=== PATIENT | female | born 1985 | race Caucasian/White ===

== ENCOUNTER 2024-01-01 07:47 | Emergency (ER) | payer MEDICAID, SELFPAY ==
[2024-01-01 07:52] VITALS: BP 126/86; PULSE 120; RESP 18; TEMP 36.1; O2SAT 99; BMI 28.2
--- NOTE | 2024-01-01 08:16 | ED_ITS ---
HPI - General Adult General Date Seen: 01/01/24 Chief complaint: Flank Pain Stated complaint: Blood in urine, chills Time Seen by Provider: 01/01/24 07:59 Source: patient Mode of arrival: ambulatory Limitations: no limitations History of Present Illness HPI narrative: Patient is a 38-year-old female presenting to the emergency department for lower abdominal pain. She states she recently had a ureter stent placed for kidney stones. We are trying to find out the details on when this was placed and she had difficulty answering the question but was able to tell me it was done at [facility] in she was there again over the weekend and discharged on Friday for a kidney infection. She states the pain seems to be getting better but got acutely worse again last night. This is the same pain she was feeling over the weekend when she had her infection. She does states she is having chills. Was supposed to have the stent out today but states the pain was so bad and she noted blood in her urine. She states she came here instead [place] because they were not managing her pain. Denies chest pain, shortness of breath, headache, weakness, numbness. Does states she is feeling nauseated but has not had any vomiting yet. Related Data Home Medications ?Medication ?Instructions ?Recorded ?Confirmed albuterol sulfate 90 mcg/actuation 2 puff inhalation Q4H PRN 01/01/24 01/01/24 aerosol inhaler (Ventolin HFA) buspirone 7.5 mg tablet 7.5 mg PO BID anxiety 01/01/24 01/01/24 clonazepam 1 mg tablet 1 mg PO QID PRN anxiety attack 01/01/24 01/01/24 desvenlafaxine succinate 25 mg 25 mg PO DAILY 01/01/24 01/01/24 tablet,extended release 24 hr hydroxyzine HCl 25 mg tablet mg PO 01/01/24 lamotrigine 150 mg tablet 150 mg PO DAILY 01/01/24 01/01/24 oxycodone 10 mg tablet 10 mg PO BID PRN 01/01/24 01/01/24 tamsulosin 0.4 mg capsule 0.4 mg PO DAILY 01/01/24 01/01/24 Review of Systems Status of ROS: Reports: 10 or more systems reviewed and unremarkable except as noted in History and below Exam Narrative: Exam Narrative: Const: Well-nourished, Well-developed, in moderate distress Eyes: PERRL, no conjunctival injection, and symmetrical lids HENT: Atraumatic external nose and ears. Moist mucous membranes. Neck: Symmetric, trachea midline, No thyromegaly. CVS: RRR, No murmurs or gallops. Peripheral pulses 2+ and equal in all extremities RESP: Unlabored respiratory effort. Clear to auscultation bilaterally. GI: Lower abdominal tenderness bilaterally, suprapubic tenderness. Nondistended, No rebound or guarding. MSK:Extremities w/o deformity, Normal Active ROM Skin: Warm, Dry. No rashes or lesions. Neuro: Normal Muscle tone, No focal neurological deficits. Psych: Awake, Alert, & Oriented x3. Appropriate mood and affect. Const: Vital Signs, click to edit/add: Vital Signs - 24 hr 01/01/24 07:52 Temperature 97 F L Pulse Rate [Right Pulse Oximeter] 120 H Respiratory Rate 18 Blood Pressure [Ri ght Upper Arm] 126/86 Pulse Oximetry 99 Oxygen Delivery Me thod Room Air Course Vital Signs Vital signs: Initial Vital Signs Temperature 97 F L 01/01/24 07:52 Temperature Source Temporal Artery Scan 01/01/24 07:52 Pulse Rate 120 H 01/01/24 07:52 Pulse Rhythm Regular 01/01/24 07:52 Pulse Strength 3+ Normal 01/01/24 07:52 Respiratory Rate 18 01/01/24 07:52 Blood Pressure 126/86 01/01/24 07:52 Blood Pressure Mean 99 01/01/24 07:52 Blood Pressure Position Standing 01/01/24 07:52 Pulse Oximetry 99 01/01/24 07:52 Oxygen Delivery Method Room Air 01/01/24 07:52 Vital Signs Temperature 97 F L 01/01/24 07:52 Pulse Rate 120 H 01/01/24 07:52 Respiratory Rate 18 01/01/24 07:52 Blood Pressure 126/86 01/01/24 07:52 Pulse Oximetry 99 01/01/24 07:52 Oxygen Delivery Method Room Air 01/01/24 07:52 Temperature 97 F L 01/01/24 07:52 Pulse Rate 120 H 01/01/24 07:52 Respiratory Rate 18 01/01/24 07:52 Blood Pressure 126/86 01/01/24 07:52 Pulse Oximetry 99 01/01/24 07:52 Oxygen Delivery Method Room Air 01/01/24 07:52 Medications Administered Medications: Discontinued Medications Generic Name Dose Route Start Last Admin Trade Name Aditya PRN Reason Stop Dose Admin Lactated Ringer's 1,000 mls @ 1,000 mls/hr 01/01/24 08:17 01/01/24 08:20 Lactated Ringers 1000 Ml IV 01/01/24 09:16 1,000 mls/hr .Q1H ONE Administration Ketorolac Tromethamine 15 mg 01/01/24 08:17 01/01/24 08:20 Ketorolac 15 Mg/Ml Inj IVP 01/01/24 08:18 15 mg ONCE ONE Administration Morphine Sulfate 4 mg 01/01/24 09:25 01/01/24 09:46 Morphine 4 Mg/Ml Inj IVP 01/01/24 09:26 4 mg ONCE ONE Administration Ondansetron HCl 4 mg 01/01/24 08:20 01/01/24 08:20 Ondansetron 2 Mg/Ml Inj IVP 01/01/24 08:21 4 mg ONCE ONE Administration Medical Decision Making MDM Narrative Medical decision making narrative: Patient is a 38-year-old female presenting to the emergency department for lower abdominal pain. Had a recent stent placed on 12/18/2023 per chart review. She is in pain and Toradol will be given her also give Zofran for nausea. CBC, CMP, urinalysis, urine test also ordered. L of fluids given for possible dehydration. Will also do CT scan to evaluate for any new causes of pain. CBC returned showing no concerning abnormalities. CMP shows a potassium of 3.0. Other that no concerning findings. Urinalysis shows blood but no obvious signs of a UTI. She does have some leukocyte esterase but there are no white blood cells and very few bacteria along with no nitrites. Seems unlikely to be UTI at this time. She was done pain and morphine was given. Her pain is now under control. CT scan returned showing [age] year old a stent extends in the renal pelvis to the bladder. There is some fat stranding around it but is likely related to the recent stent placement again there is no clear sign of a UTI. No signs of obstructing kidney stones. She is otherwise doing well at this time I believe she is safe for discharge. She is agreeable to this plan. Lab Data Labs: Lab Results 01/01/24 01/01/24 Range/Units 08:18 08:24 WBC 11.98 H (4.50-11.00) K/uL RBC 3.70 L (4.00-5.20) m/uL Hgb 11.4 L (12.0-16.0) gm/dL Hct 34.9 (33.0-51.0) % MCV 94 (80-100) fL MCH 31 (26-34) pg MCHC 33 (32-36) gm/dL RDW Coeff of Dev 13.6 (11.5-15.5) % Plt Count 364 (140-440) K/uL Neut % (Auto) 59.4 (42.0-72.0) % Lymph % (Auto) 34.5 (20-44) % [place] % (Auto) 3.6 (0.0-11.0) % Eos % (Auto) 1.9 (0.0-7.0) % Baso % (Auto) 0.3 (0.0-3.0) % Neut # (Auto) 7.10 H (1.7-7.0) K/uL Lymph # (Auto) 4.10 H (0.90-2.90) K/uL [place] # (Auto) 0.40 (0.00-0.90) K/UL Eos # (Auto) 0.20 (0.00-0.50) K/uL Baso # (Auto) 0.00 (0.00-0.30) K/uL Abs Immat Gran (auto) 0.00 (0.00-0.30) K/uL Imm/Tot Granulo (auto) 0.3 % Sodium 138 (135-149) mmol/L Potassium 3.0 L (3.6-5.1) mmol/L Chloride 106 (96-114) mmol/L Carbon Dioxide 24 (20-32) mmol/L Anion Gap 8 (7-15) mEq/L BUN 15 (5-24) mg/dL Creatinine 0.7 (0.5-1.5) mg/dL Estimated Creat Clear 105.34 Estimated GFR 113 ml/min Glucose 82 (60-115) mg/dL Calcium 8.9 (8.4-10.6) mg/dL Total Bilirubin 0.4 (0.1-1.5) mg/dL AST 19 (12-35) U/L ALT 13 (4-35) U/L Alkaline Phosphatase 65 (40-150) U/L Total Protein 7.0 (6.0-8.3) g/dL Albumin 4.3 (3.3-5.0) g/dL Urine Color Red A (Yellow) Urine Appearance Slightly Cloudy A (Clear) Urine pH 7.0 (5.0-8.5) Ur Specific [place] 1.025 (1.000-1.030) Urine Protein 2+ A (Negative) Urine Glucose (UA) Negative (Negative) Urine Ketones Negative (Negative) Urine Blood 3+ A (Negative) Urine Nitrite Negative (Negative) Urine Bilirubin Negative (Negative) Urine Urobilinogen 0.2 (0.2-1.0) Ur Leukocyte Esterase 1+ A (Negative) Urine RBC >100 A (0-2) Urine WBC 2-5 (0-5) Ur Squamous Epith Cells Few (None-Few) Urine Bacteria Few A (None) Urine HCG, Qual Negative (Negative) Imaging Data CT scan abdomen and pelvis: Radiologist's impression: 1. Nephrolithiasis with mild right pelvocaliectasis. Right ureteral stent extends from the renal pelvis to the bladder. Some fat stranding/inflammation surrounding the right ureter which may be related to recent stent placement. 2. No dilated loops of large or small intestine. Please note that all CT scans at this facility use dose modulation, iterative reconstruction, and/or weight-based dosing when appropriate to reduce radiation dose to as low as reasonably achievable. Dictated by Jude Lopes MD @ 01/01/2024 10:15:19 AM Discharge Plan Discharge Clinical Impression: Abdominal pain Qualifiers: Abdominal location: lower abdomen, unspecified Qualified Code(s): R10.30 - Lower abdominal pain, unspecified Patient Disposition: Home, Self-Care Condition: Improved Instructions: Abdominal Pain (ED) Additional Instructions: This pain may be related to the stent you have any your ureter. Following your urologist directions on its removal. Prescriptions: No Action lamotrigine 150 mg tablet 150 mg PO DAILY clonazepam 1 mg tablet 1 mg PO QID PRN (Reason: anxiety attack) tamsulosin 0.4 mg capsule 0.4 mg PO DAILY buspirone 7.5 mg tablet 7.5 mg PO BID hydroxyzine HCl 25 mg tablet PO albuterol sulfate [Ventolin HFA] 90 mcg/actuation HFA aerosol inhaler 2 puff INHALATION Q4H PRN oxycodone 10 mg tablet 10 mg PO BID PRN desvenlafaxine succinate 25 mg tablet extended release 24 hr 25 mg PO DAILY Follow Up/Referrals: Provider,Not a Local [Staff Physician] - Stand Alone Forms: Lettuce Info Instructions
--- NOTE | 2024-01-01 08:18 | CRLHL7_ITS ---
For Patients: As a result of the Century Cures Act, medical imaging exams and procedure reports are released immediately into your electronic medical record. You may view this report before your referring provider. If you have questions, please contact your health care provider. INDICATION: Lower abdominal pain, recent ureter stent placed TECHNIQUE: Axial images were obtained from the diaphragm to the pubic symphysis. Reformats were obtained in the coronal and sagittal plane. IV Contrast: 66 cc Isovue 370 Oral Contrast: None COMPARISON: None. FINDINGS: Lower chest: Unremarkable. Liver: Unremarkable. Normal in size and attenuation. No masses. Gallbladder and bile ducts: Status post cholecystectomy with normal diameter common duct. Spleen: Unremarkable. Normal in size without mass. Pancreas: Unremarkable. No mass or inflammation. Adrenal glands: Unremarkable. No nodules. Kidneys: Symmetric renal enhancement with mild right pelvocaliectasis. Nonobstructing nephrolithiasis. Right ureteral stent extending from the renal pelvis to the bladder. Mild fat stranding surrounding the right ureter. Vasculature: Unremarkable. GI tract: The stomach is unremarkable. No dilated loops of large or small intestine. Suture line at the cecal tip suggesting prior appendectomy. Pelvis: Unremarkable. Bones: Unremarkable for age. IMPRESSION: 1. Nephrolithiasis with mild right pelvocaliectasis. Right ureteral stent extends from the renal pelvis to the bladder. Some fat stranding/inflammation surrounding the right ureter which may be related to recent stent placement. 2. No dilated loops of large or small intestine. Please note that all CT scans at this facility use dose modulation, iterative reconstruction, and/or weight-based dosing when appropriate to reduce radiation dose to as low as reasonably achievable. Dictated by Jude Lopes MD @ 01/01/2024 10:15:19 AM (Electronically Signed)
[2024-01-01] MEDS: LACTATED RINGERS 1000 ML 1,000 ML IV (08:20)
[2024-01-01] MEDS: KETOROLAC 15 MG/ML inj IVP (08:20)
[2024-01-01] MEDS: ONDANSETRON 2 MG/ML inj 4 MG IVP (08:20)
[2024-01-01 08:34] LABS: Basophils Percent Auto 0.3 % (0.0-3.0); Eosinophils Percent Auto 1.9 % (0.0-7.0); Hematocrit 34.9 % (33.0-51.0); Hemoglobin* 11.4 gm/dL (12.0-16.0); Immature Granulocytes Pct Auto 0.3 %; Lymphocytes Percent Auto 34.5 % (20-44); Mean Corpuscular HGB Conc 33 gm/dL (32-36); Mean Corpuscular Hemoglobin 31 pg (26-34); Mean Corpuscular Volume 94 fL (80-100); Monocytes Percent Auto 3.6 % (0.0-11.0); Neutrophils Percent Auto 59.4 % (42.0-72.0); Platelet Count* 364 K/uL (140-440); RDW Coefficient of Variation % 13.6 % (11.5-15.5); White Blood Count* 11.98 K/uL (4.50-11.00)
[2024-01-01 08:35] LABS: Appearance Urine Slightly Cloudy (Clear); Bilirubin Urine Negative (Negative); Blood Urine 3+ (Negative); Color Urine Red (Yellow); Glucose Urine Negative (Negative); Ketones Urine Negative (Negative); Leukocyte Esterase Urine 1+ (Negative); Nitrite Urine Negative (Negative); Protein Urine 2+ (Negative); Specific Gravity Urine 1.025 (1.000-1.030); Urobilinogen Urine 0.2 (0.2-1.0)
[2024-01-01 08:35] LABS: Slide Review Reflex No
[2024-01-01 08:38] LABS: Ur HCG Qualitative* Negative (Negative)
--- OUTSIDE RECORDS SUMMARY | 2024-01-01 08:43 | XMS_ITS | Referral Summary ---
Author Organization [place] Address [address] [facility] [place] [address] Care Team Providers Care Logistics Lead Name Role Phone Zara Thurston MD [facility], [facility] Primary Care Provid er Encounters Date Type Department Care Team Description 12/27/2023 5:21 PM CDT - 12/29/2023 12:44 PM CDT Hospital Encounter [facility] 5 Medical Surgical [address] [place] [address] Sam Link MD Ricklefs, Kendall D, DO Pain due to ureteral stent, initial encounter (H24) (Primary Dx); Pyelonephritis; Ureteral stone Discharge Disposition: Home or Self Care 12/28/2023 6:06 PM CDT Anesthesia Event [facility] PeriOp Services [address] [place] [address] Gil Alvarez MD Severson, Dean Dennis, SARAH MANAGER EXCHANGE 12/28/2023 6:00 PM CDT - 12/28/2023 7:20 PM CDT Surgery [facility]iOp Services [address] [place] [address] Leighton Bonilla MD Cystoscopy, right ureteroscopy with laser lithotripsy, right ureteroscopy with stone basketing, right retrograde pyelogram, right ureteral stent exchange 12/27/2023 Travel 12/22/[address] [address] Stas Bautista MD 12/18/2023 Medical Correspondence [facility] PeriOp Services [address] [place] [address] Scan, Non-Provider 12/18/2023 9:02 AM CDT Anesthesia Event [facility] [address] [place] [address] Raj Brown, DO 12/18/2023 5:00 AM CDT - 12/18/2023 11:29 AM CDT Emergency [facility] PreOP/PostOP [address] [place] [address] Radha Ziegler MD Salay, MD Michele Sanders Bryan D, MD Right ureteral stone (Primary Dx); Right flank pain; Urinary tract infection without hematuria, site unspecified Discharge Disposition: Home or Self Care 12/18/2023 9:00 AM CDT - 12/18/2023 9:55 AM CDT Surgery [facility] [address] [place] [address] Stas Bautista MD Cystoscopy, right retrogrades, right ureteral stent insertion 12/17/2023 Travel 12/17/2023 4:08 PM CDT - 12/17/2023 7:49 PM CDT Emergency [facility] Emergency Dept [address] [place] [address] Benita Bullard MD Ureterolithiasis; Right flank pain; Acute cystitis with hematuria Discharge Disposition: Home or Self Care from Last 3 Months Allergies Active Allergy Reactions Criticality Noted Date Comments Cefoxitin Rash Low 03/31/2017 Escitalopram Other (See Comments) High 09/20/2009 Other reaction(s): Extrapyramidal Symptoms Lactose Other (See Comments) 09/20/2009 No reaction listed in [facility] Sertraline Difficulty breathing,Other (See Comments),Shortness Of Breath High 09/22/2010 No reaction listed in [facility] Hydrocodone-Acetamino phen 12/19/2015 Medications Medication Sig Dispensed Refills Start Date End Date Status amphetamine-dext roamphetamine (ADDERALL) 20 MG tablet Take 1 tablet by mouth 3 times daily 12/09/2023 Active clonazePAM (KLONOPIN) 2 MG tablet TAKE 1/2 TABLET BY MOUTH THREE TIMES DAILY NEEDED FOR ANXIETY 12/09/2023 Active oxyBUTYnin ER (DITROPAN XL) 5 MG 24 hr tabletIndication s:Right ureteral stone Take 1 tablet (5 mg) by mouth daily Take daily until your stent is removed. 30 tablet 1 12/18/2023 Active tamsulosin (FLOMAX) 0.4 MG capsuleIndicatio ns:Right ureteral stone Take 1 capsule (0.4 mg) by mouth daily Take daily until your stent is removed. 30 capsule 1 12/18/2023 Active VENTOLIN HFA 108 (90 Base) MCG/ACT inhaler Inhale 2 puffs into the lungs every 4 hours as needed for shortness of breath or wheezing Active lamoTRIgine (LAMICTAL) 150 MG tablet Take 1 tablet by mouth daily 12/09/2023 Active NYSTOP [id number] UNIT/GM powder Apply topically 4 times daily Active acetaminophen (TYLENOL) 500 MG tabletIndication s:Pain due to ureteral stent, initial encounter (H24) Take 1-2 tablets (500-1,000 mg) by mouth every 6 hours as needed for pain (and adjunct with moderate or severe pain or per patient request) 12/29/2023 Active hydrOXYzine HCl (ATARAX) 25 MG tabletIndication s:Pain due to ureteral stent, initial encounter (H24) Take 1 tablet (25 mg) by mouth every 6 hours as needed for other or anxiety (adjuvant pain) 30 tablet 12/29/2023 Active oxyCODONE (ROXICODONE) 10 MG tabletIndication s:Pain due to ureteral stent, initial encounter (H24) Take 0.5 tablets (5 mg) by mouth every 6 hours as needed for moderate to severe pain (IF pain not managed with non-pharmacolog ical and non-opioid interventions) 24 tablet 12/29/2023 Active sulfamethoxazole -trimethoprim (BACTRIM DS) 800-160 MG tabletIndication s:Pyelonephritis Take 1 tablet by mouth 2 times daily for 7 days 14 tablet 12/29/2023 01/05/2024 Active Ondansetron (ZOFRAN ODT PO) 12/28/2023 Discontin ued (Med Rec(No AVS / No eCancel)) clonazePAM (KLONOPIN) 1 MG tablet TAKE 1 TABLET BY MOUTH FOUR TIMES DAILY NEEDED FOR ANXIETY OR SEVERE ANXIETY 10/30/2023 12/28/2023 Discontinued (Med Rec(No AVS / No eCancel)) ciprofloxacin (CIPRO) 500 MG tablet Take 1 tablet (500 mg) by mouth 2 times daily for 7 days 14 tablet 12/17/2023 12/24/2023 oxyCODONE (ROXICODONE) 5 MG tablet Take 1 tablet (5 mg) by mouth every 6 hours as needed for pain 12 tablet 12/17/2023 12/20/2023 ketorolac (TORADOL) 10 MG tabletIndication s:Right ureteral stone Take 1 tablet (10 mg) by mouth every 6 hours for 5 days 20 tablet 12/18/2023 12/23/2023 guanFACINE (INTUNIV) 1 MG TB24 24 hr tablet Take 1 tablet by mouth daily 10/28/2023 12/28/2023 Discontinued (Med Rec(No AVS / No eCancel)) albuterol (PROAIR HFA/PROVENTIL HFA/VENTOLIN HFA) 108 (90 Base) MCG/ACT inhaler Inhale 2 puffs into the lungs every 4 hours as needed for shortness of breath, wheezing or cough 12/28/2023 Discontinued (Med Rec(No AVS / No eCancel)) lamoTRIgine (LAMICTAL) 150 MG tablet Take 150 mg by mouth daily 12/28/2023 Discontinued (Med Rec(No AVS / No eCancel)) Active Problems Problem Noted Date Diagnosed Date Pyelonephritis 12/27/2023 Anxiety 12/22/2012 ADHD (attention deficit hyperactivity disorder) 12/22/2012 Smoker 09/02/2012 CARDIOVASCULAR SCREENING; LDL GOAL LESS THAN 160 09/02/2012 Endometriosis 09/02/2012 Contraception 09/02/2012 Immunizations Name Administration Dates Next Due Flu 65+ Years 04/03/2009,05/14/2006 Flu, Unspecified 04/14/2015,04/03/2009, 6 [id number] Novel Flu 05/01/2009 HPV Quadrivalent 07/29/2011,07/15/2008, 7 HepB, Unspecified 08/20/2016 Hepatitis B Immunity: Titer 08/20/2016 Historical DTP/aP 12/22/1986,1985,05/27/19 85 Influenza (H1N1) 05/01/2009 Influenza (IIV3) PF 04/03/2009,05/14/2006 Influenza Vaccine >6 months,quad, PF 04/14/2015 MMR 02/07/2018,09/27/1997,11/24/1986 Polio, Unspecified 12/22/1986,1985 Rubella 08/20/2016 Rubella Immunity: Titer/md Dx 08/20/2016 TDAP (Adacel,Boostrix) 12/02/2017,2016,07/29/2011,2009,09/27/1997 Td (Adult), Adsorbed 09/27/1997 Social History Tobacco Use Types Packs/Day Years Used Date Smoking Tobacco: Every Day Smokeless Tobacco: Never Comments:Social Alcohol Use Standard Drinks/Week Comments Yes 0 (1 standard drink = 0.6 oz pur e alcohol) rarely Adolescent Education Answer Date Record ed Getting School Help Needed Not on file 12/16 Sex and Gender Information Value Date Recorded Sex Assigned at Not on file Gender Identity Not on file Sexual Orientation Not on file Last Filed Vital Signs Vital Sign Reading Time Taken Comments Blood Pressure 149/92 12/29/2023 8:12 AM CDT Pulse 105 12/29/2023 8:12 AM CDT Temperature 36.9 ??C (98.5 ??F) 12/29/2023 8:12 AM CD T Respiratory Rate 16 12/29/2023 8:12 AM CDT Oxygen Saturation 96% 12/29/2023 8:12 AM CDT Inhaled Oxygen Concentration - - Weight 60 kg (132 lb 3.2 oz) 12/27/2023 9:20 PM CDT Height 147.3 cm (4' 10) 12/27/2023 9:20 PM CDT Body Mass Index 27.63 12/27/2023 9:20 PM CDT Plan of Treatment Not on file Medical Devices Implanted Type Area Quality Assurance Tester Device Identifier Shelf Expiration Date Model / Serial / Lot Stent Ureteral Polaris Ultra [id number] - [id number] Implanted:Qty : 1 on 12/18/2023 by Stas Bautista MD at [facility] Stent Right: Urethra [employer] [id number] 08/31/2026 [id number] 10 / / [id number] Stent Ureteral Polaris Ultra [id number] - [id number] Implanted:Qty : 1 on 12/28/2023 by Leighton Bonilla MD at [facility] Stent Right: Abdomen [employer] 07/17/2026 [id number] 10 / / [id number] Procedures Procedure Name Priority Date/Time Associated Diagnosis Comments HEMOGLOBIN Routine 12/29/2023 6:40 AM CDT XR SURGERY ZBIGNIEW FLUORO LESS THAN 5 MIN W STILLS Routine 12/28/2023 6:47 PM CDT STONE ANALYSIS Routine 12/28/2023 6:34 PM CDT ANE AIRWAY SUPRAGLOTTIC PERFORMABLE Routine 12/28/2023 6:18 PM CDT CYSTOURETEROSCOPY, WITH RETROGRADE PYELOGRAM, HOLMIUM LASER LITHOTRIPSY OF URETERAL CALCULUS, AND STENT INSERTION 12/28/2023 6:08 PM CDT Pain due to ureteral stent, initial encounter (H24) Ureteral stone CBC WITH PLATELETS Routine 12/28/2023 8: 37 AM CDT COMPREHENSIVE METABOLIC PANEL Routine 12/28/2023 8:37 AM CDT BLOOD CULTURE STAT 12/27/2023 7:27 PM CDT LACTIC ACID WHOLE BLOOD STAT 12/27/2023 7:27 PM CDT BLOOD CULTURE STAT 12/27/2023 7:[address] ABDOMEN PELVIS W CONTRAST STAT 12/27/2023 6:02 PM CDT CBC WITH PLATELETS & DIFFERENTIAL STAT 12/27/2023 5:38 PM CDT CBC WITH PLATELETS AND DIFFERENTIAL STAT 12/27/2023 5:38 PM CDT LACTIC ACID WHOLE BLOOD STAT 12/27/2023 5:38 PM CDT HCG QUALITATIVE STAT 12/27/2023 5:38 PM CDT COMPREHENSIVE METABOLIC PANEL STAT 12/27/2023 5:38 PM CDT URINE CULTURE STAT 12/27/2023 5:17 PM CDT ROUTINE UA WITH MICROSCOPIC REFLEX TO CULTURE STAT 12/27/2023 5:17 PM CDT XR SURGERY ZBIGNIEW FLUORO LESS THAN 5 MIN W STILLS Routine 12/18/2023 9:32 AM CDT URINE CULTURE Routine 12/18/2023 9:25 AM CDT ANE AIRWAY SUPRAGLOTTIC PERFORMABLE Routine 12/18/2023 9:20 AM CDT CYSTOSCOPY, WITH RETROGRADE PYELOGRAM AND URETERAL STENT INSERTION 12/18/2023 9:04 AM CDT Stone, kidney ABO/RH TYPE AND SCREEN STAT 6:03 AM CDT CBC WITH PLATELETS & DIFFERENTIAL STAT 12/18/2023 6:03 AM CDT TYPE AND SCREEN, ADULT STAT 6:03 AM CDT CBC WITH PLATELETS AND DIFFERENTIAL STAT 12/18/2023 6:03 AM CDT BASIC METABOLIC PANEL STAT 12/18/2023 6:03 AM CDT URINE CULTURE STAT 12/17/2023 6:05 PM CDT ROUTINE UA WITH MICROSCOPIC REFLEX TO CULTURE STAT 12/17/2023 6:[address] ABDOMEN PELVIS W CONTRAST STAT 12/17/2023 5:46 PM CDT CBC WITH PLATELETS & DIFFERENTIAL STAT 12/17/2023 3:46 PM CDT HCG QUALITATIVE STAT 12/17/2023 3:46 PM CDT LIPASE Add-On 12/17/2023 3:46 PM CDT CBC WITH PLATELETS AND DIFFERENTIAL STAT 12/17/2023 3:46 PM CDT EXTRA RED TOP TUBE STAT 12/17/2023 3: 46 PM CDT EXTRA BLUE TOP TUBE STAT 12/17/2023 3 :46 PM CDT BASIC METABOLIC PANEL STAT 12/17/2023 3:46 PM CDT EXTRA TUBE STAT 12/17/2023 3:46 PM CDT HIV 1 AND 2 ANTIBODY (QUEST) Routine 01/20/2013 2:37 PM CDT Screen for STD (sexually transmitted disease) PAP IMAGED THIN LAYER SCREEN Routine 01/20/2013 12:00 AM CDT Screening for malignant neoplasm of the cervix from Last 3 Months or Most Recently Relevant to Health Maintenance Results * (ABNORMAL) Hemoglobin (12/29/2023 6:40 AM CDT) Hemoglobin 11.2(L) 11.7 - 15.7 g/dL 12/29/2023 6:52 AM CDT [facility] Blood STRUCTURE OF LEFT HAND / Unknown Venipuncture / Unknown 12/29/2023 6:40 AM CDT 12/29/2023 6:44 AM CDT Zeb Henderson MD LAB - BLOOD ORDER MARIMAR [facility] [address] Lab (1st floor, no room number) [place] [address] * XR Surgery ZBIGNIEW L/T 5 Min Fluoro w Stills (12/28/2023 6:47 PM CDT) Only the most recent of2 resultswithin the time period is included. Narrative [facility] - 12/28/2023 6:48 PM CDT This exam was marked as non-reportable because it will not be read by a radiologist or a [place] non-radiologist provider. Leighton Bonilla MD IMG DIAGNOSTIC IMAGI NG ORDERABLES Performing Organization Address City/[facility]/ZIP Co de Phone Number [facility] * Stone analysis (12/28/2023 6:34 PM CDT) Stone Mass 17 mg 12/31/2023 11:06 AM CDT [employer] Calculi Description See Note 12/31/2023 11:06 AM CDT [employer] Comment: Specimen consists of three brown and adames calculi fragments. The total weight is 17 mg. Stone Composition See Note 024 11:06 AM CDT [employer] Comment: Calculi composed primarily of: 60% calcium oxalate monohydrate, 10% calcium oxalate dihydrate, and 30% calcium phosphate (hydroxy- and carbonate- apatite). INTERPRETIVE INFORMATION: Calculi (Stone) analysis Calculi are the products of physiological processes that yield crystalline compounds in a matrix of biological compounds and blood. ??Matrix components are not reported. ?? The clinically significant crystalline components identified in calculi specimens are reported. ??Gross description may not be consistent with composition determined by FTIR analysis. Performed By: [facility] [address] [place] [id number] [employer] Decorative: Daniel Kahn MD, PhD CLIA Number: [id number] Calculus/Stone STRUCTURE OF RIGHT URETER / Unknown Non-blood Collection / Unknown 12/28/2023 6:34 PM CDT 12/28/2023 7:10 PM CDT Leighton Bonilla MD LAB - BODY FLUIDS OR DERABLES [facility] [address] [place] [address], [facility] [phone] * ANE AIRWAY SUPRAGLOTTIC PERFORMABLE (12/28/2023 6:18 PM CDT) Only the most recent of2 resultswithin the time period is included. Narrative Wayne Rutledge APRN MANAGER EXCHANGE - 12/28/2023 6:18 PM CDT Wayne Rutledge APRN CRNA ? 12/28/2023 ??6:18 PM Airway ? Patient location during procedure: OR Staff - ? Anesthesiologist: ??Gil Alvarez MD ? MANAGER EXCHANGE: Wayne Rutledge APRN MANAGER EXCHANGE ? Performed By: MANAGER EXCHANGE Consent for Airway ? Urgency: elective Indications and Patient Condition ? Indications for airway management: cherry-procedural and airway protection ? Induction type:intravenous ? Mask difficulty assessment: 1 - vent by mask Final Airway Details ? Final airway type: supraglottic airway Supraglottic Airway Details ? Type: LMA ? Brand: I-Gel ? LMA size: 4 Post intubation assessment ? Placement verified by: capnometry, equal breath sounds and chest rise ? Number of attempts at approach: 1 ? Number of other approaches attempted: 0 ? Secured with: commercial tube rico ? Ease of procedure: easy ? Dentition: Intact and Unchanged Gil Alvarez MD ND ANESTHESIA * (ABNORMAL) Comprehensive metabolic panel (12/28/2023 8:37 AM CDT) Only the most recent of2 resultswithin the time period is included. Sodium 139 135 - 145 mmol/L 12/28/2023 9:20 AM CDT LABORATORY Potassium 4.1 3.4 - 5.3 mmol/L 12/28/2023 9:20 AM CDT LABORATORY Carbon Dioxide (CO2) 21(L) 22 - 29 mmol/L 12/28/2023 9:20 AM CDT [facility] Anion Gap 10 7 - 15 mmol/L 12/28/2023 9:20 AM CDT [facility] Urea Nitrogen 18.5 6.0 - 20.0 mg/dL 12/28/2023 9:20 AM CDT [facility] Creatinine 0.67 0.51 - 0.95 mg/dL 12/28/2023 9:20 AM CDT [facility] GFR Estimate >90 >60 mL/min/1. 73m2 12/28/2023 9:20 AM CDT [facility] Comment:eGFR calculated us2020 CKD-EPI equation. Calcium 8.1(L) 8.6 - 10.0 mg/dL 12/28/2023 9:20 AM CDT [facility] Chloride 108(H) 98 - 107 mmol/L 12/28/2023 9:20 AM CDT [facility] Glucose 98 70 - 99 mg/dL 12/28/2023 9:20 AM CDT [facility] Alkaline Phosphatase 52 40 - 150 U/L 12/28/2023 9:20 AM CDT [facility] AST 19 0 - 45 U/L 12/28/2023 9:20 AM CDT [facility] Comment:Reference intervals for this test were updated on 11/25/2022 to more accurately reflect our healthy population. There may be differences in the flagging of prior results with similar values performed with this method. Interpretation of those prior results can be made in the context of the updated reference intervals. ALT 10 0 - 50 U/L 12/28/2023 9:20 AM CDT [facility] Comment:Reference intervals for this test were updated on 11/25/2022 to more accurately reflect our healthy population. There may be differences in the flagging of prior results with similar values performed with this method. Interpretation of those prior results can be made in the context of the updated reference intervals. Protein Total 6.0(L) 6.4 - 8.3 g/dL 12/28/2023 9:20 AM CDT [facility] Albumin 3.7 3.5 - 5.2 g/dL 12/28/2023 9:20 AM CDT [facility] Bilirubin Total 0.2 <=1.2 mg/dL 12/28/2023 9:20 AM CDT [facility] Blood STRUCTURE OF RIGHT UPPER LIMB / Unknown Venipuncture / Unknown 12/28/2023 8:37 AM CDT 12/28/2023 8:52 AM CDT Nash Alfonso DO LAB - BLOOD ORDERA BLES [facility] [address] Lab (1st floor, no room number) [place] [address] * (ABNORMAL) CBC with platelets (12/28/2023 8:37 AM CDT) [facility] WBC Count 9.2 4.0 - 11.0 10e3/uL 12/28/2023 8:55 AM CDT [facility] RBC Count 3.59(L) 3.80 - 5.20 10e6/uL 12/28/2023 8:55 AM CDT [facility] Hemoglobin 10.8(L) 11.7 - 15.7 g/dL 12/28/2023 8:55 AM CDT [facility] Hematocrit 34.8(L) 35.0 - 47.0 % 12/28/2023 8:55 AM CDT [facility] MCV 97 78 - 100 fL 12/28/2023 8:55 AM CDT [facility] MCH 30.1 26.5 - 33.0 pg 12/28/2023 8:55 AM CDT [facility] MCHC 31.0(L) 31.5 - 36.5 g/dL 12/28/2023 8:55 AM CDT [facility] RDW 13.6 10.0 - 15.0 % 12/28/2023 8:55 AM CDT [facility] Platelet Count 371 150 - 450 10e3/uL 12/28/2023 8:55 AM CDT [facility] Blood STRUCTURE OF RIGHT UPPER LIMB / Unknown Venipuncture / Unknown 12/28/2023 8:37 AM CDT 12/28/2023 8:52 AM CDT Nash Alfonso DO LAB - BLOOD ORDERA BLES [facility] [address] Lab (1st floor, no room number) [place] [address] * Lactic acid whole blood (12/27/2023 7:27 PM CDT) Only the most recent of2 resultswithin the time period is included. Lactic Acid 1.2 0.7 - 2.0 mmol/L 12/27/2023 7:42 PM CDT LABORATORY Blood STRUCTURE OF RIGHT UPPER LIMB / Unknown Venipuncture / Unknown 12/27/2023 7:27 PM CDT 12/27/2023 7:33 PM CDT Sam Link MD LAB - BLOOD ORDERABL ES [facility] [address] Lab (1st floor, no room number) [place] [phone] * CT Abdomen Pelvis w Contrast (12/27/2023 6:02 PM CDT) Only the most recent of2 resultswithin the time period is included. Anatomical Region Laterality Modality Abdomen/Pelvis, SUBRAD CT REENA DY, UMP CT ABDOMEN PELVIS, RAD CT Computed Tomography 12/27/2023 6:02 PM CDT Impressions 12/27/2023 6:33 PM CDT IMPRESSION: 1. ??Right pyelonephritis. No renal abscess. 2. ??Appropriately positioned right ureteral stent. The previously obstructing 4 mm calculus is now adjacent to the stent within the mid right ureter. No hydronephrosis. 3. ??Single nonobstructing calculus within each kidney measuring up to 7 mm on the left. Narrative 12/27/2023 6:33 PM CDT EXAM: CT ABDOMEN PELVIS W CONTRAST LOCATION: [facility] DATE: 12/27/2023 INDICATION: Right flank pain. COMPARISON: CT abdomen pelvis 12/17/2023. TECHNIQUE: CT scan of the abdomen and pelvis was performed following injection of IV contrast. Multiplanar reformats were obtained. Dose reduction techniques were used. CONTRAST: 63mL Isovue 370 FINDINGS: LOWER CHEST: Subsegmental atelectasis. HEPATOBILIARY: Cholecystectomy with unchanged mild post cholecystectomy biliary ductal ectasia. No liver lesions. PANCREAS: Normal. SPLEEN: Normal. ADRENAL GLANDS: Normal. KIDNEYS/BLADDER: Interval placement of a double-J right ureteral stent, with proximal coil within the right renal pelvis and distal coil within the urinary bladder. Patchy areas of decreased cortical enhancement within the right kidney compatible with pyelonephritis. No renal abscess. Nonobstructing 2 mm right upper pole renal calculus. Nonobstructing 7 mm left upper pole renal calculus. No hydronephrosis. A 4 mm calculus is present within the mid right ureter adjacent to the stent. Bladder is partially decompressed. BOWEL: Stomach is distended with ingested material. No bowel obstruction or inflammation. Appendix is absent. Few noninflamed sigmoid colonic diverticuli. LYMPH NODES: No enlarged lymph nodes. VASCULATURE: Patent portal, splenic, and superior mesenteric veins. No abdominal aortic aneurysm. PELVIC ORGANS: Retroverted uterus. MUSCULOSKELETAL: No acute bony abnormality. Procedure Note Avery Estrada MD - 12/27/2023 EXAM: CT ABDOMEN PELVIS W CONTRAST LOCATION: [facility] DATE: 12/27/2023 INDICATION: Right flank pain. COMPARISON: CT abdomen pelvis 12/17/2023. TECHNIQUE: CT scan of the abdomen and pelvis was performed followinginjection of IV contrast. Multiplanar reformats were obtained. Dosereduction techniques were used. CONTRAST: 63mL Isovue 370 FINDINGS: LOWER CHEST: Subsegmental atelectasis. HEPATOBILIARY: Cholecystectomy with unchanged mild post cholecystectomybiliary ductal ectasia. No liver lesions. PANCREAS: Normal. SPLEEN: Normal. ADRENAL GLANDS: Normal. KIDNEYS/BLADDER: Interval placement of a double-J right ureteral stent,with proximal coil within the right renal pelvis and distal coil withinthe urinary bladder. Patchy areas of decreased cortical enhancement withinthe right kidney compatible with pyelonephritis. No renal abscess. Nonobstructing 2 mm right upper polerenal calculus. Nonobstructing 7 mm left upper pole renal calculus. Nohydronephrosis. A 4 mm calculus is present within the mid right ureteradjacent to the stent. Bladder is partially decompressed. BOWEL: Stomach is distended with ingested material. No bowel obstructionor inflammation. Appendix is absent. Few noninflamed sigmoid colonicdiverticuli. LYMPH NODES: No enlarged lymph nodes. VASCULATURE: Patent portal, splenic, and superior mesenteric veins. Noabdominal aortic aneurysm. PELVIC ORGANS: Retroverted uterus. MUSCULOSKELETAL: No acute bony abnormality. IMPRESSION: 1. Right pyelonephritis. No renal abscess. 2. Appropriately positioned right ureteral stent. The previouslyobstructing 4 mm calculus is now adjacent to the stent within the midright ureter. No hydronephrosis. 3. Single nonobstructing calculus within each kidney measuring up to 7 mmon the left. Sam Link MD IMG CT ORDERABLES * (ABNORMAL) CBC with platelets and differential (12/27/2023 5:38 PM CDT) Only the most recent of3 resultswithin the time period is included. WBC Count 11.3(H) 4.0 - 11.0 10e3/uL 12/27/2023 5:44 PM CDT [facility] RBC Count 4.06 3.80 - 5.20 10e6/uL 12/27/2023 5:44 PM CDT [facility] Hemoglobin 12.2 11.7 - 15.7 g/dL 12/27/2023 5:44 PM CDT [facility] Hematocrit 38.2 35.0 - 47.0 % 12/27/2023 5:44 PM CDT [facility] MCV 94 78 - 100 fL 12/27/2023 5:44 PM CDT [facility] MCH 30.0 26.5 - 33.0 pg 12/27/2023 5:44 PM CDT [facility] MCHC 31.9 31.5 - 36.5 g/dL 12/27/2023 5:44 PM CDT [facility] RDW 13.5 10.0 - 15.0 % 12/27/2023 5:44 PM CDT [facility] Platelet Count 440 150 - 450 10e3/uL 12/27/2023 5:44 PM CDT [facility] % Neutrophils 58 % 12/27/2023 5:44 PM CDT [facility] % Lymphocytes 35 % 12/27/2023 5:44 PM CDT [facility] % Monocytes 4 % 12/27/2023 5:44 PM CDT [facility] % Eosinophils 2 % 12/27/2023 5:44 PM CDT [facility] % Basophils 0 % 12/27/2023 5:44 PM CDT [facility] % Immature Granulocytes 1 % 12/27/2023 5:44 PM CDT [facility] NRBCs per 100 WBC 0 <1 /100 024 5:44 PM CDT [facility] Absolute Neutrophils 6.5 1.6 - 8.3 10e3/uL 12/27/2023 5:44 PM CDT [facility] Absolute Lymphocytes 3.9 0.8 - 5.3 10e3/uL 12/27/2023 5:44 PM CDT [facility] Absolute Monocytes 0.5 0.0 - 1.3 10e3/uL 12/27/2023 5:44 PM CDT [facility] Absolute Eosinophils 0.2 0.0 - 0.7 10e3/uL 12/27/2023 5:44 PM CDT [facility] Absolute Basophils 0.1 0.0 - 0.2 10e3/uL 12/27/2023 5:44 PM CDT [facility] Absolute Immature Granulocytes 0.1 <=0.4 10e3/uL 12/27/2023 5:44 PM CDT [facility] Absolute NRBCs 0.0 10e3/uL 12/27/2023 5:44 PM CDT [facility] Blood BLOOD SPECIMEN / Unknown Venipuncture / Unknown 12/27/2023 5:38 PM CDT 12/27/2023 5:42 PM CDT Sam Link MD LAB - BLOOD ORDERABL ES [facility] [address] [facility] Lab (1st floor, no room number) [place] [address], [facility] * HCG QUALitative (blood) (12/27/2023 5:38 PM CDT) Only the most recent of2 resultswithin the time period is included. hCG Serum Qualitative Negative Negative DAFNE 12/27/2023 6:41 PM CDT [facility] Comment:This test is for scr eening purposes. Results should be interpreted along with the clinical picture. Confirmation testing is available if warranted by ordering [id number], HCG Quantitative . Blood BLOOD SPECIMEN / Unknown Venipuncture / Unknown 12/27/2023 5:38 PM CDT 12/27/2023 5:42 PM CDT Sam Link MD LAB - BLOOD ORDERABL ES [facility] [address] Lab (1st floor, no room number) [place] [address], [facility] * (ABNORMAL) UA with Microscopic reflex to Culture (12/27/2023 5:17 PM CDT) Only the most recent of2 resultswithin the time period is included. Color Urine Dark Brown(A) Colorless, Straw, Light Yellow, Yellow 12/27/2023 5:52 PM CDT LABORATORY Appearance Urine Cloudy(A) Clear 12/27/19 24 5:52 PM CDT LABORATORY Glucose Urine Negative Negative mg/dL 12/27/2023 5:52 PM CDT LABORATORY Bilirubin Urine Negative Negative 5:52 PM CDT LABORATORY Ketones Urine Negative Negative mg/dL 12/27/2023 5:52 PM CDT LABORATORY Specific [place] Urine 1.027 1.003 - 1.035 12/27/2023 5:52 PM CDT LABORATORY Blood Urine Large(A) Negative 12/27/2023 5:52 PM CDT LABORATORY pH Urine 6.0 5.0 - 7.0 12/27/2023 5:52 PM CDT LABORATORY Protein Albumin Urine 300(A) Negative mg/dL 12/27/2023 5:52 PM CDT LABORATORY Urobilinogen Urine Normal Normal, 2.0 mg/dL 12/27/2023 5:52 PM CDT LABORATORY Nitrite Urine Negative Negative 12/27/2023 5:52 PM CDT LABORATORY Leukocyte Esterase Urine Moderate(A) Negative 12/27/2023 5:52 PM CDT LABORATORY RBC Urine >182(H) <=2 /HPF 12/27/2023 5:52 PM CDT LABORATORY WBC Urine 2 <=5 /HPF 12/27/2023 5:52 PM CDT LABORATORY Urine URINE SPECIMEN OBTAINED BY CLEAN CATCH PROCEDURE / Unknown Non-blood Collection / Unknown 12/27/2023 5:17 PM CDT 12/27/2023 5:21 PM CDT Narrative [facility] - 12/27/2023 5:52 PM CDT Urine Culture ordered based on laboratory criteria Sam Link MD LAB - URINE ORDERABL ES [facility] [address] Lab (1st floor, no room number) [place] [address] * Urine Culture (12/27/2023 5:17 PM CDT) Only the most recent of3 resultswithin the time period is included. Culture <10,000 CFU/mL Mixture of Urogenital Marita 12/29/2023 5:31 AM CDT [facility] Urine URINE SPECIMEN OBTAINED BY CLEAN CATCH PROCEDURE / Unknown Non-blood Collection / Unknown 12/27/2023 5:17 PM CDT 12/27/2023 5:52 PM CDT Sam Link MD LAB - MICRO GENERAL ORDERABLES [facility] Inf. Diseases Diag. Lab [address] [facility] [facility] [address] [place] [address] * Adult Type and Screen (12/18/2023 6:03 AM CDT) ABO/RH(D) O POS 12/18/2023 5:19 AM CDT [facility] Antibody Screen Negative Negative 12/18/2023 5:19 AM CDT [facility] SPECIMEN EXPIRATION DATE [id number] 12/18/2023 5:19 AM CDT [facility] Blood BLOOD SPECIMEN / Unknown Venipuncture / Unknown 12/18/2023 6:03 AM CDT 12/18/2023 6:17 AM CDT Radha Ziegler MD LAB - BLOOD BAN K TEST ORDER [facility] B[facility] [address] [place] [address] * (ABNORMAL) Basic metabolic panel (12/18/2023 6:03 AM CDT) Only the most recent of2 resultswithin the time period is included. Sodium 133(L) 135 - 145 mmol/L 12/18/2023 7:09 AM CDT LABORATORY Potassium 3.3(L) 3.4 - 5.3 mmol/L 12/18/2023 7:09 AM CDT LABORATORY Chloride 99 98 - 107 mmol/L 12/18/2023 7:09 AM CDT LABORATORY Carbon Dioxide (CO2) 20(L) 22 - 29 mmol/L 12/18/2023 7:09 AM CDT LABORATORY Anion Gap 14 7 - 15 mmol/L 12/18/2023 7:09 AM CDT LABORATORY Urea Nitrogen 9.2 6.0 - 20.0 mg/dL 12/18/2023 7:09 AM CDT LABORATORY Creatinine 0.79 0.51 - 0.95 mg/dL 12/18/2023 7:09 AM CDT LABORATORY GFR Estimate >90 >60 mL/min/1.7 3m2 12/18/2023 7:09 AM CDT LABORATORY Comment:eGFR calculated 2020 CKD-EPI equation. Calcium 8.5(L) 8.6 - 10.0 mg/dL 12/18/2023 7:09 AM CDT LABORATORY Glucose 114(H) 70 - 99 mg/dL 12/18/2023 7:09 AM CDT LABORATORY Blood BLOOD SPECIMEN / Unknown Venipuncture / Unknown 12/18/2023 6:03 AM CDT 12/18/2023 6:16 AM CDT Radha Ziegler MD LAB - BLOOD ORD ERABLES [facility] [address] [facility] Lab (1st floor, no room number) [place] [address], [facility] * Extra Red Top Tube (12/17/2023 3:46 PM CDT) Hold Specimen JIC 12/17/2023 5:04 PM CDT [facility] Blood STRUCTURE OF LEFT UPPER LIMB / Unknown Venipuncture / Unknown 12/17/2023 3:46 PM CDT 12/17/2023 3:52 PM CDT Benita Bullard MD LAB - BLOOD NAY GEIGER [facility] [address] Lab (1st floor, no room number) [address] * Extra Blue Top Tube (12/17/2023 3:46 PM CDT) Hold Specimen [facility] 12/17/2023 5:04 PM CDT LABORATORY Blood STRUCTURE OF LEFT UPPER LIMB / Unknown Venipuncture / Unknown 12/17/2023 3:46 PM CDT 12/17/2023 3:52 PM CDT Benita Bullard MD LAB - BLOOD NAY GEIGER [facility] [address] Lab (1st floor, no room number) [address] * Lipase (12/17/2023 3:46 PM CDT) [facility] Signature Lipase 25 13 - 60 U/L 12/17/2023 4:30 PM CDT LABORATORY Blood STRUCTURE OF LEFT UPPER LIMB / Unknown Venipuncture / Unknown 12/17/2023 3:46 PM CDT 12/17/2023 3:52 PM CDT Benita Bullard MD LAB - BLOOD NAY GEIGER [facility] [address] Lab (1st floor, no room number) [address] * HIV 1 and 2 Antibody (01/20/2013 2:37 PM CDT) HIV 1&2 Antibody Negative NEG [facility]CRO[facility] Blood specimen (specimen) 01/20/2013 2:37 PM CDT 01/20/2013 2:38 PM CDT Renetta Corley MD LAB - BLOOD OR DERABLES [facility]CRO[facility] * PAP imaged thin layer screen (01/20/2013 12:00 AM CDT) PAP NIL COPATH Copath Report Patient Name: SAUL DUMONT MR#: [id number] Specimen #: [id number] Collected: 01/20/2013 Received: 01/21/2013 Reported: 2013 13:10 Ordering Phy(s): RENETTA CORLEY SPECIMEN/STAIN PROCESS: Pap imaged thin layer prep screening (Surepath, F[employer]Point with guided screening) ? Pap-Cyto x 1, Reflex HPV x 1 SOURCE: Cervical, endocervical Pap imaged thin layer prep screening (Surepath, FocalPoint with guided screening) SPECIMEN ADEQUACY: Satisfactory for evaluation. -Transformation zone component present. CYTOLOGIC INTERPRETATION: Negative for Intraepithelial Lesion or Malignancy Electronically signed out by: EDWIN Plasencia ??(ASCP) Processed and screened at [facility], [facility] CLINICAL HISTORY: Other: Implant, Papanicolaou Test Limitations: ??Cervical cytology is a screening test with limited sensitivity; regular screening is critical for cancer prevention; Pap tests are primarily effective for the diagnosis/preventi on of squamous cell carcinoma, not adenocarcinomas or other cancers. TESTING LAB LOCATION: [address] ??[address] COLLECTION SITE: Client: ??[facility] Location: FP (R) COPATH Cytologic material (specimen) 01/20/2013 01/21/2013 11:23 AM CDT Renetta Corley MD LAB - OPTIMJuan Alberto Her LINICAL SPECIMEN COPATH from Last 3 Months or Most Recently Relevant to Health Maintenance Advance Directives For more information, please contact: [phone] * Full Code (Latest Code Status on File) Date Activated Date Inactivated Comments 12/27/2023 9:50 PM 12/29/2023 2:49 PM All basic an d advanced life-sustaining interventions are performed as appropriate Question Answer Comments Code status determined by: Discussion with eden nt/ legal decision maker Care Teams Logistics Lead Relationship Specialty Start Date End Date [facility], [address], [address] [place] [address] PCP - General 08/23/16 [facility], [facility] DO NOT USE Pediatrics 08/16/13
--- OUTSIDE RECORDS SUMMARY | 2024-01-01 08:43 | XMS_ITS | Encounter Summary ---
Author Organization [facility] Address [address] [place] [address] Care Team Providers Care Martial Arts Instructor Name Role Phone Zara Thurston MD [facility], [facility], [facility] Primary Care Provid er Reason for Visit * Reason Comments Flank Pain Post-op Problem Urinary Retention * Auth/Cert Specialty Diagnoses / Procedures Referred By Josef t Referred To Contact EMERGENCY MEDICINE Diagnoses Pyelonephritis [facility] [address] [place] [address] Referral ID Status Reason Start Date Expiration Date Visits Re quested Visits Authorized [id number] 1 1 Encounter Details Date Type Department Care Team (Late st Contact Info) Description 12/27/2023 5:21 PM CDT - 12/29/2023 12:44 PM CDT Hospital Encounter [place] [address] [facility] Surgical [address] [place] [address] Sam Link MD [facility] [address] [place], [place] [address] Nash Alfonso, DO [address] [place] [address] Pain due to ureteral stent, initial encounter (H24) (Primary Dx); Pyelonephritis; Ureteral stone Discharge Disposition: Home or Self Care Social History Tobacco Use Types Packs/Day Years [...] on file Sexual Orientation Not on file documented as of this encounter Last Filed Vital Signs Vital Sign Reading [...] Mass Index 27.63 12/27/2023 9:20 PM CDT documented in this encounter Discharge Summaries * Sammi Dover RN - 12/29/2023 12:44 PM CDT Discharge Note Patient discharged to home via private vehicle accompanied by friend. IV: Discontinued Prescriptions filled and given to patient/family. Belongings reviewed and sent with patient. Home medications returned to patient: NA Equipment sent with: patient. patient verbalizes understanding of discharge instructions. AVS given to patient. Additional education completed? ABX, pain control and stent removal instructions. * Mesfin Tejeda MD - 12/29/2023 11:28 AM CDT [facility] Hospitalist Discharge Summary Date of Admission: 12/27/2023 Date of Discharge: 12/29/2023 Discharging Provider: Mesfin Tejeda MD Discharge Service: Hospitalist Service Discharge Diagnoses Right ureter stone S\p cystoscopy with lithotripsy and stone removal Right pyelonephritis in setting of recent ureter stent placement Flank pain Recent ureteral stent placement Tobacco use disorder Clinically Significant Risk Factors # Overweight: Estimated body mass index is 27.63 kg/m?? as calculated from the following: Height as of this encounter: 1.473 m (4' 10). Weight as of this encounter: 60 kg (132 lb 3.2 oz). Follow-ups Needed After Discharge Follow-up Appointments Follow-up and recommended labs and tests Follow up with primary care provider, [facility], within 7 days for hospital follow- up. No follow up labs or test are needed. OK to remove stent on 01/01/24 Follow up with [facility] as needed. Unresulted Labs Ordered in the Past 30 Days of this Admission Date and Time Order Name Status Description 12/28/2023 6:44 PM Stone analysis In process 12/27/2023 6:05 PM Blood Culture Peripheral Blood Preliminary 12/27/2023 6:05 PM Blood Culture Arm, Right Preliminary These results will be followed up by hospitalists Discharge Disposition Discharged to home Condition at discharge: Stable Hospital Course Saul Fontana is a 38 year old female admitted on 12/27/2023. She has a past medical history significant for anxiety, depression, endometriosis, and nephrolithiasis. She did initially start having abdominal pain, nausea, and chills approximately 3 weeks prior to presentation. She presented to the ED 10 days prior to presentation. She was found to have urinary tract infection and ureterolithiasisat that time. She was seen in consultation by urology and had a ureteral stent placed. She was discharged on ciprofloxacin with plans for outpatient urology follow up for definitive treatment. She completed her antibiotics a couple of days prior to presentation and continued to have abdominal pain and nausea. She eturned to emergency room on 12/25 due to continued symptoms. Workup in the ER included CT scan, which suggested right pyelonephritis. 4 mm calculus was present within the mid right ureter adjacent to ureteral stent and appeared approopriately positioned. Nonobstructing left nephrolithiasis was noted. Urinalysis was bland. Blood cultures showed no growth. Urine culture grew < [id number] colonies of mixed marita Patient was started on IV Zosyn given findings of pyelonephritis on CT imaging. She was admitted for further cares. She was seen by urology and ultimately had cystoscopy with lithotripsy. Stent was left in place. She will discharge home today with 7 days of Bactrim and pain medicine. She will remove her stent on . Follow up with primary care in one week and with Urology as needed. Consultations This Hospital Stay UROLOGY IP CONSULT Code Status Full Code Time Spent on this Encounter I, Mesfin Tejeda MD, personally saw the patient today and spent greater than 30 minutes discharging this patient. Mesfin Tejeda MD [place] [address] MEDICAL SURGICAL [address] [facility] [address] Physical Exam Vital Signs: Temp: 98.5 ??F (36.9 ??C) Temp src: Oral BP: (!) 149/92 Pulse: 105 Resp: 16 SpO2: 96 %O2 Device: None (Room air) Oxygen Delivery: 5 LPM Weight: 132 lbs 3.2 oz GENERAL: Comfortable. Cooperative. PSYCH: pleasant, oriented, No acute distress. EYES: PERRLA, Normal conjunctiva. HEART: Regular rate and rhythm. No JVD. Pulses normal. No edema. LUNGS: Clear to auscultation, normal Respiratory effort. ABDOMEN: Soft, no hepatosplenomegaly, normal bowel sounds. EXTREMETIES: No clubbing, cyanosis or ischemia SKIN: Dry to touch, No rash. Primary Care Physician [facility] Discharge Orders Reason for your hospital stay Ureter stone treated with lithotripsy Follow-up and recommended labs and tests Follow up with primary care provider, [facility], within 7 days for hospital follow- up. No follow up labs or test are needed. OK to remove stent on 01/01/24 Follow up with [facility] as needed. Activity Your activity upon discharge: activity as tolerated Diet Follow this diet upon discharge: Regular Significant Results and Procedures Most Recent 3 CBC's: Recent Labs Lab Test 12/29/23 0640 12/28/23 0837 12/27/23 1738 12/18/23 0603 WBC -- 9.2 11.3* 13.1* HGB 11.2* 10.8* 12.2 11.6* MCV -- 97 94 92 PLT -- 371 440 198 Most Recent 3 BMP's: Recent Labs Lab Test 12/28/23 0837 12/27/23 1738 12/18/23 0603 NA 139 140 133* POTASSIUM 4.1 4.2 3.3* CHLORIDE 108* 107 99 CO2 21* 20* 20* BUN 18.5 18.3 9.2 CR 0.67 0.70 0.79 ANIONGAP 10 13 14 ADRI 8.1* 9.5 8.5* GLC 98 148* 114* 7-Day Micro Results Collected Updated Procedure Result Status 12/27/2023192612/28/2023 1946 Blood Culture Arm, Right [[id number]] Blood from Arm, Right Preliminary result Component Value Culture No growth after 1 day [P] 12/27/2023 1908 12/28/2023 1916 Blood Culture Peripheral Blood [[id number]] Peripheral Blood Preliminary result Component Value Culture No growth after 1 day [P] 12/27/2023 1717 12/29/2023 0531 Urine Culture [[id number]] Urine, Clean Catch Final result Component Value Culture <10,000 CFU/mL Mixture of Urogenital Marita , Results for orders placed or performed during the hospital encounter of 12/27/23 CT Abdomen Pelvis w Contrast Narrative EXAM: CT ABDOMEN PELVIS W CONTRAST LOCATION: [facility] DATE: 12/27/2023 INDICATION: Right flank pain. COMPARISON: [...] the urinary bladder. Patchy areas of decreased corticalenhancement within the right kidney compatible with pyelonephritis. No renal abscess. Nonobstructing 2 mm right upper pole renal calculus. Nonobstructing 7 mm left upper pole renal calculus. No hydronephrosis. A 4 mm calculus is present within the midright ureter adjacent to the stent. Bladder is partially decompressed. BOWEL: Stomach is distended with ingested material. No bowel obstruction or inflammation. Appendix is absent. Few noninflamed sigmoid colonic diverticuli. LYMPH NODES: No enlarged lymph nodes. VASCULATURE: Patent portal, splenic, and superior mesenteric veins. No abdominal aortic aneurysm. PELVIC ORGANS: Retroverted uterus. MUSCULOSKELETAL: No acute bony abnormality. Impression IMPRESSION: 1. Right pyelonephritis. No renal abscess. 2. Appropriately positioned right ureteral stent. The previously obstructing 4 mm calculus is now adjacent to the stent within the mid right ureter. No hydronephrosis. 3. Single nonobstructing calculus within each kidney measuring up to 7 mm on the left. XR Surgery ZBIGNIEW L/T 5 Min Fluoro w Stills Narrative This exam was marked as non-reportable because it will not be read by a radiologist or a [facility] non-radiologist provider. Discharge Medications Current Discharge Medication List START taking these medications Details acetaminophen (TYLENOL) 500 MG tablet Take 1-2 tablets (500-1,000 mg) by mouth every 6 hours as needed for pain (and adjunct with moderate or severe pain or per patient request) Associated Diagnoses: Pain due to ureteral stent, initial encounter (H24) hydrOXYzine HCl (ATARAX) 25 MG tablet Take 1 tablet (25 mg) by mouth every 6 hours as needed for other or anxiety (adjuvant pain) Qty: 30 tablet, Refills: 0 Associated Diagnoses: Pain due to ureteral stent, initial encounter (H24) oxyCODONE (ROXICODONE) 10 MG tablet Take 0.5 tablets (5 mg) by mouth every 6 hours as needed for moderate to severe pain (IF pain not managed with non- pharmacological and non-opioid interventions) Qty: 24 tablet, Refills: 0 Associated Diagnoses: Pain due to ureteral stent, initial encounter (H24) sulfamethoxazole-trimethoprim (BACTRIM DS) 800-160 MG tablet Take 1 tablet by mouth 2 times daily for 7 days Qty: 14 tablet, Refills: 0 Associated Diagnoses: Pyelonephritis CONTINUE these medications which have NOT CHANGED Details amphetamine-dextroamphetamine (ADDERALL) 20 MG tablet Take 1 tablet by mouth 3 times daily clonazePAM (KLONOPIN) 2 MG tablet TAKE 1/2 TABLET BY MOUTH THREE TIMES DAILY NEEDED FOR ANXIETY lamoTRIgine (LAMICTAL) 150 MG tablet Take 1 tablet by mouth daily NYSTOP [id number] UNIT/GM powder Apply topically 4 times daily oxyBUTYnin ER (DITROPAN XL) 5 MG 24 hr tablet Take 1 tablet (5 mg) by mouth daily Take daily until your stent is removed. Qty: 30 tablet, Refills: 1 Associated Diagnoses: Right ureteral stone tamsulosin (FLOMAX) 0.4 MG capsule Take 1 capsule (0.4 mg) by mouth daily Take daily until your stent is removed. Qty: 30 capsule, Refills: 1 Associated Diagnoses: Right ureteral stone VENTOLIN HFA 108 (90 Base) MCG/ACT inhaler Inhale 2 puffs into the lungs every 4 hours as needed for shortness of breath or wheezing Allergies Allergies Allergen Reactions Escitalopram Other (See Comments) Other reaction(s): Extrapyramidal Symptoms Sertraline Difficulty breathing, Other (See Comments) and Shortness Of Breath No reaction listed in [facility] Lactose Other (See Comments) No reaction listed in [facility] Vicodin [Hydrocodone-Acetaminophen] Cefoxitin Rash documented in this encounter Discharge Instructions * Discharge Instructions* Mervat Pritchett PA-C - 12/29/2023 11:22 AM CDT UROLOGY Continue Flomax 0.4 mg once daily and oxybutynin 5 mg three times daily through Friday. Your ureteral stent is on a dangle (string). You can pull this out with a smooth pulling motion on , 01/01/24. Complete your antibiotics. If you are having issues, contact our office at [phone]. [facility] [phone] documented in this encounter Medications at Time of Discharge Medication Sig Dispensed Refills Start Date End Date acetaminophen (TYLENOL) 500 MG tabletIndications:Pain due to ureteral stent, initial encounter (H24) Take 1-2 tablets (500-1,000 mg) by mouth every 6 hours as needed for pain (and adjunct with moderate or severe pain or per patient request) 12/29/2023 amphetamine-dextroamph etamine (ADDERALL) 20 MG tablet Take 1 tablet by mouth 3 times daily 12/09/2023 clonazePAM (KLONOPIN) 2 MG tablet TAKE 1/2 TABLET BY MOUTH THREE TIMES DAILY NEEDED FOR ANXIETY 12/09/2023 hydrOXYzine HCl (ATARAX) 25 MG tabletIndications:Pain due to ureteral stent, initial encounter (H24) Take 1 tablet (25 mg) by mouth every 6 hours as needed for other or anxiety (adjuvant pain) 30 tablet 12/29/2023 lamoTRIgine (LAMICTAL) 150 MG tablet Take 1 tablet by mouth daily 12/09/2023 NYSTOP [id number] UNIT/GM powder Apply topically 4 times daily oxyBUTYnin ER (DITROPAN XL) 5 MG 24 hr tabletIndications:Righ t ureteral stone Take 1 tablet (5 mg) by mouth daily Take daily until your stent is removed. 30 tablet 1 12/18/2023 oxyCODONE (ROXICODONE) 10 MG tabletIndications:Pain due to ureteral stent, initial encounter (H24) Take 0.5 tablets (5 mg) by mouth every 6 hours as needed for moderate to severe pain (IF pain not managed with non-pharmacological and non-opioid interventions) 24 tablet 12/29/2023 sulfamethoxazole-trime thoprim (BACTRIM DS) 800-160 MG tabletIndications:Pyel onephritis Take 1 tablet by mouth 2 times daily for 7 days 14 tablet 12/29/2023 01/05/2024 tamsulosin (FLOMAX) 0.4 MG capsuleIndications:Rig ht ureteral stone Take 1 capsule (0.4 mg) by mouth daily Take daily until your stent is removed. 30 capsule 1 12/18/2023 VENTOLIN HFA 108 (90 Base) MCG/ACT inhaler Inhale 2 puffs into the lungs every 4 hours as needed for shortness of breath or wheezing documented as of this encounter Progress Notes * Mervat Pritchett PA-C - 12/29/2023 10:15 AM CDT [facility] Progress Note Assessment and Plan: Assessment: POD 1 Cystoscopy, right ureteroscopy with laser lithotripsy, right ureteroscopy with stone basketing, right retrograde pyelogram, right ureteral stent exchange Fluoroscopic interpretation <1 hour physician time Recent E. Coli UTI Poorly tolerated ureteral stent ADHD Anxiety Adjustment disorder with anxiety Depressive disorder Plan: -Continue with indwelling ureteral stent. Stone was lasered and removed yesterday. Stent is on a dangle and can be removed by the patient on of this week. Discussed about not removing this too soon. -Possible side effects with an indwelling ureteral stent such as urgency and frequency of urination, dysuria, hematuria, symptoms of urine reflux, and some achiness in the side. Indwelling ureteral stents need to be exchanged every three months or removed by three months. -Continue with Flomax 0.4 mg once daily. -Continue oxybutynin 5 mg 3 times daily. Patient should continue on oxybutynin and Flomax until theday after ureteral stent removal. -Pain and nausea management per primary service. -Based upon Dr. Bonilla's recommendation, would recommend antibiotics through stent removal on . Last urine culture showed intermediate resistance to ampicillin and cefoxitin. -Okay to discharge from urology perspective. Will plan on signing off. Mervat Pritchett PA-C [facility] [phone] Interval History: Doing okay. Endorses crampy discomfort in her kidney. Also endorses a headache. Feels that this maybe due to the morphine. Denies N/V/F/C/SOB/CP. Mild tachycardia. Patient is afebrile. She is on IV Zosyn. BC: NG. Urine culture: mixed marita. Review of Systems: The 5 point Review of Systems is negative other than noted in the HPI Medications: Current Facility-Administered Medications Medication Dose Route Frequency Provider Last Rate Last Admin acetaminophen (TYLENOL) tablet 650 mg 650 mg Oral Q4H PRN Nash Alfonso DO 650 mg at 12/29/23 0834 Or acetaminophen (TYLENOL) Suppository 650 mg 650 mg Rectal Q4H PRN Nash Alfonso DO albuterol (PROVENTIL HFA/VENTOLIN HFA) inhaler 2 puff Inhalation Q4H PRN Zbe Henderson MD amphetamine-dextroamphetamine (ADDERALL) per tablet 20 mg 20 mg Oral TID Zeb Henderson MD 20 mg at 12/29/23 1011 bisacodyl (DULCOLAX) suppository 10 mg 10 mg Rectal Daily PRN Nash Alfonso, DO clonazePAM (klonoPIN) tablet 1 mg 1 mg Oral TID PRN Zeb Henderson MD 1 mg at 12/29/23 1011 hydrOXYzine HCl (ATARAX) tablet 25 mg 25 mg Oral Q6H PRN Mesfin Tejeda MD ketorolac (TORADOL) injection 30 mg 30 mg Intravenous Q6H PRN Zeb Henderson MD 30 mg at 12/29/23 0619 lamoTRIgine (LaMICtal) tablet 150 mg 150 mg Oral Daily Zeb Henderson MD 150 mg at 12/29/23 1011 melatonin tablet 5 mg 5 mg Oral At Bedtime PRN Nash Alfonso, naloxone (NARCAN) injection 0.2 mg 0.2 mg Intravenous Q2 Min PRN Nash Alfonso DO Or naloxone (NARCAN) injection 0.4 mg 0.4 mg Intravenous Q2 Min PRN Nash Alfonso, Or naloxone (NARCAN) injection 0.2 mg 0.2 mg Intramuscular Q2 Min PRN Nash Alfonso, Or naloxone (NARCAN) injection 0.4 mg 0.4 mg Intramuscular Q2 Min PRN Nash Alfonso, DO nicotine (NICORETTE) gum 2 mg 2 mg Buccal Q1H PRN Nash Alfonso, DO ondansetron (ZOFRAN ODT) ODT tab 4 mg 4 mg Oral Q6H PRN Nash Alfonso DO 4 mg at 12/29/23 0205 Or ondansetron (ZOFRAN) injection 4 mg 4 mg Intravenous Q6H PRN Nash Alfonso, DO 4 mg at 12/27/238 oxyBUTYnin (DITROPAN) tablet 5 mg 5 mg Oral TID Ashvin Ascencio MD 5 mg at 12/29/23 1013 oxyCODONE (ROXICODONE) tablet 10 mg 10 mg Oral Q4H PRN Zeb Henderson MD 10 mg at 12/29/23 0657 oxyCODONE (ROXICODONE) tablet 5 mg 5 mg Oral Q4H PRN Zeb Henderson MD 5 mg at 12/28/23 2317 piperacillin-tazobactam (ZOSYN) 3.375 g vial to attach to NS 100 mL bag 3.375 g Intravenous Q6H Nash Alfonso, DO 3.375 g at 12/29/23 0300 polyethylene glycol (MIRALAX) Packet 17 g 17 g Oral Daily Zeb Henderson MD polyethylene glycol (MIRALAX) Packet 17 g 17 g Oral BID PRN Nash Alfonso DO senna-docusate (SENOKOT-S/PERICOLACE) 8.6-50 MG per tablet 1 tablet 1 tablet Oral BID PRN Nash Alfonso DO Or senna-docusate (SENOKOT-S/PERICOLACE) 8.6-50 MG per tablet 2 tablet 2 tablet Oral BID PRN Nash Alfonso, sodium chloride 0.9 % infusion Intravenous Continuous Nash Alfonso DO 100 mL/hr at 120 New Bag at 12/28/23 2120 tamsulosin (FLOMAX) capsule 0.4 mg 0.4 mg Oral Daily Zeb Henderson MD 0.4 mg at 12/29/23 1011 Physical Exam: Vitals were reviewed Patient Vitals for the past 8 hrs: BP Temp Temp src Pulse Resp SpO2 12/29/23 0812 (!) 149/92 98.5 ??F (36.9 ??C) Oral 105 16 96 % GEN: NAD, standing, dressed in street clothes EYES: EOMI MOUTH: MMM NECK: Supple RESP: Unlabored breathing NEURO: AAO Data: No results found for: NTBNPI, NTBNP Lab Results Component Value Date WBC 9.2 12/28/2023 WBC 11.3 (H) 12/27/2023 WBC 13.1 (H) 12/18/2023 HGB 11.2 (L) 12/29/2023 HGB 10.8 (L) 12/28/2023 HGB 12.2 12/27/2023 HCT 34.8 (L) 12/28/2023 HCT 38.2 12/27/2023 HCT 34.4 (L) 12/18/2023 MCV 97 12/28/2023 MCV 94 12/27/2023 MCV 92 12/18/2023 PLT 371 12/28/2023 PLT 440 12/27/2023 PLT 198 12/18/2023 All cultures: Recent Labs Lab 12/27/23 1927 12/27/23 1908 12/27/23 1717 CULTURE No growth after 1 day No growth after 1 day <10,000 CFU/mL Mixture of Urogenital Marita * Andre Morris RN - 12/28/2023 5:27 PM CDT Patient requesting food to be ordered post op. [facility] charge nurse was called and will order tray for patient. * Leighton Bonilla MD - 12/28/2023 12:37 PM CDT Urology Formal consult note to follow after patient is seen I have discussed with the patient and reviewed her chart extensively Doubtful she has a clinically significant infection at this time, I feel the presentation is more consistent with stent pain and irritation She has received empiric abx overnight and her leukocytosis is improved Patient opts for ureteroscopic management of stone today while inpatient Requests stent on string if clinically appropriate Remain admitted postop for pain control and observation Leighton Bonilla MD [facility] [phone] clinic phone * Zeb Henderson MD - 12/28/2023 12:29 PM CDT [facility] Hospitalist Progress Note Zeb Henderson MD 12/28/2023 Reason for Stay (Diagnosis): flank pain Assessment and Plan: Summary of Stay: Saul Fontana is a 38 year old female admitted on 12/27/2023. She has a past medical history significant for anxiety, depression, endometriosis, and nephrolithiasis. She did initially began having abdominal pain, nausea, chills approximately 3 weeks ago. Had presented to emergencyroom 10 days ago. Found to have urinary tract infection and ureterolithiasis at that time. Seen in consultation by urology. Had a ureteral stent placed. She was discharged on antibiotics with ciprofloxacin. Completed her antibiotics a couple of days ago. Has continued to have abdominal pain and nausea since that time. Returned to emergency room on 12/25 due to continued symptoms. Workup in the ER included embolic CT scan, with results showing right pyelonephritis. 4 mm calculuspresent within the mid right ureter adjacent to ureteral stent which appears appropriately positioned. Nonobstructing left nephrolithiasis noted. Urinalysis was bland. Blood cultures and urine cultures pending Patient was started on IV Zosyn given findings of pyelonephritis on CT imaging. She is receiving a number of pain medications, but continues to complain of significant flank discomfort. She is dramatically pacing in her room and is frustrated about her current level of pain control, reporting she is having significant discomfort. Pt also reports gross hematuria with urination Plans today: -Start IV Toradol as needed pain management -Increase dose of morphine to 2 to 4 mg IV every 3 hours as needed -Increase dose of oxycodone to 5 to 10 mg every 4 hours. -Resume Flomax -Continue oxybutynin for spasms -Continue IV Zosyn -urology consult -I updated family friend at bedside and the patient's aunt over the phone while I was in the room Right pyelonephritis. -Just completed a 7-day course of ciprofloxacin for suspected UTI; ureteritis was noted on CT scan 12/16. -Continue IV Zosyn for now. -IV fluids. -Adjust antibiotics based on urine cultures as they return. -Given reported pyelonephritis on CT imaging, unusual that urinalysis shows no signs of inflammation/infection though may be due to recent cipro course. Possible that she has incompletely treated pyelonephritis Flank pain - suspect due to ureteral stent irritation - consider incompletely treated pyelo as above Ureterolithiasis. Recent ureteral stent placement. -Urology consult. -Continuous IV fluids. -Pain medications as needed. Tobacco use disorder. -Nicotine gum if needed. Diet: Regular Diet Adult NPO for Medical/Clinical Reasons Except for: Ice Chips DVT Prophylaxis: Pneumatic Compression Devices Flower Catheter: Not present Lines: None Cardiac Monitoring: None Code Status: Full Code Disposition: When symptoms improved and when okay with urology service Interval History (Subjective): Patient complaining of pain when I entered the room. She was up pacing. She seems somewhat angry and frustrated. She became intermittently tearful when describing her symptoms. Physical Exam: Last Vital Signs: BP 135/86 (BP Location: Left arm) Pulse 83 Temp 97.6 ??F (36.4 ??C) (Oral) Resp 16 Ht 1.473m (4' 10) Wt 60 kg (132 lb 3.2 oz) SpO2 99% BMI 27.63 kg/m?? I/O last 3 completed shifts: In: - Out: 300 [Urine:300] Constitutional: Awake, alert, complaining of pain when I entered the room. She was up pacing. She initially seemed somewhat angry and frustrated. She then abruptly becomes intermittently tearful whendescribing her symptoms. Respiratory: Clear to auscultation bilaterally, no crackles or wheezing Cardiovascular: Regular rate and rhythm, normal S1 and S2, and no murmur noted Abdomen: Normal bowel sounds, soft, non-distended, non-tender Skin: No rashes, no cyanosis, dry to touch Neuro: Alert and oriented x3, no weakness, numbness, memory loss Extremities: No edema, normal range of motion Other(s): Friend in room and Aunt on the phone Dramatically responds by pulling away and grimacing to minimal palpation of B flanks All other systems: Negative Medications: All current medications were reviewed with changes reflected in problem list. Data: All new lab and imaging data was reviewed. Labs: Lab Results Component Value Date NA 139 12/28/2023 NA 140 12/27/2023 NA 133 12/18/2023 NA 138 09/02/2016 NA 136 08/23/2016 NA 138 08/20/2016 Lab Results Component Value Date CHLORIDE 108 12/28/2023 CHLORIDE 107 12/27/2023 CHLORIDE 99 12/18/2023 CHLORIDE 105 09/02/2016 CHLORIDE 102 08/23/2016 CHLORIDE 102 08/20/2016 Lab Results Component Value Date BUN 18.5 12/28/2023 BUN 18.3 12/27/2023 BUN 9.2 12/18/2023 BUN 3 09/02/2016 BUN 6 08/23/2016 BUN 8 08/20/2016 Lab Results Component Value Date POTASSIUM 4.1 12/28/2023 POTASSIUM 4.2 12/27/2023 POTASSIUM 3.3 12/18/2023 POTASSIUM 3.2 09/02/2016 POTASSIUM 3.0 08/23/2016 POTASSIUM 3.2 08/20/2016 Lab Results Component Value Date CO2 21 12/28/2023 CO2 20 12/27/2023 CO2 20 12/18/2023 CO2 21 09/02/2016 CO2 23 08/23/2016 CO2 23 08/20/2016 Lab Results Component Value Date CR 0.67 12/28/2023 CR 0.70 12/27/2023 CR 0.79 12/18/2023 CR 0.43 09/02/2016 CR 0.37 08/23/2016 CR 0.49 08/20/2016 Recent Labs Lab 12/28/23 0837 WBC 9.2 HGB 10.8* HCT 34.8* MCV 97 PLT 371 Imaging: Recent Results (from the past 24 hour(s)) CT Abdomen Pelvis w Contrast Narrative EXAM: CT ABDOMEN PELVIS W CONTRAST LOCATION: [facility] DATE: 12/27/2023 INDICATION: Right flank pain. COMPARISON: [...] the urinary bladder. Patchy areas of decreased corticalenhancement within the right kidney compatible with pyelonephritis. No renal abscess. Nonobstructing 2 mm right upper pole renal calculus. Nonobstructing 7 mm left upper pole renal calculus. No hydronephrosis. A 4 mm calculus is present within the midright ureter adjacent to the stent. Bladder is partially decompressed. BOWEL: Stomach is distended with ingested material. No bowel obstruction or inflammation. Appendix is absent. Few noninflamed sigmoid colonic diverticuli. LYMPH NODES: No enlarged lymph nodes. VASCULATURE: Patent portal, splenic, and superior mesenteric veins. No abdominal aortic aneurysm. PELVIC ORGANS: Retroverted uterus. MUSCULOSKELETAL: No acute bony abnormality. Impression IMPRESSION: 1. Right pyelonephritis. No renal abscess. 2. Appropriately positioned right ureteral stent. The previously obstructing 4 mm calculus is now adjacent to the stent within the mid right ureter. No hydronephrosis. 3. Single nonobstructing calculus within each kidney measuring up to 7 mm on the left. * Ashvin Ascencio MD - 12/27/2023 11:16 PM CDT Patient endorsing bladder spasms. Has ureteral stent in place and is on Zosyn for pyelonephritis. -Ordered oxybutynin 5 mg 3 times daily documented in this encounter H&P Notes * Nash Alfonso DO - 12/27/2023 9:56 PM CDT [facility] History and Physical - Hospitalist Service Date of Admission: 12/27/2023 Assessment & Plan Saul Fontana is a 38 year old female admitted on 12/27/2023. She has a past medical history significant for anxiety, depression, endometriosis, and nephrolithiasis. She did initially began having abdominal pain, nausea, chills approximately 3 weeks ago. Had presented to emergency room 10 days ago. Found to have urinary tract infection and ureterolithiasis at that time. Seen in consultation by urology. Had a ureteral stent placed. She was discharged on antibiotics with ciprofloxacin. Completedher antibiotics a couple of days ago. Has continued to have abdominal pain and nausea since that time. Returns to emergency room today due to continued symptoms. Right pyelonephritis. Sepsis due to pyelonephritis. Lactic acidosis due to sepsis. -Just completed a 7-day course of ciprofloxacin. -Started on Zosyn in the ER. -Continue IV Zosyn for now. -IV fluids. -Adjust antibiotics based on urine cultures as they return. -Lactic acid elevation resolved with IV fluids. Ureterolithiasis. Recent ureteral stent placement. -Urology consult. -Continuous IV fluids. -Pain medications as needed. Tobacco use disorder. -I did advise complete smoking cessation. -Nicotine gum if needed. Diet: Regular Diet Adult NPO for Medical/Clinical Reasons Except for: Ice Chips DVT Prophylaxis: Pneumatic Compression Devices Flower Catheter: Not present Lines: None Cardiac Monitoring: None Code Status: Full Code Clinically Significant Risk Factors Present on Admission # Overweight: Estimated body mass index is 27.63 kg/m?? as calculated from the following: Height as of this encounter: 1.473 m (4' 10). Weight as of this encounter: 60 kg (132 lb 3.2 oz). Disposition Plan Medically Ready for Discharge: Anticipated in 2-4 Days Nash Alfonso DO Hospitalist Service [facility] Securely message with [employer] (more info) Text page via [facility] Paging/Directory Chief Complaint Flank pain, nausea, chills. History is obtained from the patient History of Present Illness Saul Fontana is a 38 year old female who has a past medical history significant for anxiety, depression, endometriosis, and nephrolithiasis. She first began having abdominal pain approximately 3 weeks ago. Also having nausea. Presented to emergency room 10 days ago due to the symptoms. Found to have kidney stone and urinary tract infection at that time. Was seen by urology. Had ureteral stent placed. Was discharged with pain medications and antibiotics with ciprofloxacin. Completed her course of ciprofloxacin 2 days ago. Has continued to have flank pain even after her procedure. Does not feel that procedure made symptoms any better. Does not feel the pain medications have been very effective to this point. Has not been vomiting on a regular basis. Has continued to have nausea. Having chills but no obvious fevers. Does notice significant increased urination from baseline. Having discomfort when she urinates. No other acute complaints. Presented to emergency room today due to continued symptoms. Past Medical History Past Medical History: Diagnosis Date ADHD (attention deficit hyperactivity disorder) Anxiety Depressive disorder Endometriosis Past Surgical History Past Surgical History: Procedure Laterality Date APPENDECTOMY CHOLECYSTECTOMY, LAPOROSCOPIC 1999 CYSTOSCOPY, RETROGRADES, INSERT STENT URETER(S), COMBINED Right 12/18/2023 Procedure: Cystoscopy, right retrogrades, right ureteral stent insertion; Surgeon: Stas Bautista MD; Location: [facility] OR Uterine ablation Prior to Admission Medications Prior to Admission Medications Prescriptions Last Dose Informant Patient Reported? Taking? Ondansetron (ZOFRAN ODT PO) Yes No amphetamine-dextroamphetamine (ADDERALL) 20 MG tablet Yes No Sig: Take 1 tablet by mouth 3 times daily clonazePAM (KLONOPIN) 1 MG tablet Yes No Sig: TAKE 1 TABLET BY MOUTH FOUR TIMES DAILY NEEDED FOR ANXIETY OR SEVERE ANXIETY clonazePAM (KLONOPIN) 2 MG tablet Yes No Sig: TAKE 1/2 TABLET BY MOUTH THREE TIMES DAILY NEEDED FOR ANXIETY oxyBUTYnin ER (DITROPAN XL) 5 MG 24 hr tablet No No Sig: Take 1 tablet (5 mg) by mouth daily Take daily until your stent is removed. tamsulosin (FLOMAX) 0.4 MG capsule No No Sig: Take 1 capsule (0.4 mg) by mouth daily Take daily until your stent is removed. Facility-Administered Medications: None Allergies Allergies Allergen Reactions Escitalopram Other (See Comments) Other reaction(s): Extrapyramidal Symptoms Sertraline Difficulty breathing, Other (See Comments) and Shortness Of Breath No reaction listed in Cerner Lactose Other (See Comments) No reaction listed in Cerner Vicodin [Hydrocodone-Acetaminophen] Cefoxitin Rash Physical Exam Vital Signs: Temp: 97.8 ??F (36.6 ??C) Temp src: Oral BP: 114/73 Pulse: 68 Resp: 16 SpO2: 99 % O2 Device: None (Room air) Weight: 132 lbs 3.2 oz Gen: NAD, A&Ox3. Eyes: PERRL, sclera anicteric. OP: MMM, no lesions. Neck: Supple. CV: Regular, no murmurs. Lung: CTA b/l, normal effort. Ab: +BS, soft. Skin: Warm, dry to touch. No rash. Ext: No pitting edema LE b/l. Medical Decision Making 70 MINUTES SPENT BY ME on the date of service doing chart review, history, exam, documentation & further activities per the note. Data I have personally reviewed the following data over the past 24 hrs: 11.3 (H) \ 12.2 / 440 140 107 18.3 / 148 (H) 4.2 20 (L) 0.70 \ ALT: 9 AST: 10 AP: 60 TBILI: 0.3 ALB: 4.0 TOT PROTEIN: 7.0 LIPASE: N/A Procal: N/A CRP: N/A Lactic Acid: 1.2 Imaging results reviewed over the past 24 hrs: Recent Results (from the past 24 hour(s)) CT Abdomen Pelvis w Contrast Narrative EXAM: CT ABDOMEN PELVIS W CONTRAST LOCATION: [facility] DATE: 12/27/2023 INDICATION: Right flank pain. COMPARISON: [...] the urinary bladder. Patchy areas of decreased corticalenhancement within the right kidney compatible with pyelonephritis. No renal abscess. Nonobstructing 2 mm right upper pole renal calculus. Nonobstructing 7 mm left upper pole renal calculus. No hydronephrosis. A 4 mm calculus is present within the midright ureter adjacent to the stent. Bladder is partially decompressed. BOWEL: Stomach is distended with ingested material. No bowel obstruction or inflammation. Appendix is absent. Few noninflamed sigmoid colonic diverticuli. LYMPH NODES: No enlarged lymph nodes. VASCULATURE: Patent portal, splenic, and superior mesenteric veins. No abdominal aortic aneurysm. PELVIC ORGANS: Retroverted uterus. MUSCULOSKELETAL: No acute bony abnormality. Impression IMPRESSION: 1. Right pyelonephritis. No renal abscess. 2. Appropriately positioned right ureteral stent. The previously obstructing 4 mm calculus is now adjacent to the stent within the mid right ureter. No hydronephrosis. 3. Single nonobstructing calculus within each kidney measuring up to 7 mm on the left. Associated attestation - Mesfin Tejeda MD - 01/01/2024 7:52 AM CDT Physician Attestation I have reviewed and discussed with the advanced practice provider their history, physical and plan for Saul Fontana. I did not participate in a shared visit; this is an advanced practice provider only visit. Mesfin Tejeda MD Date of Service (when I saw the patient): I did not personally see this patient today. documented in this encounter Consult Notes * Leighton Bonilla MD - 12/28/2023 12:01 PM CDTAssociated Order(s): UROLOGY IP CONSULT Images from the original note were not included. [facility] Urology Consultation Saul Fontana Age: [age] year old Date of : 1985 Date of Admission: 12/27/2023 Reason for consult: Intractable right flank pain after stent 12/18/2023, concern for pyelonephritis Requesting physician: Naty Level of consult: One-time consult to assist in determining a diagnosis and to recommend an appropriate treatment plan Assessment and Recommendation: Assessment: 38 yo F with infected obstructed right ureteral stone s/p right ureteral stent placement 12/18/2023 now presenting with intractable right flank/abdominal pain. Discussed with her that I don't think herpresentation is consistent with pyelo; she just had an appropriate course of antibiotics and her flank pain has been persistent after stent placement. Her UA today was totally bland. The only compelling argument as to pyelonephritis are the imaging findings of patchy cortical kidney but this is stable from prior, and her mild leukocytosis. Thus I discussed with her expedited management of her stones (was to undergo URS at end of month). Risks including infection, hematuria, ureteral injury, incomplete stone clearance, ongoing stent pain and irritation were discussed. Informed consent was obtained. Recommendations: To OR: completed, ureteral stone removed, stent on string Remain admitted overnight for pain control, continued IV abx Assuming she does well overnight, recommend discharge on brief oral antibiotic course while stent is in place Patient can remove stent on her own on 01/01/2024 AM Leighton Bonilla MD [facility] Urology [phone] clinic phone Chief Complaint: Right flank pain, right ureteral stent in place since 12/18/2023 History is obtained from the patient History of Present Illness: This patient is a 38 year old female who presents with the following condition requiring a hospitaladmission: Urolithiasis 38 yo F with infected obstructed right ureteral stone s/p right ureteral stent placement 12/18/2023 now presenting with intractable right flank/abdominal pain. She presented initially on 12/17/2023 with right flank pain, found to have 5 mm right proximal ureteral stone, E. Coli infection. She also had bilateral nonobstructive nephrolithiasis. Underwent cystoscopy and stent placement by Dr. Bautista and was discharged on cipro course. Ever since stent placement has complained of severe pain, mostly suprapubic pain which radiates to the right abdomen and flank, associated with chills and hematuria. Onpresentation to ER she was tachycardic but did not have a fever. UA notably bland aside from hematuria. Mild leukocytosis. CT performed and showed patchy areas of decreased cortical enhancement on the right side, no abscess. Stone was noted alongside the previously placed stent Past Medical History: I have reviewed this patient's past medical history Past Medical History: Diagnosis Date ADHD (attention deficit hyperactivity disorder) Anxiety Depressive disorder Endometriosis Past Surgical History: I have reviewed this patient's past surgical history Past Surgical History: Procedure Laterality Date APPENDECTOMY CHOLECYSTECTOMY, LAPOROSCOPIC 1999 CYSTOSCOPY, RETROGRADES, INSERT STENT URETER(S), COMBINED Right 12/18/2023 Procedure: Cystoscopy, right retrogrades, right ureteral stent insertion; Surgeon: Stas Bautista MD; Location: [facility] OR Uterine ablation Social History: Social History Tobacco Use Smoking status: Every Day Smokeless tobacco: Never Tobacco comments: Social Substance Use Topics Alcohol use: Yes Comment: rarely Family History: I have reviewed this patient's family history Family History Problem Relation Age of Onset Diabetes Maternal Grandmother Diabetes Maternal Grandfather Diabetes Paternal Grandmother Diabetes Paternal Grandfather Diabetes Paternal Aunt Diabetes Paternal Uncle Family history not discussed Immunizations: Immunization History Administered Date(s) Administered Flu 65+ Years 05/14/2006, 04/03/2009 Flu, Unspecified 05/14/2006, 04/03/2009, 04/14/2015 [id number] Novel Flu 05/01/2009 HPV Quadrivalent 02/27/2007, 07/15/2008, 07/29/2011 HepB, Unspecified 08/20/2016 Hepatitis B Immunity: Titer 08/20/2016 Historical DTP/aP 1985, 1985, 12/22/1986 Influenza (H1N1) 05/01/2009 Influenza (IIV3) PF 05/14/2006, 04/03/2009 Influenza Vaccine >6 months,quad, PF 04/14/2015 MMR 11/24/1986, 09/27/1997, 02/07/2018 Polio, Unspecified 1985, 12/22/1986 Rubella 08/20/2016 Rubella Immunity: Titer/ Dx 08/20/2016 TDAP (Adacel,Boostrix) 09/27/1997, 10/20/2009, 07/29/2011, 01/14/2017, 12/02/2017 Td (Adult), Adsorbed 09/27/1997 Allergies: Allergies Allergen Reactions Escitalopram Other (See Comments) Other reaction(s): Extrapyramidal Symptoms Sertraline Difficulty breathing, Other (See Comments) and Shortness Of Breath No reaction listed in Cerner Lactose Other (See Comments) No reaction listed in Cerner Vicodin [Hydrocodone-Acetaminophen] Cefoxitin Rash Medications: Current Facility-Administered Medications Medication Dose Route Frequency Provider Last Rate Last Admin acetaminophen (TYLENOL) tablet 650 mg 650 mg Oral Q4H PRN Nash Alfonso DO 650 mg at 12/28/232120 Or acetaminophen (TYLENOL) Suppository 650 mg 650 mg Rectal Q4H PRN Nash Alfonso DO albuterol (PROVENTIL HFA/VENTOLIN HFA) inhaler 2 puff Inhalation Q4H PRN eZb Henderson MD amphetamine-dextroamphetamine (ADDERALL) per tablet 20 mg 20 mg Oral TID Zeb Henderson MD bisacodyl (DULCOLAX) suppository 10 mg 10 mg Rectal Daily PRN Nash Alfonso DO clonazePAM (klonoPIN) tablet 1 mg 1 mg Oral TID PRN Zeb Henderson MD ketorolac (TORADOL) injection 30 mg 30 mg Intravenous Q6H PRN Zeb Henderson MD 30 mg at 12/28/23 1546 lamoTRIgine (LaMICtal) tablet 150 mg 150 mg Oral Daily Zeb Henderson MD melatonin tablet 5 mg 5 mg Oral At Bedtime PRN Nash Alfonso DO morphine (PF) injection 2 mg 2 mg Intravenous Q2H PRN Zeb Henderson MD morphine (PF) injection 4 mg 4 mg Intravenous Q2H PRN Zeb Henderson MD 4 mg at 12/28/23 1457 naloxone (NARCAN) injection 0.2 mg 0.2 mg Intravenous Q2 Min PRN Nash Alfonso DO Or naloxone (NARCAN) injection 0.4 mg 0.4 mg Intravenous Q2 Min PRN Nash Alfonso, Or naloxone (NARCAN) injection 0.2 mg 0.2 mg Intramuscular Q2 Min PRN Nash Alfonso DO Or naloxone (NARCAN) injection 0.4 mg 0.4 mg Intramuscular Q2 Min PRN Nash Alfonso, nicotine (NICORETTE) gum 2 mg 2 mg Buccal Q1H PRN Nash Alfonso, ondansetron (ZOFRAN ODT) ODT tab 4 mg 4 mg Oral Q6H PRN Nash Alfonso DO Or ondansetron (ZOFRAN) injection 4 mg 4 mg Intravenous Q6H PRN Nash Alfonso DO 4 mg at 12/27/238 oxyBUTYnin (DITROPAN) tablet 5 mg 5 mg Oral TID Ashvin Ascencio MD 5 mg at 12/28/232120 oxyCODONE (ROXICODONE) tablet 10 mg 10 mg Oral Q4H PRN Zeb Henderson MD 10 mg at 12/28/23 1227 oxyCODONE (ROXICODONE) tablet 5 mg 5 mg Oral Q4H PRN Zeb Henderson MD piperacillin-tazobactam (ZOSYN) 3.375 g vial to attach to NS 100 mL bag 3.375 g Intravenous Q6H Nash Alfonso DO Restarted at 12/28/23 213 polyethylene glycol (MIRALAX) Packet 17 g 17 g Oral Daily Zeb Henderson MD polyethylene glycol (MIRALAX) Packet 17 g 17 g Oral BID PRN Nash Alfonso DO senna-docusate (SENOKOT-S/PERICOLACE) 8.6-50 MG per tablet 1 tablet 1 tablet Oral BID PRN Nash Alfonso DO Or senna-docusate (SENOKOT-S/PERICOLACE) 8.6-50 MG per tablet 2 tablet 2 tablet Oral BID PRN Nash Alfonso DO sodium chloride 0.9 % infusion Intravenous Continuous Nash Alfonso DO 100 mL/hr at 120 New Bag at 12/28/23 2120 tamsulosin (FLOMAX) capsule 0.4 mg 0.4 mg Oral Daily Zeb Henderson MD 0.4 mg at 12/28/23 1227 Review of Systems: The Review of Systems is negative other than noted in the HPI Physical Exam: Vitals were reviewed Temp: 98.2 ??F (36.8 ??C) Temp src: Oral BP: 127/84 Pulse: 73 Resp: 16 SpO2: 97 % O2 Device: None (Room air) Oxygen Delivery: 5 LPM Constitutional: Awake, alert, fatigued Eyes: Eyes open ENT: Nc/at Neck: No neck mass Hematologic / Lymphatic: No bleed/bruise Back: No back pain Lungs: Nonlabored breathing Cardiovascular: Extrem wwp Abdomen: nondistended Chest / Breast: Not examined Genitounirinary: Not examined Musculoskeletal: Not examined Neurologic: churchill Neuropsychiatric: Normal mood and affect Skin: No rash Data: All laboratory and imaging data in the past 24 hours reviewed Results for orders placed or performed during the hospital encounter of 12/27/23 (from the past 24 hour(s)) Comprehensive metabolic panel Result Value Ref Range Sodium 139 135 - 145 mmol/L Potassium 4.1 3.4 - 5.3 mmol/L Carbon Dioxide (CO2) 21 (L) 22 - 29 mmol/L Anion Gap 10 7 - 15 mmol/L Urea Nitrogen 18.5 6.0 - 20.0 mg/dL Creatinine 0.67 0.51 - 0.95 mg/dL GFR Estimate >90 >60 mL/min/1.73m2 Calcium 8.1 (L) 8.6 - 10.0 mg/dL Chloride 108 (H) 98 - 107 mmol/L Glucose 98 70 - 99 mg/dL Alkaline Phosphatase 52 40 - 150 U/L AST 19 0 - 45 U/L ALT 10 0 - 50 U/L Protein Total 6.0 (L) 6.4 - 8.3 g/dL Albumin 3.7 3.5 - 5.2 g/dL Bilirubin Total 0.2 <=1.2 mg/dL CBC with platelets Result Value Ref Range WBC Count 9.2 4.0 - 11.0 10e3/uL RBC Count 3.59 (L) 3.80 - 5.20 10e6/uL Hemoglobin 10.8 (L) 11.7 - 15.7 g/dL Hematocrit 34.8 (L) 35.0 - 47.0 % MCV 97 78 - 100 fL MCH 30.1 26.5 - 33.0 pg MCHC 31.0 (L) 31.5 - 36.5 g/dL RDW 13.6 10.0 - 15.0 % Platelet Count 371 150 - 450 10e3/uL XR Surgery ZBIGNIEW L/T 5 Min Fluoro w Stills Narrative This exam was marked as non-reportable because it will not be read by a radiologist or a [facility] non-radiologist provider. All imaging studies reviewed by me and personally interpreted Right ureteral stent in place; tiny upper pole stone Right midureteral stone alongside the stent No significant stranding around the right kidney The patchy areas of the kidney are grossly similar to prior CT on 12/17/2023 Attestation: I have reviewed today's vital signs, notes, medications, labs and imaging. Amount of time performed on this consult: over 60 minutes including multiple phone discussions withpatient, review of prior imaging and records, in person discussion with patient, coordinating care with OR, documentation Leighton Bonilla MD documented in this encounter ED Notes * Preet Nassar RN - 12/27/2023 8:47 PM CDT Genitourinary (Adult)Genitourinary WDL: all (S/P cystoscopy with right ureteral stent placement with chills, pelvic pressure, bilateral flank pain, and hematuria. She has not been doing well since her procedure and the pain has been worsening.)Voiding Characteristics: (She finished her antibiotics a few days ago. No fever. She denies vomiting but is nauseous. She has had some diarrhea. She cannoteat or drink much.)Ureteral Catheter Urine Characteristics: cloudy; stone(s); odorous; brown; dark;redGU Signs and Symptoms: dysuria; flank pain * Narayan Hicks RN - 12/27/2023 8:38 PM CDT [facility] ED Nurse Handoff Report ED Chief complaint: Flank Pain, Post-op Problem, and Urinary Retention . ED Diagnosis: Final diagnoses: Pyelonephritis Allergies: Allergies Allergen Reactions Escitalopram Other (See Comments) Other reaction(s): Extrapyramidal Symptoms Sertraline Difficulty breathing, Other (See Comments) and Shortness Of Breath No reaction listed in Cerner Lactose Other (See Comments) No reaction listed in [facility]ner Vicodin [Hydrocodone-Acetaminophen] Cefoxitin Rash Code Status: Full Code Activity level - Baseline/Home: independent. Activity Level - Current: standby. Lift room needed: No. Bariatric: No Care Team Assistant Needed: No Isolation: No. Infection: Not Applicable. Respiratory status: Room air Vital Signs (within 30 minutes): Vitals: 12/27/23 1706 12/27/23 1950 BP: 130/82 (!) 122/91 Pulse: 115 91 Resp: 20 Temp: 98 ??F (36.7 ??C) TempSrc: Temporal SpO2: 100% 100% Weight: 57.1 kg (125 lb 14.1 oz) Height: 1.473 m (4' 10) Pain level: Patient confused: No. Patient Falls Risk: patient and family education. Elimination Status: Has voided Focused Assessment: Genitourinary (Adult)Genitourinary WDL: all (S/P cystoscopy with right ureteral stent placement with chills, pelvic pressure, bilateral flank pain, and hematuria. She has not been doing well since her procedure and the pain has been worsening.)Voiding Characteristics: (She finished her antibiotics a few days ago. No fever. She denies vomiting but is nauseous. She has had some diarrhea. She cannoteat or drink much.)Ureteral Catheter Urine Characteristics: cloudy; stone(s); odorous; brown; dark;redGU Signs and Symptoms: dysuria; flank pain Abnormal Results: Labs Ordered and Resulted from Time of ED Arrival to Time of ED Departure ROUTINE UA WITH MICROSCOPIC REFLEX TO CULTURE - Abnormal Result Value Color Urine Dark Brown (*) Appearance Urine Cloudy (*) Glucose Urine Negative Bilirubin Urine Negative Ketones Urine Negative Specific [place] Urine 1.027 Blood Urine Large (*) pH Urine 6.0 Protein Albumin Urine 300 (*) Urobilinogen Urine Normal Nitrite Urine Negative Leukocyte Esterase Urine Moderate (*) RBC Urine >182 (*) WBC Urine 2 COMPREHENSIVE METABOLIC PANEL - Abnormal Sodium 140 Potassium 4.2 Carbon Dioxide (CO2) 20 (*) Anion Gap 13 Urea Nitrogen 18.3 Creatinine 0.70 GFR Estimate >90 Calcium 9.5 Chloride 107 Glucose 148 (*) Alkaline Phosphatase 60 AST 10 ALT 9 Protein Total 7.0 Albumin 4.0 Bilirubin Total 0.3 LACTIC ACID WHOLE BLOOD - Abnormal Lactic Acid 2.3 (*) CBC WITH PLATELETS AND DIFFERENTIAL - Abnormal WBC Count 11.3 (*) RBC Count 4.06 Hemoglobin 12.2 Hematocrit 38.2 MCV 94 MCH 30.0 MCHC 31.9 RDW 13.5 Platelet Count 440 % Neutrophils 58 % Lymphocytes 35 % Monocytes 4 % Eosinophils 2 % Basophils 0 % Immature Granulocytes 1 NRBCs per 100 WBC 0 Absolute Neutrophils 6.5 Absolute Lymphocytes 3.9 Absolute Monocytes 0.5 Absolute Eosinophils 0.2 Absolute Basophils 0.1 Absolute Immature Granulocytes 0.1 Absolute NRBCs 0.0 HCG QUALITATIVE - Normal hCG Serum Qualitative Negative LACTIC ACID WHOLE BLOOD - Normal Lactic Acid 1.2 URINE CULTURE BLOOD CULTURE BLOOD CULTURE URINE CULTURE CT Abdomen Pelvis w Contrast Final Result IMPRESSION: 1. Right pyelonephritis. No renal abscess. 2. Appropriately positioned right ureteral stent. The previously obstructing 4 mm calculus is now adjacent to the stent within the mid right ureter. No hydronephrosis. 3. Single nonobstructing calculus within each kidney measuring up to 7 mm on the left. Treatments provided: PIV, LABS, MEDS, BLOOD CULT, CT, VITALS, Family Comments: NONE OBS brochure/video discussed/provided to patient: No ED Medications: Medications ondansetron (ZOFRAN) injection 4 mg (4 mg Intravenous $Given 12/27/231742) HYDROmorphone (PF) (DILAUDID) injection 0.5 mg (0.5 mg Intravenous $Given 12/27/231947) sodium chloride 0.9% BOLUS 1,000 mL (1,000 mLs Intravenous $New Bag 12/27/231945) sodium chloride 0.9% BOLUS 1,000 mL (1,000 mLs Intravenous $New Bag 12/27/231740) iopamidol (ISOVUE-370) solution 500 mL (63 mLs Intravenous $Given 12/27/231757) CT Scan Flush (56 mLs Intravenous $Given 12/27/231757) piperacillin-tazobactam (ZOSYN) 4.5 g vial to attach to NS 100 mL bag (4.5 g Intravenous $New Bag 12/27/231945) Drips infusing: Yes For the majority of the shift this patient was Green. Interventions performed were NONE. Sepsis treatment initiated: No Cares/treatment/interventions/medications to be completed following ED care: PER FLOOR PROTOCOL ED Nurse Name: Preet Nassar RN 8:38 PM RECEIVING UNIT ED HANDOFF REVIEW Above ED Nurse Handoff Report was reviewed: Yes Reviewed by: Narayan Hicks RN on December 27, 2023 at 8:52 PM Maryann Thibodeaux called the ED to inform them the note was read: Yes * Gale New RN - 12/27/2023 5:10 PM CDT Pt presents with concern of complication post cystoscopy. Pt reports ongoing and increased flank pain. Pt reports bladder pressure and being unable to empty bladder. Pt reports hematuria. Pt has apptlater this month for stent removal. Pt standing rocking back and forth in triage room. Pt reports taking tramadol, tylenol, and ibuprofen to try to manage pain. A & Ox4. Triage Assessment (Adult) Row Name 12/27/23 1710 Triage Assessment Airway WDL WDL Respiratory WDL Respiratory WDL WDL Cardiac WDL Cardiac WDL X;rhythm Pulse Rate & Regularity tachycardic Cognitive/Neuro/Behavioral WDL Cognitive/Neuro/Behavioral WDL WDL * Sam Link MD - 12/27/2023 5:03 PM CDT Emergency Department Note History of Present Illness Chief Complaint Flank Pain, Post-op Problem, and Urinary Retention HPI Saul Fontana is a 38 year old female who presents 9 days S/P cystoscopy with right ureteral stent placement with chills, pelvic pressure, bilateral flank pain, and hematuria. She has not been doing well since her procedure and the pain has been worsening. She finished her antibiotics a few days ago. No fever. She denies vomiting but is nauseous. She has had some diarrhea. She cannot eat or drink much. Independent Historian None Review of External Notes I reviewed the patient's urology procedure note from 12/18/2023 for a cystoscopy and right ureter stent procedure with Dr. Bautista. She had E coli in her urine culture on 12/17/2023. Past Medical History Medical History and Problem List ADHD Anxiety Adjustment disorder with anxiety Depressive disorder Deep transverse arrest, persis occipitopost position, labor and del De Quervain's tenosynovitis Endometriosis Gestational diabetes mellitus (GDM) affecting SONYA Gallstones Marijuana abuse Major depression Psychological disorder during Panic disorder with agoraphobia Small intestine obstruction Tobacco use disorder Medications Amphetamine-dextroamphetamine Clonazepam Ondansetron Oxybutynin ER Tamsulosin Surgical History Appendectomy Cholecystectomy, laparoscopic Cystoscopy retrogrades insert stent ureter(s), combined, right Endometrial ablation Uterine ablation [place] teeth extraction D&C first trimester Physical Exam Patient Vitals for the past 24 hrs: BP Temp Temp src Pulse Resp SpO2 Height Weight 12/27/23 1706 130/82 98 ??F (36.7 ??C) Temporal 115 20 100 % 1.473 m (4' 10) 57.1 kg (125 lb 14.1 oz) Physical Exam VS: Reviewed per above HENT: Mucous membranes moist EYES: sclera anicteric CV: Rate as noted, regular rhythm. RESP: Effort normal. Breath sounds are normal bilaterally. GI: moderate suprapubic tenderness without rebound/guarding, not distended. BL CVAT. NEURO: Alert, moving all extremities MSK: No deformity of the extremities SKIN: Warm and dry Diagnostics Lab Results Labs Ordered and Resulted from Time of ED Arrival to Time of ED Departure ROUTINE UA WITH MICROSCOPIC REFLEX TO CULTURE - Abnormal Result Value Color Urine Dark Brown (*) Appearance Urine Cloudy (*) Glucose Urine Negative Bilirubin Urine Negative Ketones Urine Negative Specific [place] Urine 1.027 Blood Urine Large (*) pH Urine 6.0 Protein Albumin Urine 300 (*) Urobilinogen Urine Normal Nitrite Urine Negative Leukocyte Esterase Urine Moderate (*) RBC Urine >182 (*) WBC Urine 2 COMPREHENSIVE METABOLIC PANEL - Abnormal Sodium 140 Potassium 4.2 Carbon Dioxide (CO2) 20 (*) Anion Gap 13 Urea Nitrogen 18.3 Creatinine 0.70 GFR Estimate >90 Calcium 9.5 Chloride 107 Glucose 148 (*) Alkaline Phosphatase 60 AST 10 ALT 9 Protein Total 7.0 Albumin 4.0 Bilirubin Total 0.3 LACTIC ACID WHOLE BLOOD - Abnormal Lactic Acid 2.3 (*) CBC WITH PLATELETS AND DIFFERENTIAL - Abnormal WBC Count 11.3 (*) RBC Count 4.06 Hemoglobin 12.2 Hematocrit 38.2 MCV 94 MCH 30.0 MCHC 31.9 RDW 13.5 Platelet Count 440 % Neutrophils 58 % Lymphocytes 35 % Monocytes 4 % Eosinophils 2 % Basophils 0 % Immature Granulocytes 1 NRBCs per 100 WBC 0 Absolute Neutrophils 6.5 Absolute Lymphocytes 3.9 Absolute Monocytes 0.5 Absolute Eosinophils 0.2 Absolute Basophils 0.1 Absolute Immature Granulocytes 0.1 Absolute NRBCs 0.0 HCG QUALITATIVE - Normal hCG Serum Qualitative Negative LACTIC ACID WHOLE BLOOD - Normal Lactic Acid 1.2 URINE CULTURE BLOOD CULTURE BLOOD CULTURE URINE CULTURE Imaging CT Abdomen Pelvis w Contrast Final Result IMPRESSION: 1. Right pyelonephritis. No renal abscess. 2. Appropriately positioned right ureteral stent. The previously obstructing 4 mm calculus is now adjacent to the stent within the mid right ureter. No hydronephrosis. 3. Single nonobstructing calculus within each kidney measuring up to 7 mm on the left. Independent Interpretation None ED Course Medications Administered Medications ondansetron (ZOFRAN) injection 4 mg (4 mg Intravenous $Given 12/27/231742) HYDROmorphone (PF) (DILAUDID) injection 0.5 mg (0.5 mg Intravenous $Given 12/27/231947) sodium chloride 0.9% BOLUS 1,000 mL (1,000 mLs Intravenous $New Bag 12/27/231945) piperacillin-tazobactam (ZOSYN) 4.5 g vial to attach to NS 100 mL bag (4.5 g Intravenous $New Bag 12/27/231945) sodium chloride 0.9% BOLUS 1,000 mL (1,000 mLs Intravenous $New Bag 12/27/231740) iopamidol (ISOVUE-370) solution 500 mL (63 mLs Intravenous $Given 12/27/231757) CT Scan Flush (56 mLs Intravenous $Given 12/27/231757) Discussion of Management See ED course. ED Course ED Course as of 12/27/232013 Sat Dec 27, 20231730 I obtained the patient's history and examined as noted above. 1842 I rechecked the patient and explained findings. [address] Alfonso, hospitalist, regarding the patient's history and presentation here in the emergency department who accepted the patient for admission. Optional/Additional Documentation None Medical Decision Making / Diagnosis CMS Diagnoses: The patient has signs of Severe Sepsis If one the following conditions is present, a 30 mL/kg bolus is recommended as part of the 6 hour bundle (IBW can be used for BMI >30, or document refusal/contraindication): 1. ? Initial hypotension? defined as 2 bps < 90 or map < 65 in the 6hrs before or 3hrs after time zero. 2. Lactate >4. The patient has signs of Severe Sepsis as evidenced by: 1. 2 SIRS criteria, AND 2. Suspected infection, AND 3. Organ dysfunction: Lactic Acidosis with value >2.0 Time severe sepsis diagnosis confirmed: 183212/27/23 as this was the time when CT results showed infection 3 Hour Severe Sepsis Bundle Completion: 1. Initial Lactic Acid Result: Recent Labs Lab Test 07/13/24 1927 07/13/24 1738 LACT 1.2 2.3* 2. Blood Cultures before Antibiotics: Yes 3. Broad Spectrum Antibiotics Administered: yes Anti-infectives (From admission through now) Start Dose/Rate Route Frequency Ordered Stop 12/27/231809 piperacillin-tazobactam (ZOSYN) 4.5 g vial to attach to NS 100 mL bag Note to Pharmacy: For [facility], [facility] and [facility]: For Zosyn-naive patients, use the Zosyn initial dose + extended infusion order panel. 4.5 g over 30 Minutes Intravenous ONCE 12/27/23 180 4. Is initial hypotension present? No (IV fluid bolus NOT required). Severe Sepsis reassessment: 1. Repeat Lactic Acid Level within 6 hours of time zero: 1.2 2. MAP>65 after initial IVF bolus, will continue to monitor fluid status and vital signs MIPS None KELLIE Cotesheila Fontana is a 38 year old female who presents with chills, abdominal and flank pain in the setting of recent right ureteral stent placement for infected right ureteral stone 9 days ago. On arrival she has low-grade tachycardia. She has moderate lower abdominal tenderness without peritoneal signs. She has bilateral CVA tenderness. CT abdomen shows good position of the right ureteral stent and ongoing presence of a 4 mm right ureteral stone. Urinalysis is fairly unremarkable but CT scan issuggestive of pyelonephritis. She was given Zosyn after review of initial urine study from 12/17/2023. Lactic acid is elevated which could be a sign of severe sepsis. She was given appropriate fluids and blood cultures were obtained before antibiotics. She was admitted to hospitalist service for further cares. Disposition The patient was admitted to the hospital. Diagnosis ICD-10-CM 1. Pyelonephritis N12 Scribe Disclosure: IAspen, am serving as a scribe at 5:24 PM on 12/27/2023 to document services personally performed by Sam Link MD based on my observations and the provider's statements to me. Sam Link MD Lindenbaum, Elan, MD 12/27/232020 documented in this encounter Miscellaneous Notes * Plan of Care - Kate Carlson RN - 12/29/2023 5:32 AM CDT BP 133/88 Pulse 71 Temp 97.9 ??F Resp 16 SpO2 98% Patient is alert and oriented x4, independent with transfers, continent of bowel and bladder, pain was between 5-8 during the night. Tylenol, oxycodone, tramadol, and morphine were given. NS running at 100 mL/hr, on zosyn q6h. Tylenol and oxycodone were given to the patient between midnight and 2am. Reminded patient that Toradol and oxycodone would not be available until 0430. Patient stated it was effective and asked for heating packs at 3am as she was getting ready to go to sleep. staff interpreter called multiple times requesting heating packs but [employer] staff were really busy and as soon as they were able they sent them upstairs and they were given to the patient. At the same time it got really busy on the unit when sherequested to get more pain medication. Nurse told patient that she will be in there shortly due nurse helping another patient at that moment. Charge called soon after and said patient wanted to leaveAMA. As soon as the nurse was done she went in to the patients room and brought the pain medicationpatient requested. Patient was upset but said she would stay. Problem: Pain Acute Goal: Optimal Pain Control and Function Outcome: Progressing Intervention: Develop Pain Management Plan Recent Flowsheet Documentation Taken 12/28/20232303 by Kate Carlson RNdirector institution Interventions: rest repositioned Intervention: Prevent or Manage Pain Recent Flowsheet Documentation Taken 12/28/20232303 by Kate Carlson RN Medication Review/Management: medications reviewed Problem: Infection Goal: Absence of Infection Signs and Symptoms Outcome: Progressing * Plan of Care - Narayan Hicks RN - 12/29/2023 12:02 AM CDT Assessments: A&Ox4, VSS, On RA. Toradol and tylenol given for flank pain about 5-6/10. Independent in the room. Voiding adequately. Treatment Plan: IV Abx, pain management, Urology following Bedside Nurse: Narayan Hicks RN Problem: Pain Acute Goal: Optimal Pain Control and Function Outcome: Progressing Problem: Infection Goal: Absence of Infection Signs and Symptoms Outcome: Progressing * Brief Op Note - Leighton Bonilla MD - 12/28/2023 6:48 PM CDT [facility] Brief Operative Note Pre-operative diagnosis: Pain due to ureteral stent, initial encounter (H24) [T83.84XA] Ureteral stone [N20.1] Post-operative diagnosis Same as pre-operative diagnosis Procedure: cystoscopy, right ureteroscopy with laser lithotripsy, right ureteroscopy with stone basketing, right retrograde pyelogram, right ureteral stent exchange, Fluoroscopic interpretation <1 hour physician time Right - Flank Surgeon: Surgeons and Role: * Leighton Bonilla MD - Primary Anesthesia: General Estimated Blood Loss: None Drains: Right ureteral 6 Fr x 22 cm stent on DANGLE Specimens: ID Type Source Tests Collected by Time Destination A : Right ureteral stones Calculus/Stone Ureter, Right STONE ANALYSIS Leighton Bonilla MD 12/28/2023 6:34 PM Findings: 5 mm right mid ureteral stone impacted into ureteral wall, laser fragmented and basketed.No stones seen within kidney on flexible pyeloscopy. Mild hydronephrosis, stent replaced. Complications: None. Implants: Implant Name Type Inv. Item Serial No. Consumer Lender Lot No. LRB No. Used Action STENT URETERAL POLARIS ULTRA [id number] - [id number] Stent STENT URETERAL POLARIS ULTRA [id number] [place] [id number] Right 1 Implanted * Op Note - Leighton Bonilla MD - 12/28/2023 6:25 PM CDT [facility] Operative Note Pre-operative diagnosis: Pain due to ureteral stent, initial encounter (H24) [T83.84XA] Ureteral stone [N20.1] Post-operative diagnosis Pain due to ureteral stent, initial encounter (H24) [T83.84XA] Ureteral stone [N20.1] Procedure: Procedure(s): cystoscopy, right ureteroscopy with laser lithotripsy, right ureteroscopy with stone basketing, right retrograde pyelogram, right ureteral stent exchange Fluoroscopic interpretation <1 hour physician time Surgeon: Leighton Bonilla MD Assistants(s): none Anesthesia: General Estimated blood loss: None Total IV fluids: (See anesthesia record) Blood transfusion: No transfusion was given during surgery Total urine output: Not measured Drains: Right ureteral 6 Fr x 22 cm stent on DANGLE Specimens: ID Type Source Tests Collected by Time Destination A : Right ureteral stones Calculus/Stone Ureter, Right STONE ANALYSIS Leighton Bonilla MD 12/28/2023 6:34 PM Implants: Implant Name Type Inv. Item Serial No. Consumer Lender Lot No. LRB No. Used Action STENT URETERAL POLARIS ULTRA [id number] - [id number] Stent STENT URETERAL POLARIS ULTRA [id number] [employer] [id number] Right 1 Implanted Findings: 5 mm right mid ureteral stone impacted into ureteral wall, laser fragmented and basketed. No stonesseen within kidney on flexible pyeloscopy. Mild hydronephrosis, stent replaced. . Complications: None. Condition: Stable Description of procedure: 38 yo F with infected obstructed right ureteral stone s/p right ureteral stent placement 12/18/2023 now presenting with intractable right flank/abdominal pain. I discussed with the patient expedited ureteroscopic management with laser lithotripsy and stone basketing. Risks including infection, hematuria, ureteral injury, incomplete stone clearance, ongoing stent pain and irritation were discussed. Informed consent was obtained. The patient was brought to operating room #14. She had already been receiving Zosyn antibiotics prior to the procedure. General anesthesia was induced, she was placed in dorsolithotomy position, prepped and draped in standard sterile fashion. A timeout was performed. A 22 Telugu Stortz cystoscope was assembled and passed through the urethra into the bladder. The existing stent was noted emanating from the right ureteral orifice with no encrustation. The stent wasgrasped with a stent grasper and brought out the urethral meatus. The stent was cannulated with a 0.035 inch stiff shaft Glidewire which was passed up to the renal pelvis under fluoroscopic guidance and the existing stent was removed intact and discarded. The wire was clipped to the drapes as a safety wire. A Storz semirigid ureteroscope was assembled and passed through the urethra, into the bladder and up the right ureter. The ureter was widely patent up to the mid ureter where a 5 mm stone was seen impacted into the lateral ureteral wall. The stone was gently manipulated out of the wall of the ureter and then laser fragmented using the Olympus Soltive thulium fiber laser. Pieces were thenbasketed out using [place] halo basket. A gentle retrograde pyelogram showed mild hydronephrosis. The scope was able to pass all the way up to the ureteropelvic junction and the ureter appeared to be widely patent. Given the small stone seen on CT scan I opted to do flexible pyeloscopy as well. A gentle retrograde pyelogram showed mild hydronephrosis. A second wire was passed through the scope up into the renal pelvis and the scope was backloaded off the wire. Over the working wire a digita l flexible ureteroscope was passed up to the renal pelvis under fluoroscopic guidance and then working wire was removed. Complete pyeloscopy revealed no concerning stones. There were numerous René's plaques and evidence of prior stone formation but no significant stone burden was seen to fragment or basket. The scope was removed. The stent was then placed in the usual fashion under fluoroscopic guidance with good curls noted proximally and distally. The stent was left on a string. The stringwas trimmed about 3 cm from the urethral meatus. Patient was cleaned up, awoken from anesthesia andbrought to PACU in stable condition. Plan Remain admitted overnight for pain control, continued IV abx Assuming she does well overnight, recommend discharge on brief antibiotic course while stent is in place Patient can remove stent on her own on 01/01/2024 AM Leighton Bonilla MD [facility] [phone] clinic phone * Plan of Care - Kathya Tom RN - 12/28/2023 4:07 PM CDT End of Shift Summary For vital signs and complete assessments, please see documentation flowsheets. Pertinent assessments: Pt A&OX4, VSS, On RA. Complained of flank pain, 02/23. IV Morphine givenx2. Independent in the room.PIV running NS. NPO. Major Shift Events: Pt going to surgery at 16:30. Treatment Plan: IV Abx, pain management. Bedside Nurse: Kathya Tom RN Problem: Pain Acute Goal: Optimal Pain Control and Function Outcome: Not Progressing Intervention: Prevent or Manage Pain Recent Flowsheet Documentation Taken 12/28/2023 1300 by Kathya Tom RN Medication Review/Management: medications reviewed Problem: Infection Goal: Absence of Infection Signs and Symptoms Outcome: Not Progressing Problem: Pain Acute Goal: Optimal Pain Control and Function Outcome: Not Progressing Intervention: Prevent or Manage Pain Recent Flowsheet Documentation Taken 12/28/2023 1300 by Kathya Tom RN Medication Review/Management: medications reviewed Problem: Infection Goal: Absence of Infection Signs and Symptoms Outcome: Not Progressing Goal Outcome Evaluation: * Utilization Review - Gil Branham MD - 12/28/2023 2:10 PM CDT Admission Status; Secondary Review Determination Under the authority of the Utilization Management Committee, the utilization review process indicated a secondary review on the above patient. The review outcome is based on review of the medical records, discussions with staff, and applying clinical experience noted on the date of the review. (x) Inpatient Status Appropriate - This patient's medical care is consistent with medical management for inpatient care and reasonable inpatient medical practice. RATIONALE FOR DETERMINATION The patient is a 30-year-old female admitted on 12/27/2023. Patient began having abdominal pain and nausea and chills approximately 3 weeks ago. She was seen in the ED 10 days ago and found to have urinary tract infection and ureterolithiasis. Consultation was obtained by urology and a ureteral stent was placed. Patient was discharged on ciprofloxacin and completed her antibiotics several days prior to admission. Patient continued to have abdominal pain and nausea since that time and returns to the emergency room with the symptoms. Patient was started on Zosyn in the ED IV. IV fluids were given. Initial white count on this admission was elevated at 11.3. There is large blood in the urine analysis and moderate leukocyte esterase with urine culture pending. Blood culture x 2 was obtained. Patient on admission had a heart rate of 115. She is afebrile. Neurology evaluated at this time feels it could be his stent irritation and plans to do ureteroscopy management of stone today while the pat ient is in the hospital. Requested stent be on a string if clinically appropriate. Based on persisting pain and multi night hospital stay with acute need for intervention along with repeat urine cultures for infection, agree with inpatient status with tentative diagnosis for right pyelonephritis according to chart notes. The severity of illness, intensity of service provided, expected LOS and risk for adverse outcome make the care complex, high risk and appropriate for hospital admission. The information on this document is developed by the utilization review team in order for the business office to ensure compliance. This only denotes the appropriateness of proper admission status and does not reflect the quality of care rendered. The definitions of Inpatient Status and Observation Status used in making the determination above are those provided in the CMS Coverage Manual, Chapter 1 and Chapter 6, section 70.4. Sincerely, Nickolas Branham MD Physician Advisor Utilization Review/ Case Management [facility]. * Pharmacy-Admission Medication History - Jeannette Cruz RPH - 12/28/2023 1:21 PM CDT Pharmacist Admission Medication History Admission medication history is complete. The information provided in this note is only as accurateas the sources available at the time of the update. Information Source(s): Patient and CareEverywhere/SureScripts via in-person Pertinent Information: Pt also getting depo-provera injection q3m. Changes made to [employer] medication list: Added: None Deleted: Guanfacine (filled once in October 2023, Rx w 0 refills) Changed: None Allergies reviewed with patient and updates made in EHR: no Medication History Completed By: Jeannette Cruz RPH 12/28/2023 1:21 PM [employer] Med List Medication Sig Last Dose amphetamine-dextroamphetamine (ADDERALL) 20 MG tablet Take 1 tablet by mouth 3 times daily 12/27/2023 clonazePAM (KLONOPIN) 2 MG tablet TAKE 1/2 TABLET BY MOUTH THREE TIMES DAILY NEEDED FOR ANXIETY Unknown at PRN lamoTRIgine (LAMICTAL) 150 MG tablet Take 1 tablet by mouth daily 12/27/2023 NYSTOP [id number] UNIT/GM powder Apply topically 4 times daily Past Month oxyBUTYnin ER (DITROPAN XL) 5 MG 24 hr tablet Take 1 tablet (5 mg) by mouth daily Take daily until your stent is removed. 12/27/2023 tamsulosin (FLOMAX) 0.4 MG capsule Take 1 capsule (0.4 mg) by mouth daily Take daily until your stent is removed. 12/27/2023 VENTOLIN HFA 108 (90 Base) MCG/ACT inhaler Inhale 2 puffs into the lungs every 4 hours as needed for shortness of breath or wheezing Unknown at PRN * Plan of Care - Qiana Martinez RN - 12/28/2023 5:56 AM CDT Goal Outcome Evaluation: Plan of Care Reviewed With: patient Overall Patient Progress: no changeOverall Patient Progress: no change Vitals are Temp: 98.2 ??F (36.8 ??C) Temp src: Oral BP: 104/66 Pulse: 62 Resp: 16 SpO2: 98 %. Patient is Alert and Oriented x4. They are independent with no assistive devices . Pt is a NPO diet. They are complaing of 8/10 generalized pain. Tylenol, Oxycodone, and Morphine given for pain. Medicatons decreased pain. Patient has Normal Saline 0.9% running at 100 mL per hour. This morning Pt c/o of uncontrolled pain after getting pain med. PRN Toradol was ordered. Problem: Adult Inpatient Plan of Care Goal: Plan of Care Review Description: The Plan of Care Review/Shift note should be completed every shift. The Outcome Evaluation is a brief statement about your assessment that the patient is improving, declining, or no change. This information will be displayed automatically on your shift note. Outcome: Adequate for Care Transition Flowsheets (Taken 12/28/2023 0556) Plan of Care Reviewed With: patient Overall Patient Progress: no change Goal: Patient-Specific Goal (Individualized) Description: You can add care plan individualizations to a care plan. Examples of Individualizationmight be: Parent requests to be called daily at 9am for status, I have a hard time hearing out of my right ear, or Do not touch me to wake me up as it startles me. Outcome: Adequate for Care Transition Goal: Absence of Hospital-Acquired Illness or Injury Outcome: Adequate for Care Transition Intervention: Identify and Manage Fall Risk Recent Flowsheet Documentation Taken 12/27/20232355 by Qiana Martinez RN Safety Promotion/Fall Prevention: clutter free environment maintained nonskid shoes/slippers when out of bed safety round/check completed Intervention: Prevent Skin Injury Recent Flowsheet Documentation Taken 12/27/20232355 by Qiana Martinez RN Body Position: position changed independently Intervention: Prevent and Manage VTE (Venous Thromboembolism) Risk Recent Flowsheet Documentation Taken 12/27/20232355 by Qiana Martinez RN VTE Prevention/Management: SCDs off (sequential compression devices) Intervention: Prevent Infection Recent Flowsheet Documentation Taken 12/27/20232355 by Qiana Martinez RN Infection Prevention: single patient room provided hand hygiene promoted Goal: Optimal Comfort and Wellbeing Outcome: Adequate for Care Transition Intervention: Monitor Pain and Promote Comfort Recent Flowsheet Documentation Taken 12/28/2023 0248 by Qiana Martinez RN Pain Management Interventions: medication (see MAR) Taken 12/28/2023 0109 by Qiana Martinez RN Pain Management Interventions: rest Taken 12/28/2023 0011 by Qiana Martinez RN Pain Management Interventions: rest Taken 12/27/2023 235 by Qiana Martinez RN Pain Management Interventions: medication (see MAR) Goal: Readiness for Transition of Care Outcome: Adequate for Care Transition Problem: UTI (Urinary Tract Infection) Goal: Improved Infection Symptoms Outcome: Adequate for Care Transition * Plan of Care - Narayan Hicks RN - 12/27/2023 10:37 PM CDT Assessments: A/Ox4. Independent in room. Complained of bilateral flank pain about 5/10 and some nausea. PRN oxycodone and zofran given. On room air. VSS. Treatment Plan: NPO at midnight; Urology consulted, continue Zosyn, monitor cultures, pain management Bedside Nurse: Narayan Hicks RN Problem: Adult Inpatient Plan of Care Goal: Plan of Care Review Description: The Plan of Care Review/Shift note should be completed every shift. The Outcome Evaluation is a brief statement about your assessment that the patient is improving, declining, or no change. This information will be displayed automatically on your shift note. Outcome: Not Progressing Flowsheets (Taken 12/27/20232236) Outcome Evaluation: still complaining of flank pain and having hematuria Plan of Care Reviewed With: patient Overall Patient Progress: no change Goal: Patient-Specific Goal (Individualized) Description: You can add care plan individualizations to a care plan. Examples of Individualizationmight be: Parent requests to be called daily at 9am for status, I have a hard time hearing out of my right ear, or Do not touch me to wake me up as it startles me. Outcome: Not Progressing Goal: Absence of Hospital-Acquired Illness or Injury Outcome: Not Progressing Intervention: Prevent Skin Injury Recent Flowsheet Documentation Taken 12/27/20232143 by Narayan Hicks RN Body Position: sitting up in bed Intervention: Prevent and Manage VTE (Venous Thromboembolism) Risk Recent Flowsheet Documentation Taken 12/27/20232143 by Narayan Hicks RN VTE Prevention/Management: SCDs off (sequential compression devices) Goal: Optimal Comfort and Wellbeing Outcome: Not Progressing Goal: Readiness for Transition of Care Outcome: Not Progressing Intervention: Mutually Develop Transition Plan Recent Flowsheet Documentation Taken 12/27/20232211 by Narayan Hicks RN Equipment Currently Used at Home: none Problem: UTI (Urinary Tract Infection) Goal: Improved Infection Symptoms Outcome: Not Progressing Goal Outcome Evaluation: Plan of Care Reviewed With: patient Overall Patient Progress: no change Outcome Evaluation: still complaining of flank pain and having hematuria documented in this encounter Plan of Treatment Pending Results Name Type Priority Associated Diagnoses Date /Time Blood Culture Arm, Right Microbiology STAT 12/27/2023 7:27 PM CDT Blood Culture Peripheral Blood Microbiology STAT 12/27/2023 7:08 PM CDT documented as of this encounter Procedures Procedure Name Priority Date/Time Associated Diagnosis Comments HEMOGLOBIN Routine 12/29/2023 6:40 AM CDT XR SURGERY ZBIGNIEW FLUORO LESS THAN 5 MIN W STILLS Routine 12/28/2023 6:47 PM CDT STONE ANALYSIS Routine 12/28/2023 6:34 PM CDT CYSTOURETEROSCOPY, WITH RETROGRADE PYELOGRAM, HOLMIUM LASER LITHOTRIPSY OF URETERAL CALCULUS, AND STENT INSERTION 12/28/2023 6:08 PM CDT Pain due to ureteral stent, initial encounter (H24) Ureteral stone COMPREHENSIVE METABOLIC PANEL Routine 12/28/2023 8:37 AM CDT CBC WITH PLATELETS Routine 12/28/2023 8: 37 AM CDT LACTIC ACID WHOLE BLOOD STAT 12/27/2023 7:27 PM CDT BLOOD CULTURE STAT 12/27/2023 7:27 PM CDT BLOOD CULTURE STAT 12/27/2023 7:[address] ABDOMEN PELVIS W CONTRAST STAT 12/27/2023 6:02 PM CDT CBC WITH PLATELETS AND DIFFERENTIAL STAT 12/27/2023 5:38 PM CDT CBC WITH PLATELETS & DIFFERENTIAL STAT 12/27/2023 5:38 PM CDT LACTIC ACID WHOLE BLOOD STAT 12/27/2023 5:38 PM CDT HCG QUALITATIVE STAT 12/27/2023 5:38 PM CDT COMPREHENSIVE METABOLIC PANEL STAT 12/27/2023 5:38 PM CDT ROUTINE UA WITH MICROSCOPIC REFLEX TO CULTURE STAT 12/27/2023 5:17 PM CDT URINE CULTURE STAT 12/27/2023 5:17 PM CDT documented in this encounter Results * (ABNORMAL) Hemoglobin (12/29/2023 6:40 AM CDT) Hemoglobin 11.2(L) 11.7 - 15.7 g/dL 12/29/2023 6:52 AM CDT LABORATORY Blood STRUCTURE OF LEFT HAND / Unknown Venipuncture / Unknown 12/29/2023 6:40 AM CDT 12/29/2023 6:44 AM CDT Zeb Henderson MD LAB - BLOOD ORDER MARIMAR LABORATORY [facility] [address] [facility] Lab (1st floor, no room number) [place] [address] * XR Surgery ZBIGNIEW L/T 5 Min Fluoro w Stills (12/28/2023 6:47 PM CDT) Narrative [facility] - 12/28/2023 6:48 PM CDT This exam was marked as non-reportable because it will not be read by a radiologist or a [facility] non-radiologist provider. Leighton Bonilla MD IMG DIAGNOSTIC IMAGI NG ORDERABLES Performing Organization Address [facility]/ZIP Co de Phone Number [facility] * Stone analysis (12/28/2023 6:34 PM CDT) Stone Mass 17 mg 12/31/2023 11:06 AM CDT [facility] Calculi Description See Note 12/31/2023 11:06 AM CDT [facility] Comment: Specimen consists of three brown and adames calculi fragments. The total weight is 17 mg. Stone Composition See Note 11:06 AM CDT [facility] Comment: Calculi composed primarily of: 60% calcium [...] composition determined by FTIR analysis. Performed By: [facility] [address] [place] [address] Shot Polisher: Daniel Kahn MD, PhD CLIA Number: [id number] Calculus/Stone STRUCTURE OF RIGHT URETER / Unknown Non-blood Collection / Unknown 12/28/2023 6:34 PM CDT 12/28/2023 7:10 PM CDT Leighton Bonilla MD LAB - BODY FLUIDS OR DERABLES [employer] [address] [place] [address], [facility] [phone] * (ABNORMAL) CBC with platelets (12/28/2023 8:37 AM CDT) WBC Count 9.2 4.0 - 11.0 10e3/uL [...] AM CDT 12/28/2023 8:52 AM CDT Nash D Kingjem DO LAB - BLOOD ORDERA BLES RH LABORATORY [facility] [address] Lab (1st floor, no room number) [place] [address], [facility] * (ABNORMAL) Comprehensive metabolic panel (12/28/2023 8:37 AM CDT) [facility] Sodium 139 135 - 145 mmol/L 12/28/2023 9:20 AM CDT LABORATORY Potassium 4.1 3.4 - 5.3 mmol/L 12/28/2023 9:20 AM CDT LABORATORY Carbon Dioxide (CO2) 21(L) 22 - 29 mmol/L 12/28/2023 9:20 AM CDT LABORATORY Anion Gap 10 7 - 15 mmol/L 12/28/2023 9:20 AM CDT LABORATORY Urea Nitrogen 18.5 6.0 - 20.0 mg/dL 12/28/2023 9:20 AM CDT LABORATORY Creatinine 0.67 0.51 - 0.95 mg/dL 12/28/2023 9:20 AM CDT LABORATORY GFR Estimate >90 >60 mL/min/1. 73m2 12/28/2023 9:20 AM CDT LABORATORY Comment:eGFR calculated usin 2020 CKD-EPI equation. Calcium 8.1(L) 8.6 - 10.0 mg/dL 12/28/2023 9:20 AM CDT LABORATORY Chloride 108(H) 98 - 107 mmol/L 12/28/2023 9:20 AM CDT LABORATORY Glucose 98 70 - 99 mg/dL 12/28/2023 9:20 AM CDT LABORATORY Alkaline Phosphatase 52 40 - 150 U/L 12/28/2023 9:20 AM CDT LABORATORY AST 19 0 - 45 U/L 12/28/2023 9:20 AM CDT LABORATORY Comment:Reference intervals for this test were [...] Alfonso DO LAB - BLOOD ORDERA BLES LABORATORY [facility] Lab [address] [facility] Lab (1st floor, no room number) [place] [id number] [place] [address] * Lactic acid whole blood (12/27/2023 7:27 PM CDT) Lactic Acid 1.2 0.7 - 2.0 mmol/L 12/27/2023 7:42 PM CDT RH LABORATORY Blood STRUCTURE OF RIGHT UPPER LIMB / Unknown Venipuncture / Unknown 12/27/2023 7:27 PM CDT 12/27/2023 7:33 PM CDT Sam Link MD LAB - BLOOD ORDERABL ES [facility] Lab [address] Lab (1st floor, no room number) [place] [address] * CT Abdomen Pelvis w Contrast (12/27/2023 6:02 PM CDT) Anatomical Region Laterality Modality Abdomen/Pelvis, SUBRAD CT [...] EXAM: CT ABDOMEN PELVIS W CONTRAST LOCATION: [facility] DATE: 12/27/2023 INDICATION: Right flank pain. COMPARISON: [...] EXAM: CT ABDOMEN PELVIS W CONTRAST LOCATION: [facility] DATE: 12/27/2023 INDICATION: Right flank pain. COMPARISON: [...] 7 mmon the left. Sam Link MD [facility] CT ORDERABLES * (ABNORMAL) CBC with platelets and differential (12/27/2023 5:38 PM CDT) WBC Count 11.3(H) 4.0 - 11.0 10e3/uL [...] Link MD LAB - BLOOD ORDERABL ES LABORATORY [facility] [address] Lab (1st floor, no room number) [address] * (ABNORMAL) Lactic acid whole blood (12/27/2023 5:38 PM CDT) Lactic Acid 2.3(H) 0.7 - 2.0 mmol/L 12/27/2023 5:44 PM CDT LABORATORY Blood BLOOD SPECIMEN / Unknown Venipuncture / Unknown 12/27/2023 5:38 PM CDT 12/27/2023 5:42 PM CDT Sam Link MD LAB - BLOOD ORDERABL ES Performing Organization Address [facility]/ZIP Co de Phone Number LABORATORY [facility] Lab [address] Lab (1st floor, no room number) [address] * HCG QUALitative (blood) (12/27/2023 5:38 PM CDT) hCG Serum Qualitative Negative Negative DAFNE 12/27/2023 6:41 PM CDT RH LAB[facility]ATORY Comment:This test is for scr eening purposes. Results should be interpreted along with the clinical picture. Confirmation testing is available if warranted by ordering [id number], HCG Quantitative . Blood BLOOD SPECIMEN / Unknown Venipuncture / Unknown 12/27/2023 5:38 PM CDT 12/27/2023 5:42 PM CDT Sam Link MD LAB - BLOOD ORDERABL ES LABORATORY [facility] [address] Lab (1st floor, no room number) [place] [id number], [facility] * (ABNORMAL) Comprehensive metabolic panel (12/27/2023 5:38 PM CDT) Sodium 140 135 - 145 mmol/L 12/27/2023 6:15 PM CDT RH LABORATORY Potassium 4.2 3.4 - 5.3 mmol/L 12/27/2023 6:15 PM CDT RH LABORATORY Carbon Dioxide (CO2) 20(L) 22 - 29 mmol/L 12/27/2023 6:15 PM CDT RH LABORATORY Anion Gap 13 7 - 15 mmol/L 12/27/2023 6:15 PM CDT RH LAB[facility]ATORY Urea Nitrogen 18.3 6.0 - 20.0 mg/dL 12/27/2023 6:15 PM CDT RH LAB[facility]ATORY Creatinine 0.70 0.51 - 0.95 mg/dL 12/27/2023 6:15 PM CDT RH LABORATORY GFR Estimate >90 >60 mL/min/1. 73m2 12/27/2023 6:15 PM CDT [facility] Comment:eGFR calculated usin g 2020 CKD-EPI equation. Calcium 9.5 8.6 - 10.0 mg/dL 12/27/2023 6:15 PM CDT RH LABORATORY Chloride 107 98 - 107 mmol/L 12/27/2023 6:15 PM CDT RH LABORATORY Glucose 148(H) 70 - 99 mg/dL 12/27/2023 6:15 PM CDT [facility] LAB[facility] Alkaline Phosphatase 60 40 - 150 U/L 12/27/2023 6:15 PM CDT RH LABORATORY AST 10 0 - 45 U/L 12/27/2023 6:15 PM CDT [facility] Comment:Reference intervals for this test were updated on 11/25/2022 to more accurately reflect our healthy population. There may be differences in the flagging of prior results with similar values performed with this method. Interpretation of those prior results can be made in the context of the updated reference intervals. ALT 9 0 - 50 U/L 12/27/2023 6:15 PM CDT [facility] Comment:Reference intervals for this test were updated on 11/25/2022 to more accurately reflect our healthy population. There may be differences in the flagging of prior results with similar values performed with this method. Interpretation of those prior results can be made in the context of the updated reference intervals. Protein Total 7.0 6.4 - 8.3 g/dL 12/27/2023 6:15 PM CDT RH LABORATORY Albumin 4.0 3.5 - 5.2 g/dL 12/27/2023 6:15 PM CDT RH LABORATORY Bilirubin Total 0.3 <=1.2 mg/dL 12/27/2023 6:15 PM CDT RH LABORATORY Blood BLOOD SPECIMEN / Unknown Venipuncture / Unknown 12/27/2023 5:38 PM CDT 12/27/2023 5:42 PM CDT Sam Link MD LAB - BLOOD ORDERABL ES LABORATORY [facility] [address] [facility] Lab (1st floor, no room number) [place] [address] * Urine Culture (12/27/2023 5:17 PM CDT) Culture <10,000 CFU/mL Mixture of Urogenital Marita 12/29/2023 5:31 AM CDT [facility] LABORATORY Urine URINE SPECIMEN OBTAINED BY CLEAN CATCH PROCEDURE / Unknown Non-blood Collection / Unknown 12/27/2023 5:17 PM CDT 12/27/2023 5:52 PM CDT Sam Link MD LAB - MICRO GENERAL ORDERABLES [facility]ORAT[facility] Inf. Diseases Di[facility]. Lab [address] [facility] [place] [address] * (ABNORMAL) UA with Microscopic reflex to Culture (12/27/2023 5:17 PM CDT) Color Urine Dark Brown(A) Colorless, Straw, Light Yellow, Yellow 12/27/2023 5:52 PM CDT LABORATORY Appearance Urine Cloudy(A) Clear 12/27/19 24 5:52 PM CDT RH LABORATORY Glucose Urine Negative Negative mg/dL 12/27/2023 5:52 PM CDT RH LABORATORY Bilirubin Urine Negative Negative 5:52 PM CDT LABORATORY Ketones Urine Negative Negative mg/dL 12/27/2023 5:52 PM CDT RH LABORATORY Specific [place] Urine 1.027 1.003 - 1.035 12/27/2023 5:52 PM CDT RH LAB[facility]ATORY Blood Urine Large(A) Negative 12/27/2023 5:52 PM CDT RH LAB[facility]ATORY pH Urine 6.0 5.0 - 7.0 12/27/2023 5:52 PM CDT RH LAB[facility]AT[facility] Protein Albumin Urine 300(A) Negative mg/dL 12/27/2023 5:52 PM CDT [facility] LAB[facility] Urobilinogen Urine Normal Normal, 2.0 mg/dL 12/27/2023 5:52 PM CDT [facility] Nitrite Urine Negative Negative 12/27/2023 5:52 PM CDT [facility] Leukocyte Esterase Urine Moderate(A) Negative 12/27/2023 5:52 PM CDT [facility] RBC Urine >182(H) <=2 /HPF 12/27/2023 5:52 PM CDT [facility] LAB[facility] WBC Urine 2 <=5 /HPF 12/27/2023 5:52 PM CDT [facility] LAB[facility] Urine URINE SPECIMEN OBTAINED BY CLEAN CATCH PROCEDURE / Unknown Non-blood Collection / Unknown 12/27/2023 5:17 PM CDT 12/27/2023 5:21 PM CDT Narrative LABORATORY - 12/27/2023 5:52 PM CDT Urine Culture ordered based on laboratory criteria Sam Link MD LAB - URINE ORDERABL ES [facility] [address] [facility], no room number) [place] [address], [facility] documented in this encounter Visit Diagnoses Diagnosis Pain due to ureteral stent, initial encounter (H24)- Primary Pyelonephritis Pyelonephritis, unspecified Ureteral stone Calculus of ureter Pyelonephritis Pyelonephritis, unspecified documented in this encounter Administered Medications Inactive Administered Medications - up to 3 most recent administrations Medication Order MAR Action Action Date Dose Rate Site acetaminophen (TYLENOL) Suppository 650 mg 650 mg, Rectal, EVERY 4 HOURS PRN, mild pain, other, and adjunct with moderate or severe pain or per patient request, Starting on 12/27/23 at 2148, Alternate with ibuprofen if ordered. Maximum acetaminophen dose from all sources = 75 mg/kg/day not to exceed 4 grams/day. acetaminophen (TYLENOL) tablet 650 mg 650 mg, Oral, EVERY 4 HOURS PRN, mild pain, other, and adjunct with moderate or severe pain or per patient request, Starting on 12/27/23 at 2148, Alternate with ibuprofen if ordered. Maximum acetaminophen dose from all sources = 75 mg/kg/day not to exceed 4 grams/day. $Given 12/29/2023 8:34 AM CDT 650 mg $Given 12/29/2023 2:05 AM CDT 650 mg $Given 12/28/2023 9:21 PM CDT 650 mg amphetamine-dextroamphetamine (ADDERALL) per tablet 20 mg 20 mg, Oral, 3 TIMES DAILY (Diuretics and Nitrates), First dose on 12/28/23 at 1800 $Given 12/29/2023 12:3 2 PM CDT 20 mg $Given 12/29/2023 10:11 AM CDT 20 mg clonazePAM (klonoPIN) tablet 1 mg 1 mg, Oral, 3 TIMES DAILY PRN, anxiety, Starting on 12/28/23 at 1527 $Given 12/29/2023 10:11 AM CDT 1 mg $Given 12/28/2023 10:30 PM CDT [address] Scan Flush Intravenous, 100 mL, ONCE, On 12/27/23 at 1800, For 1 dose, This entry is for use by Radiology to intermittently used as a flush in patients receiving a CT scan. $Given 12/27/2023 5:58 PM CDT 56 mLs HYDROmorphone (PF) (DILAUDID) injection 0.5 mg 0.5 mg, Intravenous, EVERY 30 MIN PRN, moderate pain, severe pain, Starting on 12/27/23 at 1725, For 3 doses, Notify the provider to assess for uncontrolled pain or analgesic side effects. Hold while on IV [employer] or with regular IV opioid dosing. $Given 12/27/2023 7:48 PM CDT 0.5 mg $Given 12/27/2023 5:44 PM CDT 0.5 mg hydrOXYzine HCl (ATARAX) tablet 25 mg 25 mg, Oral, EVERY 6 HOURS PRN, other, anxiety, adjuvant pain, Starting on 12/29/23 at 0958, Start with 25 mg for the initial dose. If the 25 mg dose is ineffective, increase to the 50 mg dose at the next administration time and maintain further doses at 50 mg. If the 50 mg dose is ineffective, contact the provider. iopamidol (ISOVUE-370) solution 500 mL 500 mL, Intravenous, ONCE, On 12/27/23 at 1800, For 1 dose $Given 12/27/2023 5:58 PM CDT 63 mLs ketorolac (TORADOL) injection 30 mg 30 mg, Intravenous, EVERY 6 HOURS PRN, inflammatory pain, Starting on 12/28/23 at 0750, For 5 days, Can cause pain on injection. If ordered intravenously (IV) : administer through a running maintenance fluid over 1 minute followed by a flush. If patient complains of pain on injection, may dilute 15-30 mg in 5 mL and push over 1 to 2 minutes. $Given 12/29/2023 6:19 AM CDT 30 mg $Given 12/28/2023 10:30 PM CDT 30 mg $Given 12/28/2023 3:46 PM CDT 30 mg lamoTRIgine (LaMICtal) tablet 150 mg 150 mg, Oral, DAILY, First dose on 12/28/23 at 1530 $Given 12/29/2023 10:11 AM CDT 150 mg morphine (PF) injection 1 mg 1 mg, Intravenous, EVERY 2 HOURS PRN, moderate pain, IF patient cannot take oral opioid OR IF pain not managed with non-pharmacological, non-opioid, or oral opioid interventions if ordered, Starting on 12/27/23 at 2149, May use concomitant with non-opioid analgesics. $Given 12/27/2023 11:56 PM CDT 1 mg morphine (PF) injection 2 mg 2 mg, Intravenous, EVERY 2 HOURS PRN, severe pain, IF patient cannot take oral opioid OR IF pain not managed with non-pharmacological, non-opioid, or oral opioid interventions if ordered, Starting on 12/27/23 at 2149, May use concomitant with non-opioid analgesics. $Given 12/28/2023 5:21 AM CDT 2 mg morphine (PF) injection 4 mg 4 mg, Intravenous, EVERY 2 HOURS PRN, severe pain, IF patient cannot take oral opioid OR IF pain not managed with non-pharmacological, non-opioid, or oral opioid interventions if ordered, Starting on 12/28/23 at 0856, May use concomitant with non-opioid analgesics. $Given 12/29/2023 8:34 AM CDT 4 mg $Given 12/29/2023 4:40 AM CDT 4 mg $Given 12/28/2023 2:57 PM CDT 4 mg naloxone (NARCAN) injection 0.2 mg 0.2 mg, Intravenous, EVERY 2 MIN PRN, opioid reversal, Starting on 12/27/23 at 2159, Administer intravenous route when available and notify provider when administered. For unintended sedation or respiratory depression if all of the below criteria are met: ~ respiratory rate LESS than or EQUAL to 8. ~SaO2 less than 92% and or/end-tidal CO2 is greater than 50. ~ the patient is receiving an opioid, has unintended sedations assessed as RASS (-3), and is currently not on mechanical ventilation. RASS scale moderate (-3) is movement or eye opening to voice but no eye contact. Patient Monitoring Once the patient has demonstrated a response to the naloxone, continue to monitor respiratory rate, depth, oxygen saturation and end-tidal CO2 (if available) every 15 minutes x 2, then every 30 minutes x 2, then every 1 hour x 1 after each naloxone dose. Consider transfer to ICU if patient respiratory parameters have not improved after 4 naloxone doses. naloxone (NARCAN) injection 0.2 mg 0.2 mg, Intramuscular, EVERY 2 MIN PRN, opioid reversal, Starting on 12/27/23 at 2159, Administer intramuscular if an intravenous route is not available and notify provider when administered. For unintended sedation or respiratory depression if all of the below criteria are met: ~ respiratory rate LESS than or EQUAL to 8. ~SaO2 less than 92% and or/end-tidal CO2 is greater than 50. ~ the patient is receiving an opioid, has unintended sedations assessed as RASS (-3), and is currently not on mechanical ventilation. RASS scale moderate (-3) is movement or eye opening to voice but no eye contact. Patient Monitoring Once the patient has demonstrated a response to the naloxone, continue to monitor respiratory rate, depth, oxygen saturation and end-tidal CO2 (if available) every 15 minutes x 2, then every 30 minutes x 2, then every 1 hour x 1 after each naloxone dose. Consider transfer to ICU if patient respiratory parameters have not improved after 4 naloxone doses. naloxone (NARCAN) injection 0.4 mg 0.4 mg, Intravenous, EVERY 2 MIN PRN, opioid reversal, Starting on 12/27/23 at 2159, Administer intravenous route when available and notify provider when administered. For unintended sedation or respiratory depression if all of the below criteria are met: ~ respiratory rate LESS than or EQUAL to 8. ~ SaO2 less than 92% and or/end-tidal CO2 is greater than 50. ~ the patient is receiving an opioid, has unintended sedation assessed as RASS (-4) or (-5) and patient is currently not on mechanical ventilation. RASS scale (-4) is deep sedation with no response to voice but movement or eye opening to physical stimulation. RASS scale (-5) is unarousable. Patient Monitoring Once the patient has demonstrated a response to the naloxone, continue to monitor respiratory rate, depth, oxygen saturation and end-tidal CO2 (if available) every 15 minutes x 2, then every 30 minutes x 2, then every 1 hour x 1 after each naloxone dose. Consider transfer to ICU if patient respiratory parameters have not improved after 4 naloxone doses. naloxone (NARCAN) injection 0.4 mg 0.4 mg, Intramuscular, EVERY 2 MIN PRN, opioid reversal, Starting on 12/27/23 at 2159, Administer intramuscular if an intravenous route is not available and notify provider when administered. For unintended sedation or respiratory depression if all of the below criteria are met: ~ respiratory rate LESS than or EQUAL to 8. ~ SaO2 less than 92% and or/end-tidal CO2 is greater than 50. ~ the patient is receiving an opioid, has unintended sedation assessed as RASS (-4) or (-5) and patient is currently not on mechanical ventilation. RASS scale (-4) is deep sedation with no response to voice but movement or eye opening to physical stimulation. RASS scale (-5) is unarousable. Patient Monitoring Once the patient has demonstrated a response to the naloxone, continue to monitor respiratory rate, depth, oxygen saturation and end-tidal CO2 (if available) every 15 minutes x 2, then every 30 minutes x 2, then every 1 hour x 1 after each naloxone dose. Consider transfer to ICU if patient respiratory parameters have not improved after 4 naloxone doses. ondansetron (ZOFRAN ODT) ODT tab 4 mg 4 mg, Oral, EVERY 6 HOURS PRN, nausea, vomiting, Starting on 12/27/23 at 2146, This is Step 1 of nausea and vomiting management. If nausea not resolved in 15 minutes, go to Step 2 prochlorperazine (COMPAZINE). With dry hands, peel back foil backing and gently remove tablet. Do not push oral disintegrating tablet through foil backing. Administer immediately on tongue and oral disintegrating tablet dissolves in seconds, then swallow with saliva. Liquid not required. $Given 12/29/2023 2:05 AM CDT 4 mg ondansetron (ZOFRAN) injection 4 mg 4 mg, Intravenous, EVERY 30 MIN PRN, nausea, vomiting, Administer over 2-5 Minutes, Starting on 12/27/23 at 1725, For 3 doses, May repeat in 30 minutes as needed, up to 3 doses. $Given 12/27/2023 5:43 PM CDT 4 mg ondansetron (ZOFRAN) injection 4 mg 4 mg, Intravenous, EVERY 6 HOURS PRN, nausea, vomiting, Administer over 2-5 Minutes, Starting on 12/27/23 at 2146, Give IF patient unable to tolerate oral medication. This is Step 1 of nausea and vomiting management. If nausea not resolved in 15 minutes, go to Step 2 prochlorperazine (COMPAZINE). $Given 12/27/2023 10:08 PM CDT 4 mg oxyBUTYnin (DITROPAN) tablet 5 mg 5 mg, Oral, 3 TIMES DAILY, First dose on 12/27/23 at 2330 $Given 12/29/2023 10:13 AM CDT 5 mg $Given 12/28/2023 9:21 PM CDT 5 mg $Given 12/28/2023 3:36 PM CDT 5 mg oxyCODONE (ROXICODONE) tablet 10 mg 10 mg, Oral, EVERY 4 HOURS PRN, severe pain, IF pain not managed with non-pharmacological and non-opioid interventions, Starting on 12/28/23 at 0856, May use concomitant with non-opioid analgesics. $Given 12/29/2023 11:43 AM CDT 10 mg $Given 12/29/2023 6:57 AM CDT 10 mg $Given 12/28/2023 12:27 PM CDT 10 mg oxyCODONE (ROXICODONE) tablet 5 mg 5 mg, Oral, EVERY 4 HOURS PRN, severe pain, IF pain not managed with non-pharmacological and non-opioid interventions, Starting on 12/27/23 at 2149, May use concomitant with non-opioid analgesics. $Given 12/28/2023 7:06 AM CDT 5 mg $Given 12/28/2023 2:48 AM CDT 5 mg oxyCODONE (ROXICODONE) tablet 5 mg 5 mg, Oral, EVERY 4 HOURS PRN, moderate pain, IF pain not managed with non-pharmacological and non-opioid interventions, Starting on [place] 12/28/23 at 0856, May use concomitant with non-opioid analgesics. $Given 12/28/2023 11:17 PM CDT 5 mg oxyCODONE IR (ROXICODONE) half-tab 2.5 mg 2.5 mg, Oral, EVERY 4 HOURS PRN, moderate pain, IF pain not managed with non-pharmacological and non-opioid interventions, Starting on [facility] 12/27/23 at 2149, May use concomitant with non-opioid analgesics. $Given 12/27/2023 10:21 PM CDT 2.5 mg piperacillin-tazobactam (ZOSYN) 3.375 g vial to attach to NS 100 mL bag Routine, 3.375 g, Intravenous, EVERY 6 HOURS, First dose on [place] 12/28/23 at 0200, Lactated Ringer's solution is not compatible with piperacillin-tazobactam for injection., Indications: Pyelonephritis $New Bag 12/29/2023 3:00 AM CDT 3.375 g Restarted 12/28/2023 9:35 PM CDT $New Bag 12/28/2023 1:29 PM CDT 3.375 g piperacillin-tazobactam (ZOSYN) 4.5 g vial to attach to NS 100 mL bag STAT, 4.5 g, Intravenous, ONCE, On [facility] 12/27/23 at 1810, For 1 dose, Lactated Ringer's solution is not compatible with piperacillin-tazobactam for injection., Indications: Sepsis $New Bag 12/27/2023 7:46 PM CDT 4.5 g polyethylene glycol (MIRALAX) Packet 17 g 17 g, Oral, DAILY, First dose on 12/28/23 at 0900, 1 Packet = 17 grams. Mix each gram with at least 1/2 ounce (15 mL) of water - 8 ounces for 17 g dose, 4 ounces for 8.5 g dose, 2 ounces for 4 g dose. Follow with the same volume of water. Hold for loose stools unless being administered as part of a bowel prep regimen or bowel clean out. senna-docusate (SENOKOT-S/PERICOLACE) 8.6-50 MG per tablet 1 tablet 1 tablet, Oral, 2 TIMES DAILY PRN, constipation, Starting on 12/27/23 at 2146, If no bowel movement in 24 hours, increase to 2 tablets by mouth. IF more than 1 constipation PRN medication is ordered, administer step-denton as indicated, moving to the next step ONLY if prior step ineffective. Step 1: senna-docusate (SENOKOT-S; PERICOLACE) OR bisacodyl (DULCOLAX) EC tablet Step 2: polyethylene glycol (MIRALAX/GLYCOLAX) Step 3: bisacodyl (DULCOLAX) suppository Step 4: enema Hold for loose stools. senna-docusate (SENOKOT-S/PERICOLACE) 8.6-50 MG per tablet 2 tablet 2 tablet, Oral, 2 TIMES DAILY PRN, constipation, Starting on 12/27/23 at 2146, IF more than 1 constipation PRN medication is ordered, administer step-denton as indicated, moving to the next step ONLY if prior step ineffective. Step 1: senna-docusate (SENOKOT-S; PERICOLACE) OR bisacodyl (DULCOLAX) EC tablet Step 2: polyethylene glycol (MIRALAX/GLYCOLAX) Step 3: bisacodyl (DULCOLAX) suppository Step 4: enema Hold for loose stools. sodium chloride 0.9 % infusion at 100 mL/hr, Intravenous, CONTINUOUS, Starting on 12/27/23 at 2200, Until 12/29/23 at 1444 $New Bag 12/28/2023 9:20 PM CDT 100 mL/hr $New Bag 12/28/2023 7:11 AM CDT 100 mL/hr $New Bag 12/27/2023 10:07 PM CDT 100 mL/hr sodium chloride 0.9% BOLUS 1,000 mL Intravenous, 1,000 mL, ONCE, at 1,000 mL/hr, Administer over 1 Hours, On 12/27/23 at 1730, For 1 dose $New Bag 12/27/2023 5:41 PM CDT 1,000 mLs 1000 mL/hr sodium chloride 0.9% BOLUS 1,000 mL Intravenous, 1,000 mL, ONCE, at 1,000 mL/hr, Administer over 1 Hours, On 12/27/23 at 1810, For 1 dose $New Bag 12/27/2023 7:46 PM CDT 1,000 mLs 1000 mL/hr tamsulosin (FLOMAX) capsule 0.4 mg 0.4 mg, Oral, DAILY, First dose on 12/28/23 at 1230, Administer 30 minutes after the same meal each day. Capsules should be swallowed whole; do not crush chew or open. $Given 12/29/2023 10:11 AM CDT 0.4 mg $Given 12/28/2023 12:27 PM CDT 0.4 mg documented in this encounter Active and Recently Administered Medications Times are shown in CDT. Scheduled Medication Order 12/27/2023 12/28/2023 12/29/2023 amphetamine-dextroamphet amine (ADDERALL) per tablet 20 mg 20 mg, Oral, 3 TIMES DAILY (Diuretics and Nitrates), First dose on 12/28/23 at 1800 1606 (Auto Hold - Provider: Orders Generic Provider - Reason: Transfer to a procedural area)1800 (Automatically Held - Provider: Orders Generic Provider)2011 (Unhold - Provider: Orders Generic Provider) 1011 ($Given - Provider: Sammi Dover, HIPOLITO)1232 ($Given - Provider: Sammi Dover RN) CT Scan Flush (COMPLETED) Intravenous, 100 mL, ONCE, On 12/27/23 at 1800, For 1 dose, This entry is for use by Radiology to intermittently used as a flush in patients receiving a CT scan. 1758 ($Given - Provider: Janel Enriquez) iopamidol (ISOVUE-370) solution 500 mL (COMPLETED) 500 mL, Intravenous, ONCE, On 12/27/23 at 1800, For 1 dose 1758 ($Given - Provider: Janel Enriquez) lamoTRIgine (LaMICtal) tablet 150 mg 150 mg, Oral, DAILY, First dose on 12/28/23 at 1530 1530 (Canceled Entry - Provider: Orders Generic Provider - Comment: Automatically canceled at discontinue of medication order)1606 (Auto Hold - Provider: Orders Generic Provider - Reason: Transfer to a procedural area)2010 (Unhold - Provider: Orders Generic Provider) 1011 ($Given - Provider: Sammi Dover RN) oxyBUTYnin (DITROPAN) tablet 5 mg 5 mg, Oral, 3 TIMES DAILY, First dose on 12/27/23 at 2330 2356 ($Given - Provider: Qiana Martinez RN) 0858 ($Given - Provider: Kathya Tom RN)1536 ($Given - Provider: Narayan Hicks RN)1606 (Auto Hold - Provider: Orders Generic Provider - Reason: Transfer to a procedural area)2010 (Unhold - Provider: Orders Generic Provider)2120 ($Given - Provider: Narayan Hicks RN) 1013 ($Given - Provider: Sammi Dover RN) piperacillin-tazobactam (ZOSYN) 3.375 g vial to attach to NS 100 mL bag Routine, 3.375 g, Intravenous, EVERY 6 HOURS, First dose on 12/28/23 at 0200, Lactated Ringer's solution is not compatible with piperacillin-tazobactam for injection., Indications: Pyelonephritis 0244 ($New Bag - Provider: Qiana Martinez RN)0805 ($New Bag - Provider: Qiana Martinez, HIPOLITO)1329 ($New Bag - Provider: Kathya Tom, HIPOLITO)1606 (Auto Hold - Provider: Orders Generic Provider - Reason: Transfer to a procedural area)1999 (Automatically Held - Provider: Orders Generic Provider)2010 (Unhold - Provider: Orders Generic Provider)213 (Restarted - Provider: Narayan Hicks RN) 0300 ($New Bag - Provider: Kate Carlson RN)1146 (Not Given - Provider: Sammi Dover RN - Reason: Patient/family refused - Comment: pt stated shes in too much pain.) piperacillin-tazobactam (ZOSYN) 4.5 g vial to attach to NS 100 mL bag (COMPLETED) STAT, 4.5 g, Intravenous, ONCE, On 12/27/23 at 1810, For 1 dose, Lactated Ringer's solution is not compatible with piperacillin-tazobactam for injection., Indications: Sepsis 1945 ($New Bag - Provider: Preet Nassar, HIPOLITO) polyethylene glycol (MIRALAX) Packet 17 g 17 g, Oral, DAILY, First dose on 12/28/23 at 0900, 1 Packet = 17 grams. Mix each gram with at least 1/2 ounce (15 mL) of water - 8 ounces for 17 g dose, 4 ounces for 8.5 g dose, 2 ounces for 4 g dose. Follow with the same volume of water. Hold for loose stools unless being administered as part of a bowel prep regimen or bowel clean out. 0945 (Not Given - Provider: Kathya Tom RN - Reason: Patient/family refused)1606 (Auto Hold - Provider: Orders Generic Provider - Reason: Transfer to a procedural area)2010 (Unhold - Provider: Orders Generic Provider) 1107 (Not Given - Provider: Sammi Dover RN - Reason: Patient/family refused) sodium chloride 0.9% BOLUS 1,000 mL (COMPLETED) Intravenous, 1,000 mL, ONCE, at 1,000 mL/hr, Administer over 1 Hours, On 12/27/23 at 1730, For 1 dose 1741 ($New Bag - Provider: Anjelica Chacon RN) sodium chloride 0.9% BOLUS 1,000 mL (COMPLETED) Intravenous, 1,000 mL, ONCE, at 1,000 mL/hr, Administer over 1 Hours, On 12/27/23 at 1810, For 1 dose 1945 ($New Bag - Provider: Preet Nassar, HIPOLITO) tamsulosin (FLOMAX) capsule 0.4 mg 0.4 mg, Oral, DAILY, First dose on 12/28/23 at 1230, Administer 30 minutes after the same meal each day. Capsules should be swallowed whole; do not crush chew or open. 1227 ($Given - Provider: Glenn Potter RN)1606 (Auto Hold - Provider: Orders Generic Provider - Reason: Transfer to a procedural area)2010 (Unhold - Provider: Orders Generic Provider) 1011 ($Given - Provider: Sammi Dover RN) Continuous Medication Order 12/27/2023 12/28/2023 12/29/2023 lactated ringers infusion (CANCELED) at 10 mL/hr, Intravenous, CONTINUOUS, IF patient NOT on dialysis., Pre-procedure, Starting on 12/28/23 at 1700, Until 12/28/23 at 1852 1806 ($New Bag - Provider: Wayne Rutledge APRN INSTRUCTIONAL PARAPROFESSIONAL)1821 (Anesthesia Volume Adjustment - Provider: Wayne Rutledge APRN INSTRUCTIONAL PARAPROFESSIONAL) sodium chloride 0.9 % infusion at 100 mL/hr, Intravenous, CONTINUOUS, Starting on 12/27/23 at 2200, Until 12/29/23 at 1444 2207 ($New Bag - Provider: Narayan Hicks RN) 0711 ($New Bag - Provider: Qiana Martinez RN)2119 ($New Bag - Provider: Narayan Hicks RN) PRN Medication Order 12/27/2023 12/28/2023 12/29/2023 acetaminophen (TYLENOL) Suppository 650 mg(Linked Group 1) 650 mg, Rectal, EVERY 4 HOURS PRN, mild pain, other, and adjunct with moderate or severe pain or per patient request, Starting on 12/27/23 at 2148, Alternate with ibuprofen if ordered. Maximum acetaminophen dose from all sources = 75 mg/kg/day not to exceed 4 grams/day. 0008 (See Alternative - Provider: Qiana Martinez RN)0706 (See Alternative - Provider: Qiana Martinez RN)1151 (See Alternative - Provider: Glenn Potter RN)1606 (Auto Hold - Provider: Orders Generic Provider - Reason: Transfer to a procedural area)2010 (Unhold - Provider: Orders Generic Provider)2120 (See Alternative - Provider: Narayan Hicks RN) 0205 (See Alternative - Provider: Kate Carlson RN)0834 (See Alternative - Provider: Sammi Dover, HIPOLITO) acetaminophen (TYLENOL) tablet 650 mg(Linked Group 1) 650 mg, Oral, EVERY 4 HOURS PRN, mild pain, other, and adjunct with moderate or severe pain or per patient request, Starting on 12/27/23 at 2148, Alternate with ibuprofen if ordered. Maximum acetaminophen dose from all sources = 75 mg/kg/day not to exceed 4 grams/day. 0008 ($Given - Provider: Qiana Martinez, RN)0706 ($Given - Provider: Qiana Martinez, RN)1151 ($Given - Provider: Glenn Potter RN)160 (Auto Hold - Provider: Orders Generic Provider - Reason: Transfer to a procedural area)2010 (Unhold - Provider: Orders Generic Provider)2120 ($Given - Provider: Narayan Hicks RN) 0205 ($Given - Provider: Kate Carlson, HIPOLITO)0834 ($Given - Provider: Sammi Dover, HIPOLITO) albuterol (PROVENTIL HFA/VENTOLIN HFA) inhaler 2 puff, Inhalation, EVERY 4 HOURS PRN, shortness of breath, wheezing, Starting on 12/28/23 at 1528, Check the dose counter on the inhaler to ensure there are doses remaining before administering. Prime by spraying into the air 4 times prior to first use and if not used within 2 weeks. 160 (Auto Hold - Provider: Orders Generic Provider - Reason: Transfer to a procedural area)2010 (Unhold - Provider: Orders Generic Provider) bisacodyl (DULCOLAX) suppository 10 mg 10 mg, Rectal, DAILY PRN, constipation, Starting on 12/27/23 at 2149, IF more than 1 constipation PRN medication is ordered, administer step-denton as indicated, moving to the next step ONLY if prior step ineffective. Step 1: senna-docusate (SENOKOT-S; PERICOLACE) OR bisacodyl (DULCOLAX) EC tablet Step 2: polyethylene glycol (MIRALAX/GLYCOLAX) Step 3: bisacodyl (DULCOLAX) suppository Step 4: enema Hold for loose stools. 160 (Auto Hold - Provider: Orders Generic Provider - Reason: Transfer to a procedural area)2010 (Unhold - Provider: Orders Generic Provider) clonazePAM (klonoPIN) tablet 1 mg 1 mg, Oral, 3 TIMES DAILY PRN, anxiety, Starting on 12/28/23 at 1527 1606 (Auto Hold - Provider: Orders Generic Provider - Reason: Transfer to a procedural area)2010 (Unhold - Provider: Orders Generic Provider)2230 ($Given - Provider: Narayan Hicks, RN) 1011 ($Given - Provider: Sammi Dover RN) dexAMETHasone (DECADRON) injection 4 mg (COMPLETED) 4 mg, Intravenous, ONCE PRN, vomiting, nausea, Administer over 1 Minutes, Starting on 12/28/23 at 1743, For 1 dose, Administer ONLY if dexamethasone (DECADRON) NOT given in the OR. This is Step 2 of nausea and vomiting management. IF nausea vomiting NOT resolved within 30 minutes or dexamethasone (DECADRON) was given in the OR go to Step 3 prochlorperazine (COMPAZINE)., PACU 1815 ($Given - Provider: Gil Alvarez MD) fentaNYL (PF) (SUBLIMAZE) injection 25 mcg (CANCELED) 25 mcg, Intravenous, EVERY 5 MIN PRN, moderate pain, Give fentaNYL (SUBLIMAZE) first if HYDROmorphone (DILAUDID) also ordered., Starting on 12/28/23 at 1743, Administer fentaNYL (SUBLIMAZE) for acute pain control. Move to HYDROmorphone (DILAUDID): -IF patient has received up to 200 mcg of fentaNYL (SUBLIMAZE) OR - IF patient has received 2 doses of fentaNYL (SUBLIMAZE) AND continues to have pain score greater than or equal to six (6) or is unable to participate in post op recovery due to pain. Wait 5 minutes AFTER last fentaNYL (SUBLIMAZE) dose before administering HYDROmorphone (DILADUDID). Postop Anesthesia Phase I only. Notify Provider to assess for uncontrolled pain or analgesic side effects. DO NOT revert back to fentanyl (SUBLIMAZE) after moving to HYDROmorphone (DILAUDID)., PACU 1808 ($Given - Provider: Wayne Rutledge APRN INSTRUCTIONAL PARAPROFESSIONAL) HYDROmorphone (PF) (DILAUDID) injection 0.5 mg (CANCELED) 0.5 mg, Intravenous, EVERY 30 MIN PRN, moderate pain, severe pain, Starting on 12/27/23 at 1725, For 3 doses, Notify the provider to assess for uncontrolled pain or analgesic side effects. Hold while on IV LONGWALL HEADGATE OPERATOR or with regular IV opioid dosing. 174 ($Given - Provider: Anjelica Chacon, HIPOLITO)1948 ($Given - Provider: Preet Nassar, HIPOLITO) hydrOXYzine HCl (ATARAX) tablet 25 mg 25 mg, Oral, EVERY 6 HOURS PRN, other, anxiety, adjuvant pain, Starting on 12/29/23 at 0958, Start with 25 mg for the initial dose. If the 25 mg dose is ineffective, increase to the 50 mg dose at the next administration time and maintain further doses at 50 mg. If the 50 mg dose is ineffective, contact the provider. iopamidol 61% (ISOVUE 300) 50 mL + sterile water for irrigation 50 mL (CANCELED) PRN, Starting on 12/28/23 at 1847, Intra-procedure 1847 ($Given - Provider: Leighton Bonilla MD) ketorolac (TORADOL) injection 30 mg 30 mg, Intravenous, EVERY 6 HOURS PRN, inflammatory pain, Starting on 12/28/23 at 0750, For 5 days, Can cause pain on injection. If ordered intravenously (IV) : administer through a running maintenance fluid over 1 minute followed by a flush. If patient complains of pain on injection, may dilute 15-30 mg in 5 mL and push over 1 to 2 minutes. 0801 ($Given - Provider: Qiana Martinez RN)1546 ($Given - Provider: Narayan Hicks RN)1606 (Auto Hold - Provider: Orders Generic Provider - Reason: Transfer to a procedural area)2010 (Unhold - Provider: Orders Generic Provider)2230 ($Given - Provider: Narayan Hicks RN) 0619 ($Given - Provider: Kate Carlson RN) melatonin tablet 5 mg 5 mg, Oral, AT BEDTIME PRN, sleep, Starting on 12/27/23 at 2149, Do not give unless at least 6 hours of uninterrupted sleep is expected. If patient has multiple medications ordered PRN sleep/insomnia, offer melatonin first. 1606 (Auto Hold - Provider: Orders Generic Provider - Reason: Transfer to a procedural area)2010 (Unhold - Provider: Orders Generic Provider) morphine (PF) injection 1 mg (CANCELED) 1 mg, Intravenous, EVERY 2 HOURS PRN, moderate pain, IF patient cannot take oral opioid OR IF pain not managed with non-pharmacological, non-opioid, or oral opioid interventions if ordered, Starting on 12/27/23 at 2149, May use concomitant with non-opioid analgesics. 2356 ($Given - Provider: Qiana Martinez, HIPOLITO) morphine (PF) injection 2 mg (CANCELED) 2 mg, Intravenous, EVERY 2 HOURS PRN, severe pain, IF patient cannot take oral opioid OR IF pain not managed with non-pharmacological, non-opioid, or oral opioid interventions if ordered, Starting on 12/27/23 at 2149, May use concomitant with non-opioid analgesics. 0521 ($Given - Provider: Qiana Martinez RN) morphine (PF) injection 4 mg (CANCELED) 4 mg, Intravenous, EVERY 2 HOURS PRN, severe pain, IF patient cannot take oral opioid OR IF pain not managed with non-pharmacological, non-opioid, or oral opioid interventions if ordered, Starting on 12/28/23 at 0856, May use concomitant with non-opioid analgesics. 0944 ($Given - Provider: Kathya Tom RN)1151 ($Given - Provider: Glenn Potter RN)1457 ($Given - Provider: Kathya Tom RN)1606 (Auto Hold - Provider: Orders Generic Provider - Reason: Transfer to a procedural area)2010 (Unhold - Provider: Orders Generic Provider) 0440 ($Given - Provider: Kate Carlson, HIPOLITO)0834 ($Given - Provider: Sammi Dover RN) naloxone (NARCAN) injection 0.2 mg(Linked Group 2) 0.2 mg, Intravenous, EVERY 2 MIN PRN, opioid reversal, Starting on 12/27/23 at 2159, Administer intravenous route when available and notify provider when administered. For unintended sedation or respiratory depression if all of the below criteria are met: ~ respiratory rate LESS than or EQUAL to 8. ~SaO2 less than 92% and or/end-tidal CO2 is greater than 50. ~ the patient is receiving an opioid, has unintended sedations assessed as RASS (-3), and is currently not on mechanical ventilation. RASS scale moderate (-3) is movement or eye opening to voice but no eye contact. Patient Monitoring Once the patient has demonstrated a response to the naloxone, continue to monitor respiratory rate, depth, oxygen saturation and end-tidal CO2 (if available) every 15 minutes x 2, then every 30 minutes x 2, then every 1 hour x 1 after each naloxone dose. Consider transfer to ICU if patient respiratory parameters have not improved after 4 naloxone doses. 160 (Auto Hold - Provider: Orders Generic Provider - Reason: Transfer to a procedural area)2010 (Unhold - Provider: Orders Generic Provider) naloxone (NARCAN) injection 0.2 mg(Linked Group 2) 0.2 mg, Intramuscular, EVERY 2 MIN PRN, opioid reversal, Starting on 12/27/23 at 2159, Administer intramuscular if an intravenous route is not available and notify provider when administered. For unintended sedation or respiratory depression if all of the below criteria are met: ~ respiratory rate LESS than or EQUAL to 8. ~SaO2 less than 92% and or/end-tidal CO2 is greater than 50. ~ the patient is receiving an opioid, has unintended sedations assessed as RASS (-3), and is currently not on mechanical ventilation. RASS scale moderate (-3) is movement or eye opening to voice but no eye contact. Patient Monitoring Once the patient has demonstrated a response to the naloxone, continue to monitor respiratory rate, depth, oxygen saturation and end-tidal CO2 (if available) every 15 minutes x 2, then every 30 minutes x 2, then every 1 hour x 1 after each naloxone dose. Consider transfer to ICU if patient respiratory parameters have not improved after 4 naloxone doses. 1605 (Auto Hold - Provider: Orders Generic Provider - Reason: Transfer to a procedural area)2010 (Unhold - Provider: Orders Generic Provider) naloxone (NARCAN) injection 0.4 mg(Linked Group 2) 0.4 mg, Intravenous, EVERY 2 MIN PRN, opioid reversal, Starting on 12/27/23 at 2159, Administer intravenous route when available and notify provider when administered. For unintended sedation or respiratory depression if all of the below criteria are met: ~ respiratory rate LESS than or EQUAL to 8. ~ SaO2 less than 92% and or/end-tidal CO2 is greater than 50. ~ the patient is receiving an opioid, has unintended sedation assessed as RASS (-4) or (-5) and patient is currently not on mechanical ventilation. RASS scale (-4) is deep sedation with no response to voice but movement or eye opening to physical stimulation. RASS scale (-5) is unarousable. Patient Monitoring Once the patient has demonstrated a response to the naloxone, continue to monitor respiratory rate, depth, oxygen saturation and end-tidal CO2 (if available) every 15 minutes x 2, then every 30 minutes x 2, then every 1 hour x 1 after each naloxone dose. Consider transfer to ICU if patient respiratory parameters have not improved after 4 naloxone doses. 160 (Auto Hold - Provider: Orders Generic Provider - Reason: Transfer to a procedural area)2010 (Unhold - Provider: Orders Generic Provider) naloxone (NARCAN) injection 0.4 mg(Linked Group 2) 0.4 mg, Intramuscular, EVERY 2 MIN PRN, opioid reversal, Starting on 12/27/23 at 2159, Administer intramuscular if an intravenous route is not available and notify provider when administered. For unintended sedation or respiratory depression if all of the below criteria are met: ~ respiratory rate LESS than or EQUAL to 8. ~ SaO2 less than 92% and or/end-tidal CO2 is greater than 50. ~ the patient is receiving an opioid, has unintended sedation assessed as RASS (-4) or (-5) and patient is currently not on mechanical ventilation. RASS scale (-4) is deep sedation with no response to voice but movement or eye opening to physical stimulation. RASS scale (-5) is unarousable. Patient Monitoring Once the patient has demonstrated a response to the naloxone, continue to monitor respiratory rate, depth, oxygen saturation and end-tidal CO2 (if available) every 15 minutes x 2, then every 30 minutes x 2, then every 1 hour x 1 after each naloxone dose. Consider transfer to ICU if patient respiratory parameters have not improved after 4 naloxone doses. 1605 (Auto Hold - Provider: Orders Generic Provider - Reason: Transfer to a procedural area)2010 (Unhold - Provider: Orders Generic Provider) nicotine (NICORETTE) gum 2 mg 2 mg, Buccal, EVERY 1 HOUR PRN, nicotine withdrawal symptoms, Starting on 12/27/23 at 2149, Chew until tingling, then place between cheek and gum. Repeat. Do not swallow. Not to exceed 48 mg in a 24 hour time period. 160 (Auto Hold - Provider: Orders Generic Provider - Reason: Transfer to a procedural area)2010 (Unhold - Provider: Orders Generic Provider) ondansetron (ZOFRAN ODT) ODT tab 4 mg(Linked Group 3) 4 mg, Oral, EVERY 6 HOURS PRN, nausea, vomiting, Starting on 12/27/23 at 2146, This is Step 1 of nausea and vomiting management. If nausea not resolved in 15 minutes, go to Step 2 prochlorperazine (COMPAZINE). With dry hands, peel back foil backing and gently remove tablet. Do not push oral disintegrating tablet through foil backing. Administer immediately on tongue and oral disintegrating tablet dissolves in seconds, then swallow with saliva. Liquid not required. 2207 (See Alternative - Provider: Narayan Hicks RN) 1605 (Auto Hold - Provider: Orders Generic Provider - Reason: Transfer to a procedural area)2010 (Unhold - Provider: Orders Generic Provider) 0205 ($Given - Provider: Kate Carlson RN) ondansetron (ZOFRAN) injection 4 mg (CANCELED) 4 mg, Intravenous, EVERY 30 MIN PRN, nausea, vomiting, Administer over 2-5 Minutes, Starting on 12/27/23 at 1725, For 3 doses, May repeat in 30 minutes as needed, up to 3 doses. 1743 ($Given - Provider: Anjelica Chacon RN)2153 (Due) ondansetron (ZOFRAN) injection 4 mg(Linked Group 3) 4 mg, Intravenous, EVERY 6 HOURS PRN, nausea, vomiting, Administer over 2-5 Minutes, Starting on 12/27/23 at 2146, Give IF patient unable to tolerate oral medication. This is Step 1 of nausea and vomiting management. If nausea not resolved in 15 minutes, go to Step 2 prochlorperazine (COMPAZINE). 2207 ($Given - Provider: Narayan Hicks RN) 160 (Auto Hold - Provider: Orders Generic Provider - Reason: Transfer to a procedural area)2010 (Unhold - Provider: Orders Generic Provider) 0205 (See Alternative - Provider: Kate Carlson RN) ondansetron (ZOFRAN) injection 4 mg (CANCELED)(Linked Group 4) 4 mg, Intravenous, EVERY 30 MIN PRN, nausea, Administer over 2-5 Minutes, Starting on 12/28/23 at 1743, For 2 doses, This is Step 1 of nausea and vomiting management. If nausea/vomiting not resolved in 15 minutes, then go to Step 2 dexamethasone (DECADRON) IV. MAX total dose = 8 mg, including OR dosing., PACU 1836 ($Given - Provider: Wayne Rutledge, CORRECTIONAL NURSE INSTRUCTIONAL PARAPROFESSIONAL) oxyCODONE (ROXICODONE) tablet 10 mg 10 mg, Oral, EVERY 4 HOURS PRN, severe pain, IF pain not managed with non-pharmacological and non-opioid interventions, Starting on 12/28/23 at 0856, May use concomitant with non-opioid analgesics. 1227 ($Given - Provider: Glenn Potter RN)1606 (Auto Hold - Provider: Orders Generic Provider - Reason: Transfer to a procedural area)2010 (Unhold - Provider: Orders Generic Provider) 0507 (Not Given - Provider: Kate Carlson RN - Reason: Patient/family refused - Comment: Decided she wanted morphine)0657 ($Given - Provider: Kate Carlson RN)1143 ($Given - Provider: Sammi Dover RN) oxyCODONE (ROXICODONE) tablet 5 mg (CANCELED) 5 mg, Oral, EVERY 4 HOURS PRN, severe pain, IF pain not managed with non-pharmacological and non-opioid interventions, Starting on 12/27/23 at 2149, May use concomitant with non-opioid analgesics. 0248 ($Given - Provider: Qiana Martinez RN)0706 ($Given - Provider: Qiana Martinez, H[place]) oxyCODONE (ROXICODONE) tablet 5 mg 5 mg, Oral, EVERY 4 HOURS PRN, moderate pain, IF pain not managed with non-pharmacological and non-opioid interventions, Starting on 12/28/23 at 0856, May use concomitant with non-opioid analgesics. 1606 (Auto Hold - Provider: Orders Generic Provider - Reason: Transfer to a procedural area)2010 (Unhold - Provider: Orders Generic Provider)2317 ($Given - Provider: Kate Carlson RN) 0653 (Not Given - Provider: Kate Carlson RN - Reason: Patient/family refused) oxyCODONE IR (ROXICODONE) half-tab 2.5 mg (CANCELED) 2.5 mg, Oral, EVERY 4 HOURS PRN, moderate pain, IF pain not managed with non-pharmacological and non-opioid interventions, Starting on 12/27/23 at 2149, May use concomitant with non-opioid analgesics. 2221 ($Given - Provider: Narayan Hicks RN) polyethylene glycol (MIRALAX) Packet 17 g 17 g, Oral, 2 TIMES DAILY PRN, constipation, Starting on 12/27/23 at 2149, IF more than 1 constipation PRN medication is ordered, administer step-denton as indicated, moving to the next step ONLY if prior step ineffective. Step 1: senna-docusate (SENOKOT-S; PERICOLACE) OR bisacodyl (DULCOLAX) EC tablet Step 2: polyethylene glycol (MIRALAX/GLYCOLAX) Step 3: bisacodyl (DULCOLAX) suppository Step 4: enema 1 Packet = 17 grams. Mix each gram with at least 1/2 ounce (15 mL) of water - 8 ounces for 17 g dose, 4 ounces for 8.5 g dose, 2 ounces for 4 g dose. Follow with the same volume of water. Hold for loose stools unless being administered as part of a bowel prep regimen or bowel clean out. 1606 (Auto Hold - Provider: Orders Generic Provider - Reason: Transfer to a procedural area)2010 (Unhold - Provider: Orders Generic Provider) senna-docusate (SENOKOT-S/PERICOLACE) 8.6-50 MG per tablet 1 tablet(Linked Group 5) 1 tablet, Oral, 2 TIMES DAILY PRN, constipation, Starting on 12/27/23 at 2146, If no bowel movement in 24 hours, increase to 2 tablets by mouth. IF more than 1 constipation PRN medication is ordered, administer step-denton as indicated, moving to the next step ONLY if prior step ineffective. Step 1: senna-docusate (SENOKOT-S; PERICOLACE) OR bisacodyl (DULCOLAX) EC tablet Step 2: polyethylene glycol (MIRALAX/GLYCOLAX) Step 3: bisacodyl (DULCOLAX) suppository Step 4: enema Hold for loose stools. 1605 (Auto Hold - Provider: Orders Generic Provider - Reason: Transfer to a procedural area)2010 (Unhold - Provider: Orders Generic Provider) senna-docusate (SENOKOT-S/PERICOLACE) 8.6-50 MG per tablet 2 tablet(Linked Group 5) 2 tablet, Oral, 2 TIMES DAILY PRN, constipation, Starting on 12/27/23 at 2146, IF more than 1 constipation PRN medication is ordered, administer step-denton as indicated, moving to the next step ONLY if prior step ineffective. Step 1: senna-docusate (SENOKOT-S; PERICOLACE) OR bisacodyl (DULCOLAX) EC tablet Step 2: polyethylene glycol (MIRALAX/GLYCOLAX) Step 3: bisacodyl (DULCOLAX) suppository Step 4: enema Hold for loose stools. 1605 (Auto Hold - Provider: Orders Generic Provider - Reason: Transfer to a procedural area)2010 (Unhold - Provider: Orders Generic Provider) sodium chloride 0.9% irrigation (bag) (CANCELED) PRN, Starting on 12/28/23 at 1847, Intra-procedure 1847 ($Given - Provider: Leighton Bonilla MD) Linked Groups Order Group 1: acetaminophen (TYLENOL) tablet 650 mgJump to med 650 mg, Oral, EVERY 4 HOURS PRN, mild pain, other, and adjunct with moderate or severe pain or per patient request, Starting on 12/27/23 at 2148, Alternate with ibuprofen if ordered. Maximum acetaminophen dose from all sources = 75 mg/kg/day not to exceed 4 grams/day. Or acetaminophen (TYLENOL) Suppository 650 mgJump to med 650 mg, Rectal, EVERY 4 HOURS PRN, mild pain, other, and adjunct with moderate or severe pain or per patient request, Starting on 12/27/23 at 2148, Alternate with ibuprofen if ordered. Maximum acetaminophen dose from all sources = 75 mg/kg/day not to exceed 4 grams/day. Group 2: naloxone (NARCAN) injection 0.2 mgJump to med 0.2 mg, Intravenous, EVERY 2 MIN PRN, opioid reversal, Starting on 12/27/23 at 2159, Administer intravenous route when available and notify provider when administered. For unintended sedation or respiratory depression if all of the below criteria are met: ~ respiratory rate LESS than or EQUAL to 8. ~SaO2 less than 92% and or/end-tidal CO2 is greater than 50. ~ the patient is receiving an opioid, has unintended sedations assessed as RASS (-3), and is currently not on mechanical ventilation. RASS scale moderate (-3) is movement or eye opening to voice but no eye contact. Patient Monitoring Once the patient has demonstrated a response to the naloxone, continue to monitor respiratory rate, depth, oxygen saturation and end-tidal CO2 (if available) every 15 minutes x 2, then every 30 minutes x 2, then every 1 hour x 1 after each naloxone dose. Consider transfer to ICU if patient respiratory parameters have not improved after 4 naloxone doses. Or naloxone (NARCAN) injection 0.4 mgJump to med 0.4 mg, Intravenous, EVERY 2 MIN PRN, opioid reversal, Starting on 12/27/23 at 2159, Administer intravenous route when available and notify provider when administered. For unintended sedation or respiratory depression if all of the below criteria are met: ~ respiratory rate LESS than or EQUAL to 8. ~ SaO2 less than 92% and or/end-tidal CO2 is greater than 50. ~ the patient is receiving an opioid, has unintended sedation assessed as RASS (-4) or (-5) and patient is currently not on mechanical ventilation. RASS scale (-4) is deep sedation with no response to voice but movement or eye opening to physical stimulation. RASS scale (-5) is unarousable. Patient Monitoring Once the patient has demonstrated a response to the naloxone, continue to monitor respiratory rate, depth, oxygen saturation and end-tidal CO2 (if available) every 15 minutes x 2, then every 30 minutes x 2, then every 1 hour x 1 after each naloxone dose. Consider transfer to ICU if patient respiratory parameters have not improved after 4 naloxone doses. Or naloxone (NARCAN) injection 0.2 mgJump to med 0.2 mg, Intramuscular, EVERY 2 MIN PRN, opioid reversal, Starting on 12/27/23 at 2159, Administer intramuscular if an intravenous route is not available and notify provider when administered. For unintended sedation or respiratory depression if all of the below criteria are met: ~ respiratory rate LESS than or EQUAL to 8. ~SaO2 less than 92% and or/end-tidal CO2 is greater than 50. ~ the patient is receiving an opioid, has unintended sedations assessed as RASS (-3), and is currently not on mechanical ventilation. RASS scale moderate (-3) is movement or eye opening to voice but no eye contact. Patient Monitoring Once the patient has demonstrated a response to the naloxone, continue to monitor respiratory rate, depth, oxygen saturation and end-tidal CO2 (if available) every 15 minutes x 2, then every 30 minutes x 2, then every 1 hour x 1 after each naloxone dose. Consider transfer to ICU if patient respiratory parameters have not improved after 4 naloxone doses. Or naloxone (NARCAN) injection 0.4 mgJump to med 0.4 mg, Intramuscular, EVERY 2 MIN PRN, opioid reversal, Starting on 12/27/23 at 2159, Administer intramuscular if an intravenous route is not available and notify provider when administered. For unintended sedation or respiratory depression if all of the below criteria are met: ~ respiratory rate LESS than or EQUAL to 8. ~ SaO2 less than 92% and or/end-tidal CO2 is greater than 50. ~ the patient is receiving an opioid, has unintended sedation assessed as RASS (-4) or (-5) and patient is currently not on mechanical ventilation. RASS scale (-4) is deep sedation with no response to voice but movement or eye opening to physical stimulation. RASS scale (-5) is unarousable. Patient Monitoring Once the patient has demonstrated a response to the naloxone, continue to monitor respiratory rate, depth, oxygen saturation and end-tidal CO2 (if available) every 15 minutes x 2, then every 30 minutes x 2, then every 1 hour x 1 after each naloxone dose. Consider transfer to ICU if patient respiratory parameters have not improved after 4 naloxone doses. Group 3: ondansetron (ZOFRAN ODT) ODT tab 4 mgJump to med 4 mg, Oral, EVERY 6 HOURS PRN, nausea, vomiting, Starting on 12/27/23 at 2146, This is Step 1 of nausea and vomiting management. If nausea not resolved in 15 minutes, go to Step 2 prochlorperazine (COMPAZINE). With dry hands, peel back foil backing and gently remove tablet. Do not push oral disintegrating tablet through foil backing. Administer immediately on tongue and oral disintegrating tablet dissolves in seconds, then swallow with saliva. Liquid not required. Or ondansetron (ZOFRAN) injection 4 mgJump to med 4 mg, Intravenous, EVERY 6 HOURS PRN, nausea, vomiting, Administer over 2-5 Minutes, Starting on 12/27/23 at 2146, Give IF patient unable to tolerate oral medication. This is Step 1 of nausea and vomiting management. If nausea not resolved in 15 minutes, go to Step 2 prochlorperazine (COMPAZINE). Group 4: ondansetron (ZOFRAN ODT) ODT tab 4 mg (CANCELED) 4 mg, Oral, EVERY 30 MIN PRN, nausea, Starting on 12/28/23 at 1743, For 2 doses, Administer if NO vascular access present. This is Step 1 of nausea and vomiting management. If nausea/vomiting not resolved in 15 minutes, go to Step 2 dexamethasone (DECADRON) IV. MAX total dose = 8 mg, including OR dosing. With dry hands, peel back foil backing and gently remove tablet. Do not push oral disintegrating tablet through foil backing. Administer immediately on tongue and oral disintegrating tablet dissolves in seconds, then swallow with saliva. Liquid not required., PACU Or ondansetron (ZOFRAN) injection 4 mg (CANCELED)Jump to med 4 mg, Intravenous, EVERY 30 MIN PRN, nausea, Administer over 2-5 Minutes, Starting on 12/28/23 at 1743, For 2 doses, This is Step 1 of nausea and vomiting management. If nausea/vomiting not resolved in 15 minutes, then go to Step 2 dexamethasone (DECADRON) IV. MAX total dose = 8 mg, including OR dosing., PACU Group 5: senna-docusate (SENOKOT-S/PERICOLACE) 8.6-50 MG per tablet 1 tabletJump to med 1 tablet, Oral, 2 TIMES DAILY PRN, constipation, Starting on 12/27/23 at 2146, If no bowel movement in 24 hours, increase to 2 tablets by mouth. IF more than 1 constipation PRN medication is ordered, administer step-denton as indicated, moving to the next step ONLY if prior step ineffective. Step 1: senna-docusate (SENOKOT-S; PERICOLACE) OR bisacodyl (DULCOLAX) EC tablet Step 2: polyethylene glycol (MIRALAX/GLYCOLAX) Step 3: bisacodyl (DULCOLAX) suppository Step 4: enema Hold for loose stools. Or senna-docusate (SENOKOT-S/PERICOLACE) 8.6-50 MG per tablet 2 tabletJump to med 2 tablet, Oral, 2 TIMES DAILY PRN, constipation, Starting on 12/27/23 at 2146, IF more than 1 constipation PRN medication is ordered, administer step-denton as indicated, moving to the next step ONLY if prior step ineffective. Step 1: senna-docusate (SENOKOT-S; PERICOLACE) OR bisacodyl (DULCOLAX) EC tablet Step 2: polyethylene glycol (MIRALAX/GLYCOLAX) Step 3: bisacodyl (DULCOLAX) suppository Step 4: enema Hold for loose stools. 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
--- OUTSIDE RECORDS SUMMARY | 2024-01-01 08:43 | XMS_ITS | Encounter Summary ---
Author Organization [place] Address [address] [facility] [place] [address] Care Team Providers Care Healthcare Administrative Assistant Name Role Phone Zara Thurston MD [facility], [facility] Primary Care [facility] er Reason for Visit * Auth/Cert Specialty Diagnoses / Procedures Referred By Josef t Referred To Contact EMERGENCY MEDICINE Diagnoses Pyelonephritis [facility] [address] [place] [address] Referral ID Status Reason Start Date Expiration Date Visits Re quested Visits Authorized [id number] 1 1 Encounter Details Date Type Department Care Team (Late st Contact Info) Description 12/28/2023 6:06 PM CDT Anesthesia Event [facility] [address] [place] [address] Gil Alvarez MD [facility]EST[facility] [address] [place], [place] [id number] Wayne Rutledge APRN [facility] [address] [facility] [address] [place] [address] Anesthesia Record Procedure Summary Procedure Name Responsible Anesthesiologist Anesthesia Start Time Anesthesia Stop Time Cystoscopy, right ureteroscopy with laser lithotripsy, right ureteroscopy with stone basketing, right retrograde pyelogram, right ureteral stent exchange (Right: Ureter) Gil Alvarez MD 12/28/23 1806 12/28/23 1854 Events Date Time Event Comment 12/28/2023 1742 1806 An Start Anesthesia Star t is defined as when the anesthesia provider assumed care, began anesthesia prep, remained continuously present with the patient, and excludes all time for performing the pre-anesthesia evaluation. The Pre-Anesthesia Evaluation was completed before Anesthesia Start. 180 An Start Data 1807 AN REASSESS I attest that I have identified and re-evaluated the patient immediately before the induction of anesthesia and I am satisfied that the anesthetic plan is suitable for the patient's condition and procedure. The first vital signs recorded are pre- induction. Wayne Rutledge APRN CRNA 1813 An Induction 1813 MD Present 1815 An LMA 1815 MD Present 1848 LMA Removed 1849 an stop data 1850 Present 1853 An Stop Electronically signed by Wayne Rutledge APRN CRNA on December 28, 2023 6:54 PM 185 MD Present Meds Name Total midazolam 1 mg/mL 2 mg lidocaine 2% 50 mg propofol 10 mg/mL 200 mg phenylephrine (MARLEN-SYNEPHRINE) injection 75 mcg glycopyrrolate 0.2 mg/mL 0.1 mg fentaNYL (PF) (SUBLIMAZE) injection 25 m cg 100 mcg dexAMETHasone (DECADRON) injection 4 mg 8 mg ondansetron (ZOFRAN) injection 4 mg 4 mg lactated ringers infusion 500 mL * Agents Name O2 N2O Air Exp Sevoflurane Exp Isoflurane Exp Desflurane Ins Sevoflurane Ins Isoflurane Ins Desflurane * Blood No blood administrations on file. Lines, Drains, and Airways Type Details Placement Removal Incision/Surgical Site 12/18/23; 922; Urethral meatus; NO INCISION MADE 12/18/23922 by Patricia Hanley RN Incision/Surgical Site 12/28/23; 1842; R ight; Other (Comment); right ureteral 12/28/23 184 by Zoie Quispe RN Peripheral IV 12/28/23; 1545; 20 G ; Right, Dorsal; Hand 12/28/23 1545 by Narayan Hikcs RN 12/29/23 1219 by Sammi oDver RN Supraglottic Airway Placement Date: 12/28/23; Placement Time: 1817 (created via procedure documentation); Mask Ventilation: 1; LMA Size: 4; Airway Brand: I-Gel; Attempts: 1 12/28/23 1818 by Wayne Rutledge APRN CRNA 12/28/23 184 by Wayne Rutledge APRN CRNA Ureteral Drain/Stent 12/28/23; 184; Rig ht ureter (strings on) 12/28/23 184 by Zoie Quispe RN 12/29/23 1344 by Inpatient, Nurse documented in this encounter Social History Tobacco Use Types Packs/Day Years [...] on file documented as of this encounter OR Notes * Anesthesia Postprocedure Evaluation - Gil Alvarez MD - 12/28/2023 7:21 PM CDT Patient: Saul Fontana Procedure: Procedure(s): cystoscopy, right ureteroscopy with laser lithotripsy, right ureteroscopy with stone basketing, right retrograde pyelogram, right ureteral stent exchange Anesthesia Type: General Note: Postop Pain Control: Uneventful Sign Out: Well controlled pain PONV: No Neuro/Psych: Uneventful Sign Out: Acceptable/Baseline neuro status Airway/Respiratory: Uneventful Sign Out: Acceptable/Baseline resp. status CV/Hemodynamics: Uneventful Sign Out: Acceptable CV status Other NRE: NONE DID A NON-ROUTINE EVENT OCCUR? No Last vitals: Vitals Value Taken Time BP 105/82 12/28/23 1915 Temp 97.9 ??F (36.6 ??C) 12/28/23 1855 Pulse 60 12/28/231919 Resp 9 12/28/23 192 SpO2 100 % 12/28/231919 Vitals shown include unfiled device data. Electronically Signed By: Gil Alvarez MD December 28, 2023 7:21 PM * Anesthesia Procedure Notes - Wayne Rutledge APRN CRNA - 12/28/2023 6:18 PM CDTAssociated Order(s): Airway Airway Patient location during procedure: OR Staff - Anesthesiologist: Gil Alvarez MD [employer]: Wayne Rutledge APRN [employer] Performed By: SCIENTIST [employer] Consent for Airway Urgency: elective Indications and Patient Condition Indications for airway management: cherry-procedural and airway protection Induction type:intravenous Mask difficulty assessment: 1 - vent by mask Final Airway Details Final airway type: supraglottic airway Supraglottic Airway Details Type: LMA Brand: I-Gel LMA size: 4 Post intubation assessment Placement verified by: capnometry, equal breath sounds and chest rise Number of attempts at approach: 1 Number of other approaches attempted: 0 Secured with: commercial tube rico Ease of procedure: easy Dentition: Intact and Unchanged * Anesthesia Preprocedure Evaluation - Berhane Johnson MD - 12/28/2023 5:41 PM CDT Anesthesia Pre-Procedure Evaluation Patient: Saul Fontana : 1985 Procedure : Procedure(s): cystoscopy, right ureteroscopy with laser lithotripsy, right ureteroscopy with stone basketing, right retrograde pyelogram, right ureteral stent exchange Past Medical History: Diagnosis Date ADHD (attention deficit hyperactivity disorder) Anxiety Depressive disorder Endometriosis Past Surgical History: Procedure Laterality Date APPENDECTOMY CHOLECYSTECTOMY, LAPOROSCOPIC 1999 CYSTOSCOPY, RETROGRADES, INSERT STENT URETER(S), COMBINED Right 12/18/2023 Procedure: Cystoscopy, right retrogrades, right ureteral stent insertion; Surgeon: Stas Bautista MD; Location: [facility] OR Uterine ablation Allergies Allergen Reactions Escitalopram Other (See Comments) Other reaction(s): Extrapyramidal Symptoms Sertraline Difficulty breathing, Other (See Comments) and Shortness Of Breath No reaction listed in [facility] Lactose Other (See Comments) No reaction listed in [facility] Vicodin [Hydrocodone-Acetaminophen] Cefoxitin Rash Social History Tobacco Use Smoking status: Every Day Smokeless tobacco: Never Tobacco comments: Social Substance Use Topics Alcohol use: Yes Comment: rarely Wt Readings from Last 1 Encounters: 12/27/23 60 kg (132 lb 3.2 oz) Anesthesia Evaluation Pt has had prior anesthetic. No history of anesthetic complications ROS/MED HX ENT/Pulmonary: (+) tobacco use, Current use, Neurologic: - neg neurologic ROS Cardiovascular: - neg cardiovascular ROS METS/Exercise Tolerance: Hematologic: (+) anemia, Musculoskeletal: - neg musculoskeletal ROS GI/Hepatic: - neg GI/hepatic ROS Renal/Genitourinary: (+) renal disease, Nephrolithiasis , Endo: - neg endo ROS Psychiatric/Substance Use: (+) psychiatric history anxiety, depression and other (comment) Infectious Disease: - neg infectious disease ROS Malignancy: Other: Physical Exam Airway Mallampati: II TM distance: > 3 FB Neck ROM: full Mouth opening: > 3 cm Respiratory Devices and Support Dental (+) Minor Abnormalities - some fillings, tiny chips Cardiovascular Rhythm and rate: regular and normal Pulmonary breath sounds clear to auscultation OUTSIDE LABS: CBC: Lab Results Component Value Date WBC 9.2 12/28/2023 WBC 11.3 (H) 12/27/2023 HGB 10.8 (L) 12/28/2023 HGB 12.2 12/27/2023 HCT 34.8 (L) 12/28/2023 HCT 38.2 12/27/2023 PLT 371 12/28/2023 PLT 440 12/27/2023 BMP: Lab Results Component Value Date NA 139 12/28/2023 NA 140 12/27/2023 POTASSIUM 4.1 12/28/2023 POTASSIUM 4.2 12/27/2023 CHLORIDE 108 (H) 12/28/2023 CHLORIDE 107 12/27/2023 CO2 21 (L) 12/28/2023 CO2 20 (L) 12/27/2023 BUN 18.5 12/28/2023 BUN 18.3 12/27/2023 CR 0.67 12/28/2023 CR 0.70 12/27/2023 GLC 98 12/28/2023 GLC 148 (H) 12/27/2023 COAGS: No results found for: PTT, INR, FIBR POC: Lab Results Component Value Date HCG Positive (A) 03/13/2014 HCGS Negative 12/27/2023 HEPATIC: Lab Results Component Value Date ALBUMIN 3.7 12/28/2023 PROTTOTAL 6.0 (L) 12/28/2023 ALT 10 12/28/2023 AST 19 12/28/2023 ALKPHOS 52 12/28/2023 BILITOTAL 0.2 12/28/2023 OTHER: Lab Results Component Value Date LACT 1.2 12/27/2023 ADRI 8.1 (L) 12/28/2023 LIPASE 25 12/17/2023 Anesthesia Plan ASA Status: 2 NPO Status: NPO Appropriate Anesthesia Type: General. - Airway: LMA Induction: Intravenous. Maintenance: Balanced. Consents Anesthesia Plan(s) and associated risks, benefits, and realistic alternatives discussed. 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 - Discussed: - Discussed with: Patient - Extended Intubation/Ventilatory Support Discussed: No. - Patient is DNR/DNI Status: No Use of blood products discussed: No . Postoperative Care Pain management: IV analgesics, Oral pain medications, Multi-modal analgesia. PONV prophylaxis: Ondansetron (or other 5HT-3), Dexamethasone or Solumedrol Comments: Berhane Johnson MD # Hypokalemia: Lowest K = 3.3 mmol/L in last 30 days, will replace as needed # Hyponatremia: Lowest Na = 133 mmol/L in last 30 days, will monitor as appropriate # Hypocalcemia: Lowest Ca = 8.1 mg/dL in last 2 days, will monitor and replace as appropriate # Overweight: Estimated body mass index is 27.63 kg/m?? as calculated from the following: Height as of this encounter: 1.473 m (4' 10). Weight as of this encounter: 60 kg (132 lb 3.2 oz). documented in this encounter Miscellaneous Notes * Anesthesia Care Transfer Note - Wayne Rutledge APRN CRNA - 12/28/2023 6:54 PM CDT Patient: Saul Fontana Procedure: Procedure(s): cystoscopy, right ureteroscopy with laser lithotripsy, right ureteroscopy with stone basketing, right retrograde pyelogram, right ureteral stent exchange Diagnosis: Pain due to ureteral stent, initial encounter (H24) [T83.84XA] Ureteral stone [N20.1] Diagnosis Additional Information: No value filed. Anesthesia Type: General Note: Oropharynx: oral airway in place and spontaneously breathing Level of Consciousness: drowsy Oxygen Supplementation: face mask Level of Supplemental Oxygen (L/min / FiO2): 5 Independent Airway: airway patency satisfactory and stable Dentition: dentition unchanged Vital Signs Stable: post-procedure vital signs reviewed and stable Report to RN Given: handoff report given Patient transferred to: PACU Handoff Report: Identifed the Patient, Identified the Reponsible Provider, Reviewed the pertinent medical history, Discussed the surgical course, Reviewed Intra-OP anesthesia mangement and issues during anesthesia, Set expectations for post-procedure period and Allowed opportunity for questions andacknowledgement of understanding Vitals: Vitals Value Taken Time BP Temp 97.9 ??F (36.6 ??C) 12/28/23 1854 Pulse 68 12/28/23 1853 Resp 11 12/28/23 1853 SpO2 Vitals shown include unfiled device data. Electronically Signed By: Wayne Rutledge APRN CRNA December 28, 2023 6:54 PM documented in this encounter Plan of Treatment Not on file documented as of this encounter Procedures Procedure Name Priority Date/Time Associated Diagnosis Comments ANE AIRWAY SUPRAGLOTTIC PERFORMABLE Routine 12/28/2023 6:18 PM CDT documented in this encounter Results * ANE AIRWAY SUPRAGLOTTIC PERFORMABLE (12/28/2023 6:18 PM CDT) Narrative Wayne Rutledge APRN CRNA - 12/28/2023 6:18 PM CDT Wayne Rutledge APRN CRNA ? 12/28/2023 ??6:18 PM Airway ? Patient location during procedure: OR Staff - ? Anesthesiologist: ??Gil Alvarez MD ? [employer]: Wayne Rutledge APRN CRNA ? Performed By: SCIENTIST [employer]LECTRON[employer] Consent for Airway ? Urgency: elective Indications [...] Dentition: Intact and Unchanged Gil Alvarez MD [facility] documented in this encounter Visit Diagnoses Not on filedocumented in this encounter Administered Medications Inactive Administered Medications - up to 3 most recent administrations Medication Order MAR Action Action Date Dose Rate Site dexAMETHasone (DECADRON) injection 4 mg 4 mg, Intravenous, ONCE PRN, vomiting, nausea, Administer over 1 Minutes, Starting on 12/28/23 at 1743, For 1 dose, Administer ONLY if dexamethasone (DECADRON) NOT given in the OR. This is Step 2 of nausea and vomiting management. IF nausea vomiting NOT resolved within 30 minutes or dexamethasone (DECADRON) was given in the OR go to Step 3 prochlorperazine (COMPAZINE)., PACU $Given 12/28/2023 6:15 PM CDT 8 mg fentaNYL (PF) (SUBLIMAZE) injection 25 mcg 25 mcg, Intravenous, EVERY 5 MIN PRN, [...] (SUBLIMAZE) after moving to HYDROmorphone (DILAUDID)., PACU $Given 12/28/2023 6:08 PM CDT 100 mcg glycopyrrolate (ROBINUL) injection Intravenous, PRN, Administer over 1-2 Minutes, Starting on 12/28/23 at 1818, Anesthesia Intra-op $Given 12/28/2023 6:18 PM CDT 0.1 mg lactated ringers infusion at 10 mL/hr, Intravenous, CONTINUOUS, IF patient NOT on dialysis., Pre-procedure, Starting on Fri12/28/23 at 1700, Until Fri12/28/23 at 1852 $New Bag 12/28/2023 6:06 PM CDT lidocaine 2% injection (MDV) Intravenous, PRN, Starting on Fri12/28/23 at 1814, Anesthesia Intra-op $Given 12/28/2023 6:14 PM CDT 50 mg midazolam (VERSED) injection Intravenous, Administer over 2 Minutes, PRN, Starting on Fri12/28/23 at 1806, Anesthesia Intra-op $Given 12/28/2023 6:06 PM CDT 2 mg ondansetron (ZOFRAN) injection 4 mg 4 mg, Intravenous, EVERY 30 MIN PRN, nausea, Administer over 2-5 Minutes, Starting on Fri12/28/23 at 1743, For 2 doses, This is Step 1 of nausea and vomiting management. If nausea/vomiting not resolved in 15 minutes, then go to Step 2 dexamethasone (DECADRON) IV. MAX total dose = 8 mg, including OR dosing., PACU $Given 12/28/2023 6:36 PM CDT 4 mg phenylephrine (MARLEN-SYNEPHRINE) injection Intravenous, CONTINUOUS PRN, Starting on Fri12/28/23 at 1827, Anesthesia Intra-op $New Bag 12/28/2023 6:27 PM CDT 75 mcg propofol (DIPRIVAN) injection 10 mg/mL vial Intravenous, PRN, Starting on Fri12/28/23 at 1814, Anesthesia Intra-op $Given 12/28/2023 6:14 PM CDT 200 mg documented in this encounter Care Teams Healthcare Administrative Assistant Relationship Specialty Start Date End Date [facility], [facility] [address] [place] [address], [address] [place] [id number] PCP - General 08/23/16 [facility], DO NOT USE MD Pediatrics 08/16/13 documented as of this encounter
--- OUTSIDE RECORDS SUMMARY | 2024-01-01 08:43 | XMS_ITS | Clinical Summary ---
Author Organization [facility] Address [address] [facility] [place] [address] Care Team Providers Care Quality Improvement Coordinator Name Role Phone Karena, Zara [place] [facility], [facility] Primary [facility] Provid er Allergies Active Allergy Reactions Criticality Noted Date [...] tablet by mouth daily 12/09/2023 Active NYSTOP 452329 UNIT/GM powder Apply topically 4 times daily [...] THAN 160 09/02/2012 Endometriosis 09/02/2012 Contraception 09/02/2012 Encounters Date Type Department Care Team Description 12/28/2023 6:06 PM CDT Anesthesia Event [facility] PeriOp Services [address] [place] [address] Gil Alvarez MD Severson, Dean Dennis, APRN CRNA 12/28/2023 6:00 PM CDT - 12/28/2023 7:20 PM CDT Surgery [facility] [address] [place] [address] Leighton Bonilla MD Cystoscopy, right ureteroscopy with laser lithotripsy, right ureteroscopy with stone basketing, right retrograde pyelogram, right ureteral stent exchange 12/27/2023 5:21 PM CDT - 12/29/2023 12:44 PM CDT Hospital Encounter [place] [address] [facility] [address] [place] [address] Sam Link MD Ricklefs, Kendall D, Pain due to ureteral stent, initial encounter (H24) (Primary Dx); Pyelonephritis; Ureteral stone Discharge Disposition: Home or Self Care 12/27/2023 Travel 12/22/[address] [place] [phone] Stas Bautista MD 12/18/2023 9:02 AM CDT Anesthesia Event [facility] [address] [place] [address] Raj Brown, DO 12/18/2023 9:00 AM CDT - 12/18/2023 9:55 AM CDT Surgery [facility] [address] [place] [address] Stas Bautista MD Cystoscopy, right retrogrades, right ureteral stent insertion 12/18/2023 5:00 AM CDT - 12/18/2023 11:29 AM CDT Emergency [facility] PreOP/PostOP [address] [place] [address] Radha Ziegler MD Salay, Nicholas J, MD Hinck, Bryan D, MD Right ureteral stone (Primary Dx); Right flank pain; Urinary tract infection without hematuria, site unspecified Discharge Disposition: Home or Self Care 12/18/2023 Medical Correspondence [facility]Op Services [address] [place] [address] Scan, Non-Provider 12/17/2023 4:08 PM CDT - 12/17/2023 7:49 PM CDT Emergency [facility] Emergency Dept [address] [place] [address] Benita Bullard MD Ureterolithiasis; Right flank pain; Acute cystitis with hematuria Discharge Disposition: Home or Self Care 12/17/2023 Travel from Last 3 Months Immunizations Name Administration Dates Next Due Flu 65+ Years 04/03/2009,05/14/2006 Flu, Unspecified 04/14/2015,04/03/2009, 6 [id number] Novel Flu 05/01/2009 HPV Quadrivalent 07/29/2011,07/15/2008, 7 HepB, Unspecified 08/20/2016 Hepatitis B Immunity: Titer 08/20/2016 Historical DTP/aP 12/22/1986,1985,05/27/19 85 Influenza (H1N1) 05/01/2009 Influenza (IIV3) PF 04/03/2009,05/14/2006 Influenza Vaccine >6 months,quad, PF 04/14/2015 MMR 02/07/2018,09/27/1997,11/24/1986 Polio, Unspecified 12/22/1986,1985 Rubella 08/20/2016 Rubella Immunity: Titer/md Dx 08/20/2016 TDAP (Adacel,Boostrix) 12/02/2017,2016,07/29/2011,2009,09/27/1997 Td (Adult), Adsorbed 09/27/1997 Family History Medical History Relation Comments Diabetes Maternal Grandfather Diabetes Maternal Grandmother Diabetes Paternal Aunt Diabetes Paternal Grandfather Diabetes Paternal Grandmother Diabetes Paternal Uncle Relation Status Comments Maternal Grandfather Maternal Grandmother Paternal Aunt Paternal Grandfather Paternal Grandmother Paternal Uncle Social History Tobacco Use Types Packs/Day Years [...] 12/27/2023 9:20 PM CDT Plan of Treatment Health Maintenance Due Date Last Done Comments ADVANCE CARE PLANNING 1985 ANNUAL REVIEW OF HM ORDERS 1985 YEARLY PREVENTIVE VISIT 1985 IPV IMMUNIZATION (3 of 3 - 4-dose series) 1989 12/22/1986, 1985 Pneumococcal Vaccine: Pediatrics (0 to 5 Years) and At-Risk Patients (6 to 64 Years) (1 of 2 - PCV) 1991 HEPATITIS C SCREENING 2003 NICOTINE/TOBACCO CESSATION COUNSELING Q 1 YR 10/23/2013 10/23/2012, 09/10/2012 HEPATITIS B IMMUNIZATION (2 of 3 - 19+ 3-dose series) 09/17/2016 08/20/2016, 08/20/2016 PAP 07/02/2022 07/02/2019, 12/2013, 01/20/2013 COVID-19 Vaccine ( - season) 2023 PHQ-2 (once per calendar year) 2023 INFLUENZA VACCINE (#1) 2024 5, 04/14/2015, 05/01/2009, Additional history exists GLUCOSE 12/27/2026 12/28/2023, 12/14, 12/18/2023, Additional history exists DTAP/TDAP/TD IMMUNIZATION (10 - Td or Tdap) 12/03/2027 12/02/2017, 01/14/2017, 07/29/2011, Additional history exists HPV IMMUNIZATION Completed 07/29/2011, , 02/27/2007 HIV SCREENING Completed 01/20/2013 MENINGITIS IMMUNIZATION Aged Out No l onger eligible based on patient's age to complete this topic RSV MONOCLONAL ANTIBODY Aged Out No l onger eligible based on patient's age to complete this topic Medical Devices Implanted Type Area Sound Effects Supervisor Device Identifier Shelf Expiration Date Model / Serial / Lot Stent Ureteral Polaris Ultra [id number] - [id number] Implanted:Qty : 1 on 12/18/2023 by Stas Bautista MD at [facility] Stent Right: Urethra [employer] [id number] 08/31/2026 [id number] 10 / / [id number] Stent Ureteral Polaris Ultra [id number] - [id number] Implanted:Qty : 1 on 12/28/2023 by Leighton Bonilla MD at [facility] Stent Right: Abdomen [employer] 07/17/2026 [id number] 10 / / [id number] Procedures Procedure Name Priority Date/Time Associated Diagnosis [...] Henderson MD LAB - BLOOD ORDER MARIMAR RH LABORATORY [facility] Acute Care Lab [address] [facility] Lab (1st floor, no room number) [place] [address], [facility] * XR Surgery ZBIGNIEW L/T 5 Min Fluoro w [place] (12/28/2023 6:47 PM CDT) Only the most recent of2 resultswithin the time period is included. Narrative [facility] - 12/28/2023 6:48 PM CDT This exam was marked as non-reportable because it will not be read by a radiologist or a [facility] non-radiologist provider. Leighton Bonilla MD IMG DIAGNOSTIC IMAGI NG ORDERABLES Performing Organization Address City/[facility]/ZIP Co de Phone Number [facility] * Stone analysis (12/28/2023 6:34 PM CDT) Stone Mass 17 mg 12/31/2023 11:06 AM CDT [facility] Calculi Description See Note 12/31/2023 11:06 AM CDT [facility] Comment: Specimen consists of three brown and adames calculi fragments. The total weight is 17 mg. Stone Composition See Note 024 11:06 AM CDT [facility] Comment: Calculi composed primarily of: 60% [...] composition determined by FTIR analysis. Performed By: [facility] [address] [place] [address] Lemon Picker: Daniel Kahn MD, PhD CLIA Number: [id number] Calculus/Stone STRUCTURE OF RIGHT URETER / Unknown Non-blood Collection / Unknown 12/28/2023 6:34 PM CDT 12/28/2023 7:10 PM CDT Leighton Bonilla MD LAB - BODY FLUIDS OR DERABLES Performing Organization Address [facility]/ZIP Co de Phone Number [facility] [address] [place] [address], [place] [phone] * ANE AIRWAY SUPRAGLOTTIC PERFORMABLE (12/28/2023 6:18 PM CDT) Only the most recent of2 resultswithin the time period is included. Narrative Wayne Rutledge APRN BILL CHECKER - 12/28/2023 6:18 PM CDT Wayne Rutledge APRN BILL CHECKER ? 12/28/2023 ??6:18 PM Airway ? Patient location during procedure: OR Staff - ? Anesthesiologist: ??Gil Alvarez MD ? BILL CHECKER: Wayne Rutledge APRN BILL CHECKER ? Performed By: BILL CHECKER Consent for Airway ? Urgency: elective Indications [...] Dentition: Intact and Unchanged Gil Alvarez MD ID ANESTHESIA * (ABNORMAL) Comprehensive metabolic panel (12/28/2023 8:37 AM CDT) Only the most recent of2 resultswithin the time period is included. [facility] Sodium 139 135 - 145 mmol/L 12/28/2023 [...] LAB - BLOOD ORDERA BLES RH LABORATORY [facility] Acute Care Lab [address] Lab (1st floor, no room number) [place] [address] * (ABNORMAL) CBC with platelets (12/28/2023 8:37 AM CDT) [facility] Signature WBC Count 9.2 4.0 - 11.0 10e3/uL [...] DO LAB - BLOOD ORDERA BLES LABORATORY [facility] Acute Care Lab [address] Lab (1st floor, no room number) [place] [address], [facility] * Lactic acid whole blood (12/27/2023 7:27 PM CDT) Only the most recent of2 resultswithin the time period is included. Lactic Acid 1.2 0.7 - 2.0 mmol/L 12/27/2023 7:42 PM CDT LABORATORY Blood STRUCTURE OF RIGHT UPPER LIMB / Unknown Venipuncture / Unknown 12/27/2023 7:27 PM CDT 12/27/2023 7:33 PM CDT Sam Link MD LAB - BLOOD ORDERABL ES [facility] Acute Care Lab [address] [facility] Lab (1st floor, no room number) [place] [address] * CT Abdomen Pelvis w Contrast (12/27/2023 [...] EXAM: CT ABDOMEN PELVIS W CONTRAST LOCATION: [facility] DATE: 12/27/2023 INDICATION: Right flank pain. [...] EXAM: CT ABDOMEN PELVIS W CONTRAST LOCATION: [facility] DATE: 12/27/2023 INDICATION: Right flank pain. [...] LAB - BLOOD ORDERABL ES RH LABORATORY [facility] Acute Care Lab [address] [facility] Lab (1st floor, no room number) [place] [address], [facility] * HCG QUALitative (blood) (12/27/2023 5:38 PM CDT) Only the most recent of2 resultswithin the time period is included. hCG Serum Qualitative Negative Negative [facility] 12/27/2023 6:41 PM CDT RH LABORATORY Comment:This test is for scr eening purposes. Results should be interpreted along with the clinical picture. Confirmation testing is available if warranted by ordering [id number], HCG Quantitative . Blood BLOOD SPECIMEN / Unknown Venipuncture / Unknown 12/27/2023 5:38 PM CDT 12/27/2023 5:42 PM CDT Sam Link MD LAB - BLOOD ORDERABL ES RH LABORATORY [facility] Acute Care Lab [address] [facility] Lab (1st floor, no room number) [place] [address], [facility] * (ABNORMAL) UA with Microscopic reflex [...] mg/dL 12/27/2023 5:52 PM CDT LABORATORY Specific [place] Urine 1.027 1.003 - 1.035 12/27/2023 5:52 [...] Link MD LAB - URINE ORDERABL ES LABORATORY [facility] Acute Care Lab [address] [facility] Lab (1st floor, no room number) [place] [address] * Urine Culture (12/27/2023 5:17 PM CDT) Only the most recent of3 resultswithin the time period is included. Culture <10,000 CFU/mL Mixture of Urogenital Marita 12/29/2023 5:31 AM CDT [facility] Urine URINE SPECIMEN OBTAINED BY CLEAN CATCH PROCEDURE / Unknown Non-blood Collection / Unknown 12/27/2023 5:17 PM CDT 12/27/2023 5:52 PM CDT Sam Link MD LAB - MICRO GENERAL ORDERABLES Performing Organization Address [facility] Co de Phone Number [facility] Inf. Diseases Diag. Lab [address] [facility], [address] [place] [address] * Adult Type and Screen (12/18/2023 6:03 AM CDT) ABO/RH(D) O POS 12/18/2023 5:19 AM CDT RH BLOOD BANK Antibody Screen Negative Negative 12/18/2023 5:19 AM CDT RH BLOOD BANK SPECIMEN EXPIRATION DATE [id number] 12/18/2023 5:19 AM CDT RH BLOOD BANK Blood BLOOD SPECIMEN / Unknown Venipuncture / Unknown 12/18/2023 6:03 AM CDT 12/18/2023 6:17 AM CDT Radha Ziegler MD LAB - BLOOD BAN K TEST ORDER Performing Organization Address City/[facility]/ZIP Co de Phone Number BLOOD BANK [address] [place] [address] * (ABNORMAL) Basic metabolic panel (12/18/2023 6:03 [...] 12/18/2023 7:09 AM CDT LABORATORY Comment:eGFR calculated usin 2020 CKD-EPI equation. Calcium 8.5(L) 8.6 - 10.0 mg/dL 12/18/2023 7:09 AM CDT LABORATORY Glucose 114(H) 70 - 99 mg/dL 12/18/2023 7:09 AM CDT LABORATORY Blood BLOOD SPECIMEN / Unknown Venipuncture / Unknown 12/18/2023 6:03 AM CDT 12/18/2023 6:16 AM CDT Radha Ziegler MD LAB - BLOOD ORD ERABLES LABORATORY [facility] Acute Care Lab [address] Lab (1st floor, no room number) [place] [address], [facility] * Extra Red Top Tube (12/17/2023 3:46 PM CDT) Hold Specimen JIC 12/17/2023 5:04 PM CDT LABORATORY Blood STRUCTURE OF LEFT UPPER LIMB / Unknown Venipuncture / Unknown 12/17/2023 3:46 PM CDT 12/17/2023 3:52 PM CDT Benita Bullard MD LAB - BLOOD NAY GEIGER [facility] Care Lab [address] Lab (1st floor, no room number) [place] [phone] [place] [address] * Extra Blue Top Tube (12/17/2023 3:46 PM CDT) Pathologist [facility] Hold Specimen JIC 12/17/2023 5:04 PM CDT LABORATORY Blood STRUCTURE OF LEFT UPPER LIMB / Unknown Venipuncture / Unknown 12/17/2023 3:46 PM CDT 12/17/2023 3:52 PM CDT Benita Bullard MD LAB - BLOOD NAY GEIGER Performing Organization Address City/[facility]/ZIP Co de Phone Number [facility] Care Lab [address] Lab (1st floor, no room number) [address] * Lipase (12/17/2023 3:46 PM CDT) [facility] Lipase 25 13 - 60 U/L 12/17/2023 4:30 PM CDT LABORATORY Blood STRUCTURE OF LEFT UPPER LIMB / Unknown Venipuncture / Unknown 12/17/2023 3:46 PM CDT 12/17/2023 3:52 PM CDT Benita Bullard MD LAB - BLOOD NAY GEIGER [facility] Care Lab [address] Lab (1st floor, no room number) [address] * HIV 1 and 2 Antibody (01/20/2013 2:37 PM CDT) [facility] HIV 1&2 Antibody Negative [facility] Blood specimen (specimen) 01/20/2013 2:37 PM CDT 01/20/2013 2:38 PM CDT Renetta Corley MD LAB - BLOOD OR DERABLES [facility] * PAP imaged thin layer screen (01/20/2013 12:00 AM CDT) PAP NIL COPATH Copath Report Patient Name: SAUL DUMONT MR#: [id number] Specimen #: [id number] Collected: 01/20/2013 Received: 01/21/2013 Reported: 2013 13:10 [...] EDWIN Plasencia ??(ASCP) Processed and screened at [facility], [facility] CLINICAL HISTORY: Other: Implant, Papanicolaou Test Limitations: ??Cervical cytology is a screening test with limited sensitivity; regular screening is critical for cancer prevention; Pap tests are primarily effective for the diagnosis/preventi on of squamous cell carcinoma, not adenocarcinomas or other cancers. TESTING LAB LOCATION: [address] ??[id number] COLLECTION SITE: Client: ??[facility] Location: [facility] (R) COPATH Cytologic material (specimen) 01/20/2013 01/21/2013 11:23 AM CDT Renetta Corley MD LAB - OPTIME C LINICAL SPECIMEN COPATH from Last 3 Months or Most Recently Relevant to Health Maintenance Advance Directives For more information, please contact: [phone] * Full Code (Latest Code Status on File) Date Activated Date Inactivated Comments 12/27/2023 9:50 PM 12/29/2023 2:49 PM All basic an d advanced life-sustaining interventions are performed as appropriate Question Answer Comments Code status determined by: Discussion with eden nt/ legal decision maker Care Teams Quality Improvement Coordinator Relationship Specialty Start Date End Date [facility], [address], [address] [place] RIVAS [phone] PCP - General 08/23/16 [facility] DO NOT USE MD Pediatrics 08/16/13
--- OUTSIDE RECORDS SUMMARY | 2024-01-01 08:44 | XMS_ITS | Encounter Summary ---
Author Organization [facility] Address [address] [place] [address] Care Team Providers Care Cotton Seed Culler Name Role Phone Zara Thurston MD [facility], [facility] Primary Care Provid er Encounter Details Date Type Department Care Team (Late st Contact Info) Description 12/22/[address] [address] Stsa Bautista MD [address] [address] Social History Tobacco Use Types Packs/Day Years [...] on file documented as of this encounter Miscellaneous Notes * Telephone Encounter - Valerie Olivo - 12/22/2023 10:33 AM CDT [facility] Phone Message May a detailed message be left on voicemail: yes Reason for Call: Other: pt returning call, please call her Action Taken: Other: urology Travel Screening: Not Applicable Date of Service: documented in this encounter Plan of Treatment Not on file documented as of this encounter Visit Diagnoses Not on filedocumented in this encounter Care Teams Cotton Seed Culler Relationship Specialty Start Date End [facility] [address] [place] [address] [address] [place] [address] PCP - General 08/23/16 [facility], DO NOT USE MD Pediatrics 08/16/13 documented as of this encounter
--- OUTSIDE RECORDS SUMMARY | 2024-01-01 08:44 | XMS_ITS | Encounter Summary ---
Author Organization [facility] Address [address] [facility] [place] [address] Care Team Providers Care Circular Sawyer Stone Name Role Phone Zara Thurston MD Unavailable [facility]id er Encounter Details Date Type Department Care Team (Late st Contact Info) Description 12/18/2023 Medical Correspondence [facility] PeriOp Services [address] [place] [address] Scan, Non-Provider Social History Tobacco Use Types Packs/Day Years [...] on file documented as of this encounter Plan of Treatment Not on file documented as of this encounter Visit Diagnoses Not on filedocumented in this encounter Care Teams Circular Sawyer Stone Relationship Specialty Start Date End Date [facility] [address] [place] [address], [address] [place] [address] PCP - General 08/23/16 Zara Thurston MD DO NOT USE Pediatrics 08/16/13 documented as of this encounter
--- OUTSIDE RECORDS SUMMARY | 2024-01-01 08:44 | XMS_ITS | Encounter Summary ---
Author Organization [place] Address [address] [place] [address] Care Team Providers Care Cable Respooler Name Role Phone Zara Thurston MD [facility], [facility] Primary [facility] er Encounter Details Date Type Department Care Team (Late st Contact Info) Description 12/18/2023 9:02 AM CDT Anesthesia Event [facility] [address] [place] [id number] Raj Brown DO [facility] ANESTHESIA [address] [place], [place] [address] Anesthesia Record Procedure Summary Procedure Name Responsible Anesthesiologist Anesthesia Start Time Anesthesia Stop Time Cystoscopy, right retrogrades, right ureteral stent insertion (Right: Urethra) Raj Brown DO 12/18/23 0902 12/18/23 0948 Events Date Time Event Comment 12/18/2023 0902 An Start Anesthesia Star t is defined as when the anesthesia provider assumed care, began anesthesia prep, remained continuously present with the patient, and excludes all time for performing the pre-anesthesia evaluation. The Pre-Anesthesia Evaluation was completed before Anesthesia Start. 0903 MD Present 09 An Start Data 0905 AN REASSESS I attest that I have identified and re-evaluated the patient immediately before the induction of anesthesia and I am satisfied that the anesthetic plan is suitable for the patient's condition and procedure. The first vital signs recorded are pre- induction. Yoel Adams, CAB STATION ATTENDANT ADVANCED PRACTICE PSYCHIATRIC NURSE 0909 MD Present 0913 An Induction 0914 MD Present 0915 An LMA 0916 Anesthesia Ready for Procedu re 0918 Present 0939 LMA Removed 0939 an stop data 0946 Present 0948 An Stop Electronically signed by Yoel Adams APRN CRNA on December 18, 2023 9:48 AM Meds Name Total midazolam 1 mg/mL 2 mg ketorolac 30 mg/mL 30 mg lidocaine 2% 30 mg propofol 10 mg/mL 150 mg dexamethasone (DECADRON) 4 mg/mL 8 mg ondansetron 2 mg/mL 4 mg glycopyrrolate 0.2 mg/mL 0.2 mg fentaNYL (PF) (SUBLIMAZE) injection 50 m cg 100 mcg ceFAZolin vial 1 gm 2 g furosemide 10 mg/mL 10 mg lactated ringers infusion 500 mL * Agents Name O2 N2O Air Exp Sevoflurane Exp Isoflurane Exp Desflurane Ins Sevoflurane Ins Isoflurane Ins Desflurane * Blood No blood administrations on file. Lines, Drains, and Airways Type Details Placement Removal Incision/Surgical Site 12/18/23; 922; U rethral meatus; NO INCISION MADE 12/18/23922 by Patricia Hanley RN Peripheral IV 12/18/23; 0603; 20 G ; Anterior, Left; Lower forearm; Chlorhexidine 12/18/23 0603 by Karely Segura RN 12/18/23 112 by Alexa Marks, HIP[place]O Supraglottic Airway Placement Date: 12/18/23; Placement Time: 921 (created via procedure documentation); Mask Ventilation: 1; LMA Size: 4; Airway Brand: I-Gel; Attempts: 1 12/18/23 0922 by Yoel Adams APRN CRNA 12/18/23 0939 by Yoel Adams APRN CRNA Urethral Catheter 12/18/23; 0939; No; Surgical procedure; 16 fr 12/18/23 0939 by Patricia Hanley RN 12/18/23 1016 by Alexa Marks RN documented in this encounter Social History Tobacco [...] OR Notes * Anesthesia Postprocedure Evaluation - Raj Brown DO - 12/18/2023 10:09 AM CDT Patient: Saul Fontana Procedure: Procedure(s): Cystoscopy, right retrogrades, right ureteral stent insertion Anesthesia Type: General Note: Postop Pain Control: Uneventful Sign Out: Well controlled pain PONV: No Neuro/Psych: Uneventful Sign Out: Acceptable/Baseline neuro status Airway/Respiratory: Sign Out: Acceptable/Baseline resp. status CV/Hemodynamics: Sign Out: Acceptable CV status Other NRE: DID A NON-ROUTINE EVENT OCCUR? Last vitals: Vitals Value Taken Time BP 93/71 12/18/23 1000 Temp 98.4 ??F (36.9 ??C) 12/18/23 0945 Pulse 91 12/18/23 1007 Resp 16 12/18/23 1007 SpO2 100 % 12/18/23 1007 Vitals shown include unfiled device data. Electronically Signed By: Raj Brown DO December 18, 2023 10:09 AM * Anesthesia Procedure Notes - Yoel Adams APRN CRNA - 12/18/2023 9:20 AM CDTAssociated Order(s): Airway Airway Patient location during procedure: OR Staff - ADVANCED PRACTICE PSYCHIATRIC NURSE: Yoel Adams APRN ADVANCED PRACTICE PSYCHIATRIC NURSE Performed By: ADVANCED PRACTICE PSYCHIATRIC NURSE Consent for Airway Urgency: elective Indications and Patient Condition Indications for airway management: cherry-procedural Induction type:intravenous Mask difficulty assessment: 1 - vent by mask Final Airway Details Final airway type: supraglottic airway Supraglottic Airway Details Type: LMA Brand: I-Gel LMA size: 4 Post intubation assessment Placement verified by: equal breath sounds and chest rise Number of attempts at approach: 1 Secured with: commercial tube rico Ease of procedure: easy Dentition: Intact and Unchanged * Anesthesia Preprocedure Evaluation - Raj Brown, DO - 12/18/2023 8:02 AM CDT Anesthesia Pre-Procedure Evaluation Patient: Saul Fontana : 1985 Procedure : Procedure(s): Cystoscopy, retrogrades, insert stent ureter(s), combined Past Medical History: Diagnosis Date ADHD (attention deficit hyperactivity disorder) Anxiety Depressive disorder Endometriosis Past Surgical History: Procedure Laterality Date APPENDECTOMY CHOLECYSTECTOMY, LAPOROSCOPIC 2000 Uterine ablation Allergies Allergen Reactions Escitalopram Other [...] rarely Wt Readings from Last 1 Encounters: 12/18/23 59 kg (130 lb) Anesthesia Evaluation ROS/MED HX ENT/Pulmonary: (+) tobacco use, Neurologic: - neg neurologic ROS Cardiovascular: - neg cardiovascular ROS METS/Exercise Tolerance: >4 METS Hematologic: - neg hematologic ROS Musculoskeletal: - neg musculoskeletal ROS GI/Hepatic: - neg GI/hepatic ROS Renal/Genitourinary: (+) Nephrolithiasis , Endo: - neg endo ROS Psychiatric/Substance Use: Comment: ADHD (+) psychiatric history anxiety and depression Recreational drug usage: Cannabis. Infectious Disease: - neg infectious disease ROS Malignancy: - neg malignancy ROS Other: - neg other ROS Physical Exam Airway Mallampati: II Neck ROM: full Respiratory Devices and Support Dental Cardiovascular cardiovascular exam normal Rhythm and rate: regular Pulmonary pulmonary exam normal OUTSIDE LABS: CBC: Lab Results Component Value Date WBC 13.1 (H) 12/18/2023 WBC 9.3 12/17/2023 HGB 11.6 (L) 12/18/2023 HGB 12.6 12/17/2023 HCT 34.4 (L) 12/18/2023 HCT 38.6 12/17/2023 PLT 198 12/18/2023 PLT 224 12/17/2023 BMP: Lab Results Component Value Date NA 133 (L) 12/18/2023 NA 139 12/17/2023 POTASSIUM 3.3 (L) 12/18/2023 POTASSIUM 3.7 12/17/2023 CHLORIDE 99 12/18/2023 CHLORIDE 102 12/17/2023 CO2 20 (L) 12/18/2023 CO2 22 12/17/2023 BUN 9.2 12/18/2023 BUN 10.4 12/17/2023 CR 0.79 12/18/2023 CR 0.73 12/17/2023 GLC 114 (H) 12/18/2023 GLC 154 (H) 12/17/2023 COAGS: No results found for: PTT, INR, FIBR POC: Lab Results Component Value Date HCG Positive (A) 03/13/2014 HCGS Negative 12/17/2023 HEPATIC: Lab Results Component Value Date ALBUMIN 3.1 (L) 08/15/2016 PROTTOTAL 6.4 (L) 08/15/2016 ALT 24 08/15/2016 AST 21 08/15/2016 ALKPHOS 59 08/15/2016 BILITOTAL 0.6 08/15/2016 OTHER: Lab Results Component Value Date ADRI 8.5 (L) 12/18/2023 LIPASE 25 12/17/2023 Anesthesia Plan ASA Status: 2 Anesthesia Type: General. Induction: Intravenous, Propofol. Maintenance: Balanced. Consents Anesthesia Plan(s) and associated risks, benefits, and realistic alternatives discussed. Questions answered and patient/high school admissions representative(s) expressed understanding. - Discussed: - Discussed with: Patient Postoperative Care Pain management: IV analgesics, Oral pain medications, Multi-modal analgesia. PONV prophylaxis: Ondansetron (or other 5HT-3), Dexamethasone or Solumedrol Comments: Raj Brown, DO I have reviewed the pertinent notes and labs in the chart from the past 30 days and (re)examined the patient. Any updates or changes from those notes are reflected in this note. # Hypokalemia: Lowest K = 3.3 mmol/L in last 2 days, will replace as needed # Hyponatremia: Lowest Na = 133 mmol/L in last 30 days, will monitor as appropriate # Overweight: Estimated body mass index is 27.17 kg/m?? as calculated from the following: Height as of this encounter: 1.473 m (4' 10). Weight as of this encounter: 59 kg (130 lb). documented in this encounter Miscellaneous Notes * Anesthesia Care Transfer Note - Yoel Adams APRN CRNA - 12/18/2023 9:47 AM CDT Patient: Saul Fontana Procedure: Procedure(s): Cystoscopy, right retrogrades, right ureteral stent insertion Diagnosis: Stone, kidney [N20.0] Diagnosis Additional Information: No value filed. Anesthesia Type: General Note: Oropharynx: oropharynx clear of all foreign objects Level of Consciousness: drowsy Oxygen Supplementation: face mask Level of Supplemental Oxygen (L/min / FiO2): 6 Independent Airway: airway patency satisfactory and stable [...] understanding Vitals: Vitals Value Taken Time BP 98/74 12/18/23 0944 Temp Pulse 96 12/18/23 0946 Resp 13 12/18/23 0946 SpO2 100 % 12/18/23 0946 Vitals shown include unfiled device data. Electronically Signed By: Yoel Adams APRN CRNA December 18, 2023 9:47 AM documented in this encounter Plan of Treatment Not on file documented as of this encounter Procedures Procedure Name Priority Date/Time Associated Diagnosis Comments ANE AIRWAY SUPRAGLOTTIC PERFORMABLE Routine 12/18/2023 9:20 AM CDT documented in this encounter Results * ANE AIRWAY SUPRAGLOTTIC PERFORMABLE (12/18/2023 9:20 AM CDT) Narrative Yoel Adams APRN CRNA - 12/18/2023 9:20 AM CDT Yoel Adams APRN CRNA ? 12/18/2023 ??9:22 AM Airway ? Patient location during procedure: OR Staff - ? ADVANCED PRACTICE PSYCHIATRIC NURSE: Yoel Adams APRN CRNA ? Performed By: ADVANCED PRACTICE PSYCHIATRIC NURSE Consent for Airway ? Urgency: elective Indications and Patient Condition ? Indications for airway management: cherry-procedural ? Induction type:intravenous ? Mask difficulty assessment: 1 - vent by mask Final Airway Details ? Final airway type: supraglottic airway Supraglottic Airway Details ? Type: LMA ? Brand: I-Gel ? LMA size: 4 Post intubation assessment ? Placement verified by: equal breath sounds and chest rise ? Number of attempts at approach: 1 ? Secured with: commercial tube rico ? Ease of procedure: easy ? Dentition: Intact and Unchanged Raj Brown DO [place] ANESTHESIA documented in this encounter Visit Diagnoses Not on filedocumented in this encounter Administered Medications Inactive Administered Medications - up to 3 most recent administrations Medication Order MAR Action Action Date Dose Rate Site ceFAZolin (ANCEF) 1 g vial to attach to NS 100 ml bag for ADULT or 50 ml bag for PEDS Routine, Intravenous, PRN, Starting on Myah 12/18/23 at 0902, Anesthesia Intra-op $Given 12/18/2023 9:02 AM CDT 2 g dexAMETHasone (DECADRON) injection Intravenous, PRN, Administer over 1 Minutes, Starting on Myah 12/18/23 at 0911, Anesthesia Intra-op $Given 12/18/2023 9:11 AM CDT 8 mg fentaNYL (PF) (SUBLIMAZE) injection 50 mcg 50 mcg, Intravenous, EVERY 5 MIN PRN, severe pain, Give fentaNYL (SUBLIMAZE) first if HYDROmorphone (DILAUDID) also ordered., Starting on Myah 12/18/23 at 0803, Administer fentaNYL (SUBLIMAZE) for acute pain control. Move to HYDROmorphone (DILAUDID): - IF patient has received up to 200 mcg of fentaNYL (SUBLIMAZE), OR - IF patient has received 2 doses of fentaNYL (SUBLIMAZE) AND continues to have severe pain (pain score greater than or equal to seven (7) or is unable to participate in post op recovery due to pain. Wait 5 minutes AFTER last fentaNYL (SUBLIMAZE) dose before administering HYDROmorphone (DILADUDID). Postop Anesthesia Phase I only. Notify Provider to assess for uncontrolled pain or analgesic side effects. DO NOT revert back to fentanyl (SUBLIMAZE) after administering HYDROmorphone (DILAUDID)., PACU $Given 12/18/2023 9:11 AM CDT 100 mcg furosemide (LASIX) injection Intravenous, PRN, Administer over 1-3 Minutes, Starting on Myah 12/18/23 at 0933, Anesthesia Intra-op $Given 12/18/2023 9:33 AM CDT 10 mg glycopyrrolate (ROBINUL) injection Intravenous, PRN, Administer over 1-2 Minutes, Starting on Myah 12/18/23 at 0911, Anesthesia Intra-op $Given 12/18/2023 9:11 AM CDT 0.2 mg ketorolac (TORADOL) injection Intravenous, PRN, Administer over 2 Minutes, Starting on Myah 12/18/23 at 0929, Anesthesia Intra-op $Given 12/18/2023 9:29 AM CDT 30 mg lactated ringers infusion at 10 mL/hr, Intravenous, CONTINUOUS, IF patient NOT on dialysis., Pre-procedure, Starting on Myah 12/18/23 at 0755, Until Myah 12/18/23 at 0942 $New Bag 12/18/2023 9:02 AM CDT $New Bag 12/18/2023 7:58 AM CDT 10 mL/hr lidocaine 2% injection (MDV) Intravenous, PRN, Starting on Myah 12/18/23 at 0911, Anesthesia Intra-op $Given 12/18/2023 9:11 AM CDT 30 mg midazolam (VERSED) injection Intravenous, Administer over 2 Minutes, PRN, Starting on Myah 12/18/23 at 0902, Anesthesia Intra-op $Given 12/18/2023 9:02 AM CDT 2 mg ondansetron (ZOFRAN) injection Intravenous, PRN, Administer over 2-5 Minutes, Starting on Myah 12/18/23 at 0923, Anesthesia Intra-op $Given 12/18/2023 9:23 AM CDT 4 mg propofol (DIPRIVAN) injection 10 mg/mL vial Intravenous, PRN, Starting on Myah 12/18/23 at 0911, Anesthesia Intra-op $Given 12/18/2023 9:11 AM CDT 150 mg documented in this encounter Care Teams Cable Respooler Relationship Specialty Start Date End Date [facility] [address], [address] [place] [address] PCP - General 08/23/16 Health, MD Zara DO NOT USE MD Pediatrics 08/16/13 documented as of this encounter
--- OUTSIDE RECORDS SUMMARY | 2024-01-01 08:44 | XMS_ITS | Clinical Summary ---
Author Organization [facility] Address [address] [place] [address] Care Team Providers Care Pneumatic Tester Name Role Phone Preston Puga M.D. Primary Care P gretta Source Comments Patient records contain information from all sites at [facility]. For routine questions regarding patient records, call [phone] during business hours, M-F 8:00 AM - 5:00 PM Central Time. Record requests for emergency care only can be directed to [phone] at any time.[facility] Allergies Active Allergy Reactions Criticality Noted Date Comments Cefoxitin Rash 03/31/2017 Escitalopram Oxalate Extrapyramidal Symptoms Hydrocodone-Acetaminop hen Other (see comments) 02/28/2016 Lactose Other (see comments) 09/20/2009 No reaction listed in [facility] Sertraline Other (see comments),Shortness of breath (Reselect Reaction) High 09/22/2010 No reaction listed in [facility] Medications Medication Sig Dispensed Refills Start Date End Date Status ibuprofen (ADVIL,MOTRIN) 200 mg tablet Take 200 mg by mouth as needed for pain. Active fluticasone propion-salmeter oL (ADVAIR HFA) 115-21 mcg/actuation inhaler Inhale 2 puffs. 09/19/2020 Active clotrimazole (LOTRIMIN) 1 % cream Apply 1 application topically 2 (two) times a day. Apply to affected area of foot. 30 g 09/24/2022 Active albuterol 90 mcg/actuation inhalerIndicatio ns:Asthma Tobacco User Inhale 2 puffs every 4 (four) hours as needed for wheezing or shortness of breath. 1 g 3 09/23/2023 Active nystatin (MYCOSTATIN) 100,000 unit/gram creamIndications :Tinea Pedis Apply topically as needed (rash). 30 g 3 09/23/2023 Active Nystop 100,000 unit/gram powderIndication s:Tinea Pedis Apply topically 4 (four) times a day. 60 g 3 09/23/2023 Active acetaminophen (TylenoL) 500 mg tablet Take 500-1,000 mg by mouth. 12/29/2023 Active clonazePAM (KlonoPIN) 2 mg tablet Take 0.5 tablets by mouth 3 (three) times a day as needed. 12/09/2023 Active clonazePAM (KlonoPIN) 1 mg tablet TAKE 1 TABLET BY MOUTH FOUR TIMES DAILY NEEDED FOR ANXIETY OR SEVERE ANXIETY 10/30/2023 Active hydrOXYzine (Atarax) 25 mg tablet Take 25 mg by mouth. 12/29/2023 Active lamoTRIgine (LaMICtaL) 150 mg tablet Take 1 tablet by mouth daily. 12/09/2023 Active oxyBUTYnin (Ditropan-XL) 5 mg 24 hr tablet Take 5 mg by mouth. 12/18/2023 Active sulfamethoxazole -trimethoprim (Bactrim DS) 800-160 mg per tablet Take 1 tablet by mouth. 12/29/2023 Active tamsulosin (Flomax) 0.4 mg 24 hr capsule Take 0.4 mg by mouth. 12/18/2023 Active dextroamphetamin e-amphetamine (AdderalL) 20 mg tablet Take 1 tablet by mouth 3 (three) times a day. 12/09/2023 Active oxyCODONE (Roxicodone) 5 mg immediate release tabletIndication s:Acute Pain Take 1 tablet (5 mg total) by mouth every 6 (six) hours as needed for pain or severe pain or score 7-10 of 10 Indication: Acute Pain. 10 tablet 12/29/2023 Active dextroamphetamin e-amphetamine (ADDERALL) 20 mg tablet 11/18/2019 4 Discontinued (Duplicate order) LORazepam (ATIVAN) 1 mg tablet TK 1 T PO QHS PRN FOR INSOMNIA 11/19/2019 4 Discontinued (Therapy completed) buPROPion XL (WELLBUTRIN XL) 150 mg 24 hr tablet TK 1 T PO QD 11/19/2019 4 Discontinued (Therapy completed) fluconazole (DIFLUCAN) 150 mg tablet 09/23/2022 4 Discontinued (Therapy completed) metroNIDAZOLE (FLAGYL) 500 mg tabletIndication s:Vaginosis Bacterial Take 1 tablet (500 mg total) by mouth 2 (two) times a day. 14 tablet 09/23/2023 4 Discontinued (Therapy completed) ciprofloxacin (Cipro) 500 mg tablet Take 1 tablet by mouth 2 (two) times a day. 12/17/2023 4 Discontinued (Therapy completed) ketorolac (ToradoL) 10 mg tablet 12/19/2023 4 Discontinued (Therapy completed) fluconazole (Diflucan) 150 mg tablet Take 1 tablet (150 mg total) by mouth once for 1 dose. 1 tablet 1 12/29/2023 4 Hospital, Clinic, or Other Facility Administered Medication Ordered Dose Route Frequency Start Date End Date Status medroxyPROGESTERone injection 150 mgIndications:Manag ement Contraception By Injection 150 mg IM Every 3 months 12/13/2022 5 Active medroxyPROGESTERone injection 150 mgIndications:Pain Pelvic Female,Dysmenorrhea 150 mg IM Every 3 months 09/23/2023 5 Active medroxyPROGESTERone injection 150 mg (Depo-Provera)Indic ations:Pain Pelvic Female 150 mg IM Once 12/29/2023 4 Discontinued Active Problems Patient Care Coordination No te Formatting of this note migh t be different from the original. OB education completed. Pre-reg completed at [facility] OB Problem List 1 History of prior section x 1 (2017) 2 A2 Gestational diabetes, insulin controlled 3 Obesity with BMI 35 4 Positive GBS culture 5 EDC 02/27/2018 set by 23 week ultrasound LMP: unknown IVA by 23 wk us: 02/27/2018 Hospital for Delivery: [facility] 's provider: Dr. Gee OB labs Blood type: O Positive Antibody screen: Negative HBsAg: Negative HIV: Negative Syphilis: Negative Rubella: Equivocal TSH: 1.0 Hgb: 11.6 Hct: 35.3 Platelets: 338 Glucose screen: 98/220/196/124 GBS culture: Positive Problem Noted Date Diagnosed Date Pain Pelvic Female 04/24/2021 Cannabis Use Unspecified Uncomplicated 7 Overview: Overview: Prior to diagnosis. Consult with Clarita Ayala, ann beginnings Has quit both thc and cigarettes. Repeat drug screen 01/14/2017 negative Obesity Body Mass Index 30-39.9 Adult 08/20/2016 Anxiety 05/31/2014 Overview: Overview: See panic diagnosis Overview: See panic diagnosis Panic Disorder With Agoraphobia 05/31/2014 Overview: Overview: Not currently using Ativan. Attention Deficit Hyperactive Disorder 3 Overview: Overview: No medications currently. Overview: No medications currently. Major Depressive Disorder, Recurrent, Unspecifie d 08/23/2009 Resolved Problems Problem Noted Date Diagnosed Date Resolved Date Positive Group B Streptococcus 02/02/2018 07/02/2019 Maternal Care For Low Transv erse Scar From Previous Delivery 01/15/2018 07/02/2019 Diabetes Mellitus Gestationa l Insulin Controlled 02/10/2017 07/02/2019 Nicotine Dependence Unspecified 09/02/2012 07/02/2019 Endometriosis 03/31/2011 02/02/2018 Cyst Ovary 09/12/2010 02/02/2018 Dysthymia 03/07/2010 02/02/2018 Overview: Anxiety With Depression Pain Cervical 08/24/2009 02/02/2018 Adjustment Disorder With Anxious Mood 08/23/2009 02/02/2018 Pain Back 08/23/2009 02/02/2018 Encounters Date Type Department Care Team Description 12/29/2023 2:00 PM CDT Office Visit Department of Obstetrics and Gynecology in [place], [place] [address] [place] [phone] Jona Goel Jr., M.D. Pain Pelvic Female (Primary Dx); Nephrolithiasis Discharge Disposition: Home or Self Care 12/29/2023 Orders Only Department of Obstetrics and Gynecology in [place], [place] [address] [place] [address] Jona Goel Jr., M.D. 12/29/2023 Clinical Communication Department of Obstetrics and Gynecology in [place], [place] [address] [place] [address] Jona Goel Jr., M.D. 12/17/2023 Clinical Communication Department of Family Medicine, [facility], in [place], [place] [address] [place] [address] Preston Puga M.B.B.S., M.D. 12/10/2023 8:30 AM CDT Procedure visit Department of Obstetrics and Gynecology in [address] [phone] Carmela Velez M.D. Thomson, Angie J L.P.N. Pain Pelvic Female; Dysmenorrhea from Last 3 Months Immunizations Name Administration Dates Next Due 4vHPV (discontinued) 07/29/2011,07/15/2008,02/27 DTP 12/22/1986,1985,1985 H1N1 All Forms 05/01/2009 H1N1 Inj 05/01/2009 HepB, Unspecified 08/20/2016 Influenza TIV (IM) 04/03/2009,05/14/2006 Influenza, Seasonal, Injectable 04/03/2009,05/14 Influenza, Unspecified 04/14/2015,04/03/2009, MMR 02/07/2018,09/27/1997,11/24/1986 Polio, Unspecified 12/22/1986,1985 Rubella 08/20/2016 Td (Adult), adsorbed 09/27/1997 Tdap 12/02/2017, 7,07/29/2011,2009,09/27/1997 influenza vaccine quad (FLUZONE/FLUARIX) (6 months and older)(PF) 04/14/2015 Social History Tobacco Use Types Packs/Day Years Used Date Smoking Tobacco: Some Days Cigarettes 0.3 10 Smokeless Tobacco: Never Tobacco Cessation:Ready to Q uit: Not Asked; Counseling Given: Not Answered Alcohol Use Standard Drinks/Week Comments Yes 0 (1 standard drink = 0.6 oz pur e alcohol) Humiliation, Afraid, Rape, and Kick questionnair e Answer Date Recorded Fear of Current or Ex-Partner No Emotionally Abused No 11/17/2018 Physically Abused No 11/17/2018 Sexually Abused No 11/17/2018 Social Connection and Isolat ion Panel [NHANES] Answer Date Recorded Frequency of Communication w ith Friends and Family More than three times a week 01/08/2019 Frequency of Social Gatherin gs with Friends and Family Three times a week 01/08/2019 Attends Jain Services 1 to 4 times per year 01/08/2019 Active Member of Clubs or Organizations No 01/08/2019 Attends Club or Organization Meetings Never 01/08/2019 Marital Status Never 01/08/2019 AUDIT-C Answer Date Recorded Frequency of Alcohol Consumption Monthly or less 11/17/2018 Average Number of Drinks Not on file 019 Frequency of Binge Drinking Not on file 09/2018 Overall Financial Resource Strain (CARDIA) Answe r Date Recorded Difficulty of Paying Living Expenses Somewhat alonzo rd 11/17/2018 PHQ-2 Answer Date Recorded PHQ-2 Score 1 09/24/2021 [facility] - Occupational Stress Questionnaire Answer Date Recorded Feeling of Stress Only a little 01/08/2019 Exercise Vital Sign Answer Date Recorde d Days of Exercise per Week 5 days 2018 Minutes of Exercise per Session 60 min 01/08/2019 Hunger Vital Sign Answer Date Recorded Worried About Running Out of Food in the Last Ye ar Never true 11/17/2018 Ran Out of Food in the Last Year Never true 11/17/2018 PRAPARE - Transportation Answer Date Re corded Lack of Transportation (Medical) No 11/17/2018 Lack of Transportation (Non-Medical) Not on file 11/17/2018 Depression Answer Date Recor ded PHQ-9 Total Score (max 27) 5 09/24 Nutrition Answer Date Recorded Nutrition: EVOO Fat Source 12 03/30 Nutrition: Servings of Fruits/Vegetables per Day 2-3 03/30/2020 Dental Answer Date Recorded Dental: Regular Dentist Unknown 08/04/19 21 Education Answer Date Recorded What is the highest level of school you have completed or the highest degree you have received? Some college, no degree 11/17/2018 Sex and Gender Information Value Date Recorded Sex Assigned at Not on file Gender Identity Not on file Sexual Orientation Not on file Last Filed Vital Signs Vital Sign Reading Time Taken Comments Blood Pressure 130/78 12/29/2023 2:19 PM CDT Pulse 112 09/24/2022 2:48 PM CDT Temperature 36.9 ??C (98.4 ??F) 12/29/2023 2:19 PM CD T Respiratory Rate 16 09/24/2022 2:48 PM CDT Oxygen Saturation 98% 09/24/2021 9:26 AM CDT Inhaled Oxygen Concentration - - Weight 61.3 kg (135 lb 2.3 oz) 12/29/2023 2:19 P M CDT Height 147.8 cm (4' 10.19) 09/24/2021 9:26 AM C DT Body Mass Index 28.06 09/24/2021 9:26 AM CDT Plan of Treatment Upcoming Encounters Date Type Department Care Team (Late st Contact Info) Description 02/17/2024 2:30 PM CDT Office Visit Department of Obstetrics and Gynecology in [place], [place] [address] [phone] Jona Goel Jr., M.D. [address] [place] [phone] Discharge Disposition: Home or Self Care Health Maintenance Due Date Last Done Comments Tobacco Cessation counseling 1985 Pneumococcal vaccine (0-64 y ears) (1 of 2 - PCV) 1991 Hepatitis A Vaccines (1 of 2 - Risk 2-dose series) 01/23/2004 Hepatitis B Vaccines (2 of 3 - 19+ 3-dose series) 09/17/2016 08/20/2016 Glucose Monitoring for Gesta tional Diabetes 04/28/2021 Depression Monitoring (PHQ-9) 01/24/2022 09/24/2021 COVID-19 Vaccine (1 - 2022-2 4 season) 2023 Influenza Vaccine (#1) 2024 5, 04/14/2015, 04/03/2009, Additional history exists Cervical Cancer Screening 07/02/20242019, 07/02/2019, 01/20/2014, Additional history exists Lipid (Cholesterol) Screening 04/24/2026 04/24/2021 DTaP,Tdap,and Td Vaccines (1 0 - Td or Tdap) 12/03/2027 12/02/2017, 01/14/2017, 07/29/2011, Additional history exists HPV Vaccines Completed 07/29/2011, 06/18, 02/27/2007 HIV Screening Completed 11/04/2017 Hepatitis C Screening Completed 04/24/2021 Procedures Procedure Name Priority Date/Time Associated Diagnosis Comments HCV AB SCRN W/REFLEX TO HCV PCR, S Routine 04/24/2021 9:57 AM [employer]IDENTIAL SALES Preventive Gynecological Exam LIPID PANEL, S Routine 04/24/2021 9:57 AM [employer]IDENTIAL SALES Preventive Gynecological Exam THINPREP SCREEN HPV REFLEX Routine 07/02/2019 10:42 AM [employer]IDENTIAL SALES Gynecological Examination Normal HIV-1/-2 AG AND AB SCREEN Routine 11/04/2017 3:20 PM CDT Normal Not First from Last 3 Months or Most Recently Relevant to Health Maintenance Results * Lipid Panel (04/24/2021 9:57 AM [employer]IDENTIAL SALES) Cholesterol, Total 154 mg/dL 2020 2:02 PM [employer] OWAT Comment: ----REFERENCE VALUE---- Desirable: < 200 Borderline high: 200 - 239 High: > or = 240 Triglycerides 104 mg/dL 04/24/2021 2:02 PM [employer]IDENTIAL SALES OWAT Comment: ----REFERENCE VALUE---- Normal: <150 Borderline high: 150-199 High: 200-499 Very high: > or =500 Cholesterol, HDL 50 >=50 mg/dL 04/24/20 21 2:02 PM [employer]IDENTIAL SALES OWAT Calculated LDL 83 mg/dL 04/24/2021 2:02 PM [employer]IDENT[employer]AT Comment: ----REFERENCE VALUE---- Desirable: <100 mg/dL Above Desirable: 100-129 mg/dL Borderline High: 130-159 mg/dL High: 160-189 mg/dL Very High: >=190 mg/dL Cholesterol, Non-HDL, Calculated 104 mg/dL 04/24/2021 2:02 PM RESIDENTIAL SALES [facility] Comment: ----REFERENCE VALUE---- Desirable: <130 Above Desirable: 130-159 Borderline high: 160-189 High: 190-219 Very high: > or =220 Blood (Blood, Venous) 04/24/2021 9:57 AM RESIDENTIAL SALES 04/24/2021 1:18 PM RESIDENTIAL SALES Jona Goel Jr., M.D. LAB BLOOD ADD- ON Performing Organization Address City/[facility]/ZIP Co de Phone Number [facility] [address] [place] [address], [facility] OWAT [facility] [place] [address] [place] [address] * HCV Ab Scrn w/Reflex to HCV PCR, Serum (04/24/2021 9:57 AM RESIDENTIAL SALES) HCV Ab Screen, S Negative Negative 04/25/2021 8:19 AM RESIDENTIAL SALES [facility] Comment:Qxifpd-[id number]-wbezpn rat io is <1.00. Blood (Blood, Venous) 04/24/2021 9:57 AM RESIDENTIAL SALES 04/25/2021 6:55 AM RESIDENTIAL SALES Jona Goel Jr., M.D. LAB MICROBIOLO GY - BLOOD ORDERABLES [facility] [address] [address] [facility] Dept. of Laboratory Medicine and Pathology [address] [address] * ThinPrep Screen HPV Reflex (07/02/2019 10:42 AM RESIDENTIAL SALES) 07/09/2019 3:49 PM RESIDENTIAL SALES CY Report electronically signed by EDWIN Chirinos(ASCP) I verify that I have examined all relevant slides/materials for the specimen(s) and rendered or confirmed the diagnosis. 07/09/2019 3:49 PM [employer]IDENTIAL SALES [facility] Gross Description Received specimen in a ThinPrep vial. 07/09/2019 3:49 PM [employer]IDENTIAL SALES [facility] Pap Test Source Cervical/Endocervi marilynn 07/09/2019 3:49 PM [employer]IDENTIAL SALES [facility] Clinical History bleeding for a month and a half 07/09/2019 3:49 PM [employer]IDENTIAL SALES [facility] Menstrual Status(LMP, PM, ) unknowy 07/09/2019 3:49 PM [employer]IDENTIAL SALES [facility] Hormone Therapy/Contracep tives Oral Contraceptives 07/09/2019 3:49 PM RESIDENTIAL SALES [facility] Interpretation Cervical/Endocervi marilynn ??(ThinPrep): Satisfactory for Evaluation Endocervical/trans formation zone components absent Negative for Intraepithelial Lesion or Malignancy High Risk HPV: ??Negative Negative for High Risk HPV by nucleic acid amplification. The following High Risk HPV types were not detected: 16, 18, 31, 33, 35, 39, 45, 51, 52, 56, 58, 59, 66, and 68. 07/09/2019 3:49 PM RESIDENTIAL SALES [facility] Varies (Cervix/Endocerv ix) 07/02/2019 10:42 AM RESIDENTIAL SALES 07/05/2019 9:57 AM RESIDENTIAL SALES Avery Matta M.D. LAB PAP PATHDX ORDER [facility] [address] [place] [id number], [facility] [address] [place] [id number] * HIV-1/-2 Ag and Ab Screen (11/04/2017 3:20 PM CDT) HIV-1/-2 Ag and Ab Screen, S Non-Reacti ve Non-Reacti ve 11/05/2017 5:38 PM CDT [facility] HIV-1 Ab, S Non-Reacti ve Non-Reacti ve 11/05/2017 5:38 PM CDT [facility] HIV-1 Ag, S Non-Reacti ve Non-Reacti ve 11/05/2017 5:38 PM CDT [facility] HIV-2 Ab, S Non-Reacti ve Non-Reacti ve 11/05/2017 5:38 PM CDT [facility] Blood (Blood, Venous) 11/04/2017 3:20 PM CDT 11/05/2017 12:12 PM CDT Jona Goel Jr., M.D. LAB MICROBIOLO GY - BLOOD ORDERABLES [facility] [address] [place] [address], [facility] from Last 3 Months or Most Recently Relevant to Health Maintenance Care Teams Pneumatic Tester Relationship Specialty Start Date End Date Preston Puga M.B.BGracielaSGraciela, M.Adolph. [address] [place] [address] [place] [address] PCP - General Family Medicine 09/05/17
--- OUTSIDE RECORDS SUMMARY | 2024-01-01 08:44 | XMS_ITS | Encounter Summary ---
Author Organization [place] Address [address] [place] [address] Care Team Providers Care Outreach Rep Name Role Phone Zara Thurston MD [facility] Provid er Reason for Visit * Reason Comments Abdominal Pain Vomiting Encounter Details Date Type Department Care Team (Late st Contact Info) Description 12/18/2023 9:00 AM CDT - 12/18/2023 9:55 AM CDT Surgery [facility] [address] [place] [id number] Stas Bautista MD [address] [facility] [address] [place], [place] [address] Cystoscopy, right retrogrades, right ureteral stent insertion Surgery Details Date/Time Status Location OR Service Patient Class Case Class Case Type Trauma Case? 12/18/23 9:00 AM Posted [facility] OR OR 14 Urology Inpatient NEST 5 - Semi-Urge nt (within 48hrs) Panel 1 Procedure LRB Anes Op Region Wound Class Comments Cystoscopy, right retrograde s, right ureteral stent insertion Right General Urethra II-Clean C ontaminated Surgeon Surgeon Role Service Panel Stas Bautista MD Primary Urology 1 documented in this encounter Social History Tobacco [...] Sign Reading Time Taken Comments Blood Pressure 96/66 12/18/2023 9:55 AM CDT Pulse 89 12/18/2023 9:55 AM CDT Temperature 36.9 ??C (98.4 ??F) 12/18/2023 9:45 AM CD T Respiratory Rate 14 12/18/2023 9:55 AM CDT Oxygen Saturation 100% 12/18/2023 9:55 AM CDT Inhaled Oxygen Concentration - - Weight 59 kg (130 lb) 12/18/2023 4:59 AM CDT Height 147.3 cm (4' 10) 12/18/2023 4:59 AM CDT Body Mass Index 27.17 12/18/2023 4:59 AM CDT documented in this encounter Discharge Instructions * Discharge Instructions* Alexa Marks RN - 12/18/2023 9:42 AM CDT POSTOPERATIVE INSTRUCTIONS Diagnosis Right ureteral stone and UTI Procedure Procedure(s) (LRB): Cystoscopy, right retrogrades, right ureteral stent insertion (Right) Findings Right ureteral stent placed Home-going instructions Activity Limitation: - No driving or operating heavy machinery while on narcotic pain medication. FOLLOW THESE INSTRUCTIONS INDICATED BELOW: - Observe operative area for signs of excessive bleeding. - You may shower. - Increase fluid intake to promote clear urine. - Resume usual diet as tolerated What to expect while recovering - You may experience some intermittent bleeding that makes your urine pink or vivar colored. This is normal. - However, if you are unable to urinate, passing large amount of clots, have julian blood in your urine, or have a temperature >101 degrees, call the urology nurse tax services professional, or present to your nearest emergency department. - You are encouraged to walk daily, and have no activity restrictions. - A URETERAL STENT has been placed that allows urine to flow unobstructed from your kidney into your bladder. The stent has a curl in the kidney and a curl in the bladder. The curl in the bladder cancause some urgency and frequency of urination as well as some mild blood in the urine. The curl in the kidney can cause some mild flank discomfort. This may be more noticeable when you urinate. A URETERAL STENT is meant to be left in temporarily. It must be removed or changed no later than 3 monthsafter it's insertion. If it's not removed it can result in stone overgrowth on the stent that can cause pain, infection, and can be very difficult to remove. Discharge Medications/instructions: - Flomax (tamsulosin) to be taken daily until stent is removed - Oxybutynin 5mg XL (Ditropan XL) to be taken daily until the stent is removed -Complete course of ciprofloxacin as previously prescribed - Take Tylenol 1000mg every 6 hours for pain - Take Toradol 10mg every 6 hours as needed for additional pain control, you may then transition toibuprofen 600 mg every 6 hours as needed - Take Oxycodone 5mg every 4-6 hours only for break through pain -previously prescribed - Take Colace while taking Oxycodone to prevent constipation Questions/concerns [facility]: Future appointments You will be contacted to schedule follow-up ureteroscopy for stone removal in 2 to 4 weeks with at [facility]. Stas Bautista MD You received Toradol, an IV form of Ibuprofen (Motrin) at 9:30 AM. Do not take any Ibuprofen products until 3:30 PM Maximum acetaminophen (Tylenol) dose from all sources should not exceed 4 grams (4000 mg) per day. * Attachments The following attachments cannot be sent through Care Everywhere. * (s) After Anesthesia (Sleep Medicine) (Eritrean) documented in this encounter Medications at Time of Discharge Medication Sig Dispensed Refills Start Date End Date amphetamine-dextroamphe tamine (ADDERALL) 20 MG tablet Take 1 tablet by mouth 3 times daily 12/09/2023 clonazePAM (KLONOPIN) 2 MG tablet TAKE 1/2 TABLET BY MOUTH THREE TIMES DAILY NEEDED FOR ANXIETY 12/09/2023 lamoTRIgine (LAMICTAL) 150 MG tablet Take 1 tablet by mouth daily 12/09/2023 oxyBUTYnin ER (DITROPAN XL) 5 MG 24 hr tabletIndications:Right ureteral stone Take 1 tablet (5 mg) by mouth daily Take daily until your stent is removed. 30 tablet 1 12/18/2023 tamsulosin (FLOMAX) 0.4 MG capsuleIndications:Righ t ureteral stone Take 1 capsule (0.4 mg) by mouth daily Take daily until your stent is removed. 30 capsule 1 12/18/2023 ciprofloxacin (CIPRO) 500 MG tablet Take 1 tablet (500 mg) by mouth 2 times daily for 7 days 14 tablet 12/17/2023 12/24/2023 ketorolac (TORADOL) 10 MG tabletIndications:Right ureteral stone Take 1 tablet (10 mg) by mouth every 6 hours for 5 days 20 tablet 12/18/2023 12/23/2023 oxyCODONE (ROXICODONE) 5 MG tablet Take 1 tablet (5 mg) by mouth every 6 hours as needed for pain 12 tablet 12/17/2023 12/20/2023 clonazePAM (KLONOPIN) 1 MG tablet TAKE 1 TABLET BY MOUTH FOUR TIMES DAILY NEEDED FOR ANXIETY OR SEVERE ANXIETY 10/30/2023 12/28/2023 guanFACINE (INTUNIV) 1 MG TB24 24 hr tablet Take 1 tablet by mouth daily 10/28/2023 12/28/2023 Ondansetron (ZOFRAN ODT PO) 12/28/2023 documented as of this encounter ED Notes * Jacquelyn Diaz RN - 12/18/2023 4:57 AM CDT Pt seen in the ER yesterday, dx with kidney stones. Pt instructed to check in to the ER at 0600 andis to go to the OR at 0830. Pt reports nausea and pain is getting worse * Radha Ziegler MD - 12/18/2023 4:48 AM CDT Emergency Department Note History of Present Illness Chief Complaint Abdominal Pain and Vomiting HPI Saul Fontana is a 38 year old female who presented to the emergency department with abdominal pain as well as nausea vomiting. Patient is supposed to go to the operating room this morning with urology for stone. Came to the emergency department a little bit earlier because she started having more nausea and vomiting this morning. No fever at home. Pain has continued. Independent Historian None Review of External Notes Reviewed emergency department note from yesterday. OR time looks to be at 845 today Past Medical History Medical History and Problem List Past Medical History: Diagnosis Date ADHD (attention deficit hyperactivity disorder) Anxiety Depressive disorder Endometriosis Medications amphetamine-dextroamphetamine (ADDERALL) 20 MG tablet ciprofloxacin (CIPRO) 500 MG tablet clonazePAM (KLONOPIN) 1 MG tablet clonazePAM (KLONOPIN) 2 MG tablet Ondansetron (ZOFRAN ODT PO) oxyCODONE (ROXICODONE) 5 MG tablet Surgical History Past Surgical History: Procedure Laterality Date APPENDECTOMY CHOLECYSTECTOMY, LAPOROSCOPIC 2000 Uterine ablation Physical Exam Patient Vitals for the past 24 hrs: BP Temp Temp src Pulse Resp SpO2 Height Weight 12/18/23 0607 -- -- -- -- -- 98 % -- -- 12/18/23 0459 118/76 97.9 ??F (36.6 ??C) Temporal (!) 121 20 97 % 1.473 m (4' 10) 59 kg (130 lb) Repeat HR 101. Physical Exam General: Sitting up in bed, appears comfortable Eyes: The pupils are equal and round Conjunctivae and sclerae are normal ENT: Atraumatic face Neck: Normal range of motion CV: Tachycardic rate, regular rhythm Skin warm and well perfused Resp: Non labored breathing on room air No tachypnea No cough heard Lungs clear bilaterally GI: Abdomen is soft, there is no rigidity No distension No rebound tenderness Mild right sided abdominal pain MS: Normal muscular tone Skin: No rash or acute skin lesions noted Neuro: Awake, alert. Speech is normal and fluent. Face is symmetric. Moves all extremities equally Psych: Normal affect. Appropriate interactions. Diagnostics Lab Results Labs pending ED Course Medications Administered Medications sodium chloride 0.9% BOLUS 1,000 mL (has no administration in time range) ondansetron (ZOFRAN) injection 4 mg (has no administration in time range) ciprofloxacin (CIPRO) infusion 400 mg (has no administration in time range) HYDROmorphone (PF) (DILAUDID) injection 0.5 mg (has no administration in time range) Procedures Procedures Discussion of Management Urology, Spoke to Dr. Chris from urology, plan for OR then hopefully discharge after OR ED Course Past medical records, nursing notes, and vitals reviewed. Medical Decision Making / Diagnosis KELLIE Fontana is a 38 year old female who presented to the emergency department with abdominal pain as well as nausea vomiting. Has known stones and going to the operating room this morning with urology. Came to the emergency department a little bit earlier than she was supposed to for procedure because she was vomiting. Tachycardic in the emergency department, likely from pain. Improved on recheck. Laboratory studies pending. Patient given fluids, antiemetics, pain medication and antibiotics. Discussed patient with urology. Plan is for OR and then hopefully discharge home after OR. If she needs to be admitted after procedure, urology will discuss with hospitalist. Disposition OR Diagnosis ICD-10-CM 1. Right ureteral stone N20.1 2. Right lower quadrant abdominal pain R10.31 MD Toney Casas Maria Kristine, MD 12/18/23 0605 Radha Ziegler MD 12/18/23 0610 documented in this encounter Miscellaneous Notes * Op Note - Stas Bautista MD - 12/18/2023 9:20 AM CDT OPERATIVE REPORT DATE OF SURGERY: 12/18/23 LOCATION OF SURGERY: [facility] OR PREOPERATIVE DIAGNOSIS: (N39.0) Urinary tract infection without hematuria, site unspecified (primary encounter diagnosis) (N20.1) Right ureteral stone (R10.9) Right flank pain POSTOPERATIVE DIAGNOSIS: (N39.0) Urinary tract infection without hematuria, site unspecified (primary encounter diagnosis) (N20.1) Right ureteral stone (R10.9) Right flank pain START TIME: 9:20 AM END TIME: 9:31 AM PROCEDURE PERFORMED: 1. Cystoscopy 2. RIGHT retrograde pyelogram 3. RIGHT JJ stent placement 4. <1hr physician fluoroscopy time STAFF SURGEON: Stas Bautista MD ANESTHESIA: General. ESTIMATED BLOOD LOSS: 0 mL. DRAINS AND TUBES: RIGHT 6fr x 22cm ureteral stent, 16fr leung catheter COMPLICATIONS: None. DISPOSITION: PACU. SPECIMENS OBTAINED: ID Type Source Tests Collected by Time Destination A : Right Renal Pelvis Urine Urine Kidney, Right URINE CULTURE Stas Bautista MD 12/18/2023 9:25 AM SIGNIFICANT FINDINGS: Cystoscopy with no evidence of stone in the bladder. Right retrograde pyelogram with evidence of obstruction at the UPJ. Right ureteral stent placed. HISTORY OF PRESENT ILLNESS: Saul Fontana is a 38 year old female who presented to the emergency room on 12/17/2023 with acute right-sided flank pain. CT scan was obtained which demonstrates a 5 mm right UPJ/proximal ureteral stone with associated hydronephrosis. Urinalysis was concerning for possible UTI and she was started on antibiotics. She returns today for ureteral stent placement. She did develop some nausea and vomiting overnight, however no fevers or chills. We discussed that stone removal today is not possible due to concomitant UTI and that she will need to return for definitive stone management in 2 to 4 weeks. Informed consent completed. OPERATION PERFORMED: Informed consent was obtained and the patient was brought to the operating room where general anesthesia was induced. The patient was given appropriate preoperative antibiotics and positioned supine.The patient was then repositioned in dorsal lithotomy with all pressure points padded. We then performed a timeout, verifying the correct patient's site and procedure to be performed. A 22 Congolese cystoscope was inserted atraumatically into the bladder. Cystoscopy was performed with no evidence of stones in the bladder. The right ureteral orifice was identified and cannulated with a 0.035 sensor wire and a 5 Congolese open-ended catheter. The open-ended catheter was advanced to the distal ureter and the wire was removed. A gentle retrograde pyelogram was performed with evidence ofobstruction at the proximal ureter/UPJ. The wire was then advanced up to the renal pelvis and the open-ended catheter was able to advance into the renal pelvis as well. The wire was removed and a urine sample was obtained from the renal pelvis for urine culture. Repeat retrograde pyelogram outlinedthe renal pelvis and collecting system with mild hydronephrosis. Unfortunately this image was not saved on fluoroscopy. The wire was replaced into the renal pelvis and the open-ended catheter removed. A 6 Congolese by 22 cm JJ ureteral stent was advanced over the wire with good curl noted in the renalpelvis fluoroscopically and confirmed in the bladder and direct vision. A 16 Congolese Leung catheter was placed with 10 cc in the balloon. She received 10 mg IV Lasix and 30 mg IV Toradol. She was emerged from anesthesia and taken to the recovery room in stable condition. Stas Bautista MD Urology [facility] documented in this encounter Plan of Treatment Not on file documented as of this encounter Procedures Procedure Name Priority Date/Time Associated Diagnosis Comments XR SURGERY ZBIGNIEW FLUORO LESS THAN 5 MIN W STILLS Routine 12/18/2023 9:32 AM CDT URINE CULTURE Routine 12/18/2023 9:25 AM CDT CYSTOSCOPY, WITH RETROGRADE PYELOGRAM AND URETERAL STENT INSERTION 12/18/2023 9:04 AM CDT Stone, kidney CBC WITH PLATELETS AND DIFFERENTIAL STAT 12/18/2023 6:03 AM CDT TYPE AND SCREEN, ADULT STAT 12/18/2023 6:03 AM CDT CBC WITH PLATELETS & DIFFERENTIAL STAT 12/18/2023 6:03 AM CDT ABO/RH TYPE AND SCREEN STAT 12/18/2023 6:03 AM CDT BASIC METABOLIC PANEL STAT 12/18/2023 6:03 AM CDT documented in this encounter Results * XR Surgery ZBIGNIEW L/T 5 Min Fluoro w Stills (12/18/2023 9:32 AM CDT) Narrative [facility] - 12/18/2023 9:33 AM CDT This exam was marked as non-reportable because it will not be read by a radiologist or a [place] non-radiologist provider. Stas Bautista MD IMG DIAGNOSTIC IMAGI NG ORDERABLES [facility] * Urine Culture (12/18/2023 9:25 AM CDT) Culture No Growth 12/20/2023 5:04 AM CDT [facility] Urine RIGHT KIDNEY STRUCTURE / Unknown Non-blood Collection / Unknown 12/18/2023 9:25 AM CDT 12/18/2023 9:52 AM CDT Stas Bautista MD LAB - MICRO GENERAL ORDERABLES [facility] Inf. Diseases Diag. Lab [address] [facility] [place] [address] * Adult Type and Screen (12/18/2023 6:03 AM CDT) ABO/RH(D) O POS 12/18/2023 5:19 AM CDT [facility] Antibody Screen Negative Negative 12/18/2023 5:19 AM CDT [facility] SPECIMEN EXPIRATION DATE [id number] 12/18/2023 5:19 AM CDT [facility] Blood BLOOD SPECIMEN / Unknown Venipuncture / Unknown 12/18/2023 6:03 AM CDT 12/18/2023 6:17 AM CDT Radha Ziegler MD LAB - BLOOD BAN K TEST ORDER Performing Organization Address City/[facility]/ZIP Co de Phone Number [facility] [address] [place] [address], [place] * (ABNORMAL) CBC with platelets and differential (12/18/2023 6:03 AM CDT) WBC Count 13.1(H) 4.0 - 11.0 10e3/uL 12/18/2023 6:20 AM CDT [facility] RBC Count 3.76(L) 3.80 - 5.20 10e6/uL 12/18/2023 6:20 AM CDT [facility] Hemoglobin 11.6(L) 11.7 - 15.7 g/dL 12/18/2023 6:20 AM CDT [facility] Hematocrit 34.4(L) 35.0 - 47.0 % 12/18/2023 6:20 AM CDT [facility] MCV 92 78 - 100 fL 12/18/2023 6:20 AM CDT [facility] MCH 30.9 26.5 - 33.0 pg 12/18/2023 6:20 AM CDT [facility] MCHC 33.7 31.5 - 36.5 g/dL 12/18/2023 6:20 AM CDT [facility] RDW 12.7 10.0 - 15.0 % 12/18/2023 6:20 AM CDT [facility] Platelet Count 198 150 - 450 10e3/uL 12/18/2023 6:20 AM CDT [facility] % Neutrophils 79 % 12/18/2023 6:20 AM CDT [facility] % Lymphocytes 13 % 12/18/2023 6:20 AM CDT [facility] % Monocytes 8 % 12/18/2023 6:20 AM CDT [facility] % Eosinophils 0 % 12/18/2023 6:20 AM CDT [facility] % Basophils 0 % 12/18/2023 6:20 AM CDT [facility] % Immature Granulocytes 1 % 12/18/2023 6:20 AM CDT [facility] NRBCs per 100 WBC 0 <1 /100 024 6:20 AM CDT [facility] Absolute Neutrophils 10.3(H) 1.6 - 8.3 10e3/uL 12/18/2023 6:20 AM CDT [facility] Absolute Lymphocytes 1.7 0.8 - 5.3 10e3/uL 12/18/2023 6:20 AM CDT [facility] Absolute Monocytes 1.0 0.0 - 1.3 10e3/uL 12/18/2023 6:20 AM CDT [facility] Absolute Eosinophils 0.0 0.0 - 0.7 10e3/uL 12/18/2023 6:20 AM CDT [facility] Absolute Basophils 0.0 0.0 - 0.2 10e3/uL 12/18/2023 6:20 AM CDT [facility] Absolute Immature Granulocytes 0.1 <=0.4 10e3/uL 12/18/2023 6:20 AM CDT [facility] Absolute NRBCs 0.0 10e3/uL 12/18/2023 6:20 AM CDT [facility] Blood BLOOD SPECIMEN / Unknown Venipuncture / Unknown 12/18/2023 6:03 AM CDT 12/18/2023 6:16 AM CDT Radha Ziegler MD LAB - BLOOD ORD ERABLES LABORATORY [facility] [address] [facility] Lab (1st floor, no room number) [place] [address] * (ABNORMAL) Basic metabolic panel (12/18/2023 6:03 AM CDT) Sodium 133(L) 135 - 145 mmol/L 12/18/2023 [...] 7:09 AM CDT LABORATORY Comment:eGFR calculated usin g 2020 CKD-EPI equation. Calcium 8.5(L) 8.6 - 10.0 mg/dL 12/18/2023 7:09 AM CDT LABORATORY Glucose 114(H) 70 - 99 mg/dL 12/18/2023 7:09 AM CDT LABORATORY Blood BLOOD SPECIMEN / Unknown Venipuncture / Unknown 12/18/2023 6:03 AM CDT 12/18/2023 6:16 AM CDT Radha Ziegler MD LAB - BLOOD ORD ERABLES LABORATORY [facility] [address] Lab (1st floor, no room number) [place] [address], [place] documented in this encounter Visit Diagnoses Diagnosis Stone, kidney Calculus of kidney Right ureteral stone- Primary Calculus of ureter Right flank pain Abdominal pain, unspecified site Urinary tract infection without hematuria, site unspecified documented in this encounter Administered Medications Inactive Administered Medications - up to 3 most recent administrations Medication Order MAR Action Action Date Dose Rate Site ciprofloxacin (CIPRO) infusion 400 mg STAT, 400 mg, Intravenous, ONCE, On Myah 12/18/23 at 0520, For 1 dose, Irritant., Indications: Urinary Tract Infection $New Bag 12/18/2023 6:18 AM CDT 400 mg dexAMETHasone (DECADRON) injection 4 mg 4 mg, Intravenous, ONCE PRN, vomiting, nausea, Administer over 1 Minutes, Starting on Myah 12/18/23 at 0952, For 1 dose, Administer ONLY if dexamethasone (DECADRON) NOT given in the OR. This is Step 2 of nausea and vomiting management. IF nausea vomiting NOT resolved within 30 minutes or dexamethasone (DECADRON) was given in the OR go to Step 3 prochlorperazine (COMPAZINE)., Phase ll HYDROmorphone (PF) (DILAUDID) injection 0.5 mg 0.5 mg, Intravenous, EVERY 30 MIN PRN, moderate pain, severe pain, Starting on Myah 12/18/23 at 0516, For 3 doses, Notify the provider to assess for uncontrolled pain or analgesic side effects. Hold while on IV EMERGENCY DEPT TECH or with regular IV opioid dosing. $Given 12/18/2023 6:15 AM CDT 0.5 mg ioversol 68% (OPTIRAY 320) 50 mL + sterile water 50 mL injection PRN, Starting on Myah 12/18/23 at 0933, Intra-procedure $Given 12/18/2023 9:33 AM CDT 20 ml given Operative Site/Surgical Site lactated ringers infusion at 10 mL/hr, Intravenous, CONTINUOUS, IF patient NOT on dialysis., Pre-procedure, Starting on Myah 12/18/23 at 0755, Until Myah 12/18/23 at 0942 $New Bag 12/18/2023 9:02 AM CDT $New Bag 12/18/2023 7:58 AM CDT 10 mL/hr naloxone (NARCAN) injection 0.1 mg 0.1 mg, Intravenous, EVERY 2 MIN PRN, opioid reversal, Starting on Myah 12/18/23 at 0952, Notify Anesthesia Provider when administering naloxone (NARCAN) for unintended sedation or respiratory depression IF all three of the following criteria are met: 1. Respiratory rate LESS than or EQUAL to 8. 2. SaO2 is LESS than 92% and/or end-tidal CO2 is GREATER than 50. 3. Patient is receiving an opioid, has unintended sedation assessed as RASS (-4) or (-5) and patient is NOT currently on mechanical ventilation. RASS scale (-4) is deep sedation with no response to voice but movement or eye opening to physical stimulation. RASS scale (-5) is unarousable. Notify Anesthesia Provider PRIOR to administering additional opioids if naloxone (NARCAN) given. Once patient has demonstrated a response to naloxone (NARCAN), continue to monitor respiratory rate, depth, oxygen saturation EVERY 15 minutes x 2, then EVERY 30 minutes x 2, then EVERY hour x 1 after each naloxone (NARCAN) dose. Monitor in Phase II for 2 hours after last naloxone (NARCAN) dose PRIOR to discharge., Phase ll ondansetron (ZOFRAN ODT) ODT tab 4 mg 4 mg, Oral, EVERY 30 MIN PRN, nausea, Starting on Myah 12/18/23 at 0952, For 2 doses, Administer if NO vascular [...] then swallow with saliva. Liquid not required., Phase ll ondansetron (ZOFRAN) injection 4 mg 4 mg, Intravenous, EVERY 30 MIN PRN, nausea, vomiting, Administer over 2-5 Minutes, Starting on Myah 12/18/23 at 0502, For 3 doses, May repeat in 30 minutes as needed, up to 3 doses. Irritant. $Given 12/18/2023 6:14 AM CDT 4 mg ondansetron (ZOFRAN) injection 4 mg 4 mg, Intravenous, EVERY 30 MIN PRN, nausea, Administer over 2-5 Minutes, Starting on Myah 12/18/23 at 0952, For 2 doses, This is Step 1 of nausea and vomiting management. If nausea/vomiting not resolved in 15 minutes, then go to Step 2 dexamethasone (DECADRON) IV. MAX total dose = 8 mg, including OR dosing. Irritant., Phase ll oxyCODONE (ROXICODONE) tablet 10 mg 10 mg, Oral, ONCE PRN, severe pain, Starting on Myah 12/18/23 at 0952, For 1 dose, Max: 5 mg for opioid-na??ve patient. Use caution with patient Age GREATER than 65 years, COPD, or CrCl LESS than 50 mL/min., Phase ll oxyCODONE (ROXICODONE) tablet 5 mg 5 mg, Oral, ONCE PRN, moderate pain, Starting on Myah 12/18/23 at 0952, For 1 dose, Max: 5 mg for opioid-na??ve patient., Phase ll prochlorperazine (COMPAZINE) injection 5 mg 5 mg, Intravenous, EVERY 6 HOURS PRN, nausea, vomiting, Administer over 1-2 Minutes, Starting on Myah 12/18/23 at 0952, This is Step 3 of the nausea and vomiting protocol. If nausea/vomitting not resolved in 15-30 minutes, notify Provider., Phase ll sodium chloride 0.9% BOLUS 1,000 mL Intravenous, 1,000 mL, ONCE, at 1,000 mL/hr, Administer over 1 Hours, On Myah 12/18/23 at 0505, For 1 dose $New Bag 12/18/2023 6:15 AM CDT 1,000 mLs 1000 mL/hr sodium chloride 0.9% irrigation (bag) PRN, Starting on Myah 12/18/23 at 0930, Intra-procedure $Given 12/18/2023 9:30 AM CDT 2,000 mLs Operative Site/Surgical Site documented in this encounter Active and Recently Administered Medications Times are shown in CDT. Scheduled Medication Order 12/16/2023 12/17/2023 12/18/2023 ciprofloxacin (CIPRO) infusion 400 mg (COMPLETED) STAT, 400 mg, Intravenous, ONCE, On Myah 12/18/23 at 0520, For 1 dose, Irritant., Indications: Urinary Tract Infection 0618 ($New Bag - Pro vider: Karely Segura RN) sodium chloride 0.9% BOLUS 1,000 mL (COMPLETED) Intravenous, 1,000 mL, ONCE, at 1,000 mL/hr, Administer over 1 Hours, On Myah 12/18/23 at 0505, For 1 dose 0615 ($New Bag - Pro vider: Karely Segura RN) Continuous Medication Order 12/16/2023 12/17/2023 12/18/2023 lactated ringers infusion (CANCELED) at 10 mL/hr, Intravenous, CONTINUOUS, IF patient NOT on dialysis., Pre-procedure, Starting on Myah 12/18/23 at 0755, Until Myah 12/18/23 at 0942 0758 ($New Bag - Pro vider: Alexa Marks RN)0901 (Paused - Provider: Yoel Adams APRN CHIEF CLERK - Comment: Switch to gravity)0902 ($New Bag - Provider: Yoel Adams APRN CHIEF CLERK)0934 (Anesthesia Volume Adjustment - Provider: Yoel Adams APRN CHIEF CLERK) PRN Medication Order 12/16/2023 12/17/2023 12/18/2023 dexAMETHasone (DECADRON) injection 4 mg 4 mg, Intravenous, ONCE PRN, vomiting, nausea, Administer over 1 Minutes, Starting on Myah 24 at 0952, For 1 dose, Administer ONLY if dexamethasone (DECADRON) NOT given in the OR. This is Step 2 of nausea and vomiting management. IF nausea vomiting NOT resolved within 30 minutes or dexamethasone (DECADRON) was given in the OR go to Step 3 prochlorperazine (COMPAZINE)., Phase ll fentaNYL (PF) (SUBLIMAZE) injection 50 mcg (CANCELED) 50 mcg, Intravenous, EVERY 5 MIN PRN, [...] fentanyl (SUBLIMAZE) after administering HYDROmorphone (DILAUDID)., PACU 0911 ($Given - Provi colleen: Raj Brown, DO) HYDROmorphone (PF) (DILAUDID) injection 0.5 mg 0.5 mg, Intravenous, EVERY 30 MIN PRN, moderate pain, severe pain, Starting on Myah 12/18/23 at 0516, For 3 doses, Notify the provider to assess for uncontrolled pain or analgesic side effects. Hold while on IV EMERGENCY DEPT TECH or with regular IV opioid dosing. 0615 ($Given - Provi cloleen: Karely Segura RN)0732 (Auto Hold - Provider: Orders Generic Provider - Reason: Transfer to a procedural area)1330 (Unhold - Provider: Orders Generic Provider) ioversol 68% (OPTIRAY 320) 50 mL + sterile water 50 mL injection (CANCELED) PRN, Starting on Myah 12/18/23 at 0933, Intra-procedure 0933 ($Given - Provi colleen: Stas Bautista MD) naloxone (NARCAN) injection 0.1 mg 0.1 mg, Intravenous, EVERY 2 MIN PRN, opioid reversal, Starting on Myah 12/18/23 at 0952, Notify Anesthesia Provider when administering naloxone (NARCAN) for unintended sedation or respiratory depression IF all three of the following criteria are met: 1. Respiratory rate LESS than or EQUAL to 8. 2. SaO2 is LESS than 92% and/or end-tidal CO2 is GREATER than 50. 3. Patient is receiving an opioid, has unintended sedation assessed as RASS (-4) or (-5) and patient is NOT currently on mechanical ventilation. RASS scale (-4) is deep sedation with no response to voice but movement or eye opening to physical stimulation. RASS scale (-5) is unarousable. Notify Anesthesia Provider PRIOR to administering additional opioids if naloxone (NARCAN) given. Once patient has demonstrated a response to naloxone (NARCAN), continue to monitor respiratory rate, depth, oxygen saturation EVERY 15 minutes x 2, then EVERY 30 minutes x 2, then EVERY hour x 1 after each naloxone (NARCAN) dose. Monitor in Phase II for 2 hours after last naloxone (NARCAN) dose PRIOR to discharge., Phase ll ondansetron (ZOFRAN ODT) ODT tab 4 mg(Linked Group 1) 4 mg, Oral, EVERY 30 MIN PRN, nausea, Starting on Myah 12/18/23 at 0952, For 2 doses, Administer if NO vascular [...] then swallow with saliva. Liquid not required., Phase ll ondansetron (ZOFRAN) injection 4 mg 4 mg, Intravenous, EVERY 30 MIN PRN, nausea, vomiting, Administer over 2-5 Minutes, Starting on Myah 12/18/23 at 0502, For 3 doses, May repeat in 30 minutes as needed, up to 3 doses. Irritant. 0614 ($Given - Provi colleen: Karely Segura RN)0732 (Auto Hold - Provider: Orders Generic Provider - Reason: Transfer to a procedural area)1330 (Unhold - Provider: Orders Generic Provider) ondansetron (ZOFRAN) injection 4 mg(Linked Group 1) 4 mg, Intravenous, EVERY 30 MIN PRN, nausea, Administer over 2-5 Minutes, Starting on Myah 7/24 at 0952, For 2 doses, This is Step 1 of nausea and vomiting management. If nausea/vomiting not resolved in 15 minutes, then go to Step 2 dexamethasone (DECADRON) IV. MAX total dose = 8 mg, including OR dosing. Irritant., Phase ll oxyCODONE (ROXICODONE) tablet 10 mg 10 mg, Oral, ONCE PRN, severe pain, Starting on Myah 724 at 0952, For 1 dose, Max: 5 mg for opioid-na??ve patient. Use caution with patient Age GREATER than 65 years, COPD, or CrCl LESS than 50 mL/min., Phase ll oxyCODONE (ROXICODONE) tablet 5 mg 5 mg, Oral, ONCE PRN, moderate pain, Starting on Myah 7/24 at 0952, For 1 dose, Max: 5 mg for opioid-na??ve patient., Phase ll prochlorperazine (COMPAZINE) injection 5 mg 5 mg, Intravenous, EVERY 6 HOURS PRN, nausea, vomiting, Administer over 1-2 Minutes, Starting on Myah 7/24 at 0952, This is Step 3 of the nausea and vomiting protocol. If nausea/vomitting not resolved in 15-30 minutes, notify Provider., Phase ll sodium chloride 0.9% irrigation (bag) (CANCELED) PRN, Starting on Myah 724 at 0930, Intra-procedure 0930 ($Given - Provi colleen: Stas Bautista MD) Linked Groups Order Group 1: ondansetron (ZOFRAN ODT) ODT tab 4 mgJump to med 4 mg, Oral, EVERY 30 MIN PRN, nausea, Starting on Myah 7/24 at 0952, For 2 doses, Administer if NO vascular [...] then swallow with saliva. Liquid not required., Phase ll Or ondansetron (ZOFRAN) injection 4 mgJump to med 4 mg, Intravenous, EVERY 30 MIN PRN, nausea, Administer over 2-5 Minutes, Starting on Myah 12/18/23 at 0952, For 2 doses, This is Step 1 of nausea and vomiting management. If nausea/vomiting not resolved in 15 minutes, then go to Step 2 dexamethasone (DECADRON) IV. MAX total dose = 8 mg, including OR dosing. Irritant., Phase ll documented in this encounter Care Teams Outreach Rep Relationship Specialty Start Date End Date [facility], [address], [address] [place] [address] PCP - General 08/23/16 Health, MD Zara DO NOT USE Pediatrics 08/16/13 documented as of this encounter
--- OUTSIDE RECORDS SUMMARY | 2024-01-01 08:44 | XMS_ITS | Encounter Summary ---
Author Organization [facility] Address [address] [facility] [place] [address] Care Team Providers Care Farmworker Livestock Name Role Phone Zara Thurston MD Unavailable Unavailable [facility] Primary Care Provid er Encounter Details Date Type Department Care Team (Latest Contact Info) Description 12/27/2023 Travel Social History Tobacco Use Types Packs/Day Years [...] on filedocumented in this encounter Care Teams Farmworker Livestock Relationship Specialty Start Date End Date [facility] [address] [place] [address], [address] [place] [address] PCP - General 08/23/16 Zara Thurston MD DO NOT USE MD Pediatrics 08/16/13 documented as of this encounter
--- OUTSIDE RECORDS SUMMARY | 2024-01-01 08:44 | XMS_ITS | Encounter Summary ---
Author Organization [facility] Address [address] [facility] [place] [address] Care Team Providers Care Propeller Engineer Name Role Phone Zara Thurston MD [facility] Primary Care Provid er Reason for Visit * Reason Comments Abdominal Pain Vomiting Encounter Details Date Type Department Care Team (Late st Contact Info) Description 12/18/2023 5:00 AM CDT - 12/18/2023 11:29 AM CDT Emergency [facility] PreOP/PostOP [address] [place] [address] Radha Ziegler MD [address] [address] Andrew Hope MD [facility] [address] [place], [place] [address] Stas Bautista MD [address] [id number] Right ureteral stone (Primary Dx); Right flank pain; Urinary tract infection without hematuria, site unspecified Discharge Disposition: Home or Self Care Social [...] Sign Reading Time Taken Comments Blood Pressure 106/76 12/18/2023 11:10 AM CDT Pulse 87 12/18/2023 11:10 AM CDT Temperature 36.2 ??C (97.2 ??F) 12/18/2023 11:10 AM C DT Respiratory Rate 13 12/18/2023 10:35 AM CDT Oxygen Saturation 98% 12/18/2023 11:10 AM CDT Inhaled Oxygen Concentration - - [...] temperature >101 degrees, call the urology nurse control officer, or present to your nearest emergency department. [...] while taking Oxycodone to prevent constipation Questions/concerns [facility]: Future appointments You will be contacted to schedule follow-up ureteroscopy for stone removal in 2 to 4 weeks with at [facility]. Stas Bautista MD You received Toradol, an IV form of Ibuprofen (Motrin) at 9:30 AM. Do not take any Ibuprofen products until 3:30 PM Maximum acetaminophen (Tylenol) dose from all sources should not exceed 4 grams (4000 mg) per day. * Attachments The following attachments cannot be sent through Care Everywhere. * (s) After Anesthesia (Sleep Medicine) (Bahraini) documented in this encounter Medications at Time [...] of this encounter ED Notes * Jacquelyn Diaz, RN - 12/18/2023 4:57 AM CDT Pt [...] reviewed. Medical Decision Making / Diagnosis KELLIE Saul Fontana is a 38 year old [...] and procedure to be performed. A 22 Cymraes cystoscope was inserted atraumatically into the bladder. Cystoscopy was performed with no evidence of stones in the bladder. The right ureteral orifice was identified and cannulated with a 0.035 sensor wire and a 5 Cymraes open-ended catheter. The open-ended catheter was advanced [...] and the open-ended catheter removed. A 6 Cymraes by 22 cm JJ ureteral stent was advanced over the wire with good curl noted in the renalpelvis fluoroscopically and confirmed in the bladder and direct vision. A 16 Cymraes Leung catheter was placed with 10 cc in the balloon. She received 10 mg IV Lasix and 30 mg IV Toradol. She was emerged from anesthesia and taken to the recovery room in stable condition. Stas Bautista MD Urology [facility] documented in this encounter Plan [...] be read by a radiologist or a [facility] non-radiologist provider. Stas Bautista MD IMG DIAGNOSTIC IMAGI NG ORDERABLES RADIANT * Urine Culture (12/18/2023 9:25 AM CDT) Culture No Growth 12/20/2023 5:04 AM CDT [facility] Urine RIGHT KIDNEY STRUCTURE / Unknown Non-blood Collection / Unknown 12/18/2023 9:25 AM CDT 12/18/2023 9:52 AM CDT Stas Bautista MD LAB - MICRO GENERAL ORDERABLES Performing Organization Address City/[facility]/ZIP Co de Phone Number [facility] Inf. Diseases Diag. Lab [address] [facility], [address] [place] [address] * Adult Type and Screen (12/18/2023 6:03 AM CDT) ABO/RH(D) O POS 12/18/2023 5:19 AM CDT RH BLOOD BANK Antibody Screen Negative Negative 12/18/2023 5:19 AM CDT RH BLOOD BANK SPECIMEN EXPIRATION DATE [id number] 12/18/2023 5:19 AM CDT RH BLOOD BANK Blood BLOOD SPECIMEN / Unknown Venipuncture / Unknown 12/18/2023 6:03 AM CDT 12/18/2023 6:17 AM CDT Radha Ziegler MD LAB - BLOOD BAN K TEST ORDER Performing Organization Address City/[facility]/ZIP Co de Phone Number RH BLOOD BANK [address] [place] [address], [facility] * (ABNORMAL) CBC with platelets and differential [...] NRBCs 0.0 10e3/uL 12/18/2023 6:20 AM CDT LABORATORY Blood BLOOD SPECIMEN / Unknown Venipuncture / Unknown 12/18/2023 6:03 AM CDT 12/18/2023 6:16 AM CDT Radha Ziegler MD LAB - BLOOD ORD ERABLES LABORATORY [facility] [address] Lab (1st floor, no room number) [place] [address] * (ABNORMAL) Basic metabolic panel [...] MD LAB - BLOOD ORD ERABLES LABORATORY [facility] [address] Lab (1st floor, no room number) [place] [address] documented in this encounter Visit Diagnoses Diagnosis Right ureteral stone- Primary Calculus of ureter [...] analgesic side effects. Hold while on IV LEGAL CLERK or with regular IV opioid dosing. $Given 12/18/2023 6:15 AM CDT 0.5 mg lactated ringers infusion at 10 mL/hr, [...] 6:15 AM CDT 1,000 mLs 1000 mL/hr documented in this encounter Active and Recently [...] RN)0901 (Paused - Provider: Yoel Adams APRN ENERGY EFFICIENCY ENGINEER - Comment: Switch to gravity)0902 ($New Bag - Provider: Yoel Adams APRN ENERGY EFFICIENCY ENGINEER)0934 (Anesthesia Volume Adjustment - Provider: Yoel Adams APRN ENERGY EFFICIENCY ENGINEER) PRN Medication Order 12/16/2023 12/17/2023 12/18/2023 dexAMETHasone [...] 0911 ($Given - Provi colleen: Raj Brown, ) HYDROmorphone (PF) (DILAUDID) injection 0.5 mg 0.5 mg, Intravenous, EVERY 30 MIN PRN, moderate pain, severe pain, Starting on Myah 12/18/23 at 0516, For 3 doses, Notify the provider to assess for uncontrolled pain or analgesic side effects. Hold while on IV LEGAL CLERK or with regular IV opioid dosing. 0615 ($Given - Provi colleen: Karely Segura RN)0732 [...] irrigation (bag) (CANCELED) PRN, Starting on Myah 12/18/23 at 0930, Intra-procedure 0930 ($Given - Provi [...] ll documented in this encounter Care Teams Propeller Engineer Relationship Specialty Start Date End Date [facility], [facility] [address] [place] [address], [address] [place] [address] PCP - General 08/23/16 Health, MD Zara DO NOT USE MD Pediatrics 08/16/13 documented as of this encounter
--- OUTSIDE RECORDS SUMMARY | 2024-01-01 08:44 | XMS_ITS | Referral Summary ---
Author Organization [facility] Address [address] [place] [address] Care Team Providers Care Outside Laborer Name Role Phone Preston Puga M.D. Primary Care P gretta Source Comments Patient records contain information from all sites at [facility]. For routine questions regarding patient records, call [phone] during business hours, M-F 8:00 AM - 5:00 PM Central Time. Record requests for emergency care only can be directed to [phone] at any time.[facility] Encounters Date Type Department Care Team Description 12/29/2023 2:00 PM CDT Office Visit Department of Obstetrics and Gynecology in [address] [phone] Jona Goel Jr., M.D. Pain Pelvic Female (Primary Dx); Nephrolithiasis Discharge Disposition: Home or Self Care 12/29/2023 Orders Only Department of Obstetrics and Gynecology in [place], [place] [address] [place] [phone] Jona Goel Jr., M.D. 12/29/2023 Clinical Communication Department of Obstetrics and Gynecology in [place], [place] [address] [place] [phone] Jona Goel Jr., M.D. 12/17/2023 Clinical Communication Department of Family Medicine, [facility], in [place], [place] [address] [place] [address] Preston Puga M.B.B.S., M.D. 12/10/2023 8:30 AM CDT Procedure visit Department of Obstetrics and Gynecology in [place] [address] [address] [facility] [place] [address] Carmela Velez M.D. Thomson, Angie J, L.P.N. Pain Pelvic Female; Dysmenorrhea from Last 3 Months Allergies Active Allergy [...] tablet Take 1 tablet by mouth. 12/29/2023 4 Active tamsulosin (Flomax) 0.4 mg 24 hr [...] original. OB education completed. Pre-reg completed at [facility] OB Problem List 1 History of prior section x 1 (2017) 2 A2 Gestational diabetes, insulin controlled 3 Obesity with BMI 35 4 Positive GBS culture 5 EDC 02/27/2018 set by 23 week ultrasound LMP: unknown IVA by 23 wk us: 02/27/2018 [facility]: [facility] Parkman's provider: Dr. Gee OB labs Blood type: O Positive Antibody screen: Negative HBsAg: Negative HIV: Negative Syphilis: Negative Rubella: Equivocal TSH: 1.0 Hgb: 11.6 Hct: 35.3 Platelets: 338 Glucose screen: 98/220/196/124 GBS culture: Positive Problem Noted Date Diagnosed Date Pain Pelvic Female 04/24/2021 Cannabis Use Unspecified Uncomplicated 7 Overview: Overview: Prior to diagnosis. Consult with Clarita Ayala, [facility] Has quit both thc and cigarettes. [...] Mood 08/23/2009 02/02/2018 Pain Back 08/23/2009 02/02/2018 Immunizations Name Administration Dates Next Due 4vHPV [...] Family Three times a week 01/08/2019 Attends [employer] 1 to 4 times per year [...] Answer Date Recorded PHQ-2 Score 1 09/24/2021 [facility] - Occupational [...] Visit Department of Obstetrics and Gynecology in [place], [place] [address] [phone] Jona Goel Jr., M.D. [address] [place] [phone] Discharge Disposition: Home or Self Care Procedures Procedure Name Priority Date/Time Associated Diagnosis Comments HCV AB SCRN W/REFLEX TO HCV PCR, S Routine 04/24/2021 9:57 AM JACKET CHANGER Preventive Gynecological Exam LIPID PANEL, S Routine 04/24/2021 9:57 AM JACKET CHANGER Preventive Gynecological Exam THINPREP SCREEN HPV REFLEX Routine 07/02/2019 10:42 AM JACKET CHANGER Gynecological Examination Normal HIV-1/-2 AG AND AB SCREEN Routine 11/04/2017 3:20 PM CDT Normal Not First from Last 3 Months or Most Recently Relevant to Health Maintenance Results * Lipid Panel (04/24/2021 9:57 AM JACKET CHANGER) Cholesterol, Total 154 mg/dL 2020 2:02 PM JACKET CHANGER OWAT Comment: ----REFERENCE VALUE---- Desirable: < 200 Borderline high: 200 - 239 High: > or = 240 Triglycerides 104 mg/dL 04/24/2021 2:02 PM JACKET CHANGER OWAT Comment: ----REFERENCE VALUE---- Normal: <150 Borderline high: 150-199 High: 200-499 Very high: > or =500 Cholesterol, HDL 50 >=50 mg/dL 04/24/20 2:02 PM JACKET CHANGER OWAT Calculated LDL 83 mg/dL 04/24/2021 2:02 PM JACKET CHANGER OWAT Comment: ----REFERENCE VALUE---- Desirable: <100 mg/dL Above Desirable: 100-129 mg/dL Borderline High: 130-159 mg/dL High: 160-189 mg/dL Very High: >=190 mg/dL Cholesterol, Non-HDL, Calculated 104 mg/dL 04/24/2021 2:02 PM JACKET CHANGER OWAT Comment: ----REFERENCE VALUE---- Desirable: <130 Above Desirable: 130-159 Borderline high: 160-189 High: 190-219 Very high: > or =220 Blood (Blood, Venous) 04/24/2021 9:57 AM JACKET CHANGER 04/24/2021 1:18 PM JACKET CHANGER Jona Goel Jr., M.D. LAB BLOOD ADD- ON [facility] [address] [place] [address], [facility] OWAT [facility] [address] [place] [address] * HCV Ab Scrn w/Reflex to HCV PCR, Serum (04/24/2021 9:57 AM JACKET CHANGER) HCV Ab Screen, S Negative Negative 04/25/2021 8:19 AM JACKET CHANGER [facility] Comment:[id number]-[id number] rat io is <1.00. Blood (Blood, Venous) 04/24/2021 9:57 AM JACKET CHANGER 04/25/2021 6:55 AM JACKET CHANGER Jona Goel Jr., M.D. LAB MICROBIOLO GY - BLOOD ORDERABLES [facility] [address] [place] [address] [facility] Dept. of Laboratory Medicine and Pathology [address] [place] [address] * ThinPrep Screen HPV Reflex (07/02/2019 10:42 AM JACKET CHANGER) 07/09/2019 3:49 PM JACKET CHANGER [facility] Report electronically signed by EDWIN Chirinos(ASCP) I verify that I have examined all relevant slides/materials for the specimen(s) and rendered or confirmed the diagnosis. 07/09/2019 3:49 PM JACKET CHANGER [facility] Gross Description Received specimen in a ThinPrep vial. 07/09/2019 3:49 PM JACKET CHANGER [facility] Pap Test Source Cervical/Endocervi marilynn 07/09/2019 3:49 PM JACKET CHANGER [facility] Clinical History bleeding for a month and a half 07/09/2019 3:49 PM JACKET CHANGER [facility] Menstrual Status(LMP, PM, ) unknowy 07/09/2019 3:49 PM JACKET CHANGER [facility] Hormone Therapy/Contracep tives Oral Contraceptives 07/09/2019 3:49 PM JACKET CHANGER [facility] Interpretation Cervical/Endocervi marilynn ??(ThinPrep): Satisfactory for Evaluation Endocervical/trans formation zone components absent Negative for Intraepithelial Lesion or Malignancy High Risk HPV: ??Negative Negative for High Risk HPV by nucleic acid amplification. The following High Risk HPV types were not detected: 16, 18, 31, 33, 35, 39, 45, 51, 52, 56, 58, 59, 66, and 68. 07/09/2019 3:49 PM JACKET CHANGER [facility] Varies (Cervix/Endocerv ix) 07/02/2019 10:42 AM JACKET CHANGER 07/05/2019 9:57 AM JACKET CHANGER Avery Matta M.D. LAB PAP PATHDX ORDER [facility] [address] [place] [address], [place] [facility] [address] [place] [address] * HIV-1/-2 Ag and Ab Screen (11/04/2017 3:20 PM CDT) HIV-1/-2 Ag and Ab Screen, S Non-Reacti ve Non-Reacti ve 11/05/2017 5:38 PM CDT [facility] HIV-1 Ab, S Non-Reacti ve Non-Reacti ve 11/05/2017 5:38 PM CDT [facility] HIV-1 Ag, S Non-Reacti ve Non-Reacti ve 11/05/2017 5:38 PM CDT [facility] HIV-2 Ab, S Non-Reacti ve Non-Reacti ve 11/05/2017 5:38 PM CDT [facility] Blood (Blood, Venous) 11/04/2017 3:20 PM CDT 11/05/2017 12:12 PM CDT Jona Goel Jr., M.D. LAB MICROBIOLO GY - BLOOD ORDERABLES Performing Organization Address City/[facility]/ZIP Co de Phone Number [facility] [address] [place] [address], [facility] from Last 3 Months or Most Recently Relevant to Health Maintenance Care Teams Outside Laborer Relationship Specialty Start Date End Date Preston Puga M.B.BGracielaSGraciela, MYunior. [address] [place] [address] Janine CalvoWest MifflinMYRA rodriguez [phone] PCP - General Family Medicine 09/05/17
--- OUTSIDE RECORDS SUMMARY | 2024-01-01 08:44 | XMS_ITS | Encounter Summary ---
Author Organization [facility] Address [address] [facility] [place] [address] Care Team Providers Care Auto Detailer Name Role Phone Zara Thurston MD Unavailable Unavailable [facility] Primary Care Provid er Encounter Details Date Type Department Care Team (Latest Contact Info) Description 12/17/2023 Travel Social History Tobacco Use Types Packs/Day [...] on filedocumented in this encounter Care Teams Auto Detailer Relationship Specialty Start Date End Date [facility] [address] [place] [address], [address] [place] [address] PCP - General 08/23/16 Zara Thurston MD DO NOT USE MD Pediatrics 08/16/13 documented as of this encounter
--- OUTSIDE RECORDS SUMMARY | 2024-01-01 08:44 | XMS_ITS | Encounter Summary ---
Author Organization [facility] Address [address] [facility] [place] [address] Care Team Providers Care Protection Specialist Name Role Phone Zara Thurston MD [facility], [facility] Primary Care Provid er Reason for Visit * Reason Comments Flank Pain Post-op Problem Urinary Retention * Auth/Cert Specialty Diagnoses / Procedures Referred By Josef mcallister Referred To Contact EMERGENCY MEDICINE Diagnoses Pyelonephritis Emergency Dept [address] [place] [address] Referral ID Status Reason Start Date Expiration Date Visits Re quested Visits Authorized [id number] 1 1 Encounter Details Date Type Department Care Team (Late st Contact Info) Description 12/28/2023 6:00 PM CDT - 12/28/2023 7:20 PM CDT Surgery [facility] PeriOp Services [address] [place] [address] Leighton Bonilla MD [address] [id number] Cystoscopy, right ureteroscopy with laser lithotripsy, right ureteroscopy with stone basketing, right retrograde pyelogram, right ureteral stent exchange Surgery Details Date/Time Status Location OR Service Patient Class Case Cl ass Case Type Trauma Case? 12/28/23 6:00 PM Posted [facility] OR OR 14 Laser Urology Inpatient NEST 4 - Urgent (within 12hrs) Panel 1 Procedure LRB Anes Op Region Wound Class Comments Cystoscopy, right ureterosco py with laser lithotripsy, right ureteroscopy with stone basketing, right retrograde pyelogram, right ureteral stent exchange Right General Ureter II-Clean Contaminated Surgeon Surgeon Role Service Panel Leighton Bonilla MD Primary Laser Urology 1 documented in this encounter Social [...] Sign Reading Time Taken Comments Blood Pressure 105/82 12/28/2023 7:15 PM CDT Pulse 69 12/28/2023 7:15 PM CDT Temperature 36.6 ??C (97.9 ??F) 12/28/2023 6:55 PM CD T Respiratory Rate 15 12/28/2023 7:15 PM CDT Oxygen Saturation 100% 12/28/2023 7:15 PM CDT Inhaled Oxygen Concentration - - Weight [...] Tejeda MD - 12/29/2023 11:28 AM CDT [facility] Hospitalist Discharge Summary Date of Admission: 12/27/2023 [...] tests Follow up with primary care provider, [facility], within 7 days for hospital follow- up. No follow up labs or test are needed. OK to remove stent on 01/01/24 Follow up with [facility] Urology as needed. Unresulted Labs Ordered in [...] showed no growth. Urine culture grew < 88653 colonies of mixed marita Patient was started [...] minutes discharging this patient. Mesfin Tejeda MD [address] SURGICAL [address] [facility] [address] Physical Exam Vital Signs: Temp: 98.5 ??F [...] to touch, No rash. Primary Care Physician [facility] Discharge Orders Reason for your hospital stay Ureter stone treated with lithotripsy Follow-up and recommended labs and tests Follow up with primary care provider, [facility], within 7 days for hospital follow- up. No follow up labs or test are needed. OK to remove stent on 01/01/24 Follow up with [facility] Urology as needed. Activity Your activity upon [...] Micro Results Collected Updated Procedure Result Status 12/27/2023 1927 12/28/2023 1946 Blood Culture Arm, Right [[id number]] Blood from Arm, Right Preliminary result Component Value Culture No growth after 1 day [P] 12/27/2023 1908 12/28/2023 1916 Blood Culture Peripheral Blood [[id number]] Peripheral Blood Preliminary result Component Value Culture No growth after 1 day [P] 12/27/2023 1717 12/29/2023 0531 Urine Culture [[id number]] Urine, Clean Catch Final result Component Value Culture <10,000 CFU/mL Mixture of Urogenital Marita , Results for orders placed or performed during the hospital encounter of 12/27/23 CT Abdomen Pelvis w Contrast Narrative EXAM: CT ABDOMEN PELVIS W CONTRAST LOCATION: [facility] DATE: 12/27/2023 INDICATION: Right flank pain. [...] be read by a radiologist or a [facility] non-radiologist provider. Discharge Medications Current Discharge Medication [...] Take 1 tablet by mouth daily NYSTOP [id number] UNIT/GM powder Apply topically 4 times daily [...] are having issues, contact our office at [phone]. [facility] Urology [phone] documented in this encounter Medications at Time [...] 1 tablet by mouth daily 12/09/2023 NYSTOP [id number] UNIT/GM powder Apply topically 4 times daily [...] Pritchett PA-C - 12/29/2023 10:15 AM CDT [facility] Urology Progress Note Assessment and Plan: [...] plan on signing off. Mervat Pritchett PA-C [facility] Urology [phone] Interval History: Doing okay. Endorses crampy discomfort in her kidney. Also endorses a headache. Feels that this maybe due to the morphine. Denies N/V/F/C/SOB/CP. Mild tachycardia. Patient is afebrile. She is on IV Zosyn. BC: NG. Urine culture: mixed mariat. Review of Systems: The 5 point Review [...] HFA) inhaler 2 puff Inhalation Q4H PRN Zeb Henderson MD amphetamine-dextroamphetamine (ADDERALL) per tablet 20 [...] Oral At Bedtime PRN Nash Alfonso DO naloxone (NARCAN) injection 0.2 mg 0.2 mg Intravenous Q2 Min PRN Nash Alfonso DO Or naloxone (NARCAN) injection 0.4 mg 0.4 mg Intravenous Q2 Min PRN Nash Alfonso DO Or naloxone (NARCAN) injection 0.2 mg 0.2 mg Intramuscular Q2 Min PRN Nash Alfonso DO Or naloxone (NARCAN) injection 0.4 mg 0.4 mg Intramuscular Q2 Min PRN Nash Alfonso DO nicotine (NICORETTE) gum 2 mg 2 mg Buccal Q1H PRN Nash Alfonso, ondansetron (ZOFRAN ODT) ODT tab 4 mg 4 mg Oral Q6H PRN Nash Alfonso DO 4 mg at 12/29/23 0205 Or ondansetron (ZOFRAN) injection 4 mg 4 mg Intravenous Q6H PRN Nash Alfonso DO 4 mg at 12/27/23 2208 oxyBUTYnin (DITROPAN) tablet 5 mg 5 mg [...] 3.375 g Intravenous Q6H Nash Alfonso DO 3.375 g at 12/29/23 0300 polyethylene [...] pain control and observation Leighton Bonilla MD [facility]rology [phone] clinic phone * Zeb Henderson MD - 12/28/2023 12:29 PM CDT [facility] Hospitalist Progress Note Zeb Henderson MD [...] EXAM: CT ABDOMEN PELVIS W CONTRAST LOCATION: [facility] DATE: 12/27/2023 INDICATION: Right flank pain. [...] Alfonso DO - 12/27/2023 9:56 PM CDT [facility] History and Physical - Hospitalist Service Date [...] 2-4 Days Nash Alfonso DO Hospitalist Service [facility] Securely message with [email or web address] (more info) Text page via [facility] Paging/Directory Chief Complaint Flank pain, nausea, [...] EXAM: CT ABDOMEN PELVIS W CONTRAST LOCATION: [facility] DATE: 12/27/2023 INDICATION: Right flank pain. [...] from the original note were not included. [facility] Urology Consultation Saul Fontana Age: [age] year [...] own on 01/01/2024 AM Leighton Bonilla MD [facility] Urology [phone] clinic phone Chief Complaint: Right flank pain, [...] 05/14/2006, 04/03/2009 Flu, Unspecified 05/14/2006, 04/03/2009, 04/14/2015 [id number] Novel Flu 05/01/2009 HPV Quadrivalent 02/27/2007, 07/15/2008, 07/29/2011 HepB, Unspecified 08/20/2016 Hepatitis B Immunity: Titer 08/20/2016 Historical DTP/aP 1985, 1985, 12/22/1986 Influenza (H1N1) 05/01/2009 Influenza (IIV3) PF 05/14/2006, 04/03/2009 Influenza Vaccine >6 months,quad, PF 04/14/2015 MMR 11/24/1986, 09/27/1997, 02/07/2018 Polio, Unspecified 1985, 12/22/1986 Rubella 08/20/2016 Rubella Immunity: Titer/md Dx 08/20/2016 TDAP (Adacel,Boostrix) 09/27/1997, 10/20/2009, 07/29/2011, [...] mg 650 mg Oral Q4H PRN Nash Alfonso, DO 650 mg at 12/28/232120 Or acetaminophen (TYLENOL) Suppository 650 mg 650 mg Rectal Q4H PRN Nash Alfonso, albuterol (PROVENTIL HFA/VENTOLIN HFA) inhaler 2 puff Inhalation Q4H PRN Zeb Henderson MD amphetamine-dextroamphetamine (ADDERALL) per tablet 20 mg 20 mg Oral TID Zeb Henderson MD bisacodyl (DULCOLAX) suppository 10 mg 10 mg Rectal Daily PRN Nash Alfonso, clonazePAM (klonoPIN) tablet 1 mg 1 mg Oral TID PRN Zeb Henderson MD ketorolac (TORADOL) injection 30 mg 30 mg Intravenous Q6H PRN Zeb Henderson MD 30 mg at 12/28/23 1546 lamoTRIgine (LaMICtal) tablet 150 mg 150 mg Oral Daily Zeb Henderson MD melatonin tablet 5 mg 5 mg Oral At Bedtime PRN Nash Alfonso, morphine (PF) injection 2 mg 2 mg [...] tablet 5 mg 5 mg Oral TID Silva, Ashvin Elroy, MD 5 mg at 12/28/232120 oxyCODONE (ROXICODONE) [...] 100 mL/hr at 120 New Bag at 12/28/232119 tamsulosin (FLOMAX) capsule 0.4 mg 0.4 mg [...] be read by a radiologist or a [facility] non-radiologist provider. All imaging studies reviewed by [...] Hicks RN - 12/27/2023 8:38 PM CDT [facility] ED Nurse Handoff Report ED Chief complaint: [...] standby. Lift room needed: No. Bariatric: No Weblogic Developer Needed: No Isolation: No. Infection: Not Applicable. [...] Bilirubin Urine Negative Ketones Urine Negative Specific [place] Urine 1.027 Blood Urine Large (*) pH [...] on December 27, 2023 at 8:52 PM I Carlos Eduardo called the ED to inform them the [...] ureter(s), combined, right Endometrial ablation Uterine ablation [place] teeth extraction D&C first trimester Physical Exam [...] Bilirubin Urine Negative Ketones Urine Negative Specific [place] Urine 1.027 Blood Urine Large (*) pH [...] Course as of 12/27/232013 Sat Dec 27, 2023 1731 I obtained the patient's history and examined as noted above. 184 I rechecked the patient and explained findings. [...] value >2.0 Time severe sepsis diagnosis confirmed: 1833 12/27/23 as this was the time when CT results showed infection 3 Hour Severe Sepsis Bundle Completion: 1. Initial Lactic Acid Result: Recent Labs Lab Test 12/27/23 1927 12/27/23 1738 LACT 1.2 2.3* 2. Blood Cultures before Antibiotics: Yes 3. Broad Spectrum Antibiotics Administered: yes Anti-infectives (From admission through now) Start Dose/Rate Route Frequency Ordered Stop 12/27/23 1810 piperacillin-tazobactam (ZOSYN) 4.5 g vial to attach to NS 100 mL bag Note to Pharmacy: For [facility], [facility] and [facility]: For Zosyn-naive patients, use the Zosyn initial dose + extended infusion order panel. 4.5 g over 30 Minutes Intravenous ONCE 12/27/23 1805 4. Is initial hypotension present? No (IV fluid bolus NOT required). Severe Sepsis reassessment: 1. Repeat Lactic Acid Level within 6 hours of time zero: 1.2 2. MAP>65 after initial IVF bolus, will continue to monitor fluid status and vital signs MIPS None [facility] Rocaelsheila Fontana is a 38 year old female [...] Diagnosis ICD-10-CM 1. Pyelonephritis N12 Scribe Disclosure: Aspen Wolf, am serving as a scribe at 5:24 [...] getting ready to go to sleep. staff climate scientist called multiple times requesting heating packs but [...] Flowsheet Documentation Taken 12/28/20232303 by Kate Carlson RNsenior mobile solutions architect Interventions: rest repositioned Intervention: Prevent or Manage [...] Bonilla MD - 12/28/2023 6:48 PM CDT [facility] Brief Operative Note Pre-operative diagnosis: Pain due [...] Implant Name Type Inv. Item Serial No. Pulp House Supervisor Lot No. LRB No. Used Action STENT URETERAL POLARIS ULTRA [id number] - [id number] Stent STENT URETERAL POLARIS ULTRA [id number] [employer] [id number] Right 1 Implanted * Op Note - Leighton Bonilla MD - 12/28/2023 6:25 PM CDT [facility] Operative Note Pre-operative diagnosis: Pain due to [...] Implant Name Type Inv. Item Serial No. Pulp House Supervisor Lot No. LRB No. Used Action STENT URETERAL POLARIS ULTRA [id number] - [id number] Stent STENT URETERAL POLARIS ULTRA [id number] [employer] [id number] Right 1 Implanted Findings: 5 mm right [...] fashion. A timeout was performed. A 22 Somali Stortz cystoscope was assembled and passed through [...] ureter and then laser fragmented using the Restorius thulium fiber laser. Pieces were thenbasketed out using [place] halo basket. A gentle retrograde pyelogram showed [...] own on 01/01/2024 AM Leighton Bonilla MD [facility] Urology [phone] clinic phone * Plan of Care - [...] MD Physician Advisor Utilization Review/ Case Management [facility]. * Pharmacy-Admission Medication History - Jeannette Cruz [facility] - 12/28/2023 1:21 PM CDT Pharmacist Admission Medication History Admission medication history is complete. The information provided in this note is only as accurateas the sources available at the time of the update. Information Source(s): Patient and CareEverywhere/SureScripts via in-person Pertinent Information: Pt also getting depo-provera injection q3m. Changes made to [facility] medication list: Added: None Deleted: Guanfacine (filled once in October 2023, Rx w 0 refills) Changed: None Allergies reviewed with patient and updates made in EHR: no Medication History Completed By: Jeannette Cruz RPH 12/28/2023 1:21 PM [facility] Med List Medication Sig Last Dose amphetamine-dextroamphetamine (ADDERALL) 20 MG tablet Take 1 tablet by mouth 3 times daily 12/27/2023 clonazePAM (KLONOPIN) 2 MG tablet TAKE 1/2 TABLET BY MOUTH THREE TIMES DAILY NEEDED FOR ANXIETY Unknown at PRN lamoTRIgine (LAMICTAL) 150 MG tablet Take 1 tablet by mouth daily 12/27/2023 NYSTOP [id number] UNIT/GM powder Apply topically 4 times daily [...] Martinez RN Pain Management Interventions: rest Taken 12/27/20232355 by Qiana Martinez RN Pain Management Interventions: [...] MD LAB - BLOOD ORDER [facility] Care Lab [address] Lab (1st floor, no room number) [place] [address], [facility] * XR Surgery ZBIGNIEW L/T 5 Min Fluoro w Stills (12/28/2023 6:47 PM CDT) Narrative [facility] - 12/28/2023 6:48 PM CDT This exam was marked as non-reportable because it will not be read by a radiologist or a [facility] non-radiologist provider. Leighton Bonilla MD IMG DIAGNOSTIC IMAGI NG ORDERABLES [facility] * Stone analysis (12/28/2023 6:34 PM CDT) Stone Mass 17 mg 12/31/2023 11:06 AM CDT [facility] Calculi Description See Note 12/31/2023 11:06 AM CDT [facility] Comment: Specimen consists of three brown and adames calculi fragments. The total weight is 17 mg. Stone Composition See Note 024 11:06 AM CDT [facility] Comment: Calculi [...] composition determined by FTIR analysis. Performed By: [email or web address] [address] [place] [address] Certified Medical Technician: Daniel Kahn MD, PhD CLIA Number: [id number] Calculus/Stone STRUCTURE OF RIGHT URETER / Unknown Non-blood Collection / Unknown 12/28/2023 6:34 PM CDT 12/28/2023 7:10 PM CDT Leighton Bonilla MD LAB - BODY FLUIDS OR DERABLES [employer] [employer] [address] [place] [address] [phone] * (ABNORMAL) CBC with platelets (12/28/2023 8:37 [...] - 100 fL 12/28/2023 8:55 AM CDT LABORATORY MCH 30.1 26.5 - 33.0 pg 12/28/2023 8:55 AM CDT LABORATORY MCHC 31.0(L) 31.5 - 36.5 g/dL 12/28/2023 8:55 AM CDT [facility] RDW 13.6 10.0 - 15.0 % 12/28/2023 8:55 AM CDT LABORATORY Platelet Count 371 150 - 450 10e3/uL 12/28/2023 8:55 AM CDT LABORATORY Blood STRUCTURE OF RIGHT UPPER LIMB / Unknown Venipuncture / Unknown 12/28/2023 8:37 AM CDT 12/28/2023 8:52 AM CDT Nash Alfonso DO LAB - BLOOD ORDERA BLES LABORATORY [facility] Acute [facility] Lab [address] Lab (1st floor, no room number) [place] [address] * (ABNORMAL) Comprehensive metabolic panel (12/28/2023 8:37 AM CDT) Sodium 139 135 - 145 mmol/L 12/28/2023 [...] 12/28/2023 9:20 AM CDT LABORATORY Comment:eGFR calculated 2020 CKD-EPI equation. Calcium 8.1(L) 8.6 - [...] LAB - BLOOD ORDERA BLES [facility] LABORATORY [facility] Lab [address] Lab (1st floor, no room number) [place] [address], [facility] * Lactic acid whole blood (12/27/2023 7:27 PM CDT) Lactic Acid 1.2 0.7 - 2.0 mmol/L 12/27/2023 7:42 PM CDT [facility]AT[facility] Blood STRUCTURE OF RIGHT UPPER LIMB / Unknown Venipuncture / Unknown 12/27/2023 7:27 PM CDT 12/27/2023 7:33 PM CDT Sam Link MD LAB - BLOOD ORDERABL ES [facility] Acute Care Lab [address] Lab (1st floor, no room number) [place] [address] * CT Abdomen Pelvis w Contrast [...] EXAM: CT ABDOMEN PELVIS W CONTRAST LOCATION: [facility] DATE: 12/27/2023 INDICATION: Right flank pain. [...] EXAM: CT ABDOMEN PELVIS W CONTRAST LOCATION: [facility] DATE: 12/27/2023 INDICATION: Right flank pain. [...] 7 mmon the left. Sam Link MD [facility] ORDERABLES * (ABNORMAL) CBC with platelets [...] MD LAB - BLOOD ORDERABL ES LABORATORY [facility] Lab [address] Lab (1st floor, no room number) [address] * (ABNORMAL) Lactic acid whole blood (12/27/2023 5:38 PM CDT) Lactic Acid 2.3(H) 0.7 - 2.0 mmol/L 12/27/2023 5:44 PM CDT [facility] Blood BLOOD SPECIMEN / Unknown Venipuncture / Unknown 12/27/2023 5:38 PM CDT 12/27/2023 5:42 PM CDT Sam Link MD LAB - BLOOD ORDERABL ES LABORATORY [facility] Lab [address] Lab (1st floor, no room number) [address] * HCG QUALitative (blood) (12/27/2023 5:38 PM CDT) hCG Serum Qualitative Negative Negative DAFNE 12/27/2023 6:41 PM CDT [facility] Comment:This test is for scr eening purposes. Results should be interpreted along with the clinical picture. Confirmation testing is available if warranted by ordering [id number], HCG Quantitative . Blood BLOOD SPECIMEN / Unknown Venipuncture / Unknown 12/27/2023 5:38 PM CDT 12/27/2023 5:42 PM CDT Sam Link MD LAB - BLOOD ORDERABL ES [facility] LABORATORY [facility] Lab [address] [facility] Lab (1st floor, no room number) [place] [address], [facility] * (ABNORMAL) Comprehensive metabolic panel (12/27/2023 5:38 PM CDT) Sodium 140 135 - 145 mmol/L 12/27/2023 6:15 PM CDT LABORATORY Potassium 4.2 3.4 - 5.3 mmol/L [...] PM CDT [facility] Comment:eGFR calculated usin 2020 CKD-EPI equation. Calcium 9.5 8.6 - [...] LAB - BLOOD ORDERABL ES [facility] LABORATORY [facility] Lab [address] Lab (1st floor, no room number) [place] [address], [facility] * Urine Culture (12/27/2023 5:17 PM CDT) Culture <10,000 CFU/mL Mixture of Urogenital Marita 12/29/2023 5:31 AM CDT [facility] Urine URINE SPECIMEN OBTAINED BY CLEAN CATCH PROCEDURE / Unknown Non-blood Collection / Unknown 12/27/2023 5:17 PM CDT 12/27/2023 5:52 PM CDT Sam Link MD LAB - MICRO GENERAL ORDERABLES [facility] Inf. Diseases Diag. Lab [address] [facility] [place] [address], [facility] * (ABNORMAL) UA with Microscopic reflex to [...] mg/dL 12/27/2023 5:52 PM CDT LABORATORY Specific [place] Urine 1.027 1.003 - 1.035 12/27/2023 5:52 [...] MD LAB - URINE ORDERABL ES LABORATORY [facility] Lab [address] [facility] Lab (1st floor, no room number) [place] [address], [facility] documented in this encounter Visit Diagnoses Diagnosis Pain due to ureteral stent, initial encounter (H24)- Primary Pyelonephritis Pyelonephritis, unspecified Ureteral stone Calculus of ureter Pyelonephritis Pyelonephritis, unspecified Pain due to ureteral stent, initial encounter (H24) Ureteral stone Calculus of ureter documented in this encounter Administered Medications Inactive [...] DAILY (Diuretics and Nitrates), First dose on Fri12/28/23 at 1800 $Given 12/29/2023 12:3 2 PM CDT 20 mg $Given 12/29/2023 10:11 AM CDT 20 mg clonazePAM (klonoPIN) tablet 1 mg 1 mg, Oral, 3 TIMES DAILY PRN, anxiety, Starting on 12/28/23 at 1527 $Given 12/29/2023 10:11 AM CDT 1 mg $Given 12/28/2023 10:30 PM CDT 1 mg hydrOXYzine HCl (ATARAX) tablet 25 mg [...] + sterile water for irrigation 50 mL PRN, Starting on 12/28/23 at 1847, Intra-procedure $Given 12/28/2023 6:47 PM CDT 15 ml given ketorolac (TORADOL) injection 30 mg 30 mg, [...] $Given 12/29/2023 10:11 AM CDT 150 mg naloxone (NARCAN) injection 0.2 mg 0.2 [...] $Given 12/28/2023 11:17 PM CDT 5 mg piperacillin-tazobactam (ZOSYN) 3.375 g vial to attach to NS 100 mL bag Routine, 3.375 g, Intravenous, EVERY 6 HOURS, First dose on 12/28/23 at 0200, Lactated Ringer's solution is not compatible with piperacillin-tazobactam for injection., Indications: Pyelonephritis $New Bag 12/29/2023 3:00 AM CDT 3.375 g Restarted 12/28/2023 9:35 PM CDT $New Bag 12/28/2023 1:29 PM CDT 3.375 g polyethylene glycol (MIRALAX) Packet 17 g [...] PM CDT 100 mL/hr sodium chloride 0.9% irrigation (bag) PRN, Starting on 12/28/23 at 1847, Intra-procedure $Given 12/28/2023 6:47 PM CDT 800 mLs tamsulosin (FLOMAX) capsule 0.4 mg 0.4 mg, [...] area)1800 (Automatically Held - Provider: Orders Generic Provider)2010 (Unhold - Provider: Orders Generic Provider) 1011 ($Given - Provider: Sammi Dover, HIPOLITO)1232 ($Given - Provider: Sammi Dover, HIPOLITO) CT Scan Flush (COMPLETED) Intravenous, 100 mL, [...] Provider) 1011 ($Given - Provider: Sammi Dover, HIPOLITO) oxyBUTYnin (DITROPAN) tablet 5 mg 5 mg, Oral, 3 TIMES DAILY, First dose on 12/27/23 at 2330 2356 ($Given - Provider: Qiana Martinez, HIPOLITO) 0858 ($Given - Provider: Kathya Tom, HIPOLITO)1536 ($Given - Provider: Narayan Hicks, HIPOLITO)1606 (Auto Hold - Provider: Orders Generic Provider - Reason: Transfer to a procedural area)2010 (Unhold - Provider: Orders Generic Provider)2121 ($Given - Provider: Narayan Hicks, HIPOLITO) 1013 ($Given - Provider: Sammi Dover, HIPOLITO) piperacillin-tazobactam (ZOSYN) 3.375 g vial to attach to NS 100 mL bag Routine, 3.375 g, Intravenous, EVERY 6 HOURS, First dose on 12/28/23 at 0200, Lactated Ringer's solution is not compatible with piperacillin-tazobactam for injection., Indications: Pyelonephritis 0244 ($New Bag - Provider: Qiana Martinez, RN)0805 ($New Bag - Provider: Qiana Martinez, RN)1329 ($New Bag - Provider: Kathya Tom, HIPOLITO)1606 (Auto Hold - Provider: Orders Generic Provider - Reason: Transfer to a procedural area)1999 (Automatically Held - Provider: Orders Generic Provider)2010 (Unhold - Provider: Orders Generic Provider)213 (Restarted - Provider: Narayan Hicks, HIPOLITO) 0300 ($New Bag - Provider: Kate Carlson [...] compatible with piperacillin-tazobactam for injection., Indications: Sepsis 194 ($New Bag - Provider: Preet Nassar RN) polyethylene glycol (MIRALAX) Packet 17 g [...] Provider: Kathya Tom RN - Reason: Patient/family refused)160 (Auto Hold - Provider: Orders Generic Provider - Reason: Transfer to a procedural area)2010 (Unhold - Provider: Orders Generic Provider) 1107 (Not Given - Provider: Sammi Dover RN - Reason: Patient/family refused) sodium chloride 0.9% BOLUS 1,000 mL (COMPLETED) Intravenous, 1,000 mL, ONCE, at 1,000 mL/hr, Administer over 1 Hours, On 12/27/23 at 1730, For 1 dose 1741 ($New Bag - Provider: Anjelica Chacon, HIPOLITO) sodium chloride 0.9% BOLUS 1,000 mL (COMPLETED) Intravenous, 1,000 mL, ONCE, at 1,000 mL/hr, Administer over 1 Hours, On 12/27/23 at 1810, For 1 dose 1946 ($New Bag - Provider: Preet Nassar, HIPOLITO) [...] ($New Bag - Provider: Wayne Rutledge APRN SKIN SPECIALIST)1821 (Anesthesia Volume Adjustment - Provider: Wayne Rutledge APRN SKIN SPECIALIST) sodium chloride 0.9 % infusion at 100 mL/hr, Intravenous, CONTINUOUS, Starting on 12/27/23 at 2200, Until 12/29/23 at 1444 2207 ($New Bag - Provider: Narayan Hicks RN) 0711 ($New Bag - Provider: Qiana Martinez RN)2120 ($New Bag - Provider: Narayan Hicks RN) [...] RN) 0205 (See Alternative - Provider: Kate Carlson, HIPOLITO)0834 (See Alternative - Provider: Sammi Dover, HIPOLITO) [...] 4 grams/day. 0008 ($Given - Provider: Qiana Martinez RN)0706 ($Given - Provider: Qiana Martinez RN)1151 ($Given - Provider: Glenn Potter RN)1606 (Auto Hold - Provider: Orders Generic Provider - Reason: Transfer to a procedural area)2010 (Unhold - Provider: Orders Generic Provider)2120 ($Given - Provider: Narayan Hicks RN) 0205 ($Given - Provider: Kate Carlson RN)0834 ($Given - Provider: Sammi Dover RN) albuterol (PROVENTIL HFA/VENTOLIN HFA) inhaler 2 puff, [...] Step 4: enema Hold for loose stools. 1606 (Auto Hold - Provider: Orders Generic [...] 1808 ($Given - Provider: Wayne Rutledge APRN SKIN SPECIALIST) HYDROmorphone (PF) (DILAUDID) injection 0.5 mg (CANCELED) 0.5 mg, Intravenous, EVERY 30 MIN PRN, moderate pain, severe pain, Starting on 12/27/23 at 1725, For 3 doses, Notify the provider to assess for uncontrolled pain or analgesic side effects. Hold while on IV RE RECORDING MIXER or with regular IV opioid dosing. 1744 ($Given - Provider: Anjelica Chacon, HIPOLITO)1948 ($Given [...] Qiana Martinez RN)1546 ($Given - Provider: Narayan Hicks, HIPOLITO)1606 (Auto Hold - Provider: Orders Generic Provider - Reason: Transfer to a procedural area)2010 (Unhold - Provider: Orders Generic Provider)2230 ($Given - Provider: Narayan Hicks, RN) 0619 ($Given - Provider: Kate Carlson [...] non-opioid analgesics. 2356 ($Given - Provider: Qiana Martinez RN) morphine (PF) injection 2 mg (CANCELED) 2 [...] Glenn Potter RN)1457 ($Given - Provider: Kathya Tom, HIPOLITO)1606 (Auto Hold - Provider: Orders Generic Provider - Reason: Transfer to a procedural area)2010 (Unhold - Provider: Orders Generic Provider) 0440 ($Given - Provider: Kate Carlson, RN)0834 ($Given - Provider: Sammi Dover, HIPOLITO) naloxone (NARCAN) injection 0.2 mg(Linked Group 2) [...] have not improved after 4 naloxone doses. 1606 (Auto Hold - Provider: Orders Generic [...] (See Alternative - Provider: Narayan Hicks RN) 160 (Auto [...] minutes, go to Step 2 prochlorperazine (COMPAZINE). 2208 ($Given - Provider: Narayan Hicks RN) 1606 (Auto Hold - Provider: Orders Generic [...] PACU 1836 ($Given - Provider: Wayne Rutledge, SARAH SKIN SPECIALIST) oxyCODONE (ROXICODONE) tablet 10 mg 10 mg, [...] non-opioid analgesics. 0248 ($Given - Provider: Qiana Martinez, RN)0706 ($Given - Provider: Qiana Martinez, RN) oxyCODONE (ROXICODONE) tablet 5 mg 5 mg, Oral, EVERY 4 HOURS PRN, moderate pain, IF pain not managed with non-pharmacological and non-opioid interventions, Starting on 12/28/23 at 0856, May use concomitant with non-opioid analgesics. 1606 (Auto Hold - Provider: Orders Generic Provider - Reason: Transfer to a procedural area)2010 (Unhold - Provider: Orders Generic Provider)2317 ($Given - Provider: Kate Carlson, RN) 0653 (Not Given - Provider: Kate [...] stools. documented in this encounter Care Teams Protection Specialist Relationship Specialty Start Date End Date [facility], [facility] [address] [place] [address], [address] [place] [id number] PCP - General 08/23/16 Health, MD Zara DO NOT USE Pediatrics 08/16/13 documented as of this encounter
--- OUTSIDE RECORDS SUMMARY | 2024-01-01 08:44 | XMS_ITS ---
Author Organization [facility] Address [address] [place] [id number] Care Team Providers Care Medical Stenographer Name Role Phone Zraa Thurston MD [facility] Primary Care [facility] er Transitional Care Management Status:Enrolled (Active) Start date:12/30/2023 Enrollment date:12/30/2023 Continued Care and Services Coordination
--- OUTSIDE RECORDS SUMMARY | 2024-01-01 08:44 | XMS_ITS | Encounter Summary ---
Author Organization [place] Address [address] [facility] [place] [address] Care Team Providers Care Radio/Tv Technician Name Role Phone Zara Thurston MD [facility], [facility] Primary Care Provid er Reason for Visit * Reason Comments Flank Pain Encounter Details Date Type Department Care Team (Late st Contact Info) Description 12/17/2023 4:08 PM CDT - 12/17/2023 7:49 PM CDT Emergency [facility] Emergency Dept [address] [place] [phone] Benita Bullard MD [facility] [address] [place] [address] [place] [phone] Ureterolithiasis; Right flank pain; Acute cystitis with hematuria Discharge Disposition: Home or Self Care Social [...] Sign Reading Time Taken Comments Blood Pressure 123/81 12/17/2023 7:47 PM CDT Pulse 119 12/17/2023 7:47 PM CDT Temperature 37.2 ??C (99 ??F) 12/17/2023 3:25 PM CDT Respiratory Rate 18 12/17/2023 7:47 PM CDT Oxygen Saturation 97% 12/17/2023 7:47 PM CDT Inhaled Oxygen Concentration - - Weight 59.8 kg (131 lb 12.8 oz) 12/17/2023 3:25 PM CDT Height 152.4 cm (5') 12/17/2023 3:25 PM CDT Body Mass Index 25.74 12/17/2023 3:25 PM CDT documented in this encounter Discharge Instructions * Discharge Instructions* Benita Bullard MD - 12/17/2023 7:37 PM CDT Please come back to the Emergency Department at 6am on 12/18/23. Check into the director of front office. You will need to be admitted through the Emergency Department, and you are on the OR schedule for 8:30am for your stent placement for your kidney stone. Please no eating or drinking after midnight. Please come back if your symptoms worsen, you have fever, uncontrollable pain, or uncontrollable nausea or vomiting. If you do not come back to the ED for your stent, please call the urologist and let them know that you need to be seen. documented in this encounter Medications at Time of Discharge Medication Sig Dispensed Refills Start Date End Date amphetamine-dextroamphe tamine (ADDERALL) 20 MG tablet Take 1 tablet by mouth 3 times daily 12/09/2023 clonazePAM (KLONOPIN) 2 MG tablet TAKE 1/2 TABLET BY MOUTH THREE TIMES DAILY NEEDED FOR ANXIETY 12/09/2023 lamoTRIgine (LAMICTAL) 150 MG tablet Take 1 tablet by mouth daily 12/09/2023 ciprofloxacin (CIPRO) 500 MG tablet Take 1 [...] as of this encounter ED Notes * Simran Meyer RN - 12/17/2023 3:24 PM CDT Patient has had 3 weeks of right flank pain. Patient states the pain has intermittent but today hasbe constant. Patient reports nausea but no vomiting. Patient also reports urinary frequency. Triage Assessment (Adult) Row Name 12/17/23 1524 Triage Assessment Airway WDL WDL Respiratory WDL Respiratory WDL WDL Skin Circulation/Temperature WDL Skin Circulation/Temperature WDL WDL Cardiac WDL Cardiac WDL WDL Peripheral/Neurovascular WDL Peripheral Neurovascular WDL WDL Cognitive/Neuro/Behavioral WDL Cognitive/Neuro/Behavioral WDL WDL * Bneita Bullard MD - 12/17/2023 3:18 PM CDT Emergency Department Note History of Present Illness Chief Complaint Flank Pain HPI Saul Fontana is a 38 year old female with a history of endometriosis who presents for lower right flank pain that onset three weeks ago and radiates to posteriorly and to the left. Saul reportsher pain started worsening a week ago. Her pain is exacerbated when she's in a car driving over bumps. Since onset, she experiences headache, and hot and cold episodes. She endorses pain when urinating and feels like she has to pee for hours. She cannot eat due to her pain. She reports that she has taken 6 doses of ibuprofen and has taken 4 doses on klonopin. She notes that she is prescribed 3 doses of klonopin but states that she has been anxious about the pain and took an extra dose today. P atient notes a history of appendectomy, cholecystectomy, , and endometrial ablation. Independent Historian None as detailed above. Review of External Notes Past Medical History Medical History and Problem List ADHD Adjustment disorder Anxiety Cannabis use Depressive disorder Diabetes mellitus Endometriosis Panic disorder with agoraphobia Tobacco Use Disorder Medications Albuterol sulfate Adderall Bupropion Fluticasone propionate Fluconazole Gabapentin Insulin Lorazepam Levonorgestrel Ondansetron Trazodone Surgical History Appendectomy Cholecystectomy, laparoscopic Uterine ablation Lasik, Bilateral [place] tooth extraction D&C Endometrial ablation Physical Exam Patient Vitals for the past 24 hrs: BP Temp Temp src Pulse Resp SpO2 Height Weight 12/17/231946 123/81 -- -- 119 18 97 % -- -- 12/17/231944 123/81 -- -- -- -- -- -- -- 12/17/23 1525 114/85 99 ??F (37.2 ??C) Oral (!) 122 18 100 % 1.524 m (5') 59.8 kg (131 lb 12.8 oz) Physical Exam General: Well-nourished, resting comfortably when I enter the room Eyes: Pupils equal, conjunctivae pink no scleral icterus or conjunctival injection ENT: Moist mucus membranes Respiratory: Lungs clear to auscultation bilaterally, no crackles/rubs/wheezes. Good air movement CV: Normal rate and rhythm, no murmurs GI: Abdomen soft and non-distended. No guarding or rebound. Mild tenderness to palpation in the diffuse abdomen. Skin: Warm, dry. No rashes or petechiae Musculoskeletal: No peripheral edema or calf tenderness Neuro: Alert and oriented to person/place/time Psychiatric: Normal affect Diagnostics Lab Results Labs Ordered and Resulted from Time of ED Arrival to Time of ED Departure ROUTINE UA WITH MICROSCOPIC REFLEX TO CULTURE - Abnormal Result Value Color Urine Light Yellow Appearance Urine Slightly Cloudy (*) Glucose Urine Negative Bilirubin Urine Negative Ketones Urine Negative Specific [place] Urine 1.005 Blood Urine Small (*) pH Urine 7.5 (*) Protein Albumin Urine 30 (*) Urobilinogen Urine Normal Nitrite Urine Positive (*) Leukocyte Esterase Urine Large (*) Mucus Urine Present (*) RBC Urine 11 (*) WBC Urine 150 (*) Squamous Epithelials Urine <1 BASIC METABOLIC PANEL - Abnormal Sodium 139 Potassium 3.7 Chloride 102 Carbon Dioxide (CO2) 22 Anion Gap 15 Urea Nitrogen 10.4 Creatinine 0.73 GFR Estimate >90 Calcium 9.0 Glucose 154 (*) LIPASE - Normal Lipase 25 HCG QUALITATIVE - Normal hCG Serum Qualitative Negative CBC WITH PLATELETS AND DIFFERENTIAL WBC Count 9.3 RBC Count 4.12 Hemoglobin 12.6 Hematocrit 38.6 MCV 94 MCH 30.6 MCHC 32.6 RDW 12.6 Platelet Count 224 % Neutrophils 71 % Lymphocytes 23 % Monocytes 5 % Eosinophils 0 % Basophils 0 % Immature Granulocytes 1 NRBCs per 100 WBC 0 Absolute Neutrophils 6.7 Absolute Lymphocytes 2.1 Absolute Monocytes 0.5 Absolute Eosinophils 0.0 Absolute Basophils 0.0 Absolute Immature Granulocytes 0.1 Absolute NRBCs 0.[address] Abdomen Pelvis w Contrast Final Result IMPRESSION: 1. 5 mm stone noted within the proximal right ureter/ureteropelvic junction which is causing mild to moderate right hydronephrosis. There is enhancement of the right collecting system and right ureter with subtle inflammatory changes noted along the proximal ureter. Findings suggest a ureteritis. Recommend correlation with urinalysis. 2. Bilateral renal calculi. Independent Interpretation None ED Course Medications Administered Medications sodium chloride 0.9% BOLUS 1,000 mL (0 mLs Intravenous Stopped 12/17/23 194) morphine (PF) injection 4 mg (4 mg Intravenous $Given 12/17/23 1639) ondansetron (ZOFRAN) injection 4 mg (4 mg Intravenous $Given 12/17/23 1637) iopamidol (ISOVUE-370) solution 500 mL (65 mLs Intravenous $Given 12/17/23 173) CT scan flush (56 mLs Intravenous $Given 12/17/23 173) oxyCODONE (ROXICODONE) tablet 5 mg (5 mg Oral $Given 12/17/23 1810) ketorolac (TORADOL) injection 15 mg (15 mg Intravenous $Given 12/17/23 1848) ciprofloxacin (CIPRO) tablet 500 mg (500 mg Oral $Given 12/17/23 194) Procedures Procedures Discussion of Management Spoke with Dr. Chris with urology, he recommends admission, antibiotics, and stent placement in the morning. Spoke with Dr. Chris again with urology, patient is refusing admission. He states to have the patient come back to the emergency department in the morning, and get admitted and then he can place her on the surgery schedule for later in the day. Spoke with Dr. Chris again with urology, he states that he did place her on the schedule at 8:30 tomorrow morning. She will need to check into the emergency department at 6 AM. He does advise to page urology to let them know that she has checked in. ED Course ED Course as of 12/17/23 2315 FriDec 17, 2023 1612 I obtained the history and examined the patient as noted above. Optional/Additional Documentation None Medical Decision Making / Diagnosis [facility] Diagnoses: None MIPS None MDM Saul Fontana is a 38 year old female with a history of endometriosis, depression, anxiety who presents to the emergency department with a complaint of right-sided flank pain. This has been going on for 3 weeks. On exam patient has diffuse tenderness to palpation of her abdomen without any focal tenderness. Noperitoneal signs. Workup reveals an infected kidney stone on the right. 5 mm in the proximal right ureter with nitrite positive urine. Patient is given a dose of antibiotics. Urology is contacted, their recommendationis admission with stent placement in the morning. Patient is refusing admission. I let her know that my recommendation as well as urology's recommendation is admission with IV antibiotics. Patient iscrying and very anxious in the room. She is refusing admission. I let the patient know that she could become septic very quickly and that she has a higher risk of sepsis secondary to the kidney stonewith infection. I did speak with urology and let them know that she is refusing admission. What can do for her is put her on the schedule at 8:30 in the morning for stent placement, and have her come back and check in through the emergency department. They are unable to put her on the outpatient OR schedule, and she will have to check in through the ER. Patient is given a prescriptionfor pain medication as well as antibiotics. I did let her know that if she does not come back that her symptoms could worsen, she could become septic, and this could result in worsening symptoms, or even . She understands this and would still like to leave. Patient is discharged. Disposition The patient was discharged. Diagnosis ICD-10-CM 1. Ureterolithiasis N20.1 2. Right flank pain R10.9 3. Acute cystitis with hematuria N30.01 Discharge Medications Discharge Medication List as of 12/17/2023 7:40 PM START taking these medications Details ciprofloxacin (CIPRO) 500 MG tablet Take 1 tablet (500 mg) by mouth 2 times daily for 7 days, Disp-14 tablet, R-0, Local Print oxyCODONE (ROXICODONE) 5 MG tablet Take 1 tablet (5 mg) by mouth every 6 hours as needed for pain, Disp-12 tablet, R-0, Local Print Scribe Disclosure: Maryann Rut Richardson, am serving as a scribe at 5:28 PM on 12/17/2023 to document services personally performed by Benita Bullard MD based on my observations and the provider's statements to me. Benita Bullard MD 12/17/23 2429 documented in this encounter Plan of Treatment Not on file documented as of this encounter Procedures Procedure Name Priority Date/Time Associated Diagnosis Comments ROUTINE UA WITH MICROSCOPIC REFLEX TO CULTURE STAT 12/17/2023 6:05 PM CDT URINE CULTURE STAT 12/17/2023 6:[address] ABDOMEN PELVIS W CONTRAST STAT 12/17/2023 5:46 PM CDT EXTRA TUBE STAT 12/17/2023 3:46 PM CDT EXTRA RED TOP TUBE STAT 12/17/2023 3: 46 PM CDT EXTRA BLUE TOP TUBE STAT 12/17/2023 3 :46 PM CDT CBC WITH PLATELETS AND DIFFERENTIAL STAT 12/17/2023 3:46 PM CDT CBC WITH PLATELETS & DIFFERENTIAL STAT 12/17/2023 3:46 PM CDT LIPASE Add-On 12/17/2023 3:46 PM CDT HCG QUALITATIVE STAT 12/17/2023 3:46 PM CDT BASIC METABOLIC PANEL STAT 12/17/2023 3:46 PM CDT documented in this encounter Results * (ABNORMAL) Urine Culture (12/17/2023 6:05 PM CDT) Culture >100,000 CFU/mL Escherichia coli(A) DAFNE 12/18/2023 9:06 PM CDT [facility] Urine URINE SPECIMEN OBTAINED BY CLEAN CATCH PROCEDURE / Unknown Non-blood Collection / Unknown 12/17/2023 6:05 PM CDT 12/17/2023 6:22 PM CDT Narrative Organism Antibiotic Method Susceptibility Escherichia coli Ampicillin DAFNE 16 ug/mL: Intermediate Escherichia coli Ampicillin/ Sulbactam DAFNE 4 ug/mL: Susceptible Escherichia coli Piperacillin/Tazobactam DAFNE <=4 ug/mL: Susceptible Escherichia coli Cefazolin DAFNE <=4 ug/mL: Susceptible Comment:Cefazolin TN C breakpoints are for the treatment of uncomplicated urinary tract infections. For the treatment of systemic infections, please contact the laboratory for additional testing. Escherichia coli Cefoxitin DAFNE 16 ug/mL: Intermediate Escherichia coli Ceftazidime DAFNE <=1 ug/mL: Susceptible Escherichia coli Ceftriaxone DAFNE <=1 ug/mL: Susceptible Escherichia coli Cefepime DAFNE <=1 ug/mL: Susceptible Escherichia coli Gentamicin DAFNE <=1 ug/mL: Susceptible Escherichia coli Tobramycin DAFNE <=1 ug/mL: Susceptible Escherichia coli Ciprofloxacin DAFNE <=0.25 ug/mL: Susceptible Escherichia coli Levofloxacin DAFNE <=0.12 ug/mL: Susceptible Escherichia coli Nitrofurantoin DAFNE <=16 ug/mL: Susceptible Escherichia coli Trimethoprim/Sulfamethoxazole DAFNE <=1/19 ug/mL: Susceptible Benita Bullard MD LAB - MICRO GENE RAL ORDERABLES [facility] Inf. Diseases Diag. Lab [address] [facility], [address] [place] [phone] * (ABNORMAL) UA with Microscopic reflex to Culture (12/17/2023 6:05 PM CDT) Color Urine Light Yellow Colorless, Straw, Light Yellow, Yellow 12/17/2023 6:23 PM CDT [facility] Appearance Urine Slightly Cloudy(A) Clear 12/17/2023 6:23 PM CDT [facility] Glucose Urine Negative Negative mg/dL 12/17/2023 6:23 PM CDT [facility] Bilirubin Urine Negative Negative 6:23 PM CDT [facility] Ketones Urine Negative Negative mg/dL 12/17/2023 6:23 PM CDT [facility] Specific [place] Urine 1.005 1.003 - 1.035 DAFNE 12/17/2023 6:23 PM CDT [facility] Blood Urine Small(A) Negative 12/17/2023 6:23 PM CDT LABORATORY pH Urine 7.5(H) 5.0 - 7.0 12/17/2023 6:23 PM CDT [facility] Protein Albumin Urine 30(A) Negative mg/dL 12/17/2023 6:23 PM CDT [facility] Urobilinogen Urine Normal Normal, 2.0 mg/dL 12/17/2023 6:23 PM CDT [facility] Nitrite Urine Positive(A) Negative 12/17/2023 6:23 PM CDT LABORATORY Leukocyte Esterase Urine Large(A) Negative 12/17/2023 6:23 PM CDT LABORATORY Mucus Urine Present(A) None Seen /LPF 12/17/2023 6:23 PM CDT [facility] RBC Urine 11(H) <=2 /HPF 12/17/2023 6:23 PM CDT [facility] WBC Urine 150(H) <=5 /HPF 12/17/2023 6:23 PM CDT [facility] Squamous Epithelials Urine <1 <=1 /HPF 12/17/2023 6:23 PM CDT [facility] Urine URINE SPECIMEN OBTAINED BY CLEAN CATCH PROCEDURE / Unknown Non-blood Collection / Unknown 12/17/2023 6:05 PM CDT 12/17/2023 6:09 PM CDT Narrative [facility] - 12/17/2023 6:23 PM CDT Urine Culture ordered based on laboratory criteria Benita Bullard MD LAB - URINE [facility] Organization Address City/State/ZIP Co de Phone Number LABORATORY [facility] [address] Lab (1st floor, no room number) [place] [address], [facility] * CT Abdomen Pelvis w Contrast (12/17/2023 5:46 PM CDT) Anatomical Region Laterality Modality Abdomen/Pelvis, SUBRAD CT REENA DY, UMP CT ABDOMEN PELVIS, RAD CT Computed Tomography 12/17/2023 5:46 PM CDT Impressions 12/17/2023 5:57 PM CDT IMPRESSION: 1. ??5 mm stone noted within the proximal right ureter/ureteropelvic junction which is causing mild to moderate right hydronephrosis. There is enhancement of the right collecting system and right ureter with subtle inflammatory changes noted along the proximal ureter. Findings suggest a ureteritis. Recommend correlation with urinalysis. 2. ??Bilateral renal calculi. Narrative 12/17/2023 5:57 PM CDT EXAM: CT ABDOMEN PELVIS W CONTRAST LOCATION: [facility] DATE: 12/17/2023 INDICATION: right flank pain COMPARISON: None. TECHNIQUE: CT scan of the abdomen and pelvis was performed following injection of IV contrast. Multiplanar reformats were obtained. Dose reduction techniques were used. CONTRAST: 65mL Isovue 370 FINDINGS: LOWER CHEST: Normal. HEPATOBILIARY: Liver within normal limits. Mild intrahepatic biliary ductal dilation likely secondary to cholecystectomy. PANCREAS: Normal. SPLEEN: Normal. ADRENAL GLANDS: Normal. KIDNEYS/BLADDER: 5 mm stone noted within the proximal right ureter/ureteropelvic junction which is causing mild to moderate right hydronephrosis. 2 mm stone noted within the right kidney. 8 mm stone noted within the superior pole of the left kidney. No left hydronephrosis. There is enhancement of the right collecting system and right ureter. Subtle inflammatory changes noted along the proximal ureter. BOWEL: Diverticulosis of the colon. No acute inflammatory change. No obstruction. LYMPH NODES: Normal. VASCULATURE: Normal. PELVIC ORGANS: Fibroids are noted within the uterus. Bladder within normal limits. MUSCULOSKELETAL: Minimal degenerative changes of the spine. Procedure Note Derek Torres MD - 12/17/2023 EXAM: CT ABDOMEN PELVIS W CONTRAST LOCATION: [facility] DATE: 12/17/2023 INDICATION: right flank pain COMPARISON: None. TECHNIQUE: CT scan of the abdomen and pelvis was performed followinginjection of IV contrast. Multiplanar reformats were obtained. Dosereduction techniques were used. CONTRAST: 65mL Isovue 370 FINDINGS: LOWER CHEST: Normal. HEPATOBILIARY: Liver within normal limits. Mild intrahepatic biliaryductal dilation likely secondary to cholecystectomy. PANCREAS: Normal. SPLEEN: Normal. ADRENAL GLANDS: Normal. KIDNEYS/BLADDER: 5 mm stone noted within the proximal rightureter/ureteropelvic junction which is causing mild to moderate righthydronephrosis. 2 mm stone noted within the right kidney. 8 mm stone notedwithin the superior pole of the left kidney. No left hydronephrosis. There is enhancement of the right collecting systemand right ureter. Subtle inflammatory changes noted along the proximalureter. BOWEL: Diverticulosis of the colon. No acute inflammatory change. Noobstruction. LYMPH NODES: Normal. VASCULATURE: Normal. PELVIC ORGANS: Fibroids are noted within the uterus. Bladder within normallimits. MUSCULOSKELETAL: Minimal degenerative changes of the spine. IMPRESSION: 1. 5 mm stone noted within the proximal right ureter/ureteropelvicjunction which is causing mild to moderate right hydronephrosis. There isenhancement of the right collecting system and right ureter with subtleinflammatory changes noted along the proximal ureter. Findings suggest a ureteritis. Recommend correlation withurinalysis. 2. Bilateral renal calculi. Benita Bullard MD IMG CT ORDERABLE S * HCG QUALitative (blood) (12/17/2023 3:46 PM CDT) hCG Serum Qualitative Negative Negative DAFNE 12/17/2023 5:48 PM CDT LABORATORY Comment:This test is for scr eening purposes. Results should be interpreted along with the clinical picture. Confirmation testing is available if warranted by ordering [id number], HCG Quantitative . Blood STRUCTURE OF LEFT UPPER LIMB / Unknown Venipuncture / Unknown 12/17/2023 3:46 PM CDT 12/17/2023 3:52 PM CDT Benita Bullard MD LAB - BLOOD [facility] Organization Address City/State/ZIP Co de Phone Number [facility] [address] [facility] Lab (1st floor, no room number) [place] [address], [facility] * Lipase (12/17/2023 3:46 PM CDT) Lipase 25 13 - 60 U/L 12/17/2023 4:30 PM CDT [facility] Blood STRUCTURE OF LEFT UPPER LIMB / Unknown Venipuncture / Unknown 12/17/2023 3:46 PM CDT 12/17/2023 3:52 PM CDT Benita Bullard MD LAB - BLOOD [facility] [facility] [address] Lab (1st floor, no room number) [place] [address], [facility] * CBC with platelets and differential (12/17/2023 3:46 PM CDT) WBC Count 9.3 4.0 - 11.0 10e3/uL 12/17/2023 4:10 PM CDT [facility] RBC Count 4.12 3.80 - 5.20 10e6/uL 12/17/2023 4:10 PM CDT [facility] Hemoglobin 12.6 11.7 - 15.7 g/dL 12/17/2023 4:10 PM CDT [facility] Hematocrit 38.6 35.0 - 47.0 % 12/17/2023 4:10 PM CDT [facility] MCV 94 78 - 100 fL 12/17/2023 4:10 PM CDT [facility] MCH 30.6 26.5 - 33.0 pg 12/17/2023 4:10 PM CDT [facility] MCHC 32.6 31.5 - 36.5 g/dL 12/17/2023 4:10 PM CDT [facility] RDW 12.6 10.0 - 15.0 % 12/17/2023 4:10 PM CDT [facility] Platelet Count 224 150 - 450 10e3/uL 12/17/2023 4:10 PM CDT [facility] % Neutrophils 71 % 12/17/2023 4:10 PM CDT [facility] % Lymphocytes 23 % 12/17/2023 4:10 PM CDT [facility] % Monocytes 5 % 12/17/2023 4:10 PM CDT [facility] % Eosinophils 0 % 12/17/2023 4:10 PM CDT [facility] % Basophils 0 % 12/17/2023 4:10 PM CDT [facility] % Immature Granulocytes 1 % 12/17/2023 4:10 PM CDT [facility] NRBCs per 100 WBC 0 <1 /100 024 4:10 PM CDT [facility] Absolute Neutrophils 6.7 1.6 - 8.3 10e3/uL 12/17/2023 4:10 PM CDT [facility] Absolute Lymphocytes 2.1 0.8 - 5.3 10e3/uL 12/17/2023 4:10 PM CDT [facility] Absolute Monocytes 0.5 0.0 - 1.3 10e3/uL 12/17/2023 4:10 PM CDT [facility] Absolute Eosinophils 0.0 0.0 - 0.7 10e3/uL 12/17/2023 4:10 PM CDT [facility] Absolute Basophils 0.0 0.0 - 0.2 10e3/uL 12/17/2023 4:10 PM CDT [facility] Absolute Immature Granulocytes 0.1 <=0.4 10e3/uL 12/17/2023 4:10 PM CDT [facility] Absolute NRBCs 0.0 10e3/uL 12/17/2023 4:10 PM CDT [facility] Blood STRUCTURE OF LEFT UPPER LIMB / Unknown Venipuncture / Unknown 12/17/2023 3:46 PM CDT 12/17/2023 3:52 PM CDT Benita Bullard MD LAB - BLOOD ORDE [facility] Organization Address City/State/ZIP Co de Phone Number [facility] [address] Lab (1st floor, no room number) [place] [address], [facility] * Extra Red Top Tube (12/17/2023 3:46 PM CDT) [facility] Hold Specimen [facility] 12/17/2023 5:04 PM CDT [facility] Blood STRUCTURE OF LEFT UPPER LIMB / Unknown Venipuncture / Unknown 12/17/2023 3:46 PM CDT 12/17/2023 3:52 PM CDT Benita Bullard MD LAB - BLOOD ORDE RABLES LABORATORY [facility] [address] Lab (1st floor, no room number) [place] [phone] * Extra Blue Top Tube (12/17/2023 3:46 PM CDT) Hold Specimen [facility] 12/17/2023 5:04 PM CDT [facility] Blood STRUCTURE OF LEFT UPPER LIMB / Unknown Venipuncture / Unknown 12/17/2023 3:46 PM CDT 12/17/2023 3:52 PM CDT Benita Bullard MD LAB - BLOOD N[facility] GE[facility] Performing Organization Address [facility]/ZIP Co de Phone Number LABORATORY [facility] [address] Lab (1st floor, no room number) [place] [phone] * (ABNORMAL) Basic metabolic panel (BMP) (12/17/2023 3:46 PM CDT) Sodium 139 135 - 145 mmol/L 12/17/2023 4:12 PM CDT [facility] Potassium 3.7 3.4 - 5.3 mmol/L 12/17/2023 4:12 PM CDT [facility] Chloride 102 98 - 107 mmol/L 12/17/2023 4:12 PM CDT [facility] Carbon Dioxide (CO2) 22 22 - 29 mmol/L 12/17/2023 4:12 PM CDT [facility] Anion Gap 15 7 - 15 mmol/L 12/17/2023 4:12 PM CDT [facility] Urea Nitrogen 10.4 6.0 - 20.0 mg/dL 12/17/2023 4:12 PM CDT [facility] Creatinine 0.73 0.51 - 0.95 mg/dL 12/17/2023 4:12 PM CDT [facility] GFR Estimate >90 >60 mL/min/1.7 3m2 12/17/2023 4:12 PM CDT [facility] Comment:eGFR calculated usin 2020 CKD-EPI equation. Calcium 9.0 8.6 - 10.0 mg/dL 12/17/2023 4:12 PM CDT LABORATORY Glucose 154(H) 70 - 99 mg/dL 12/17/2023 4:12 PM CDT LABORATORY Blood STRUCTURE OF LEFT UPPER LIMB / Unknown Venipuncture / Unknown 12/17/2023 3:46 PM CDT 12/17/2023 3:52 PM CDT Benita Bullard MD LAB - BLOOD [facility] Organization Address City/State/ZIP Co de Phone Number LABORATORY [facility] Acute Care Lab [address] [facility] Lab (1st floor, no room number) [place] [address], [facility] documented in this encounter Visit Diagnoses Diagnosis Ureterolithiasis Calculus of ureter Right flank pain Abdominal pain, unspecified site Acute cystitis with hematuria Acute cystitis documented in this encounter Administered Medications Inactive Administered Medications - up to 3 most recent administrations Medication Order MAR Action Action Date Dose Rate Site ciprofloxacin (CIPRO) tablet 500 mg STAT, 500 mg, Oral, ONCE, On Fri12/17/23 at 1925, For 1 dose, Administer at least 2 hours before or 4 hours after aluminum, calcium, iron, zinc or magnesium containing medications. May be taken with food or on an empty stomach. Do not administer alone with a dairy product like milk or yogurt or calcium-fortified juice, but may be administered with a meal containing dairy. Hold tube feeding 1 hour before and 1 hour after administration, Indications: urolithiasis $Given 12/17/2023 7:44 PM CDT [address] scan flush Intravenous, 100 mL, ONCE, On Fri12/17/23 at 1735, For 1 dose, This entry is for use by Radiology to intermittently used as a flush in patients receiving a CT scan. $Given 12/17/2023 5:36 PM CDT 56 mLs iopamidol (ISOVUE-370) solution 500 mL 500 mL, Intravenous, ONCE, On Fri12/17/23 at 1735, For 1 dose $Given 12/17/2023 5:36 PM CDT 65 mLs ketorolac (TORADOL) injection 15 mg 15 mg, Intravenous, ONCE, On Fri12/17/23 at 1850, For 1 dose, Can cause pain on injection. If ordered intravenously (IV) : administer through a running maintenance fluid over 1 minute followed by a flush. If patient complains of pain on injection, may dilute 15-30 mg in 5 mL and push over 1 to 2 minutes. $Given 12/17/2023 6:48 PM CDT 15 mg morphine (PF) injection 4 mg 4 mg, Intravenous, ONCE, On Fri12/17/23 at 1615, For 1 dose $Given 12/17/2023 4:39 PM CDT 4 mg ondansetron (ZOFRAN) injection 4 mg 4 mg, Intravenous, ONCE, Administer over 2-5 Minutes, On Fri12/17/23 at 1615, For 1 dose, Irritant. $Given 12/17/2023 4:37 PM CDT 4 mg oxyCODONE (ROXICODONE) tablet 5 mg 5 mg, Oral, ONCE, On Fri12/17/23 at 1810, For 1 dose $Given 12/17/2023 6:10 PM CDT 5 mg sodium chloride 0.9% BOLUS 1,000 mL Intravenous, 1,000 mL, ONCE, at 1,000 mL/hr, Administer over 1 Hours, On Fri12/17/23 at 1615, For 1 dose $New Bag 12/17/2023 4:40 PM CDT 1,000 mLs 1000 mL/hr documented in this encounter Active and Recently Administered Medications Times are shown in CDT. Scheduled Medication Order 12/15/2023 12/16/2023 12/17/2023 ciprofloxacin (CIPRO) tablet 500 mg (COMPLETED) STAT, 500 mg, Oral, ONCE, On Fri12/17/23 at 1925, For 1 dose, Administer at least 2 hours before or 4 hours after aluminum, calcium, iron, zinc or magnesium containing medications. May be taken with food or on an empty stomach. Do not administer alone with a dairy product like milk or yogurt or calcium-fortified juice, but may be administered with a meal containing dairy. Hold tube feeding 1 hour before and 1 hour after administration, Indications: urolithiasis 1943 ($Given - Provi colleen: Zita Washington RN) CT scan flush (COMPLETED) Intravenous, 100 mL, ONCE, On Fri12/17/23 at 1735, For 1 dose, This entry is for use by Radiology to intermittently used as a flush in patients receiving a CT scan. 173 ($Given - Provi colleen: Gil Salinas) iopamidol (ISOVUE-370) solution 500 mL (COMPLETED) 500 mL, Intravenous, ONCE, On Fri12/17/23 at 1735, For 1 dose 1736 ($Given - Provi colleen: Gil Salinas) ketorolac (TORADOL) injection 15 mg (COMPLETED) 15 mg, Intravenous, ONCE, On Fri12/17/23 at 1850, For 1 dose, Can cause pain on injection. If ordered intravenously (IV) : administer through a running maintenance fluid over 1 minute followed by a flush. If patient complains of pain on injection, may dilute 15-30 mg in 5 mL and push over 1 to 2 minutes. 1848 ($Given - Provi colleen: Zita Washington RN) morphine (PF) injection 4 mg (COMPLETED) 4 mg, Intravenous, ONCE, On Fri12/17/23 at 1615, For 1 dose 1639 ($Given - Provi colleen: Jovana Bernal RN) ondansetron (ZOFRAN) injection 4 mg (COMPLETED) 4 mg, Intravenous, ONCE, Administer over 2-5 Minutes, On Fri12/17/23 at 1615, For 1 dose, Irritant. 1637 ($Given - Provi colleen: Jovana Bernal RN) oxyCODONE (ROXICODONE) tablet 5 mg (COMPLETED) 5 mg, Oral, ONCE, On Fri12/17/23 at 1810, For 1 dose 1810 ($Given - Provi colleen: Zita Washington RN) sodium chloride 0.9% BOLUS 1,000 mL (COMPLETED) Intravenous, 1,000 mL, ONCE, at 1,000 mL/hr, Administer over 1 Hours, On Fri12/17/23 at 1615, For 1 dose 1640 ($New Bag - Pro vider: Jovana Bernal RN)1940 (Stopped - Provider: Zita Washington RN) documented in this encounter Care Teams Radio/Tv Technician Relationship Specialty Start Date End Date [address], [address] [place] [address] PCP - General 08/23/16 [facility], DO NOT USE MD Pediatrics 08/16/13 documented as of this encounter
[2024-01-01 08:45] LABS: Albumin* 4.3 g/dL (3.3-5.0); Chloride* 106 mmol/L (96-114); Sodium* 138 mmol/L (135-149)
--- OUTSIDE RECORDS SUMMARY | 2024-01-01 08:45 | XMS_ITS | Encounter Summary ---
Author Organization [facility] Address [address] [place] [address] Care Team Providers Care Urogynaecologist Name Role Phone Preston Puga M.D. Primary Care P gretta Reason for Referral * Specialty Diagnoses / Procedures Referred By Contac t Referred To Contact Jona Goel Jr., M.D. [address] [place] [phone] [facility] Region Referral ID Status Reason Start Date Expiration Date Visits Re quested Visits Authorized * Outpatient (Routine) - Authorized Specialty Diagnoses / Procedures Referred By Contac t Referred To Contact Obstetrics and Gynecology Jona Goel Jr., M.D. [address], [place] [address] [facility] Region Referral ID Status Reason Start Date Expiration Date V isits Requested Visits Authorized [id number] Authorized 12/29/2023 06/29/2025 1 1 Reason for Visit * Reason Comments Endometriosis * Outpatient (Routine) - Closed Specialty Diagnoses / Procedures Referred By Contac t Referred To Contact Obstetrics and Gynecology Jona Goel Jr., M.D. [address] [place] [phone] [facility] Region Referral ID Status Reason Start Date Expiration Date Visits Re quested Visits Authorized [id number] Closed 12/29/2023 06/29/2025 1 1 Encounter Details Date Type Department Care Team (Late st Contact Info) Description 12/29/2023 2:00 PM CDT Office Visit Department of Obstetrics and Gynecology in [place], [place] [address] [place] [address] Jona Goel Jr., M.D. [address] [place] [address] Pain Pelvic Female (Primary Dx); Nephrolithiasis Discharge Disposition: Home or Self Care Social [...] Family Three times a week 01/08/2019 Attends [employer] 1 to 4 times per year [...] Answer Date Recorded PHQ-2 Score 1 09/24/2021 [employer] [place] [facility] - Occupational Stress [...] Pressure 130/78 12/29/2023 2:19 PM CDT Pulse - - Temperature 36.9 ??C (98.4 ??F) 12/29/2023 2:19 PM CD T Respiratory Rate - - Oxygen Saturation - - Inhaled Oxygen Concentration - - Weight 61.3 kg (135 lb 2.3 oz) 12/29/2023 2:19 P M CDT Height - - Body Mass Index 28.06 09/24/2021 9:26 AM CDT documented in this encounter Progress Notes * Jona Goel Jr., M.D. - 12/29/2023 2:00 PM CDT SUBJECTIVE CHIEF COMPLAINT/REASON FOR VISIT Follow up from hospitalization for kidney stone HISTORY OF PRESENT ILLNESS Saul Fontana is a 38 y.o. female who presents to the clinic for above. She continues to have pelvic pain and was acutely in the hospital for kidney stone. She currently has a stent. That is due to come out on . She had like a few more pain medication tablets that she is currently taking. She would also like to schedule a hysterectomy. We discussed options of treating her chronic pelvic pain including hysterectomy. Risk of surgery including bleeding infection damage to internal organs have been discussed. She also knows that it maynot eliminate her pelvic pain. She is signed Federal sterilization permit and hysterectomy permit. We will have her return on February 16 scheduled surgery. There are no further concerns at this time. ALLERGIES/CONTRAINDICATIONS Allergies Allergen Reactions Sertraline Other (see comments) and Shortness of breath (Reselect Reaction) No reaction listed in [facility] Cefoxitin Rash Escitalopram Oxalate Extrapyramidal Symptoms Hydrocodone-Acetaminophen Other (see comments) Lactose Other (see comments) No reaction listed in [facility] OBJECTIVE VITAL SIGNS BP 130/78 Temp 36.9 ??C Wt 61.3 kg BMI 28.06 kg/m?? PHYSICAL EXAMINATION General: Patient appears well groomed and well nourished. No acute distress. Oriented times three. DIAGNOSTICS None additional. Have reviewed previous pelvic ultrasound. ASSESSMENT / PLAN #1 Pain Pelvic Female #2 Nephrolithiasis - Urology - Catheter care / change education visit (clinic); Future; Expected date: 01/01/2024 Other orders - Obstetrics and Gynecology office visit (clinic) - fluconazole (Diflucan) 150 mg tablet; Take 1 tablet (150 mg total) by mouth once for 1 dose., Starting 12/29/2023, Normal - oxyCODONE (Roxicodone) 5 mg immediate release tablet; Take 1 tablet (5 mg total) by mouth every 6(six) hours as needed for pain or severe pain or score 7- 10 of 10 Indication: Acute Pain., StartingMon 12/29/2023, Normal - Obstetrics and Gynecology office visit (clinic); Future; Expected date: 02/17/2024 documented in this encounter Plan of Treatment Upcoming Encounters Date Type Department Care Team (Late st Contact Info) Description 02/17/2024 2:30 PM CDT Office Visit Department of Obstetrics and Gynecology in [place], [place] [address] [place] [address] Jona Goel Jr., M.D. [address] [phone] Discharge Disposition: Home or Self Care Scheduled Referrals Name Type Priority Associated Diagnoses Order Schedule Obstetrics and Gynecology office visit (clinic) Outpatient Referral Routine Expected: 02/17/2024, Expires: 03/30/2025 Urology - Catheter care / change education visit (clinic) Outpatient Referral Routine Nephrolithiasis Expected: 01/01/2024, Expires: 03/30/2025 documented as of this encounter Visit Diagnoses Diagnosis Pain Pelvic Female- Primary Nephrolithiasis documented in this encounter Additional Health Concerns Assessment Noted Time PHQ-9 Depression Total Score: 5 09/25/19 22 9:30 AM CDT documented as of this encounter Care Teams Urogynaecologist Relationship Specialty Start Date End Date Preston Puga M.B.B.S., M.D. [address] [place] [phone] PCP - General Family Medicine 09/05/17 documented as of this encounter
--- OUTSIDE RECORDS SUMMARY | 2024-01-01 08:45 | XMS_ITS | Encounter Summary ---
[facility] Organization [facility] Address [address] [place] [address] Care Team Providers Care Correctional Probation Officer Name Role Phone Camden Herrera MD Primary Care Provider [phone] Encounter Details Date Type Department Care Team (Latest Contact Info) Description 02/10/2017 Flowsheet External to External, [place] [address] BLOOD SUGAR Social History Tobacco Use Types Packs/Day Years Used Date Smoking Tobacco: Some Days Cigarettes Smokeless Tobacco: Never Comments:Trying to stop. Alcohol Use Standard Drinks/Week Comments No 0 (1 standard drink = 0.6 oz pur e alcohol) rare Sex and Gender Information Value Date Recorded Sex Assigned at Not on file Gender Identity Not on file Sexual Orientation Not on file documented as of this encounter Plan of Treatment Not on file documented as of this encounter Visit Diagnoses Not on filedocumented in this encounter Additional Health Concerns Infection Onset Date Last Indicated Resolved Time R/O COVID19 08/16/2020 08/16/2020 08/17/2020 4:46 AM COLOR WEIGHER documented as of this encounter Care Teams Correctional Probation Officer Relationship Specialty Start Date End Date Camden Herrera MD [address] [place] [address] PCP - General Internal Medicine 02/13/16 documented as of this encounter
--- OUTSIDE RECORDS SUMMARY | 2024-01-01 08:45 | XMS_ITS | Clinical Summary ---
Author Organization [facility] Address [address] [place] [address] Care Team Providers Care Stack Supervisor Name Role Phone Camden Herrera MD Primary Care Provider [phone] Source Comments You are receiving this document as you are listed as the primary care provider,follow-up provider, or the patient has been referred to you for consultation.This is in compliance with the Medicare and[facility] Hospital[facility] EHR Incentive Program,which states Providers who transition their patient to another setting of careor provider of care or refers their patient to another provider of care shouldprovide summary care record for each transition of care or referral. [employer] Allergies Active Allergy Reactions Criticality Noted Date Comments Cefoxitin Rash 03/31/2017 Hydrocodone-Acetaminophen Unknown 02/28/2016 Sertraline Breathing Difficulty High 04/14/2015 Medications Medication Sig Dispensed Refills Start Date End Date Status 27-1 MG Take 1 Tab by mouth daily. 90 Tab 3 10/22/2016 Active Additional Information Patient not taking.Reported on 08/16/2020 lancets (SOFTCLIX)Indicati ons:Gestational diabetes mellitus (GDM) in third trimester, gestational diabetes method of control unspecified Use 1 Each to test as needed for Blood Sugar >. Use as directed. Pharmacy dispense brand based on insurance. 100 Each 11 01/15/2017 Active Additional Information Patient not taking.Reported on 08/16/2020 blood glucose test stripIndications:G estational diabetes mellitus (GDM) in third trimester, gestational diabetes method of control unspecified Use to test 4 times a day. Use as directed. Pharmacy dispense brand based on insurance. 100 Strip 01/15/2017 Active Additional Information Patient not taking.Reported on 08/16/2020 ONETOUCH VERIO W/DEVICE meterIndications:G estational diabetes mellitus (GDM) in third trimester, gestational diabetes method of control unspecified Use as directed. Pharmacy dispense brand based on insurance. 1 Each 01/15/2017 Active Additional Information Patient not taking.Reported on 08/16/2020 docusate sodium (COLACE) 100 MG capsule Take 1 Cap by mouth two times daily as needed for Constipation. 100 Cap 1 02/10/2017 Active Additional Information Patient not taking.Reported on 08/16/2020 ferrous gluconate (FERGON) 324 (38 FE) MG tabletIndications: Anemia in , third trimester Take 1 Tab by mouth two times a day with meals. 100 Tab 1 02/10/2017 Active Additional Information Patient not taking.Reported on 08/16/2020 insulin pen needle 31G X 5 MMIndications:Insu jeanne controlled gestational diabetes mellitus (GDM) in third trimester Inject subcutaneously two times a day. 100 Each 11 02/10/2017 Active Additional Information Patient not taking.Reported on 08/16/2020 insulin aspart (NOVOLOG) 100 UNIT/ML pen injectionIndicatio ns:Insulin controlled gestational diabetes mellitus (GDM) during , antepartum Inject 3 Units subcutaneously two times a day before meals. 5.4 mL 3 02/10/2017 Active Additional Information Patient not taking.Reported on 08/16/2020 Insulin NPH, Human,, Isophane, (NOVOLIN NPH,HUMULIN NPH) 100 UNIT/ML injectionIndicatio ns:Insulin controlled gestational diabetes mellitus (GDM) during , antepartum Inject 4 Units subcutaneously daily at bedtime. 15 mL 02/10/2017 Active insulin syringe 31 G X 5/16 inch 0.3 mLIndications:Insu jeanne controlled gestational diabetes mellitus (GDM) in third trimester Inject 4 units Sub Q at bedtime as directed. 100 Each 5 02/11/2017 Active Additional Information Patient not taking.Reported on 08/16/2020 ALBUterol sulfate HFA 108 (90 Base) MCG/ACT inhaler INHALE 2 PUFFS BY MOUTH EVERY 4 HOURS NEEDED 07/21/2020 Active amphetamine-dextro amphetamine (ADDERALL) 30 MG tablet Take 1 Tablet by mouth two times a day. 06/04/2020 Active buPROPion (WELLBUTRIN XL) 300 MG 24 hour release tablet Take 300 mg by mouth daily. 07/27/2020 Active fluticasone propionate (FLOVENT HFA) 220 mcg/actuation inhaler Inhale 1 Puff. 07/08/2020 Active gabapentin (NEURONTIN) 300 MG capsule Take 300 mg by mouth two times a day. 07/27/2020 Active LORazepam (ATIVAN) 1 MG tablet Take 1 mg by mouth daily. 06/20/2020 Active levonorgestrel (MIRENA) 20 MCG/24HR IUD 1 Each by Intrauterine route once. Active guaiFENesin-codein e (ROBITUSSINAC) 100-10 MG/5ML solution Take 10 mL by mouth every 4 hours as needed. 118 mL 08/16/2020 Active predniSONE (DELTASONE) 10 MG tablet Take 4 tablets a day for 5 days 20 Tablet 09/19/2020 Active fluticasone-salmet chad (ADVAIR HFA) 115-21 mcg/actuation inhaler Inhale 2 Puffs two times a day. Rinse mouth/gargle after use. 1 Each 09/19/2020 Active fluticasone propionate (FLONASE) 50 MCG/ACT nasal solution Place 2 Sprays into both nostrils daily. 16 g 11 09/19/2020 Active Active Problems Problem Noted Date Diagnosed Date Psychological disorder during 02/11/20 17 Obesity complicating 02/10/2017 Insulin controlled gestation al diabetes mellitus (GDM) in third trimester 02/10/2017 Hyperemesis affecting , antepartum 08/14 GBS (group B Streptococcus c arrier), +RV culture, currently 08/22/2016 Overview: + UC at [facility]. Supervision of high-risk 08/20/2016 Marijuana use 08/20/2016 Overview: Prior to diagnosis. Consult with Clarita Ayala, [facility] Has quit both thc and cigarettes. Repeat drug screen 01/14/2017 negative Obesity (BMI 30-39.9) 08/20/2016 Depression 08/20/2016 Nausea and vomiting in 08/20/2016 Generalized anxiety disorder 05/31/2014 Overview: See panic diagnosis Panic disorder with agoraphobia 05/31/2014 Overview: Not currently using Ativan. Screening for malignant neoplasm of cervix 01/28 Overview: 2013 NILM Plan: Pap 01/2017 Epic Endometriosis 08/18/2013 Attention deficit hyperactivity disorder (ADHD) 12/22/2012 Overview: No medications currently. Tobacco use disorder 09/02/2012 Resolved Problems Problem Noted Date Diagnosed Date Resolved Date Gestational diabetes mellitu s (GDM) in third trimester 01/15/2017 02/10/2017 Antepartum anemia in third trimester 01/15/2017 04/02/2017 Overview: Recheck hemoglobin 4 to 6 weeks. Hbg10.0 Ferritin 4. Mary Mark RN 01/15/2017 04/15/2015 02/28/2016 Overview: Patient's last menstrual period was 02/01/2015. Supervision of high-risk 02/02/2014 08/30/2015 Overview: IAV: 09/16/13 [facility]: ? HPSP Support: Maciej Salinas Pt states she thinks she had an endometrial ablation. Records requested. Group B streptococcus urinar y tract infection complicating 01/25/2014 06/02/2014 Rubella non-immune status, antepartum 01/21/2014 08/20/2016 Encounter for supervision of other normal 01/20/2014 02/02/2014 Overview: IVA: 09/16/13 [facility]: ? HPSP / CNM Support: Maciej Breast Recent weight loss 01/20/2014 4 Overview: Reports 30# wt loss in 3 mo Having n/v (thought was ) but had ? Obstruction Resolved after laprascopic appendectomy 2013 ROR signed for procedure done @ [facility] Abdominal pain 08/18/2013 08/20/2016 Contraceptive management 09/02/201212/2016 Screening for cardiovascular condition 09/02/2012 08/20/2016 Depressed 06/02/2014 Overview: Wellbutrin Category C B - H referral to review meds Immunizations Name Administration Dates Next Due 4vHPV (Gardasil) 07/29/2011,07/15/2008, 7 H1n1 Miv Sanofi 3+ Yr (Injected) 05/01/2009 Hepatitis B - Surface Antibo dy Positive 08/20/2016 Influenza IIV4 (Quadrivalent ) 0.5mL (78412) 04/14/2015 Influenza, Unspecified Formulation 04/03/2009, MMR 09/27/1997 Positive Rubella Titer 08/20/2016 Tdap 01/14/2017, 2,07/29/2011,1997 Family History Medical History Relation Name Comments Depression Mother Diabetes, Type II Maternal Grandfather Diabetes, Type II Maternal Grandmother Coronary Artery Disease Paternal Grandfather Diabetes, Type II Paternal Grandfather Diabetes, Type II Paternal Grandmother Hypertension Paternal Grandmother Bleeding Disorder Negative Family History Thromboembolic Disease Negative Family History Relation Name Status Comments Father Other Mother Alive Daughter 1 Alive Daughter 2 Alive Maternal Grandfather Alive Maternal Grandmother Alive Paternal Grandfather Paternal Grandmother Alive Sister Alive Son Alive Social History Tobacco Use Types Packs/Day Years [...] Sign Reading Time Taken Comments Blood Pressure 132/97 09/19/2020 10:24 AM CDT Pulse 85 09/19/2020 10:24 AM CDT Temperature 37.1 ??C (98.7 ??F) 08/16/2020 6:24 PM CS T Respiratory Rate 16 08/16/2020 6:24 PM NUCLEAR WEAPONS MECHANICAL SPECIALIST Oxygen Saturation 96% 09/19/2020 10:24 AM CDT Inhaled Oxygen Concentration - - Weight 72.6 kg (160 lb) 09/19/2020 10:24 AM CDT Height 147.3 cm (4' 10) 09/19/2020 10:24 AM CDT Body Mass Index 33.44 09/19/2020 10:24 AM CDT Plan of Treatment Health Maintenance Due Date Last Done Comments Hep C Screening (Preventive Services) 1985 Pneumococcal (1 - PCV) 1991 Adult Preventive Visit 2003 Cervical Cancer Screening Due 01/21/2014 01/20/2014, 12/28/2013, 12/28/2013 COVID-19 Vaccine (1 - 2022-24 season) 2023 Influenza (#1) 2024 04/14/2015, 03/16, 05/14/2006 DTaP/Tdap/Td (7 - Tdap) 12/03/2027 12/03/19 18, 01/14/2017, 07/29/2011, Additional history exists Zoster/Shingles (1 of 2) 2035 HPV Vaccine Completed 07/29/2011, 06/18, 02/27/2007 HIV Screening (Preventive Services) Completed 08/20/2016, 01/20/2014 HepA Aged Out No longer eligi ble based on patient's age to complete this topic Hib Aged Out No longer eligi ble based on patient's age to complete this topic IPV (Polio) Aged Out No longer eligi ble based on patient's age to complete this topic MCV4 Aged Out No longer eligi ble based on patient's age to complete this topic Procedures Procedure Name Priority Date/Time Associated Diagnosis Comments HIV 1/2 AG/AB 4TH GEN Routine 08/20/2016 10:02 AM NUCLEAR WEAPONS MECHANICAL SPECIALIST Supervision of high-risk , first trimester PAP TEST, ROUTINE Routine 01/20/2014 11: 08 AM CDT Supervision of other normal , first trimester [V22.1] from Last 3 Months or Most Recently Relevant to Health Maintenance Results * HIV 1/2 Ag/Ab 4th Generation (08/20/2016 10:02 AM NUCLEAR WEAPONS MECHANICAL SPECIALIST) HIV 1/2 AG/AB 4thGEN Negative (Non Reactive) NEGNR [facility] Comment:HIV-1 p24 Ag and HIV -1/HIV-2 Ab not detected. 08/20/2016 10:0 2 AM NUCLEAR WEAPONS MECHANICAL SPECIALIST 08/20/2016 10:12 AM NUCLEAR WEAPONS MECHANICAL SPECIALIST Narrative [facility] - 08/20/2016 7:10 PM NUCLEAR WEAPONS MECHANICAL SPECIALIST Performed at [facility], [address] ??[id number] Prachi Arthur APRN, CNM LAB_1 Performing Organization Address City/[facility] Co de Phone Number [facility] [phone] * PAP TEST, ROUTINE (01/20/2014 11:08 AM CDT) Cytology, Pap (NOTE) Bus Driver Cytology Report Patient Name: SAUL DUMONT Taken: 01/20/2014 Received: 01/21/2014 Reported: 01/27/2014 Physician(s): ADDI RAHMAN ??CNM ?Source of Specimen Pap Test, Routine Cervical/Endoce rvical: ?Specimen Adequacy ? Final Cytologic Interpretation/ Result ?Comment ? This pap was received in the lab and subsequently cancelled per Addi Rahman on 01/20/2014 at 17:50. Electronical ly Signed Out By CYNDEE Anderson (ASCP) CYNDEE Anderson (ASCP) ? Pap Smear History Date of Last Menstrual Period: ?? Microscopic Description Microscopic examination is performed. [facility] Department of Pathology [address] [place] [phone] [facility] 01/20/2014 11:0 8 AM CDT 01/21/2014 10:51 AM CDT Addi Rahman RN, IBLCLC LAB_1 Performing Organization Address City/[facility]/ZIP Co de Phone Number [facility] [phone] from Last 3 Months or Most Recently Relevant to Health Maintenance Care Teams Stack Supervisor Relationship Specialty Start Date End Date Camden Herrera MD [address] [address] PCP - General Internal Medicine 02/13/16
--- OUTSIDE RECORDS SUMMARY | 2024-01-01 08:45 | XMS_ITS | Encounter Summary ---
Author Organization [facility] Address [address] [place] [address] Care Team Providers Care Buncher Operator Name Role Phone Camden Herrera MD Primary Care Provider [phone] Encounter Details Date Type Department Care Team (Late st Contact Info) Description 10/15/2013 Emergency Room External to External, [place] [address] ABDOMINAL PAIN Social History Tobacco Use Types Packs/Day Years Used Date Smoking Tobacco: Passive Smo ke Exposure - Never Smoker Alcohol Use Standard Drinks/Week Comments Yes 0 (1 standard drink = 0.6 oz pur e alcohol) Sex and Gender Information Value Date Recorded [...] R/O COVID19 08/16/2020 08/16/2020 08/17/2020 4:46 AM WOOD SCALER documented as of this encounter Care Teams Buncher Operator Relationship Specialty Start Date End Date Camden Herrera MD [address] [facility] [facility] [place] [address] PCP - General Internal Medicine 02/13/16 documented as of this encounter
--- OUTSIDE RECORDS SUMMARY | 2024-01-01 08:45 | XMS_ITS | Encounter Summary ---
Author Organization [facility] Address [address] [place] [address] Care Team Providers Care Insurance Account Specialist Name Role Phone Preston Puga M.D. Primary Care P gretta Reason for Referral * Outpatient (Routine) - Closed Specialty Diagnoses / Procedures Referred By Contac t Referred To Contact Obstetrics and Gynecology Jona Goel Jr., M.D. [address], [place] [address] [facility] Region Referral ID Status Reason Start Date Expiration Date Visits Re quested Visits Authorized [id number] Closed 12/29/2023 06/29/2025 1 1 Encounter Details Date Type Department Care Team (Late st Contact Info) Description 12/29/2023 Orders Only Department of Obstetrics and Gynecology in [place], [place] [address] [address] Jona Goel Jr., M.D. [address], [place] [address] Social History Tobacco Use Types Packs/Day Years Used Date Smoking Tobacco: Some Days Cigarettes 0.3 10 Smokeless Tobacco: Never Alcohol Use Standard Drinks/Week Comments Yes 0 [...] Family Three times a week 01/08/2019 Attends Muslim Services 1 to 4 times per year [...] as of this encounter Plan of Treatment Upcoming Encounters Date Type Department Care Team (Late st Contact Info) Description 02/17/2024 2:30 PM CDT Office Visit Department of Obstetrics and Gynecology in [place], [place] [address] [place] [phone] Jona Goel Jr., M.D. [address] [place] [phone] Discharge Disposition: Home or Self Care Scheduled Referrals Name Type Priority Associated Diagnoses Order Schedule Obstetrics and Gynecology office visit (clinic) Outpatient Referral Routine Expected: 12/29/2023, Expires: 03/30/2025 documented as of this encounter Visit Diagnoses Not on filedocumented in this encounter Additional Health Concerns Assessment Noted Time PHQ-9 Depression Total Score: 5 09/25/19 22 9:30 AM CDT documented as of this encounter Care Teams Insurance Account Specialist Relationship Specialty Start Date End Date Preston Puga M.B.BGracielaSGraciela, MYunior. [address] [place] [phone] PCP - General Family Medicine 09/05/17 documented as of this encounter
--- OUTSIDE RECORDS SUMMARY | 2024-01-01 08:45 | XMS_ITS ---
Author Organization [facility] Address [address] [place] [address] Care Team Providers Care Cutting Machine Tender Helper Name Role Phone Unavailable Unavailable Unavailable Surgery Details Not on file Complications Check Surgery Details section. Procedure Estimated Blood Loss Check Surgery Details section. Procedure Findings Check Surgery Details section. Procedure Specimens Taken Check Surgery Details section.
--- OUTSIDE RECORDS SUMMARY | 2024-01-01 08:45 | XMS_ITS | Encounter Summary ---
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
--- OUTSIDE RECORDS SUMMARY | 2024-01-01 08:45 | XMS_ITS | Encounter Summary ---
Author Organization [facility] Address [address] [place] [address] Care Team Providers Care Maxillofacial Surgeon Name Role Phone Camden Herrera MD Primary Care Provider [phone] Encounter Details Date Type Department Care Team (Late st Contact Info) Description 05/04/2015 Consent for Procedure/Treatme nt [facility] INFORMED CONSENT RECORD Social History Tobacco Use Types Packs/Day Years [...] R/O COVID19 08/16/2020 08/16/2020 08/17/2020 4:46 AM CHILD CARE ATTENDANT SCHOOL documented as of this encounter Care Teams Maxillofacial Surgeon Relationship Specialty Start Date End Date Camden Herrera MD [address] [place] [address] PCP - General Internal Medicine 02/13/16 documented as of this encounter
--- OUTSIDE RECORDS SUMMARY | 2024-01-01 08:45 | XMS_ITS | Encounter Summary ---
Author Organization [facility] Address [address] [place] [address] Care Team Providers Care Care Provider Name Role Phone Preston Puga M.D. Primary Care Jen glynn Reason for Visit * Outpatient (Routine) - Authorized Specialty Diagnoses / Procedures Referred By Contac t Referred To Contact Diagnoses Pain Pelvic Female Dysmenorrhea Procedures Injection Visit - Depo-Provera Carmela Velez M.D. [address] [place] [address] [facility] Region Referral ID Status Reason Start Date Expiration Date V isits Requested Visits Authorized [id number] Authorized 09/23/2023 09/22/2024 5 5 Encounter Details Date Type Department Care Team (Latest Contact Info) Description 12/10/2023 8:30 AM CDT Procedure visit Department of Obstetrics and Gynecology in [place], [place] [address] [place] [phone] Carmela Velez M.D. [address] [place] [address] Marley Velasquez L.P.N. [address] [place] [address] Pain Pelvic Female; Dysmenorrhea Social History Tobacco Use Types Packs/Day Years [...] Family Three times a week 01/08/2019 Attends Restorationism Services 1 to 4 times per year [...] Answer Date Recorded PHQ-2 Score 1 09/24/2021 [facility] Occupat ional [facility] - Occupational Stress [...] Sign Reading Time Taken Comments Blood Pressure 133/87 12/10/2023 8:27 AM CDT Pulse - - Temperature - - Respiratory Rate - - Oxygen Saturation - - Inhaled Oxygen Concentration - - Weight 57.3 kg (126 lb 6.9 oz) 12/10/2023 8:27 A M CDT Height - - Body Mass Index 26.25 09/24/2021 9:26 AM CDT documented in this encounter Progress Notes * Marley Velasquez L.PGracielaN. - 12/10/2023 8:30 AM CDT Patient identifiers were verified and the following medication was administered to the patient today: Medroxyprogesterone (Depo-Provera). During this visit: Patient tolerated medication administration with no issues identified. documented in this encounter Plan of Treatment Upcoming Encounters Date Type Department Care Team (Late st Contact Info) Description 02/17/2024 2:30 PM CDT Office Visit Department of Obstetrics and Gynecology in [place], [place] [address] [phone] Jona Goel Jr., M.D. [address] [phone] Discharge Disposition: Home or Self Care documented as of this encounter Visit Diagnoses Diagnosis Pain Pelvic Female Dysmenorrhea documented in this encounter Administered Medications Active Administered Medications - up to 3 most recent administrations Medication Order MAR Action Action Date Dose Rate Site medroxyPROGESTERone injection 150 mg 150 mg, intramuscular, Every 3 months, First dose on Fri09/23/23 at 1345, For 5 doses, First dose pending UPT Given 12/10/2023 8:34 AM CDT 150 mg Left Ventrogluteal Given 09/23/2023 1:44 PM CDT 150 mg Le ft Ventrogluteal documented in this encounter Additional Health Concerns Assessment Noted Time PHQ-9 Depression Total Score: 5 09/25/19 22 9:30 AM CDT documented as of this encounter Care Teams Care Provider Relationship Specialty Start Date End Date Preston Puga M.B.B.S., M.D. [address] [place] [phone] PCP - General Family Medicine 09/05/17 documented as of this encounter
--- OUTSIDE RECORDS SUMMARY | 2024-01-01 08:45 | XMS_ITS | Encounter Summary ---
Author Organization [facility] Address [address] [place] [address] Care Team Providers Care Director Of Graduate Medical Education Name Role Phone Camden Herrera MD Primary Care Provider [phone] Encounter Details Date Type Department Care Team (Late st Contact Info) Description 11/02/2014 Scanned History External to Transferred Record, Provider [facility] Social History Tobacco Use Types Packs/Day Years Used Date Smoking Tobacco: Some Days Cigarettes Smokeless Tobacco: Never Alcohol Use Standard Drinks/Week Comments No 0 (1 standard drink = 0.6 oz pur e alcohol) Comments Yes Sex and Gender Information Value Date Recorded [...] R/O COVID19 08/16/2020 08/16/2020 08/17/2020 4:46 AM FOLLOW UP SPECIALIST documented as of this encounter Care Teams Director Of Graduate Medical Education Relationship Specialty Start Date End Date Camden Herrera MD [address] [facility] [place] [address] PCP - General Internal Medicine 02/13/16 documented as of this encounter
--- OUTSIDE RECORDS SUMMARY | 2024-01-01 08:45 | XMS_ITS | Encounter Summary ---
Author Organization [facility] Address [address] [place] [address] Care Team Providers Care Pattern Maker Programer Name Role Phone Preston Puga M.D. [facility] Encounter Details Date Type Department Care Team (Late st Contact Info) Description 12/17/2023 Clinical Communication Department of Family Medicine, [facility], in [place], [place] [address] [place] [address] Preston Puga M.B.B.S., M.D. [address] [place] [address] Social History Tobacco Use Types Packs/Day Years [...] Family Three times a week 01/08/2019 Attends Taoist Services 1 to 4 times per year [...] Answer Date Recorded PHQ-2 Score 1 09/24/2021 [facility]at ional Health - Occupational Stress [...] encounter Miscellaneous Notes * Telephone Encounter - Berta Rey R.N. - 12/17/2023 1:01 PM CDT Left message for patient to return call to clinic. Does the patient need to speak to nursing? yes - Please transfer to triage nurse or Care Team RN Action needed: Please triage kidney stone symptoms etc. documented in this encounter Plan of Treatment Upcoming Encounters Date Type Department Care Team (Late st Contact Info) Description 02/17/2024 2:30 PM CDT Office Visit Department of Obstetrics and Gynecology in [place], [place] [address] [place] [phone] Jona Goel Jr., M.D. [address] [place] [phone] Discharge Disposition: Home or Self Care documented as of this encounter Visit Diagnoses Not on filedocumented in this encounter Additional Health Concerns Assessment Noted Time PHQ-9 Depression Total Score: 5 09/25/19 22 9:30 AM CDT documented as of this encounter Care Teams Pattern Maker Programer Relationship Specialty Start Date End Date Preston Puga M.B.B.S., M.D. [address] [place] [phone] PCP - General Family Medicine 09/05/17 documented as of this encounter
--- OUTSIDE RECORDS SUMMARY | 2024-01-01 08:45 | XMS_ITS | Encounter Summary ---
Author Organization [facility] Address [address] [place] [address] Care Team Providers Care Dry Cleaning Checker Name Role Phone Preston Puga M.D. Primary Care P gretta Reason for Referral * Outpatient (Routine) - Authorized Specialty Diagnoses / Procedures Referred By Contac t Referred To Contact Diagnoses Pain Pelvic Female Dysmenorrhea Procedures Injection Visit - Depo-Provera Carmela Velez M.D. [address] [place] [phone] [facility] Referral ID Status Reason Start Date Expiration Date V isits Requested Visits Authorized [id number] Authorized 09/23/2023 09/22/2024 5 5 * Outpatient (Routine) - Authorized Specialty Diagnoses / Procedures Referred By Contac t Referred To Contact Obstetrics and Gynecology Diagnoses Dysmenorrhea Carmela Velez M.D. [address] [place] [phone] [facility] Region Referral ID Status Reason Start Date Expiration Date V isits Requested Visits Authorized [id number] Authorized 09/23/2023 03/24/2025 1 1 * Outpatient (Routine) - Authorized Specialty Diagnoses / Procedures Referred By Contac t Referred To Contact Diagnoses Pain Pelvic Female Procedures US Pelvis Transvaginal Carmela Velez M.D. [address] [place] [address] [facility] Referral ID Status Reason Start Date Expiration Date V isits Requested Visits Authorized [id number] Authorized 09/23/2023 09/22/2024 1 1 Reason for Visit * Reason Comments Pelvic Pain * Appointment Request (Routine) - Closed Specialty Diagnoses / Procedures Referred By Josef mcallister Referred To Contact Obstetrics and Gynecology Referral ID Status Reason Start Date Expiration Date Visits Re quested Visits Authorized [id number] Closed 09/23/2023 09/22/2024 1 1 Encounter Details Date Type Department Care Team (Latest Contact Info) Description 09/23/2023 1:00 PM CDT Office Visit Department of Obstetrics and Gynecology in [address] [phone] Carmela Velez M.D. [address] [place] [phone] Pain Pelvic Female (Primary Dx); Dysmenorrhea; Asthma Tobacco User ; Tinea Pedis; Screening For Venereal Disease; Exposure Sexually Transmitted Disease; Vaginosis Bacterial; Encounter For Surveillance Of Injectable Contraceptive Social History Tobacco Use Types Packs/Day Years [...] Family Three times a week 01/08/2019 Attends [employer] 1 to 4 times per year [...] Answer Date Recorded PHQ-2 Score 1 09/24/2021 [facility] - Occupational Stress [...] Sign Reading Time Taken Comments Blood Pressure 109/69 09/23/2023 12:53 PM CDT Pulse - - Temperature - - Respiratory Rate - - Oxygen Saturation - - Inhaled Oxygen Concentration - - Weight 59.6 kg (131 lb 6.3 oz) 09/23/2023 12:53 PM CDT Height - - Body Mass Index 27.28 09/24/2021 9:26 AM CDT documented in this encounter Progress Notes * Carmela Velez M.D. - 09/23/2023 1:00 PM CDT CHIEF COMPLAINT Chief Complaint Patient presents with Pelvic Pain SUBJECTIVE Ms. Fontana is a 38 y.o. who presents for multiple concerns. Firstly, the patient has a history of chronic pelvic pain. She has had prior laparoscopic confirmation of endometriosis in 2016. She has had multiple treatments for suppression, including combinationoral contraceptive pill, Depo- Provera, Nexplanon, and IUD. She most recently had her Nexplanon removed in November of last year. She was initiated on Depo-Provera for menstrual suppression. Patient's last dose of Depo-Provera was more than six months ago. She would like to resume this formanagement of her pelvic pain. The patient reports that she is also concerned about sexually transmitted disease screening due to a broken condom with recent intercourse. She took plan B after this, so she is less concerned about . The patient reports current symptoms of severe pelvic pain, primarily suprapubic, with radiation tothe back and more generally. She denies any fevers or chills. She reports mild nausea but no emesis. No significant abnormal vaginal bleeding. Her last menstrual period is unknown. She reports urinary frequency and occasional dysuria. Her pain is worse when she has her menstrual cycles. The patient also requests refills of several of her medications for chronic medical issues including albuterol for occasional respiratory wheezing and shortness of breath associated with mild coughs or URI. The patient is a smoker. She also requests refills of medication for her athlete's foot. This is a chronic issue for her. She does not have an established primary care provider at this time. OB History Para Term AB Living 10 5 5 0 5 5 SAB IAB Ectopic Molar Multiple Live Births 5 0 0 0 5 # Outcome Date GA Lbr Truong/2nd Weight Sex Delivery Anes PTL Lv 10 Term 02/07/18 37w1d 2.64 kg F N LISANDRO 9 Term 04/01/17 39w1d 3.26 kg F CS-LTranv Spinal N LISANDRO Comments: GDM, arrest of descent Complications: Failure to Progress in Second Stage 8 2015 6w0d SAB SA 7 SAB 05/08/[address] [facility] Comments: suction D&C 6 SAB 06/16/14 SA Comments: SAB 5 2013 12w0d [facility] SA Comments: suction D&C 4 Term 04/02/09 37w0d 2.58 kg F Vag-Spont EPI LISANDRO 3 SAB 01/29/08 10w0d [facility] SA Comments: suction D&C 2 Term 12/16/05 37w0d 2.693 kg M Vag-Spont EPI LISANDRO 1 Term 12/16/99 37w0d 2.325 kg F Vag-Spont EPI LISANDRO Past Medical History: Diagnosis Date Abuse Cannabis 08/24/2009 Attention Deficit Hyperactive Disorder 12/22/2012 Overview: No medications currently. Cannabis Use Unspecified Uncomplicated 08/20/2016 Prior to diagnosis. Cyst Ovary 09/12/2010 Depression Major Recurrent (HCC) 08/23/2009 Diabetes Mellitus Gestational Insulin Controlled ([facility]) 02/10/2017 A2GDM on insulin Dysthymia 03/07/2010 Anxiety With Depression Endometriosis 03/31/2011 Generalized anxiety disorder 05/31/2014 Overview: See panic diagnosis Nicotine Dependence Unspecified 09/02/2012 Obesity Body Mass Index 30-39.9 Adult 08/20/2016 Obstruction Intestinal (HCC) 2013 Pain Back Pain Cervical 08/24/2009 Panic Disorder With Agoraphobia 05/31/2014 Overview: Not currently using Ativan. Past Surgical History: Procedure Laterality Date SECTION 04/01/2017 CHOLECYSTECTOMY 11/29/1999 D&C FIRST TRIMESTER / TX INCOMPLETE / MISSED / SEPTIC / INDUCED 2013 D&C FIRST TRIMESTER / TX INCOMPLETE / MISSED / SEPTIC / INDUCED 01/29/2008 10 wk SAB D&C FIRST TRIMESTER / TX INCOMPLETE / MISSED / SEPTIC / INDUCED 05/08/2015 8 wk SAB LAPAROSCOPIC APPENDECTOMY 10/16/2013 LAPAROSCOPY DIAGNOSTIC / BIOPSY / ASPIRATION / LYSIS 2007 endometriosis LASIK Bilateral 2012 WISDOM TOOTH EXTRACTION 2007 Patient Active Problem List Diagnosis Attention Deficit Hyperactive Disorder Anxiety Depression Major Recurrent (HCC) Cannabis Use Unspecified Uncomplicated Obesity Body Mass Index 30-39.9 Adult Panic Disorder With Agoraphobia Pain Pelvic Female Current Outpatient Medications on File Prior to Visit Medication Sig Dispense Refill clotrimazole (LOTRIMIN) 1 % cream Apply 1 application topically 2 (two) times a day. Apply to affected area of foot. 30 g 0 dextroamphetamine-amphetamine (ADDERALL) 20 mg tablet ibuprofen (ADVIL,MOTRIN) 200 mg tablet Take 200 mg by mouth as needed for pain. LORazepam (ATIVAN) 1 mg tablet TK 1 T PO QHS PRN FOR INSOMNIA [DISCONTINUED] albuterol 90 mcg/actuation inhaler Inhale 2 puffs every 4 (four) hours as needed. [DISCONTINUED] nystatin (MYCOSTATIN) 100,000 unit/gram cream Apply topically as needed. [DISCONTINUED] Nystop 100,000 unit/gram powder Apply topically 4 (four) times a day. buPROPion XL (WELLBUTRIN XL) 150 mg 24 hr tablet TK 1 T PO QD fluconazole (DIFLUCAN) 150 mg tablet fluticasone propion-salmeteroL (ADVAIR HFA) 115-21 mcg/actuation inhaler Inhale 2 puffs. [DISCONTINUED] amoxicillin (AMOXIL) 875 mg tablet Take 1 tablet (875 mg total) by mouth 2 (two) times a day. (Patient not taking: Reported on 12/13/2022) 20 tablet 0 Current Facility-Administered Medications on File Prior to Visit Medication Dose Route Frequency Provider Last Rate Last Admin medroxyPROGESTERone injection 150 mg 150 mg intramuscular Q3 Months Rosales Cuellar M.D. 150 mg at12/13/22 1108 Allergies Allergen Reactions Sertraline Other (see comments) and Shortness of breath (Reselect Reaction) No reaction listed in [facility] Cefoxitin Rash Escitalopram Oxalate Extrapyramidal Symptoms Hydrocodone-Acetaminophen Other (see comments) Lactose Other (see comments) No reaction listed in [employer] REVIEW OF SYSTEMS Negative other than noted above Last Pap Result Date: 07/09/2019 NILM neg hr HPV No family history on file. Social History Tobacco Use Smoking status: Some Days Packs/day: 0.30 Years: 10.00 Additional pack years: 0.00 Total pack years: 3.00 Types: Cigarettes Smokeless tobacco: Never Substance Use Topics Alcohol use: Yes Drug use: No Comment: quit THC OBJECTIVE PHYSICAL EXAM BP 109/69 Wt 59.6 kg BMI 27.28 kg/m?? Body mass index is 27.28 kg/m??. General: pleasant, interactive, normal mood Abdomen: Patient has tenderness to palpation diffusely in the abdomen without significant rigidity or guarding. This is nonreproducible. No masses. No hernia. No hepato-splenomegaly. Pelvic Exam: Pelvic lymph nodes are negative for lymphadenopathy. External genitalia, Bartholin, Peletier's, and urethral appearance are normal. Atrophy absent Vaginal secretions are grossly physiologic, no discernible malodorous discharge or clear evidence of cervicitis Cervix appears normal without lesions. Bimanual exam performed: No uteromegaly, no adnexal enlargement. Diffuse discomfort with palpation,no specific cervical motion tenderness. Rectal Exam: External rectum appears normal. ASSESSMENT / PLAN Diagnosis Plan 1. Pain Pelvic Female Chlamydia / Gonorrhoeae Amplified RNA Vaginitis Panel US Pelvis Transvaginal Urinalysis, with Microscopic: Urine, Midstream Bacterial Culture, Aerobic + Susceptibility, Urine Test, POCT, Urine (Lab) Injection Visit - Depo-Provera medroxyPROGESTERone injection 150 mg 2. Dysmenorrhea Obstetrics and Gynecology - Benign gynecologic surgery consult (clinic) Injection Visit - Depo-Provera medroxyPROGESTERone injection 150 mg 3. Asthma Tobacco User albuterol 90 mcg/actuation inhaler 4. Tinea Pedis nystatin (MYCOSTATIN) 100,000 unit/gram cream Nystop 100,000 unit/gram powder 5. Screening For Venereal Disease HIV-1/-2 Ag and Ab Screen, Plasma Syphilis Total Antibody with Reflex, Serum HCV Ab Scrn w/Reflex to HCV PCR, Serum Hepatitis B Surface Antigen 6. Exposure Sexually Transmitted Disease HIV-1/-2 Ag and Ab Screen, Plasma Syphilis Total Antibody with Reflex, Serum HCV Ab Scrn w/Reflex to HCV PCR, Serum Hepatitis B Surface Antigen 7. Encounter For Surveillance Of Injectable Contraceptive - Patient would like to resume Depo-Provera. We will obtain a urine test and if this is negative patient may re-initiate Depo-Provera - Long-Term management of chronic pelvic pain and dysmenorrhea in the setting of known endometriosis reviewed. The patient is interested in definitive management and would like to reestablish care with her prior surgeon, Dr. Goel. This consultation is ordered. In anticipation of this consult, an u ltrasound is ordered to proceed this to exclude any significant new findings suggestive of large endometrioma or other concerns. - Patient is provided refill of her chronic medications including albuterol and the nystatin. I didencourage her to establish regular care with a primary care provider - Offered the option of serologic STD screening. Patient will consider returned for this testing ifdesired. Addendum: Depo-Provera re-initiated after UPT negative TT: 40 CT 20 Carmela Velez M.D. documented in this encounter Plan of Treatment Upcoming Encounters Date Type Department Care Team (Late st Contact Info) Description 02/17/2024 2:30 PM CDT Office Visit Department of Obstetrics and Gynecology in [place], [place] [address] [phone] Jona Goel Jr., M.D. [address] [place] [phone] Discharge Disposition: Home or Self Care Scheduled Orders Name Type Priority Associated Diagnoses Order Schedule US Pelvis Transvaginal Imaging RAD - Routine (most inpatients and all outpatients) Pain Pelvic Female Expected: 10/23/2023, Expires: 12/22/2024 Injection Visit - Depo-Provera OB Routine Pain Pelvic Female Dysmenorrhea 3 months for 5 Occurrences starting 09/23/2023 until 12/22/2024 HIV-1/-2 Ag and Ab Screen, Plasma Microbiology Routine Screening For Venereal Disease Exposure Sexually Transmitted Disease Expected: 09/23/2023 (Approximate), Expires: 12/22/2024 Syphilis Total Antibody with Reflex, Serum Microbiology Routine Screening For Venereal Disease Exposure Sexually Transmitted Disease Expected: 09/23/2023, Expires: 12/22/2024 HCV Ab Scrn w/Reflex to HCV PCR, Serum Microbiology Routine Screening For Venereal Disease Exposure Sexually Transmitted Disease Expected: 09/23/2023, Expires: 12/22/2024 Hepatitis B Surface Antigen Microbiology Routine Screening For Venereal Disease Exposure Sexually Transmitted Disease Expected: 09/23/2023, Expires: 12/22/2024 Scheduled Referrals Name Type Priority Associated Diagnoses Order Schedule Obstetrics and Gynecology - Benign gynecologic surgery consult (clinic) Outpatient Referral Routine Dysmenorrhea Expected: 10/23/2023 (Approximate), Expires: 12/22/2024 documented as of this encounter Procedures Procedure Name Priority Date/Time Associated Diagnosis Comments VAGINITIS PANEL Routine 09/23/2023 1:18 PM CDT Pain Pelvic Female BACTERIAL CULTURE, AEROBIC + SUSC, URINE Routine 09/23/2023 1:18 PM CDT Pain Pelvic Female TEST, POCT, U (LAB) Routine 09/23/2023 1:18 PM CDT Pain Pelvic Female CHLAMYDIA/GONORRHOEA E AMPLIFIED RNA Routine 09/23/2023 1:18 PM CDT Pain Pelvic Female URINALYSIS WITH MICROSCOPIC Routine 09/23/2023 1:18 PM CDT Pain Pelvic Female documented in this encounter Results * Test, POCT, Urine (Lab) (09/23/2023 1:18 PM CDT) Test, POCT, U Negative 09/23/2023 1:40 PM CDT FB60 Urine (Urine, Midstream) 09/23/2023 1:18 PM CDT 09/23/2023 1:25 PM CDT Carmela Velez M.D. LAB POCT ORDERABLES - DEVICE [facility] [address] [place] [address], [facility] [[email or web address]] FB60 [employer] in [place] [address] [place] [address] * (ABNORMAL) Bacterial Culture, Aerobic + Susceptibility, Urine (09/23/2023 1:18 PM CDT) Urine Culture Mixed microbiota (A) 09/24/2023 1:30 PM CDT MKTO Urine (Urine, Midstream) 09/23/2023 1:18 PM CDT 09/23/2023 7:15 PM CDT Comment:Specimen Source Site : Urine Carmela Velez M.D. LAB MICROBIOLOGY - G ENERAL ORDERABLES [facility] [address] [place] [address], [place] MKTO [facility] in [place] [address] [place] [address] * (ABNORMAL) Urinalysis, with Microscopic: Urine, Midstream (09/23/2023 1:18 PM CDT) Source Urine, Urine, Midstream 09/23/2023 1:26 PM CDT FB60 Clarity Clear Clear 09/23/2023 1:35 PM CDT FB60 Color Yellow 09/23/2023 1:35 PM CDT FB60 Comment: ----REFERENCE VALUE---- Colorless Yellow Becca Blood Trace(A) Negative 09/23/2023 1:35 PM CDT FB60 Nitrite Negative Negative 09/23/2023 1:35 PM CDT FB60 Leukocyte Esterase Trace(A) Negative 09/23/2023 1:35 PM CDT FB60 Protein 30(A) mg/dL 09/23/2023 1:35 PM CDT FB60 Comment: ----REFERENCE VALUE---- Negative Trace Glucose Negative Negative mg/dL 09/23/2023 1:35 PM CDT FB60 Ketones, QI(U) 15(A) Negative mg/dL 09/23/2023 1:35 PM CDT FB60 Bilirubin Small(A) Negative 09/23/2023 1:35 PM CDT FB60 pH 7.0 5.0 - 8.0 09/23/2023 1:35 PM CDT FB60 Specific [place] 1.020 1.001 - 1.035 09/23/2023 1:35 PM CDT FB60 Urobilinogen 1.0 0.2 - 1.0 mg/dL 09/23/2023 1:35 PM CDT FB60 White Blood Cells Occ-3 /hpf 09/23/2023 2:17 PM CDT FB60 Comment: ----REFERENCE VALUE---- Males: 0-3 Females: 0-10 Unknown: 0-10 Red Blood Cells None Seen 0 - 2 /hpf 2:17 PM CDT FB60 Crystals Triple Phosphate Calcium Oxalate None Seen /lpf 09/23/2023 2:17 PM CDT FB60 Squamous Cells 11-20 /hpf 09/23/2023 2:17 PM CDT FB60 Urine (Urine, Midstream) 09/23/2023 1:18 PM CDT 09/23/2023 1:25 PM CDT Carmela Velez M.D. LAB URINE ORDERABLES Performing Organization Address City/[facility]/ZIP Co de Phone Number [facility] [address] [place] [address], [facility] [[email or web address]] FB60 [employer] [facility] [place] [address] [place] [address] * (ABNORMAL) Vaginitis Panel (09/23/2023 1:18 PM CDT) Margoth species, DNA Negative Negative 09/23/2023 5:22 PM CDT FB60 Gardnerella vaginalis, DNA Positive(A) Negative 09/23/2023 5:22 PM CDT FB60 Trichomonas vaginalis, DNA Negative Negative 09/23/2023 5:22 PM CDT FB60 Swab (Vagina) 09/23/2023 1:1 8 PM CDT 09/23/2023 4:10 PM CDT Carmela Velez M.D. LAB MICROBIOLOGY - G ENERAL ORDERABLES Performing Organization Address City/[facility]/ZIP Co de Phone Number [facility] [address] [place] [address], [facility] [[email or web address]] FB60 [employer] [facility] [place] [address] [place] [address] * Chlamydia / Gonorrhoeae Amplified RNA (09/23/2023 1:18 PM CDT) Source Swab, Vagina 09/23/2023 11:48 PM CDT MKTO Chlamydia trachomatis amplified RNA Negative Negative 09/23/2023 11:48 PM CDT MKTO Source Swab, Vagina 09/23/2023 11:48 PM CDT MKTO Neisseria gonorrhoeae amplified RNA Negative Negative 09/23/2023 11:48 PM CDT MKTO Swab (Vagina) 09/23/2023 1:1 8 PM CDT 09/23/2023 7:16 PM CDT Carmela Velez M.D. LAB MICROBIOLOGY - G ENERAL ORDERABLES Performing Organization Address City/[facility]/ZIP Co de Phone Number [facility] [address] [place] [address], [facility] [[email or web address]] MKTO [address] [address] documented in this encounter Visit Diagnoses Diagnosis Pain Pelvic Female- Primary Dysmenorrhea Asthma Tobacco User Tinea Pedis Screening For Venereal Disease Exposure Sexually Transmitted Disease Vaginosis Bacterial Encounter For Surveillance Of Injectable Contraceptive documented in this encounter Administered Medications Active [...] documented as of this encounter Care Teams Dry Cleaning Checker Relationship Specialty Start Date End Date Preston Puga M.B.BGracielaSGraciela, MYunior. [address] [place] [address] [place] [address] PCP - General Family Medicine 09/05/17 documented as of this encounter
--- OUTSIDE RECORDS SUMMARY | 2024-01-01 08:45 | XMS_ITS | Encounter Summary ---
Author Organization [facility] Address [address] [place] [address] Care Team Providers Care Mosaic Technician Name Role Phone Camden Herrera MD Primary Care Provider [phone] Encounter Details Date Type Department Care Team (Late st Contact Info) Description 08/30/2016 Correspondence [facility] Obstetrics and Gynecology [address] [place], [place] [phone] Anatoliy Logan MD [employer] STATEMENT OF MEDICAL NECESSITY Social History Tobacco Use Types Packs/Day Years Used Date Smoking Tobacco: Some Days Cigarettes Smokeless Tobacco: Never Comments:Trying to stop. Alcohol Use Standard Drinks/Week Comments No 0 (1 standard drink = 0.6 oz pur e alcohol) rare Comments Yes Sex and Gender Information Value [...] R/O COVID19 08/16/2020 08/16/2020 08/17/2020 4:46 AM RUG DYER documented as of this encounter Care Teams Mosaic Technician Relationship Specialty Start Date End Date Camden Herrera MD [address] [place], [place] [phone] PCP - General Internal Medicine 02/13/16 documented as of this encounter
--- OUTSIDE RECORDS SUMMARY | 2024-01-01 08:45 | XMS_ITS | Encounter Summary ---
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
--- OUTSIDE RECORDS SUMMARY | 2024-01-01 08:45 | XMS_ITS | Clinical Summary ---
Author Organization [employer] [facility] Address [place], [place] [address] Care Team Providers Care Senior Android Developer Name Role Phone Preston Puga Primary Care Provider Allergies Active Allergy Reactions Criticality Noted Date Comments Escitalopram Oxalate Extrapyramidal Side Effect High 09/18/2021 Hydrocodone-Acetaminophen *Unknown 09/18/2021 Lactose *Unknown 09/18/2021 Cefoxitin Rash 03/31/2017 Sertraline Shortness Of Breath 04/16/2011 Medications Medication Sig Dispensed Refills Start Date End Date Status buPROPion (WELLBUTRIN XL) 150 mg Extended-Release tablet TK 1 T PO QD 11/19/2019 Active dextroamphetamine-am phetamine (ADDERALL) 20 mg tablet 11/18/2019 Active gabapentin (NEURONTIN) 300 mg capsule TK 1 C PO BID 11/19/2019 Active LORazepam (ATIVAN) 1 mg tablet TK 1 T PO QHS PRN FOR INSOMNIA 03/12/2013 Active fluticasone propionate (FLOVENT) 220 mcg/Actuation inhalerIndications:C hronic cough Inhale 1 Puff by mouth 2 times daily. 1 Inhaler 07/08/2020 Active albuterol HFA (PRO-AIR; VENTOLIN; PROVENTIL) 90 mcg/actuation inhalerIndications:C hronic cough Inhale 2 Puffs by mouth every 4 hours if needed. 1 Each 1 07/08/2020 Active traZODone (DESYREL) 50 mg tablet Take 50 mg by mouth once daily. Active ibuprofen (ADVIL; MOTRIN) 600 mg tabletIndications:De Quervain's tenosynovitis, right Take 1 Tablet (600 mg) by mouth every 6 hours if needed for Pain. Maximum of 3200 mg in 24 hours. 30 Tablet 09/26/2021 Active etonogestrel subdermal implant (NEXPLANON) 68 mg implant Inject 1 Each subcutaneous. 1 each by subdermal route continuously. Implanted 05/01/21; due for removal 05/01/2024 Active nystatin powder (MYCOSTATIN) powderIndications:At hlete's foot on right Apply 1 Strip topically to affected area(s) four times daily. 60 g 09/23/2022 Active nystatin (MYCOSTATIN) creamIndications:Ath lete's foot on right Apply topically to affected area(s) two times daily. 30 g 09/23/2022 Active fluconazole (DIFLUCAN) 150 mg tabletIndications:At hlete's foot on right Take 1 Tablet (150 mg) by mouth once daily. 14 Tablet 09/23/2022 Active Active Problems Problem Noted Date Diagnosed Date De Quervain's tenosynovitis 01/14/2022 Status post de Quervain's release surgery, Right side 01/14/2022 De Quervain's tenosynovitis, right 09/25/2021 , delivered 02/08/2018 Deep transverse arrest, pers is occipitopost position, labor and del 04/01/2017 Normal labor and delivery 03/31/2017 Gestational diabetes mellitus (GDM) affecting pr egnancy 03/31/2017 Endometriosis 03/31/2011 Marijuana abuse 08/24/2009 Neck pain 08/24/2009 Major depression, recurrent 08/23/2009 Adjustment disorder with anxiety 08/23/2009 Back pain 08/23/2009 Resolved Problems Problem Noted Date Diagnosed Date Resolved Date Implanon in place 07/29/2011 03/31/2017 Immunizations Name Administration Dates Next Due Hepatitis B, Unspecified 08/20/2016 Human Papilloma Virus Vaccine 07/29/2011, 009,02/27/2007 Influenza A (H1N1), Inactivated 05/01/2009 Influenza A (H1N1), Inactiva cristi (Age >=3 Years) 05/01/2009 Influenza Virus, Unspecified 04/14/2015,04/03/20 09,05/14/2006 Influenza, IIV3 (Age >=3 years) 04/03/2009,05/14 Influenza, IIV4 04/14/2015 MMR 02/07/2018,09/27/1997 Rubella 08/20/2016 Td (Age >=7 Years) 09/27/1997 Tdap 12/02/2017, 7,07/29/2011,2009,09/27/1997 Social History Tobacco Use Types Packs/Day Years Used Date Smoking Tobacco: Some Days Cigarettes 0.3 10 Started: 07/15/2016 Smokeless Tobacco: Never Tobacco Cessation:Counseling Given: Yes Alcohol Use Standard Drinks/Week Comments No 0 (1 standard drink = 0.6 oz pur e alcohol) rare Sex and Gender Information Value Date Recorded Sex Assigned at Not on file Gender Identity Not on file Sexual Orientation Not on file Obstetrics History Para Term AB IAB SAB Ectopic Multiple Livin g Live Births 10 5 5 0 5 0 5 0 0 5 5 Date Outcome GA Total Labor Labor/2nd/3rd Weight Sex Type Anes PTL Theresa A1 A5 Name Clin 1999 Term 37w 0d 2.32 kg (5 lb 2 oz) F Vag Epidur al Livin g 2005 Term 37w 0d 2.69 kg (5 lb 15 oz) M Vag Epidur al Livin g 2007 SAB 10w 0d SPONTA NEOUS Comments:suction D&C 2008 Term 37w 0d 2.58 kg (5 lb 11 oz) F Vag Epidur al Livin g 2013 SAB 12w 0d SPONTA NEOUS Comments:suction D&C 2014 SAB SPONTA NEOUS Comments:SAB 2014 SAB 8w0 d SPONTA NEOUS Comments:suction D&C 2015 SAB 6w0 d SPONTA NEOUS 2016 Term 39w 1d 3.26 kg (7 lb 3 oz) F C-Sect ion Epidur al Livin g 9 9 BG SRINATH DUMONT TY Complications:Failure to Pro ratna in Second Stage Delivery Location:[facility] Comments:GDM, arrest o f descent 2017 Term 37w 1d 2.64 kg (5 lb 13.1 oz) F Induce d Epidur al N Livin g 7 8 TIM ,BG HONES TY Delivery Location:[facility]) Last Filed Vital Signs Vital Sign Reading Time Taken Comments Blood Pressure 122/90 09/23/2022 12:07 PM CDT Pulse 93 09/23/2022 12:07 PM CDT Temperature 37.2 ??C (98.9 ??F) 09/23/2022 12:07 PM C DT Respiratory Rate 16 09/23/2022 12:07 PM CDT Oxygen Saturation 98% 09/23/2022 12:07 PM CDT Inhaled Oxygen Concentration - - Weight 74.4 kg (164 lb) 09/23/2022 12:07 PM CDT Height 149.9 cm (4' 11.02) 09/23/2022 12:07 PM CDT Body Mass Index 33.11 09/23/2022 12:07 PM CDT Plan of Treatment Health Maintenance Due Date Last Done Comments Depression screening for age 12+ 1997 HIV for age 15-65 01/23/2000 Hepatitis C screening for age 18-79 2003 Pap test for age 21-65 07/29/2014 07/29/2011, 2011 BMI (ht and wt on same day) for age 18+ 03/20/2018 03/20/2017, 03/11/2017 COVID-19 vaccine series ( season) 2023 Influenza for age 9-49 02/15/2024 5, 04/14/2015, 05/01/2009, Additional history exists Tetanus booster 12/03/2027 12/02/2017, 06/2016, 07/29/2011, Additional history exists Tdap Completed 12/02/2017, 06/2016, 07/29/2011, Additional history exists Pneumococcal series for age 6-64 Aged Out No longer eligible based on patient's age to complete this topic Procedures Procedure Name Priority Date/Time Associated Diagnosis Comments MEDICAL RECORDS AUDITOR THIN PREP PAP SCREEN IMAGED Routine 07/29/2011 4:24 PM IRRIGATION LABORER Screening for cervical cancer from Last 3 Months or Most Recently Relevant to Health Maintenance Results * MEDICAL RECORDS AUDITOR THIN PREP PAP SCREEN IMAGED (07/29/2011 4:24 PM IRRIGATION LABORER) CYTOLOGY CYTOPATHOLOGY REPORT [facility] Status: Final Status ?[id number] CLINICAL INFORMATION Last Date of LMP ? :07/29/11 Last Pap Date ?:unknown Last Pap Result ?:NIL ABN [place]/Bx Past 5 YRS :None Hormone Usage ?:BCP/OCP/Patch/R ing Menstrual Status ? :Regular Periods [place]/Bx done today ? :No Additional Information :None given HPV Request ?:HPV if ASCUS SPECIMEN SOURCE ?:Cervical/vagina l ThinPrep Vial, screening SPECIMEN ADEQUACY ?:Satisfactory for evaluation No endocervical ? component seen. INTERPRETATION/RES ULT Negative for intraepithelial lesion or malignancy (NIL) Cytology 1st Screener ??:djs Signed by ?:djs This specimen was screened by the FDA approved ThinPrep Imaging System and manually reviewed. NOTE: ??The Pap test is a screening technique, not a diagnostic procedure. ??It is used ??primarily to screen for squamous cancers and precursor lesions. ??Published studies have shown that it is subject to both false negative and false positive results. ??The pap test should not be used as the sole means to diagnose or exclude pre-malignant and malignant lesions. COLLECTED:07/29/11 ? ACCESSIONED: ??07/30/11 ?? SIGNED: ??08/03/11 [facility] PAP [place] CODE NIL [facility] Tissue specimen (specimen) (Cervical/Vagina l) 07/29/2011 4:24 PM IRRIGATION LABORER 07/29/2011 4:18 PM IRRIGATION LABORER Allyn Swanson NP PATHOLOGY/CYTOLOGY [facility] INTERNAL ZIP [id number] [address] from Last 3 Months or Most Recently Relevant to Health Maintenance Advance Directives * Full Code (Latest Code Status on File) Date Activated Date Inactivated Comments 09/26/2021 7:30 AM 09/26/2021 1:56 PM Question Answer Comments Code Status Discussion: Not Discussed * Full Code Date Activated Date Inactivated Comments 02/09/2018 7:31 AM 02/09/2018 12:39 PM Question Answer Comments Code Status Discussion: Discussed * Full Code Date Activated Date Inactivated Comments 02/07/2018 6:01 AM 02/09/2018 2:04 AM Question Answer Comments Code Status Discussion: Discussed * Full Code Date Activated Date Inactivated Comments 04/01/2017 3:52 AM 04/03/2017 12:58 PM * Full Code Date Activated Date Inactivated Comments 04/01/2017 1:44 AM 04/01/2017 3:51 AM Care Teams Senior Android Developer Relationship Specialty Start Date End Date Preston Puga MBBS [address] [place] [address] [place] [address] PCP - General Family Practice 12/02/17
--- OUTSIDE RECORDS SUMMARY | 2024-01-01 08:45 | XMS_ITS | Encounter Summary ---
Author Organization [facility] Address [address] [place] [address] Care Team Providers Care Doweling Machine Operator Name Role Phone Preston Puga M.D. Primary Care P gretta Encounter Details Date Type Department Care Team (Late st Contact Info) Description 12/29/2023 Clinical Communication Department of Obstetrics and Gynecology in [place], [place] [address] [phone] Jona Goel Jr., M.D. [address] [place] [phone] Social History Tobacco Use Types Packs/Day [...] Family Three times a week 01/08/2019 Attends [employer] Services 1 to 4 times per year [...] Answer Date Recorded PHQ-2 Score 1 09/24/2021 [facility] - Occupational [...] encounter Miscellaneous Notes * Telephone Encounter - Kathy Jean R.N. - 12/29/2023 10:[address] Goel's message. She is currently being discharged and can present for appointment today. * Telephone Encounter - Kathy Jean R.N. - 12/29/2023 8:38 AM CDT ASSESSMENT Had kidney stone with cystoscopy and stent placement on 12/18/23. She was readmitted on 12/26/23 for severe pain and had stent exchanged yesterday. She is continuing to have pain and does not feel like she is being heard with care team in regards to her pain. She describes this as severe cramping. H/O endometriosis. She is requesting that Dr Goel call the care team to discuss pain management as hehas been her primary care provider for past 24 years. PLAN Disposition/Recommendation: notified provider and awaiting recommendations. Information/Education: patient/caller able to teach back. Caller agreeable to plan of care: yes. The following references were used: none. documented in this encounter Plan of Treatment Upcoming Encounters Date Type Department Care Team (Late st Contact Info) Description 02/17/2024 2:30 PM CDT Office Visit Department of Obstetrics and Gynecology in [place], [place] [address] [phone] Jona Goel Jr., M.D. [address] [phone] Discharge Disposition: Home or Self Care documented as of this encounter Visit Diagnoses Not on filedocumented in this encounter Additional Health Concerns Assessment Noted Time PHQ-9 Depression Total Score: 5 09/25/19 22 9:30 AM CDT documented as of this encounter Care Teams Doweling Machine Operator Relationship Specialty Start Date End Date Preston Puga M.B.B.S., M.D. [address] [place] [phone] PCP - General Family Medicine 09/05/17 documented as of this encounter
[2024-01-01 08:47] LABS: Bilirubin Total* 0.4 mg/dL (0.1-1.5); Creatinine* 0.7 mg/dL (0.5-1.5); Est. Creatinine Clearance* 105.34; Estimated Glomerular Filt Rate 113 ml/min
[2024-01-01 08:48] LABS: Alanine Aminotransferase* 13 U/L (4-35); Alkaline Phosphatase* 65 U/L (40-150); Anion Gap 8 mEq/L (7-15); Aspartate Amino Transferase* 19 U/L (12-35); Blood Urea Nitrogen* 15 mg/dL (5-24); Calcium* 8.9 mg/dL (8.4-10.6); Carbon Dioxide* 24 mmol/L (20-32); Glucose* 82 mg/dL (60-115)
[2024-01-01 08:57] LABS: RBC Urine >100 (0-2)
[2024-01-01 08:59] LABS: Bacteria Urine Few; Squamous Epithelial Cell Urine Few (None-Few)
[2024-01-01] MEDS: MORPHINE 4 MG/ML INJ IVP (09:46)
[2024-01-01 10:35] VITALS: BP 126/86; PULSE 92; RESP 18; TEMP 36.1
== END 2024-01-01 10:37 | disposition home or self-care (01) ==
PROVIDERS: Emergency Provider Student in an Organized Health Care Education/Training Program; PCP Family Medicine
DX: R10.9 Unspecified abdominal pain (principal)
CPT/HCPCS: 36415; 74177; 80048; 80053; 81001; 81025; 85025; 87086; 96361; 96374; 96375; 99283; 99284; 99285; J1885; J2270; J2405; J7120; Q9967

== ENCOUNTER 2024-06-08 10:47 | Emergency (ER) | payer MEDICAID, SELFPAY ==
[2024-06-08 10:55] VITALS: BP 115/79; PULSE 105; RESP 18; TEMP 36.1; O2SAT 97; BMI 27.2
--- NOTE | 2024-06-08 11:15 | ED_ITS ---
HPI - General Adult General Chief complaint: Urogenital Problems, Female Stated complaint: Right ovary pain Time Seen by Provider: 06/08/24 10:55 History of Present Illness HPI narrative: This 39-year-old female comes in with left lower quadrant abdominal pain. She states that she has been having pain for the past month but it became significantly worse yesterday after having a pelvic ultrasound. She states that she has endometriosis and the ultrasound report yesterday seemed to show possibility of adhesion between the bowel in the left ovary. There were no other significant findings on this altered sound report yesterday. The patient arrives here with reassuring vital signs. She states that she has been taking ibuprofen and hydroxyzine and is not getting any relief with these medicines. Related Data Home Medications ?Medication ?Instructions ?Recorded ?Confirmed albuterol sulfate 90 mcg/actuation 2 puff inhalation Q4H PRN 01/01/24 01/01/24 aerosol inhaler (Ventolin HFA) buspirone 7.5 mg tablet 7.5 mg PO BID anxiety 01/01/24 01/01/24 clonazepam 1 mg tablet 1 mg PO QID PRN anxiety attack 01/01/24 01/01/24 desvenlafaxine succinate 25 mg 25 mg PO DAILY 01/01/24 01/01/24 tablet,extended release 24 hr hydroxyzine HCl 25 mg tablet mg PO 01/01/24 lamotrigine 150 mg tablet 150 mg PO DAILY 01/01/24 01/01/24 oxycodone 10 mg tablet 10 mg PO BID PRN 01/01/24 01/01/24 tamsulosin 0.4 mg capsule 0.4 mg PO DAILY 01/01/24 01/01/24 Previous Rx's ?Medication ?Instructions ?Recorded hydrocodone 5 mg-acetaminophen 325 1 tab PO Q4-6H PRN pain #20 tabs 06/08/24 mg tablet Allergies Allergy/AdvReac Type Severity Reaction Status Date / Time No Known Drug Allergies Allergy Verified 06/08/24 11:00 Review of Systems Status of ROS: Reports: 10 or more systems reviewed and unremarkable except as noted in History and below Narrative: Constitutional: No fevers, no weight gain or loss. Eyes: No discharge. No vision changes. HENT: No congestion, no sore throat, no ear pain. Cardiovascular: No chest pain, no palpitations. Respiratory: No shortness of breath, no wheezes, no cough. Gastrointestinal: No vomiting, no diarrhea. Abdominal pain as described above. Genitourinary: No dysuria, no hematuria. Musculoskeletal: Normal range of motion. Skin: No rashes, no pruritis. Neurological: No dizziness, weakness, sensory change, speech change. Endo/Heme/Allergies: No bruising or bleeding. No polydipsia. Pysch: no suicidality, no anxiety, no insomnia. All other systems reviewed and are negative. PFSH PFS Social History Smoking Status: Never smoker Do you use any of these nicotine containing products: None Second hand tobacco smoke exposure: No How often do you have a drink containing alcohol: never How often do you have six or more drinks on one occasion: Never AUDIT-C Alcohol total score: 0 Non-prescribed substance use: denies use Exam Narrative: Exam Narrative: Constitutional: Well-developed, well-nourished, no acute distress. HEENT: Normocephalic, atraumatic. Neck: Normal range of motion. Nontender. Supple. Heart: Regular. No murmurs. Normal rate. Intact distal pulses. Lungs: Clear to auscultation. No chest discomfort. No wheezes, rhonchi, or rales. Abdomen: Normal bowel sounds. Diffuse tenderness in the left lower quadrant. No rebound tenderness. Genitalia: Deferred. Back: No midline tenderness. Normal range of motion. Extremities: Normal range of motion. No injury. Skin: Intact. No rash. Warm. No erythema or pallor. Neurologic: No altered sensation. No weakness. Alert and oriented. Psychiatric: No suicidality. No anxiety or depression. No insomnia. Nursing notes and vitals signs are reviewed. Const: Vital Signs, click to edit/add: Vital Signs - 24 hr 06/08/24 10:55 Temperature 97 F L Pulse Rate [Pulse Oximeter] 105 H Respiratory Rate 18 Blood Pressure [Ri ght Upper Arm] 115/79 Pulse Oximetry 97 Oxygen Delivery Me thod Room Air Course Vital Signs Vital signs: Initial Vital Signs Temperature 97 F L 06/08/24 10:55 Temperature Source Temporal Artery Scan 06/08/24 10:55 Pulse Rate 105 H 06/08/24 10:55 Respiratory Rate 18 06/08/24 10:55 Blood Pressure 115/79 06/08/24 10:55 Blood Pressure Mean 91 06/08/24 10:55 Blood Pressure Position Standing 06/08/24 10:55 Pulse Oximetry 97 06/08/24 10:55 Oxygen Delivery Method Room Air 06/08/24 10:55 Vital Signs Temperature 97 F L 06/08/24 10:55 Pulse Rate 105 H 06/08/24 10:55 Respiratory Rate 18 06/08/24 10:55 Blood Pressure 115/79 06/08/24 10:55 Pulse Oximetry 97 06/08/24 10:55 Oxygen Delivery Method Room Air 06/08/24 10:55 Temperature 97 F L 06/08/24 10:55 Pulse Rate 105 H 06/08/24 10:55 Respiratory Rate 18 06/08/24 10:55 Blood Pressure 115/79 06/08/24 10:55 Pulse Oximetry 97 06/08/24 10:55 Oxygen Delivery Method Room Air 06/08/24 10:55 Medical Decision Making MDM Narrative Medical decision making narrative: This patient has left lower quadrant pain that is been persistent over the past month but worsening recently after having a pelvic ultrasound yesterday. She arrives with reassuring vital signs and her exam is also reassuring. She does have follow-up plans with her primary doctors and there is a plan to have an MRI for further evaluation. She is not taking any additional pain medicines besides ibuprofen. It seems that her visit here is primarily for purposes of pain management. I did discuss lab and imaging options with the patient and these were declined in a process of shared decision making. She did receive an intramuscular injection of morphine 5 mg. I also provided a prescription for [place]. She understands that we will not refill this medicine out of the emergency department and ongoing of prescription pain medicine will need to come from her primary providers. Discharge Plan Discharge Clinical Impression: Abdominal pain Patient Disposition: Home w/ Parent or Adult Condition: Stable Additional Instructions: Take medication as needed and indicated. Follow up with primary physician's as scheduled and needed for ongoing management. Return if worsening. Prescriptions: New hydrocodone-acetaminophen 5-325 mg tablet 1 tab PO Q4-6H PRN (Reason: pain) Qty: 20 0RF No Action lamotrigine 150 mg tablet 150 mg PO DAILY clonazepam 1 mg tablet 1 mg PO QID PRN (Reason: anxiety attack) tamsulosin 0.4 mg capsule 0.4 mg PO DAILY buspirone 7.5 mg tablet 7.5 mg PO BID hydroxyzine HCl 25 mg tablet PO albuterol sulfate [Ventolin HFA] 90 mcg/actuation HFA aerosol inhaler 2 puff INHALATION Q4H PRN oxycodone 10 mg tablet 10 mg PO BID PRN desvenlafaxine succinate 25 mg tablet extended release 24 hr 25 mg PO DAILY Follow Up/Referrals: Preston Puga MD [Primary Care Provider] - Stand Alone Forms: [facility] Info Instructions
[2024-06-08] MEDS: MORPHINE 10 MG/ML inj 5 MG IM (11:31)
== END 2024-06-08 12:00 | disposition home or self-care (01) ==
LOC: ED 11:43
PROVIDERS: Emergency Provider Emergency Medicine Emergency Medical Services; PCP Family Medicine
DX: R10.9 Unspecified abdominal pain (principal)
CPT/HCPCS: 96372; 99284; J2270

== ENCOUNTER 2024-06-09 21:19 | Emergency (ER) | payer MEDICAID, SELFPAY ==
[2024-06-09 21:29] VITALS: BP 135/83; PULSE 108; RESP 16; TEMP 37.1; O2SAT 98; BMI 27.2
[2024-06-09] MEDS: ONDANSETRON 2 MG/ML inj 4 MG IVP (22:21)
[2024-06-09] MEDS: MORPHINE 4 MG/ML INJ IVP (22:21)
[2024-06-09] MEDS: 0.9 % SODIUM CHLORIDE 1000 ml 1,000 ML IV ×2 (22:21→23:28)
[2024-06-09 22:24] LABS: Appearance Urine Cloudy (Clear); Bilirubin Urine 1+ (Negative); Blood Urine Negative (Negative); Color Urine Yellow (Yellow); Glucose Urine Negative (Negative); Ketones Urine Negative (Negative); Leukocyte Esterase Urine Negative (Negative); Nitrite Urine Negative (Negative); Protein Urine 1+ (Negative); Specific Gravity Urine >= 1.030 (1.000-1.030); pH Urine 5.5 (5.0-8.5)
[2024-06-09 22:33] LABS: Basophils Absolute Auto 0.02 K/uL (0.00-0.30); Basophils Percent Auto 0.3 % (0.0-3.0); Eosinophils Percent Auto 3.1 % (0.0-7.0); Hemoglobin* 12.9 gm/dL (12.0-16.0); Immature Granulocytes Abs Auto 0.05 K/uL (0.00-0.30); Immature Granulocytes Pct Auto 0.8 %; Lymphocytes Absolute Auto 2.47 K/uL (0.90-2.90); Lymphocytes Percent Auto 38.1 % (20-44); Mean Corpuscular HGB Conc 32 gm/dL (32-36); Mean Corpuscular Hemoglobin 31 pg (26-34); Mean Corpuscular Volume 95 fL (80-100); Monocytes Percent Auto 4.6 % (0.0-11.0); Neutrophils Absolute Auto 3.45 K/uL (1.7-7.0); Neutrophils Percent Auto 53.1 % (42.0-72.0); Platelet Count* 234 K/uL (140-440); RDW Coefficient of Variation % 12.8 % (11.5-15.5); Red Blood Count 4.22 m/uL (4.00-5.20); White Blood Count* 6.49 K/uL (4.50-11.00)
[2024-06-09 22:35] LABS: Slide Review Reflex No
[2024-06-09 22:35] LABS: Bacteria Urine Few; RBC Urine 0-2 (0-2); Squamous Epithelial Cell Urine Few (None-Few); Ur HCG Qualitative* Negative (Negative); WBC Urine 0-2 (0-5)
--- NOTE | 2024-06-09 22:37 | ED_ITS ---
HPI - Abdominal Pain General Date Seen: 06/09/24 <Manuelito Sosa MD - Last Filed: 06/14/24 09:03> Chief Complaint: Urogenital Problems, Female <Manuelito Sosa MD - Last Filed: 06/14/24 09:03> Stated Complaint: diarrhea, endometriosis pain <Manuelito Sosa MD - Last Filed: 06/14/24 09:03> Time Seen by Provider: 06/09/24 21:39 <Manuelito Sosa MD - Last Filed: 06/14/24 09:03> Source: patient and family <Manuelito Sosa MD - Last Filed: 06/14/24 09:03> Mode of arrival: ambulatory <Manuelito Sosa MD - Last Filed: 06/14/24 09:03> Limitations: no limitations <Manuelito Sosa MD - Last Filed: 06/14/24 09:03> History of Present Illness HPI narrative: Patient is a 39-year-old female presents here with nausea vomiting and diarrhea, coupled with left-sided abdominal pain. She tells me she was in here yesterday for left-sided abdominal pain, given hydrocodone, for the discomfort she has history of a left-sided tethered ovary. Is due to have an MRI in follow-up for this for the likely possibility of endometriosis. She is followed by a physician over top on a [place] for this. See was seen yesterday primarily for pain management, given the hydrocodone.and profuse diarrhea since approximately 3:00 a.m. she has had diarrhea approximately 7-8 times, no blood within this. And also vomited at least 4-5 times also. Says her left-sided abdominal pain is worse now than it was before. Her pain however was managed up until the diarrhea started. Denies any fevers, but has felt chilled, says a role intake is down. Presents here with the significant other for evaluation. She was treated approximately week and half ago with an unknown antibiotic for UTI. 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 05/08/2015 D&c first trimester / tx incomplete / missed / septic / induced ? 10/16/2013 Laparoscopic appendectomy 2013 D&c first trimester / tx incomplete / missed / septic / induced ? 2011 Lasik 01/29/2008 D&c first trimester / tx incomplete / missed / septic / induced ? 2006 Laparoscopy diagnostic / biopsy / aspiration / lysis? 2006 [place] teeth extraction 11/29/1999 Cholecystectomy Date Unknown Endometrial ablation <Manuelito Sosa MD - Last Filed: 06/14/24 09:03> MD elicited complaint: abdominal pain <Manuelito Sosa MD - Last Filed: 06/14/24 09:03> Onset (ago): hour(s) <Manuelito Sosa MD - Last Filed: 06/14/24 09:03> Pain Consistency: constant <Manuelito Sosa MD - Last Filed: 06/14/24 09:03> Location: [facility] <Manuelito Sosa MD - Last Filed: 06/14/24 09:03> Severity: severe <Manuelito Sosa MD - Last Filed: 06/14/24 09:03> Quality: cramping, stabbing and aching <Manuelito Sosa MD - Last Filed: 06/14/24 09:03> Migration to: no migration <Manuelito Sosa MD - Last Filed: 06/14/24 09:03> Exacerbating factors: eating and movement <Manuelito Sosa MD - Last Filed: 06/14/24 09:03> Relieving factors: vomiting and medication <Manuelito Sosa MD - Last Filed: 06/14/24 09:03> Context: recent antibiotic use <Manuelito Sosa MD - Last Filed: 06/14/24 09:03> Treatments prior to arrival: prescription analgesics <Manuelito Sosa MD - Last Filed: 06/14/24 09:03> Related Data Patient : No <Manuelito Sosa MD - Last Filed: 06/14/24 09:03> Home Medications: Home Medications ?Medication ?Instructions ?Recorded ?Confirmed albuterol sulfate 90 mcg/actuation 2 puff inhalation Q4H PRN 01/01/24 06/09/24 aerosol inhaler (Ventolin HFA) buspirone 7.5 mg tablet 7.5 mg PO BID anxiety 01/01/24 06/09/24 clonazepam 1 mg tablet 1 mg PO QID PRN anxiety attack 01/01/24 06/09/24 desvenlafaxine succinate 25 mg 25 mg PO DAILY 01/01/24 06/09/24 tablet,extended release 24 hr hydroxyzine HCl 25 mg tablet mg PO 01/01/24 lamotrigine 150 mg tablet 150 mg PO DAILY 01/01/24 06/09/24 oxycodone 10 mg tablet 10 mg PO BID PRN 01/01/24 06/09/24 Previous Rx's ?Medication ?Instructions ?Recorded hydrocodone 5 mg-acetaminophen 325 1 tab PO Q4-6H PRN pain #20 tabs 06/08/24 mg tablet <Manuelito Sosa MD - Last Filed: 06/14/24 09:03> Allergies/Adverse Reactions: Allergies Allergy/AdvReac Type Severity Reaction Status Date / Time No Known Drug Allergies Allergy Verified 06/09/24 21:34 <Manuelito Sosa MD - Last Filed: 06/14/24 09:03> Review of Systems Status of ROS Reports: 10 or more systems reviewed and unremarkable except as noted in History and below <Manuelito Sosa MD - Last Filed: 06/14/24 09:03> [facility] Social History: Social History Smoking Status: Never smoker Do you use any of these nicotine containing products: None Second hand tobacco smoke exposure: No How often do you have a drink containing alcohol: never How often do you have six or more drinks on one occasion: Never AUDIT-C Alcohol total score: 0 Non-prescribed substance use: denies use <Manuelito Sosa MD - Last Filed: 06/14/24 09:03> Exam Narrative: Exam Narrative: On examination in room 6, she appears a to be in mild distress, speaking to me normally, oropharynx is normal, neck is supple no meningismus, TMs are normal, chest is good air entry bilateral with no wheezing crackles noted her abdomen is not peritoneal, some tenderness on the left side, but very distractible, bowel sounds are quiet. No CVA tenderness is noted she moves all extremities independently and well. <Manuelito Sosa MD - Last Filed: 06/14/24 09:03> Const: Vital Signs, click to edit/add: Vital Signs - 24 hr 06/09/24 21:29 06/10/24 00:39 Temperature 98.7 F Pulse Rate [Pulse Oximeter] 108 H 62 Respiratory Rate 16 16 Blood Pressure [Ri ght Upper Arm] 135/83 112/71 Pulse Oximetry 98 95 Oxygen Delivery Me thod Room Air Room Air <Manuelito Sosa MD - Last Filed: 06/14/24 09:03> Vital Signs, click to edit/add: Vital Signs - 24 hr 06/09/24 21:29 06/10/24 00:39 Temperature 98.7 F Pulse Rate [Pulse Oximeter] 108 H 62 Respiratory Rate 16 16 Blood Pressure [Ri ght Upper Arm] 135/83 112/71 Pulse Oximetry 98 95 Oxygen Delivery Me thod Room Air Room Air <Kathy Chapman MD - Last Filed: 06/10/24 01:00> Documenting provider has reviewed patient's vital signs: yes <Manuelito Sosa MD - Last Filed: 06/14/24 09:03> Course Reevaluation(s) Time of Reevaluation #1: 00:58 <Kathy Chapman MD - Last Filed: 06/10/24 01:00> Reevaluation #1: dr. Chapman- patient has had no stools or vomiting while here in the ED. Reports she is feeling better after the Zofran, pain meds and fluid. Counseled patient on the CT findings. No real abnormalities. Elevated liver enzymes could be from gastroenteritis or another etiology. I would like her to have outpatient follow-up in 1-2 weeks to recheck this. If persistently abnormal, MRCP is recommended. Written instructions regarding this are provided. We are seeing a lot of patients with gastroenteritis right now. Have recommended that she continue to push fluids. Prescription for Zofran given. She has not had any further stools here which makes C diff less likely. I do think it is safe for her to use Imodium, will give 1 dose prior to discharge in counseled on continuous use of this as needed. She will follow-up with her multi slide machine tender regarding her ongoing ovarian issues. Alarm symptoms that would warrant ED presentation are reviewed. She verbalizes understanding and agreement. <Kathy Chapman MD - Last Filed: 06/10/24 01:00> Vital Signs Vital signs: Initial Vital Signs Temperature 98.7 F 06/09/24 21:29 Temperature Source Temporal Artery Scan 06/09/24 21:29 Pulse Rate 108 H 06/09/24 21:29 Respiratory Rate 16 06/09/24 21:29 Blood Pressure 135/83 06/09/24 21:29 Blood Pressure Mean 100 06/09/24 21:29 Blood Pressure Position Sitting 06/09/24 21:29 Pulse Oximetry 98 06/09/24 21:29 Oxygen Delivery Method Room Air 06/09/24 21:29 Vital Signs Temperature 98.7 F 06/09/24 21:29 Pulse Rate 108 H 06/09/24 21:29 Respiratory Rate 16 06/09/24 21:29 Blood Pressure 135/83 06/09/24 21:29 Pulse Oximetry 98 06/09/24 21:29 Oxygen Delivery Method Room Air 06/09/24 21:29 Temperature 98.7 F 06/09/24 21:29 Pulse Rate 62 06/10/24 00:39 Respiratory Rate 16 06/10/24 00:39 Blood Pressure 112/71 06/10/24 00:39 Pulse Oximetry 95 06/10/24 00:39 Oxygen Delivery Method Room Air 06/10/24 00:39 <Manuelito Sosa MD - Last Filed: 06/14/24 09:03> Initial Vital Signs Temperature 98.7 F 06/09/24 21:29 Temperature Source Temporal Artery Scan 06/09/24 21:29 Pulse Rate 108 H 06/09/24 21:29 Respiratory Rate 16 06/09/24 21:29 Blood Pressure 135/83 06/09/24 21:29 Blood Pressure Mean 100 06/09/24 21:29 Blood Pressure Position Sitting 06/09/24 21:29 Pulse Oximetry 98 06/09/24 21:29 Oxygen Delivery Method Room Air 06/09/24 21:29 Vital Signs Temperature 98.7 F 06/09/24 21:29 Pulse Rate 108 H 06/09/24 21:29 Respiratory Rate 16 06/09/24 21:29 Blood Pressure 135/83 06/09/24 21:29 Pulse Oximetry 98 06/09/24 21:29 Oxygen Delivery Method Room Air 06/09/24 21:29 Temperature 98.7 F 06/09/24 21:29 Pulse Rate 62 06/10/24 00:39 Respiratory Rate 16 06/10/24 00:39 Blood Pressure 112/71 06/10/24 00:39 Pulse Oximetry 95 06/10/24 00:39 Oxygen Delivery Method Room Air 06/10/24 00:39 <Kathy Chapman MD - Last Filed: 06/10/24 01:00> Medications Administered Medications: Discontinued Medications Generic Name Dose Route Start Last Admin Trade Name Freq PRN Reason Stop Dose Admin Sodium Chloride 1,000 mls @ 1,000 mls/hr 06/09/24 22:15 06/09/24 23:20 0.9 % Sodium Chloride 1000 Ml IV 06/09/24 23:14 Infused .Q1H STEVE Infusion Sodium Chloride 1,000 mls @ 1,000 mls/hr 06/09/24 22:45 06/10/24 00:39 0.9 % Sodium Chloride 1000 Ml IV 06/09/24 23:44 Infused .Q1H STEVE Infusion Ketorolac Tromethamine 30 mg 06/09/24 22:42 06/09/24 22:55 Ketorolac 30 Mg/Ml Inj IVP 06/09/24 22:43 30 mg ONCE ONE Administration Loperamide HCl 2 mg 06/10/24 00:54 06/10/24 01:06 Loperamide Hcl 2 Mg Capsule PO 06/10/24 00:55 2 mg ONCE ONE Administration Morphine Sulfate 4 mg 06/09/24 22:02 06/09/24 22:21 Morphine 4 Mg/Ml Inj IVP 06/09/24 22:03 4 mg ONCE ONE Administration Ondansetron HCl 4 mg 06/09/24 22:02 06/09/24 22:21 Ondansetron 2 Mg/Ml Inj IVP 06/09/24 22:03 4 mg ONCE ONE Administration <Manuelito Sosa MD - Last Filed: 06/14/24 09:03> Discontinued Medications Generic Name Dose Route Start Last Admin Trade Name Freq PRN Reason Stop Dose Admin Sodium Chloride 1,000 mls @ 1,000 mls/hr 06/09/24 22:15 06/09/24 23:20 0.9 % Sodium Chloride 1000 Ml IV 06/09/24 23:14 Infused .Q1H STEVE Infusion Sodium Chloride 1,000 mls @ 1,000 mls/hr 06/09/24 22:45 06/10/24 00:39 0.9 % Sodium Chloride 1000 Ml IV 06/09/24 23:44 Infused .Q1H STEVE Infusion Ketorolac Tromethamine 30 mg 06/09/24 22:42 06/09/24 22:55 Ketorolac 30 Mg/Ml Inj IVP 06/09/24 22:43 30 mg ONCE ONE Administration Loperamide HCl 2 mg 06/10/24 00:54 06/10/24 01:06 Loperamide Hcl 2 Mg Capsule PO 06/10/24 00:55 2 mg ONCE ONE Administration Morphine Sulfate 4 mg 06/09/24 22:02 06/09/24 22:21 Morphine 4 Mg/Ml Inj IVP 06/09/24 22:03 4 mg ONCE ONE Administration Ondansetron HCl 4 mg 06/09/24 22:02 06/09/24 22:21 Ondansetron 2 Mg/Ml Inj IVP 06/09/24 22:03 4 mg ONCE ONE Administration <Kathy Chapman MD - Last Filed: 06/10/24 01:00> MDM - Abdominal Pain MDM Narrative Medical decision making narrative: During the evaluation of this patient I considered multiple differential diagnosis including life-threatening differentials which are appendicitis, aortic aneurysm, mesenteric ischemia, bowel perforation, ectopic , volvulus and bowel obstruction, other differential diagnosis include but are not limited to inflammatory bowel disease, cholecystitis, pancreatitis, hepatitis, gastritis, GERD, diverticulitis, peptic ulcer disease, pyelonephritis/UTI, renal colic/stone, pelvic inflammatory disease, cervicitis, endometritis, intrauterine , dysfunctional uterine bleeding, ovarian cyst/torsion, spontaneous as well as other etiologies Differential diagnosis includes but is not limited to viral gastroenteritis, drug food poisoning, pyloric stenosis, gastritis, pancreatitis, hepatitis, cholecystitis, appendicitis, bowel obstruction, hyperemesis, cyclic vomiting syndrome, bulimia nervosa, migraine headache, motion sickness and medication side effect. These include the life threatening complications of appendicitis, drug food poisoning and bowel obstruction. Differential diagnosis considered include but not limited to viral gastroenteritis, food poisoning, bowel obstruction, Clostridium difficile, Campylobacter, Shigella, rotavirus, medication side effects, dysentery, diverticulitis, Crohn's disease and colitis <Manuelito Sosa MD - Last Filed: 06/14/24 09:03> Differential Diagnosis Differential diagnosis: Likely abdominal pain, calculus of kidney, constipation, diverticulitis, endometriosis, gastroenteritis, pancreatitis and small bowel obstruction <Manuelito Sosa MD - Last Filed: 06/14/24 09:03> Medical Records Attestation: I reviewed the patient's medical records. <Manuelito Sosa MD - Last Filed: 06/14/24 09:03> Lab Data Attestation: I reviewed the patient's lab results. <Manuelito Sosa MD - Last Filed: 06/14/24 09:03> Lab results narrative: White count is normal hemoglobin is normal. Liver Transaminases are all up approximately 10 times. Urine is concentrated but no evidence of a UTI. Patient feels better after the Toradol and the morphine, were given her 2 L of fluids. I would recommend at this point a CT scanned and a sample for possible C diff. I discussed with the patient and she is in agreement. <Manuelito Sosa MD - Last Filed: 06/14/24 09:03> Labs: Lab Results 06/09/24 06/09/24 06/09/24 Range/Units 22:03 22:26 23:53 WBC 6.49 (4.50-11.00) K/uL RBC 4.22 (4.00-5.20) m/uL Hgb 12.9 (12.0-16.0) gm/dL Hct 40.0 (33.0-51.0) % MCV 95 (80-100) fL MCH 31 (26-34) pg MCHC 32 (32-36) gm/dL RDW Coeff of Dev 12.8 (11.5-15.5) % Plt Count 234 (140-440) K/uL Neut % (Auto) 53.1 (42.0-72.0) % Lymph % (Auto) 38.1 (20-44) % [place] % (Auto) 4.6 (0.0-11.0) % Eos % (Auto) 3.1 (0.0-7.0) % Baso % (Auto) 0.3 (0.0-3.0) % Neut # (Auto) 3.45 (1.7-7.0) K/uL Lymph # (Auto) 2.47 (0.90-2.90) K/uL [place] # (Auto) 0.30 (0.00-0.90) K/UL Eos # (Auto) 0.20 (0.00-0.50) K/uL Baso # (Auto) 0.02 (0.00-0.30) K/uL Abs Immat Gran (auto) 0.05 (0.00-0.30) K/uL Imm/Tot Granulo (auto) 0.8 % Sodium 138 (135-149) mmol/L Potassium 4.0 (3.6-5.1) mmol/L Chloride 105 (96-114) mmol/L Carbon Dioxide 26 (20-32) mmol/L Anion Gap 7 (7-15) mEq/L BUN 16 (5-24) mg/dL Creatinine 0.6 (0.5-1.5) mg/dL Estimated Creat Clear 117.18 Estimated GFR 117 ml/min Glucose 104 (60-115) mg/dL Calcium 8.6 (8.4-10.6) mg/dL Total Bilirubin 0.5 (0.1-1.5) mg/dL Direct Bilirubin 0.4 (0.0-0.5) mg/dL AST 146 H (12-35) U/L ALT 267 H (4-35) U/L Alkaline Phosphatase 126 (40-150) U/L C-Reactive Protein 1.5 H (0.5-1.0) mg/dL Total Protein 7.1 (6.0-8.3) g/dL Albumin 4.3 (3.3-5.0) g/dL Lipase 97 (23-300) U/L Urine Color Yellow (Yellow) Urine Appearance Cloudy A (Clear) Urine pH 5.5 (5.0-8.5) Ur Specific [place] >= 1.030 (1.000-1.030) Urine Protein 1+ A (Negative) Urine Glucose (UA) Negative (Negative) Urine Ketones Negative (Negative) Urine Blood Negative (Negative) Urine Nitrite Negative (Negative) Urine Bilirubin 1+ A (Negative) Urine Urobilinogen 1.0 (0.2-1.0) Ur Leukocyte Esterase Negative (Negative) Urine RBC 0-2 (0-2) Urine WBC 0-2 (0-5) Ur Squamous Epith Cells Few (None-Few) Urine Bacteria Few A (None) Urine HCG, Qual Negative (Negative) SARS-CoV-2 (PCR) Negative SARS-CoV-2 (Negative) Influenza Type A (PCR) Negative PCR FLU A (Negative) Influenza Type B (PCR) Negative PCR FLU B (Negative) RSV (PCR) Negative PCR RSV (Negative) <Manuelito Sosa MD - Last Filed: 06/14/24 09:03> Lab Results 06/09/24 06/09/24 06/09/24 Range/Units 22:03 22:26 23:53 WBC 6.49 (4.50-11.00) K/uL RBC 4.22 (4.00-5.20) m/uL Hgb 12.9 (12.0-16.0) gm/dL Hct 40.0 (33.0-51.0) % MCV 95 (80-100) fL MCH 31 (26-34) pg MCHC 32 (32-36) gm/dL RDW Coeff of Dev 12.8 (11.5-15.5) % Plt Count 234 (140-440) K/uL Neut % (Auto) 53.1 (42.0-72.0) % Lymph % (Auto) 38.1 (20-44) % [place] % (Auto) 4.6 (0.0-11.0) % Eos % (Auto) 3.1 (0.0-7.0) % Baso % (Auto) 0.3 (0.0-3.0) % Neut # (Auto) 3.45 (1.7-7.0) K/uL Lymph # (Auto) 2.47 (0.90-2.90) K/uL [place] # (Auto) 0.30 (0.00-0.90) K/UL Eos # (Auto) 0.20 (0.00-0.50) K/uL Baso # (Auto) 0.02 (0.00-0.30) K/uL Abs Immat Gran (auto) 0.05 (0.00-0.30) K/uL Imm/Tot Granulo (auto) 0.8 % Sodium 138 (135-149) mmol/L Potassium 4.0 (3.6-5.1) mmol/L Chloride 105 (96-114) mmol/L Carbon Dioxide 26 (20-32) mmol/L Anion Gap 7 (7-15) mEq/L BUN 16 (5-24) mg/dL Creatinine 0.6 (0.5-1.5) mg/dL Estimated Creat Clear 117.18 Estimated GFR 117 ml/min Glucose 104 (60-115) mg/dL Calcium 8.6 (8.4-10.6) mg/dL Total Bilirubin 0.5 (0.1-1.5) mg/dL Direct Bilirubin 0.4 (0.0-0.5) mg/dL AST 146 H (12-35) U/L ALT 267 H (4-35) U/L Alkaline Phosphatase 126 (40-150) U/L C-Reactive Protein 1.5 H (0.5-1.0) mg/dL Total Protein 7.1 (6.0-8.3) g/dL Albumin 4.3 (3.3-5.0) g/dL Lipase 97 (23-300) U/L Urine Color Yellow (Yellow) Urine Appearance Cloudy A (Clear) Urine pH 5.5 (5.0-8.5) Ur Specific [place] >= 1.030 (1.000-1.030) Urine Protein 1+ A (Negative) Urine Glucose (UA) Negative (Negative) Urine Ketones Negative (Negative) Urine Blood Negative (Negative) Urine Nitrite Negative (Negative) Urine Bilirubin 1+ A (Negative) Urine Urobilinogen 1.0 (0.2-1.0) Ur Leukocyte Esterase Negative (Negative) Urine RBC 0-2 (0-2) Urine WBC 0-2 (0-5) Ur Squamous Epith Cells Few (None-Few) Urine Bacteria Few A (None) Urine HCG, Qual Negative (Negative) SARS-CoV-2 (PCR) Negative SARS-CoV-2 (Negative) Influenza Type A (PCR) Negative PCR FLU A (Negative) Influenza Type B (PCR) Negative PCR FLU B (Negative) RSV (PCR) Negative PCR RSV (Negative) <Kathy Chapman MD - Last Filed: 06/10/24 01:00> Imaging Data CT scan - abdomen: Attestation: I have reviewed the pertinent imaging results. <Kathy Chapman MD - Last Filed: 06/10/24 01:00> My impression: Normal CT. No ovarian cyst, obstruction, obstructive kidney stone, appendicitis, diverticulitis or other acute abnormality. The biliary ducts do look a bit dilated but this can be relatively normal post cholecystectomy. No other major findings in the liver. <Kathy Chapman MD - Last Filed: 06/10/24 01:00> Radiologist's impression: IMPRESSION: 1. Mild intrahepatic biliary ductal dilatation, likely minimally increased compared to previous exams. Finding is nonspecific. Further characterization with MRCP can be pursued as clinically warranted. 2. Bilateral nonobstructing renal calculi, as above. No hydronephrosis or hydroureter. <Kathy Chapman MD - Last Filed: 06/10/24 01:00> Discharge Plan Discharge Clinical Impression: Gastroenteritis, Elevated liver enzymes <Manuelito Sosa MD - Last Filed: 06/14/24 09:03> Patient Disposition: Home w/ Parent or Adult <Manuelito Sosa MD - Last Filed: 06/14/24 09:03> Condition: Improved <Manuelito Sosa MD - Last Filed: 06/14/24 09:03> Instructions: Gastroenteritis (DC) <Manuelito Sosa MD - Last Filed: 06/14/24 09:03> Additional Instructions: As we discussed, your CT looks great. There are no signs of significant abnormality. Your blood work did show a moderate elevation in your liver enzymes, but not in an obstructive pattern. This is most likely from the gastroenteritis causing your vomiting and diarrhea. Your given a dose of Imodium here in the emergency department. This should help slow the diarrhea somewhat. I am glad you have not had any further stools or vomiting while here. Your given IV fluids and a dose of Zofran which is an anti nausea medication. I would like for you to continue taking that anti nausea medicine up to every 6 hours. Please automatically take another dose at 5:00 a.m. today, then you may continue taking it every 6 hours still have nausea and vomiting. Continue to push fluids. You may use [id number] Imodium for diarrhea if needed. Please make a follow-up appointment in 1-2 weeks with your primary care doctor to have your liver enzymes rechecked. If this is still abnormal, they would need to order an MRCP and or consult a specialist. Most likely, these will be normal at your recheck. Please follow-up with her multi slide machine tender regarding your ovarian issues. There were no signs of emergencies with this today. The hydrocodone that your previously given for pain may be used if needed. He may also continue to use Tylenol 1000 mg every 6 hours and/or ibuprofen 600 mg every 6 hours. <Manuelito Sosa MD - Last Filed: 06/14/24 09:03> Activity Level: No Restrictions <Manuelito Sosa MD - Last Filed: 06/14/24 09:03> No Restrictions <Kathy Chapman MD - Last Filed: 06/10/24 01:00> Discharge Diet: Regular <Manuelito Sosa MD - Last Filed: 06/14/24 09:03> Regular <Kathy Chapman MD - Last Filed: 06/10/24 01:00> Prescriptions: No Action lamotrigine 150 mg tablet 150 mg PO DAILY clonazepam 1 mg tablet 1 mg PO QID PRN (Reason: anxiety attack) buspirone 7.5 mg tablet 7.5 mg PO BID hydroxyzine HCl 25 mg tablet PO albuterol sulfate [Ventolin HFA] 90 mcg/actuation HFA aerosol inhaler 2 puff INHALATION Q4H PRN oxycodone 10 mg tablet 10 mg PO BID PRN desvenlafaxine succinate 25 mg tablet extended release 24 hr 25 mg PO DAILY hydrocodone-acetaminophen 5-325 mg tablet 1 tab PO Q4-6H PRN (Reason: pain) Qty: 20 0RF <Manuelito Sosa MD - Last Filed: 06/14/24 09:03> Follow Up/Referrals: Provider,Not a Local [Primary Care Provider] - <Manuelito Sosa MD - Last Filed: 06/14/24 09:03> Stand Alone Forms: My[facility] Info Instructions <Manuelito Sosa MD - Last Filed: 06/14/24 09:03>
[2024-06-09 22:55] LABS: C Reactive Protein* 1.5 mg/dL (0.5-1.0)
[2024-06-09] MEDS: KETOROLAC 30 MG/ML inj IVP (22:55)
[2024-06-09 23:02] LABS: Albumin* 4.3 g/dL (3.3-5.0); Chloride* 105 mmol/L (96-114); Sodium* 138 mmol/L (135-149)
[2024-06-09 23:04] LABS: Creatinine* 0.6 mg/dL (0.5-1.5); Est. Creatinine Clearance* 117.18; Estimated Glomerular Filt Rate 117 ml/min
[2024-06-09 23:05] LABS: Anion Gap 7 mEq/L (7-15); Aspartate Amino Transferase* 146 U/L (12-35); Bilirubin Direct* 0.4 mg/dL (0.0-0.5); Bilirubin Total* 0.5 mg/dL (0.1-1.5); Carbon Dioxide* 26 mmol/L (20-32); Total Protein* 7.1 g/dL (6.0-8.3)
[2024-06-09 23:06] LABS: Alanine Aminotransferase* 267 U/L (4-35); Blood Urea Nitrogen* 16 mg/dL (5-24)
[2024-06-09 23:07] LABS: Alkaline Phosphatase* 126 U/L (40-150); Calcium* 8.6 mg/dL (8.4-10.6); Glucose* 104 mg/dL (60-115); Lipase* 97 U/L (23-300)
--- NOTE | 2024-06-09 23:28 | CRLHL7_ITS ---
For Patients: As a result of the Century Cures Act, medical imaging exams and procedure reports are released immediately into your electronic medical record. You may view this report before your referring provider. If you have questions, please contact your health care provider. INDICATION: Abdominal pain, vomiting, diarrhea, transaminitis. TECHNIQUE: CT abdomen and pelvis acquired with 64 cc Omnipaque 370 IV contrast. COMPARISON: CT abdomen and pelvis 12/27/2023. CT abdomen pelvis 05/23/2024. FINDINGS: Lower chest: Unremarkable. Liver: Unremarkable. Gallbladder and bile ducts: Cholecystectomy. Mild intrahepatic biliary ductal dilatation is likely minimally increased compared to prior exams. Pancreas: Unremarkable. Spleen: Unremarkable Adrenal glands: Unremarkable Kidneys: Nonobstructing left upper pole renal calculus measuring 6 mm. Nonobstructing right upper pole renal calculus measuring 3 mm. No hydronephrosis or hydroureter. No suspicious renal lesion. GI tract: No bowel obstruction. No suspicious bowel wall thickening. No CT evidence of acute appendicitis. Vasculature: Abdominal aorta is normal in caliber. Mesenteric arteries are patent. Lymph nodes: No suspicious lymphadenopathy. Peritoneum/Abdominal Wall: No ascites or pneumoperitoneum. Pelvis: No suspicious adnexal mass. Normal bladder. Bones: No acute abnormality. IMPRESSION: 1. Mild intrahepatic biliary ductal dilatation, likely minimally increased compared to previous exams. Finding is nonspecific. Further characterization with MRCP can be pursued as clinically warranted. 2. Bilateral nonobstructing renal calculi, as above. No hydronephrosis or hydroureter. Please note that all CT scans at this facility use dose modulation, iterative reconstruction, and/or weight-based dosing when appropriate to reduce radiation dose to as low as reasonably achievable. Dictated by Leighton Rea MD @ 06/10/2024 12:42:11 AM (Electronically Signed)
[2024-06-10 00:39] VITALS: BP 112/71; PULSE 62; RESP 16; O2SAT 95
[2024-06-10 00:40] LABS: PCR FLU A Negative PCR FLU A (Negative); PCR FLU B Negative PCR FLU B (Negative); PCR RSV Negative PCR RSV (Negative); SARS PCR* Negative SARS-CoV-2 (Negative)
[2024-06-10] MEDS: LOPERAMIDE HCL 2 MG CAPSULE PO (01:06)
== END 2024-06-10 01:11 | disposition home or self-care (01) ==
PROVIDERS: Family Medicine; Emergency Provider Family Medicine
DX: K52.9 Noninfective gastroenteritis and colitis, unspecified (principal); R74.8 Abnormal levels of other serum enzymes
CPT/HCPCS: 36415; 74177; 80048; 80076; 81001; 81025; 83690; 85025; 86140; 87086; 87493; 87631; 96361; 96374; 96375; 99284; 99285; A9270; J1885; J2270; J2405; J7030; Q9967

== ENCOUNTER 2024-12-31 19:23 | Emergency (ER) | payer MEDICAID, SELFPAY ==
--- OUTSIDE RECORDS SUMMARY | 2009-11-15 12:00 | XMS_ITS | Continuity of Care Document ---
Author Organization NICKO Martin Address [address] [place] [address] Phone Care Team Providers Care Utilities Manager Name Role Phone O Doreen Seymour PT Unavailable Unavailabl e Medications Medication Instructions Dosage Effective Dates (start - stop) Status Comments Ativan 1 mg Tab As needed - Active CYMBALTA 60MGCAPSULE Take one tablet by mouth daily (1T PO QD) - Active ibuprofen 600 mg Tab As needed max 4,000mg per day - Active Tylenol Extra Strength 500 mg Tab As needed max 4,000 mg per day - Active doxycycline hyclate 100 mg Cap Take one capsule by mouth twice per day (1CAP PO BID) - Active metronidazole 500 mg Tab Take one tablet by mouth two times per day (1T PO BID) - Active Vistaril 50 mg Cap see instructions1 Cap every 8 hours as needed for withdrawl symptoms Called into Pharmacy at [phone] - No Longer Active Lidoderm 5 % (700 mg/patch) Adhesive Patch Apply 1 patch to skin for up to 12 hours out of a 24 hour period (1 Patch 06/08) - No Longer Active Procedures Procedure Date Offic/outpt E&m Estab Mod-hi 2 10 New Pt Eval 45 Min Advance Directives Directive Yes / No Effective Date File Name No Information Encounters Encounter Description Practice Location Reason(s) For Visit Diagnoses Date Provider Providers Copied on Encounter NICKO Martin, [address], [place], [place], [id number], [place] tel:[phone] [facility] No Information 0 Mecca Logan. [address], [address], [place], [place], [id number], [place]. tel:[phone] Referring Provider: Ming Cruz MD, [address] [facility], [place], [address]. tel:[phone] [facility], [address], [place], [place], [id number], tel:[phone] [facility] No Information Jj-0 2-201 0 No Information Referring Provider: Ming Cruz MD, [address] [place] [address] [facility], [place], [address]. tel:[phone] Offic/outpt E&m Estab Mod-hi 2 [facility], [address], [place], [place], [id number], tel:[phone] [facility] No Information 0 No Information Referring Provider: Ming Cruz MD, [address] [place] [address] [facility], [place], [address]. tel:[phone] New Pt Eval 45 Min [facility], [address], [place], [place], [id number], tel:[phone] [facility] No Information 3-201 0 No Information Referring Provider: Ming Cruz MD, [address] [place] [address] [facility], [place], [address]. tel:[phone] Family History Family Member Type Diagnosis Age At Onset No Information Payers Payer name Insurance type Covered green party ID Authorabida mason(s) [facility]-Medicaid [id number] Social History Type Description Quantity Date Captured Comments Sex Female Smoking Status No Information Chief Complaint And Reason For Visit No Information Reason For Referral Reason For Referral No Information History Of Present Illness Encounter Date Complaint History Of Prese nt Illness No Information Functional Status Date Functional Assessmen t No Information Instructions Date Instruction Additional Infor mation No Information Assessments Type Assessment Date No Information Patient Care Teams Name Effective Dates (start - stop) Status Members No Information
--- OUTSIDE RECORDS SUMMARY | 2009-11-15 12:00 | XMS_ITS | Continuity of Care Document ---
Author Organization NICKO Martin Address [address] [place] [address] Phone Care Team Providers Care Neck Skewer Name Role Phone O Doreen Seymour PT Unavailable Unavailabl e Medications Medication Instructions Dosage Effective Dates (start - stop) Status Comments CYMBALTA 60MGCAPSULE Take one tablet by mouth [...] per day (1T PO BID) - Active Ativan 1 mg Tab As needed - Active Vistaril 50 mg Cap see instructions1 Cap every 8 hours as needed for withdrawl symptoms Called into Pharmacy at [phone] - No Longer Active Lidoderm 5 % [...] Providers Copied on Encounter NICKO Martin, [address], [facility], [place], [id number], [place] tel:[phone] [facility] No Information 0 Mecca Logan. [address], [place], [place], [address], [place]. tel:[phone] Referring Provider: Ming Cruz MD, [address] [facility], [place], [address]. tel:[phone] [facility], [address], [place], [place], [id number], tel:[phone] [facility] No Information Jj-0 2-201 0 No Information Referring Provider: Ming Cruz MD, [address] [place] [address] [address] [facility], [place], [address]. tel:[phone] Offic/outpt E&m Estab Mod-hi 2 [facility], [address], [place], [place], [id number], tel:[phone] [facility] No Information 0 No Information Referring Provider: Ming Cruz MD, [address] [place] [address] [facility], [place], [address]. tel:[phone] New Pt Eval 45 Min [facility], [address], [place], [place], [id number], tel:[phone] [facility] No Information 3-201 0 No Information Referring Provider: Ming Cruz MD, [address] [place] [address] [facility], [place], [address]. tel:[phone] Family History Family Member Type Diagnosis Age At Onset No Information Payers Payer name Insurance type Covered libertarian ID Authorabida mason(s) [facility]-Medicaid [id number] Social History Type Description Quantity Date Captured [...]
--- OUTSIDE RECORDS SUMMARY | 2024-12-31 19:26 | XMS_ITS | Encounter Summary ---
Author Organization [facility] Address [address] [place] [address] Care Team Providers Care Software Project Engineer Name Role Phone Camden Herrera MD Primary Care Provider [phone] Encounter Details Date Type Department Care Team (Late st Contact Info) Description 11/02/2014 Scanned History External to Transferred Record, Provider PATTI PSYCHIATRY AND PSYCH Social History Tobacco Use Types Packs/Day Years Used Date Smoking Tobacco: Some Days Cigarettes Smokeless Tobacco: Never Alcohol Use Standard Drinks/Week Comments No 0 (1 standard drink = 0.6 oz pur e alcohol) Comments No Sex and Gender Information Value Date Recorded Sex Assigned at Not on file Legal Sex Female 7:09 AM CDT Gender Identity Not on file Sexual Orientation Not on file 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
--- OUTSIDE RECORDS SUMMARY | 2024-12-31 19:26 | XMS_ITS | Clinical Summary ---
Author Organization [facility] Address [address] [place] [address] Care Team Providers Care Cafeteria Manager Name Role Phone Preston Puga M.D. Primary Care P gretta Source Comments Patient records contain information from all sites at [facility]. For routine questions regarding patient records, call [phone] during business hours, M-F 8:00 AM - 5:00 PM Central Time. Record requests for emergency care only can be directed to [phone] at any time.[facility] Allergies Active Allergy Reactions Criticality Noted Date Comments Cefoxitin Rash 03/31/2017 Escitalopram Oxalate Extrapyramidal Symptoms Hydrocodone-Acetaminop hen Other (see comments) 02/28/2016 Lactose Other (see comments) 09/20/2009 No reaction listed in [facility]ner Sertraline Other (see comments),Shortness of breath (Reselect Reaction) High 09/22/2010 No reaction listed in [employer] Medications ibuprofen (ADVIL,MOTRIN ) 200 mg tablet Take 200 mg by mouth as needed for pain. Active fluticasone propion-salme teroL (ADVAIR HFA) 115-21 mcg/actuation inhaler Inhale 2 puffs. 09/20/19 21 Active clotrimazole (LOTRIMIN) 1 % cream Apply 1 application topically 2 (two) times a day. Apply to affected area of foot. 30 g 09/25/19 23 Active acetaminophen (TylenoL) 500 mg tablet Take 500-1,000 mg by mouth. 12/29/19 24 Active clonazePAM (KlonoPIN) 2 mg tablet Take 0.5 tablets by mouth 3 (three) times a day as needed. 12/09/19 24 Active clonazePAM (KlonoPIN) 1 mg tablet TAKE 1 TABLET BY MOUTH FOUR TIMES DAILY NEEDED FOR ANXIETY OR SEVERE ANXIETY 10/30/19 24 Active lamoTRIgine (LaMICtaL) 150 mg tablet Take 1 tablet by mouth daily. 12/09/19 24 Active dextroampheta mine-amphetam ine (AdderalL) 20 mg tablet Take 1 tablet by mouth 3 (three) times a day. 12/09/19 24 Active hydrOXYzine (Atarax) 25 mg tablet Take 1 tablet (25 mg total) by mouth 3 (three) times a day as needed for itching. 30 tablet 05/23/20 24 Active ondansetron (Zofran) 4 mg tabletIndicat ions:Pain Pelvic Female Take 1 tablet (4 mg total) by mouth every 8 (eight) hours as needed for nausea or vomiting. 20 tablet 1 06/21/19 25 Active Nystop 100,000 unit/gram powderIndicat ions:Tinea Pedis Apply topically 4 (four) times a day. 60 g 3 09/18/19 25 Active guanFACINE (Intuniv ER) 2 mg 24 hr tablet Take 2 mg by mouth at bedtime. 10/23/19 25 Active norethindrone -ethinyl estradiol (Loestrin ,) 1-20 mg-mcg per tablet Take 1 tablet by mouth daily. 84 tablet 11/04/19 25 Active naproxen sodium (Anaprox DS) 550 mg tablet Take 1 tablet (550 mg total) by mouth 2 (two) times a day with meals. 30 tablet 11 11/04/19 25 026 Active naproxen (Naprosyn) 500 mg tabletIndicat ions:Pain Pelvic Female TAKE 1 TABLET(500 MG) BY MOUTH TWICE DAILY WITH MEALS 30 tablet 1 12/04/19 25 Active albuterol 90 mcg/actuation inhalerIndica tions:Asthma Tobacco User (HCC) Inhale 2 puffs every 4 (four) hours as needed for wheezing or shortness of breath. 18 g 1 12/07/19 25 Active nystatin (Mycostatin) 100,000 unit/gram creamIndicati ons:Tinea Pedis Apply topically as needed (rash). 30 g 1 12/07/19 25 Active albuterol 90 mcg/actuation inhalerIndica tions:Asthma Tobacco User (HCC) Inhale 2 puffs every 4 (four) hours as needed for wheezing or shortness of breath. 1 g 3 09/23/19 24 025 Discontinued(Re order) nystatin (MYCOSTATIN) 100,000 unit/gram creamIndicati ons:Tinea Pedis Apply topically as needed (rash). 30 g 3 09/23/19 24 025 Discontinued(Re order) naproxen (Naprosyn) 500 mg tabletIndicat ions:Pain Pelvic Female Take 1 tablet (500 mg total) by mouth 2 (two) times a day with meals. 30 tablet 1 06/21/19 25 025 Discontinued Hospital, Clinic, or Other Facility Administered Medication Ordered Dose Route Frequency Start Date End Date Status medroxyPROGESTERone injection 150 mgIndications:Manageme nt Contraception By Injection 150 mg IM Every 3 months 12/13/2022 12/02/2024 Ended medroxyPROGESTERone injection 150 mgIndications:Pain Pelvic Female,Dysmenorrhea 150 mg IM Every 3 months 09/23/2023 12/16/2024 E nded Active Problems Patient Care Coordination No te Formatting of this note migh t be different from the original. OB education completed. Pre-reg completed at [facility] OB Problem List 1 History of prior section x 1 (2017) 2 A2 Gestational diabetes, insulin controlled 3 Obesity with BMI 35 4 Positive GBS culture 5 EDC 02/27/2018 set by 23 week ultrasound LMP: unknown IVA by 23 wk us: 02/27/2018 Hospital for Delivery: [facility] 's provider: Dr. Gee OB labs Blood type: O Positive Antibody screen: Negative HBsAg: Negative HIV: Negative Syphilis: Negative Rubella: Equivocal TSH: 1.0 Hgb: 11.6 Hct: 35.3 Platelets: 338 Glucose screen: 98/220/196/124 GBS culture: Positive Problem Noted Date Diagnosed Date Counseling Sterilization 02/17/2024 Overview (02/17/2024): Federal sterilization permit signed December 17 2023. Patient understands permanence of procedure. Pain Generalized Abdominal 02/17/2024 Pyelonephritis 12/27/2023 DeQuervain's Tenosynovitis 09/25/2021 Pain Pelvic Female 04/24/2021 Overview (11/03/2024): History of endometriosis treated laparoscopically in the past - noted in notes but no operative report can be found. Currently on Depo-Provera and not having bleeding. Recent gonorrhea chlamydia, UA, CBC all negative for evidence of infection. Recent ultrasound and MRI essentially normal, other than mild asymmetric thickening of the right uterosacral ligament. No evidence endometriosis on laparoscopy in February of 2024 or on the pathology of the fallopian tubes removed at that surgery. Diffuse tenderness on pelvic and abdominal examination and in the left inguinal area. Discussed the symptomatology with Kathy Johnson, nurse practitioner. Referral to pelvic floor physical therapy at [facility]. Discuss starting gabapentin for likely neuropathic pain, but she declines this stating that she did not tolerate it well in the past. We will start her naproxen at this time instead, b.i.d.. Urinalysis and CBC ordered today due to the persistent nausea and chills with hot flashes. She does endorse some urinary symptoms including frequency and urgency, so we will have her see Kathy Johnson in consultation for this pelvic pain with associated urinary symptoms. 11/03/2021: Patient did start physical therapy with [facility] but needs a repeat ordered. She is not late for her Depo-Provera shot but has had tubal sterilization. She is having some irregular bleeding and we would like to supplement the Depo-Provera with control pills. We will do that short term to see if we can improve her symptoms. Cannabis Use Unspecified Uncomplicated 7 Overview (02/02/2018): Overview: Prior to diagnosis. Consult with Clarita Ayala, [facility] Has quit both thc and cigarettes. Repeat drug screen 01/14/2017 negative Obesity Body Mass Index 30-39.9 Adult 08/20/2016 Anxiety 05/31/2014 Overview (05/20/2018): Overview: See panic diagnosis Overview: See panic diagnosis Panic Disorder With Agoraphobia 05/31/2014 Overview (05/20/2018): Overview: Not currently using Ativan. Attention Deficit Hyperactive Disorder 3 Overview (05/20/2018): Overview: No medications currently. Overview: No medications currently. Nicotine Dependence Unspecified 09/02/2012 Abdominal Pain 08/23/2009 Major Depressive Disorder, Recurrent, Unspecifie d 08/23/2009 Resolved Problems Problem Noted Date Diagnosed Date Resolved Date Positive Group B Streptococcus 02/02/2018 07/02/2019 Maternal Care For Low Transv erse Scar From Previous Delivery 01/15/2018 07/02/2019 Diabetes Mellitus Gestationa l Insulin Controlled 02/10/2017 07/02/2019 Endometriosis 03/31/2011 02/02/2018 Cyst Ovary 09/12/2010 02/02/2018 Dysthymia 03/07/2010 02/02/2018 Overview (11/05/2016): Anxiety With Depression Pain Cervical 08/24/2009 02/02/2018 Adjustment Disorder With Anxious Mood 08/23/2009 02/02/2018 Encounters Date Type Department Care Team Description 12/06/2024 Refill Department of Obstetrics and Gynecology in [place], [place] [address] [phone] Carmela Velez M.D. Med Refill 11/29/2024 Refill Department of Obstetrics and Gynecology in [place], [place] [address] [place] [phone] Tracy Womack M.D. Med Refill 11/03/2024 1:30 PM CDT Office Visit Department of Obstetrics and Gynecology in [place], [place] [address] [place] [phone] Jona Goel Jr., M.D. Pain Pelvic Female from Last 3 Months Immunizations Immunization Administration Dates Next Due 4vHPV (discontinued) 07/29/2011,07/15/2008,02/27 [...] Abused No 11/17/2018 Sexually Abused No 11/17/2018 Hunger Vital Sign Answer Date Recorded Worried [...] PHQ-9 Total Score (max 27) 5 09/24 Education Answer Date Recorded What is the highest level of school you have completed or the highest degree you have received? Some college, no degree 11/17/2018 Comments No Sex and Gender Information Value Date Recorded Sex Assigned at Not on file Legal Sex Female 9:55 PM MENTAL HEALTH AIDES TEACHER Gender Identity Not on file Sexual Orientation Not on file Last Filed Vital Signs Vital Sign Reading Time Taken Comments Blood Pressure 92/67 11/03/2024 1:31 PM CDT Pulse 78 11/03/2024 1:31 PM CDT Temperature 36.4 C (97.5 F) 05/23/2024 1:44 PM MENTAL HEALTH AIDES TEACHER Respiratory Rate 20 05/23/2024 1:44 PM MENTAL HEALTH AIDES TEACHER Oxygen Saturation 98% 09/24/2021 9:26 AM CDT Inhaled Oxygen Concentration - - Weight 62.5 kg (137 lb 12.6 oz) 11/03/2024 1:31 PM CDT Height 151 cm (4' 11.45) 11/03/2024 1:31 PM CDT Body Mass Index 27.41 11/03/2024 1:31 PM CDT Plan of Treatment Health Maintenance Due Date Last Done Comments Depression Monitoring (PHQ-9) 1985 Tobacco Cessation counseling 1985 IPV Vaccines (3 of 3 - 4-dos e series) 1989 12/22/1986, 1985 Hepatitis A Vaccines (1 of 2 - Risk 2-dose series) 01/23/2004 Pneumococcal vaccine (0-49 y ears) (1 of 2 - PCV) 01/23/2004 Hepatitis B Vaccines (2 of 3 - 19+ 3-dose series) 09/17/2016 08/20/2016 COVID-19 Vaccine ( - 2023-2 5 season) 2024 Depression Monitoring (PHQ-9 for quality tracking) 06/16/2024 Influenza Vaccine (#1) 2025 5, 04/14/2015, 04/03/2009, Additional history exists Lipid (Cholesterol) Screening 04/24/2026 04/24/2021 DTaP,Tdap,and Td Vaccines (1 0 - Td or Tdap) 12/03/2027 12/02/2017, 01/14/2017, 07/29/2011, Additional history exists Cervical/Vaginal Cancer Screening 02/16/2029 02/17/2024, 02/17/2024, 07/02/2019, Additional history exists HPV Vaccines Completed 07/29/2011, 06/18, 02/27/2007 HIV Screening Completed 11/04/2017 Hepatitis B Screening Discontinued 11/04/2017 Hepatitis C Screening Completed 04/24/2021 Procedures Procedure Name Priority Date/Time Associated Diagnosis Comments HPV WITH GENOTYPING, PCR, THINPREP Routine 02/17/2024 3:22 PM CDT HCV AB SCRN W/REFLEX TO HCV PCR, S Routine 04/24/2021 9:57 AM MENTAL HEALTH AIDES TEACHER Preventive Gynecological Exam LIPID PANEL, S Routine 04/24/2021 9:57 AM MENTAL HEALTH AIDES TEACHER Preventive Gynecological Exam HIV-1/-2 AG AND AB SCREEN Routine 11/04/2017 3:20 PM CDT Normal Not First HEPATITIS B SURFACE ANTIGEN Routine 11/04/2017 3:20 PM CDT Normal Not First from Last 3 Months or Most Recently Relevant to Health Maintenance Results * HPV with Genotyping, PCR, ThinPrep (02/17/2024 3:22 PM CDT) HPV with Genotyping, ThinPrep, PCR Negative Negative 02/18/2024 1:09 PM CDT [facility] Comment: Negative for high risk HPV by nucleic acid amplification. The following high risk HPV types were not detected: 16, 18, 31, 33, 35, 39, 45, 51, 52, 56, 58, 59, 66, and 68 This result does not rule out HPV in the patient, as the sensitivity of the test depends on the timing of the specimen collection and the quality of the specimen. Result should be correlated with patient's history, clinical presentation, and FRAMING MACHINE TENDER cytology report. 02/17/2024 3:22 PM CDT 02/18/2024 7:26 AM CDT us Jona Goel Jr., M.D. LAB MICROBIOLOGY - GEN ERAL ORDERABLES Final Result [facility] [address] [place] [address], [facility] [address] [address] * Lipid Panel (04/24/2021 9:57 AM MENTAL HEALTH AIDES TEACHER) Cholesterol, Total 154 mg/dL 2020 2:02 PM MENTAL HEALTH AIDES TEACHER OWAT Comment: ----REFERENCE VALUE---- Desirable: < 200 Borderline high: 200 - 239 High: > or = 240 Triglycerides 104 mg/dL 04/24/2021 2:02 PM MENTAL HEALTH AIDES TEACHER OWAT Comment: ----REFERENCE VALUE---- Normal: <150 Borderline high: 150-199 High: 200-499 Very high: > or =500 Cholesterol, HDL 50 >=50 mg/dL 04/24/20 2:02 PM MENTAL HEALTH AIDES TEACHER OWAT Calculated LDL 83 mg/dL 04/24/2021 2:02 PM MENTAL HEALTH AIDES TEACHER OWAT Comment: ----REFERENCE VALUE---- Desirable: <100 mg/dL Above Desirable: 100-129 mg/dL Borderline High: 130-159 mg/dL High: 160-189 mg/dL Very High: >=190 mg/dL Cholesterol, Non-HDL, Calculated 104 mg/dL 04/24/2021 2:02 PM MENTAL HEALTH AIDES TEACHER OWAT Comment: ----REFERENCE VALUE---- Desirable: <130 Above Desirable: 130-159 Borderline high: 160-189 High: 190-219 Very high: > or =220 Blood (Blood, Venous) 04/24/2021 9:57 AM MENTAL HEALTH AIDES TEACHER 04/24/2021 1:18 PM MENTAL HEALTH AIDES TEACHER Jona Goel Jr., M.D. LAB BLOOD ADD-ON Final Result [facility] [address] [place] [address], [facility]AT [facility] [place] [address] [place] [address] * HCV Ab Scrn w/Reflex to HCV PCR, Serum (04/24/2021 9:57 AM MENTAL HEALTH AIDES TEACHER) HCV Ab Screen, S Negative Negative 04/25/2021 8:19 AM MENTAL HEALTH AIDES TEACHER [facility] Comment:Mzwskk-[id number]-[id number] rat io is <1.00. Blood (Blood, Venous) 04/24/2021 9:57 AM MENTAL HEALTH AIDES TEACHER 04/25/2021 6:55 AM MENTAL HEALTH AIDES TEACHER us Jona Goel Jr., M.D. LAB MICROBIOLOGY - BLO OD ORDERABLES Final Result [facility] [address] [place] [address] [facility] Dept. of Laboratory Medicine and Pathology [address] [place] [address] * HIV-1/-2 Ag and Ab Screen (11/04/2017 3:20 PM CDT) HIV-1/-2 Ag and Ab Screen, S Non-Reacti ve Non-Reacti ve 11/05/2017 5:38 PM CDT [facility] HIV-1 Ab, S Non-Reacti ve Non-Reacti ve 11/05/2017 5:38 PM CDT [facility] HIV-1 Ag, S Non-Reacti ve Non-Reacti ve 11/05/2017 5:38 PM CDT [facility] HIV-2 Ab, S Non-Reacti ve Non-Reacti ve 11/05/2017 5:38 PM CDT [facility] Blood (Blood, Venous) 11/04/2017 3:20 PM CDT 11/05/2017 12:12 PM CDT us Jona Goel Jr., M.D. LAB MICROBIOLOGY - BLO OD ORDERABLES Final Result Performing Organization Address [facility] Co de Phone Number [facility] [address] [place] [address] * Hepatitis B Surface Antigen (11/04/2017 3:20 PM CDT) HBs Antigen, S Nonreactive Nonreactive 11/05/19 18 10:18 PM CDT [facility] Comment: Biotin has been identified by the detective captain as a potential interfering substance. Higher concentrations of biotin may be found in multivitamins, hair/nail supplements, and workout supplements. If the result does not match clinical observations, repeat testing after patient refrains from the use of supplements for at least 12 hours. Blood (Blood, Venous) 11/04/2017 3:20 PM CDT 11/04/2017 9:46 PM CDT us Jona Goel Jr., M.D. LAB MICROBIOLOGY - BLO OD ORDERABLES Final Result [facility] [address] [place] [address], [facility] from Last 3 Months or Most Recently Relevant to Health Maintenance Insurance [employer] Member Subscriber Plan / Payer (Ef fective 2019-Present) Name:Saul Fontana Relation to Subscriber:Self Name:Saul Fontana Payer ID:Not on file Group ID:Not on file Type:Indemnity x1 Address: [employer] [address] [place] [address] [place] [phone] Care Teams Cafeteria Manager Relationship Specialty Start Date End Date Preston Puga M.B.B.S., MYunior. [address] [place] [address] Ave [place] [phone] PCP - General Family Medicine 09/05/17
--- OUTSIDE RECORDS SUMMARY | 2024-12-31 19:26 | XMS_ITS | Encounter Summary ---
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
--- OUTSIDE RECORDS SUMMARY | 2024-12-31 19:26 | XMS_ITS | Encounter Summary ---
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
--- OUTSIDE RECORDS SUMMARY | 2024-12-31 19:26 | XMS_ITS | Encounter Summary ---
Author Organization [place] Address [address] [facility] [place] [address] Care Team Providers Care Storeroom Supervisor Name Role Phone Zara Thurston MD [facility] Primary Care [facility] er Reason for Visit * Reason Onset Date Comments Medication Refill Refill Request 02/23/2024 Encounter Details Date Type Department Care Team (Late st Contact Info) Description 02/23/[address] [phone] Stas Bautista MD [address] [id number] Medication Refill; Refill Request Social History Tobacco Use Types Packs/Day Years Used Date Smoking Tobacco: Every Day Smokeless Tobacco: Never Comments:Social Alcohol Use Standard Drinks/Week Comments Yes 0 (1 standard drink = 0.6 oz pur e alcohol) rarely Adolescent Education Answer Date Record ed Getting School Help Needed Not on file 12/16 Comments No Sex and Gender Information Value Date Recorded Sex Assigned at Not on file Legal Sex Female 4:37 AM TAR HEEL Gender Identity Not on file Sexual Orientation Not on file documented as of this encounter Miscellaneous Notes * Telephone Encounter - Veronica Ram RN - 02/27/2024 1:36 PM CDT Medication has been discontinued since ureteral stent was removed * Telephone Encounter - Saundra Burrows RN - 02/27/2024 1:06 PM CDT Images from the original note were not included. tamsulosin (FLOMAX) 0.4 MG capsule 30 capsule 1 12/18/2023 Last Office Visit : no visits with Urology, only procedures Future Office visit: none Alpha Blockers [id number]/23/2024 04:05 AM Protocol Details Blood pressure under 140/90 in past 12 months 12/29/2023 8:12 AM Vital Signs Systolic 149 ! Diastolic 92 (H) Pulse 105 Recent (12 mo) or future (90 days) visit within the authorizing provider's specialty oxyBUTYnin ER (DITROPAN XL) 5 MG 24 hr tablet 30 tablet 1 12/18/2023 Last Office Visit : no visits with Urology, only procedures Future Office visit: none Muscarinic Antagonists (Urinary Incontinence Agents) [id number]/23/2024 04:05 AM Protocol Details Recent (12 mo) or future (90 days) visit within the authorizing provider's specialty Medication indicated for associated diagnosis Bladder pain Disorder of the GI tract Hyperhidrosis Neurogenic bladder Neurogenic detrusor overactivity Overactive Bladder Urge incontinence Urgent desire to urinate documented in this encounter Plan of Treatment Not on file documented as of this encounter Visit Diagnoses Diagnosis Right ureteral stone Calculus of ureter documented in this encounter Care Teams Storeroom Supervisor Relationship Specialty Start Date End Date [facility], [address] [place] [address] PCP - General 08/23/16 Health, MD Zara DO NOT USE MD Pediatrics 08/16/13 documented as of this encounter
--- OUTSIDE RECORDS SUMMARY | 2024-12-31 19:26 | XMS_ITS | Encounter Summary ---
Author Organization [facility] Address [address] [place] [address] Care Team Providers Care Hand Cutter Name Role Phone Camden Herrera MD Primary Care Provider [phone] Encounter Details Date Type Department Care Team (Latest Contact Info) Description 02/10/2017 Flowsheet External to External, [place] [address] BLOOD SUGAR Social History Tobacco Use Types Packs/Day Years Used Date Smoking Tobacco: Some Days Cigarettes Smokeless Tobacco: Never Comments:Trying to stop. Alcohol Use Standard Drinks/Week Comments No 0 (1 standard drink = 0.6 oz pur e alcohol) rare Comments No Sex and Gender Information Value Date Recorded Sex Assigned at Not on file Legal Sex Female 7:09 AM CDT Gender Identity Not on file Sexual Orientation Not on file Occupation Industry Job Start Date Job End Date unemployed Not on file Not on file Not on file documented as of this encounter Plan of Treatment Not on file documented as of this encounter Visit Diagnoses Not on filedocumented in this encounter Additional Health Concerns Infection Onset Date Last Indicated Resolved Time R/O COVID19 08/16/2020 08/16/2020 08/17/2020 4:46 AM 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
--- OUTSIDE RECORDS SUMMARY | 2024-12-31 19:26 | XMS_ITS | Encounter Summary ---
Author Organization [facility] Address [address] [place] [address] Care Team Providers Care Geophysicist Name Role Phone Preston Puga M.D. Primary Care Jen glynn Reason for Visit * Reason Onset Date Comments Med Refill 12/06/2024 Encounter Details Date Type Department Care Team (Late st Contact Info) Description 12/06/2024 Refill Department of Obstetrics and Gynecology in [place] [address], [place] [address] [place] [phone] Carmela Velez M.D. 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 - 12/06/2024 2:34 PM CDT Refills provided, however the patient should establish primary care. Long-term management of both asthma and athlete's foot are outside the scope of gynecologic practice. documented in this encounter Plan of Treatment Not on file documented as of this encounter Visit Diagnoses Diagnosis Asthma Tobacco User (HCC) Tinea Pedis documented in this encounter Additional Health Concerns Assessment Noted Time PHQ-9 Depression Total Score: 5 09/25/19 22 9:30 AM CDT documented as of this encounter Care Teams Geophysicist Relationship Specialty Start Date End Date Preston Puga M.B.B.SHawa Owens. [address] [place] [phone] PCP - General Family Medicine 09/05/17 documented as of this encounter
--- OUTSIDE RECORDS SUMMARY | 2024-12-31 19:26 | XMS_ITS | Encounter Summary ---
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
--- OUTSIDE RECORDS SUMMARY | 2024-12-31 19:26 | XMS_ITS | Clinical Summary ---
Author Organization [facility] Address [address] [place] [address] Care Team Providers Care Senior Brand Manager Name Role Phone Preston Puga Primary Care Provider Allergies Active Allergy Reactions Criticality Noted Date Comments Escitalopram Oxalate Extrapyramidal Side Effect High 09/18/2021 Hydrocodone-Acetaminophen *Unknown 09/18/2021 Lactose *Unknown 09/18/2021 Cefoxitin Rash 03/31/2017 Sertraline Shortness Of Breath 04/16/2011 Medications dextroamphetami ne-amphetamine (ADDERALL) 20 mg tablet 0 Active albuterol HFA (PRO-AIR; VENTOLIN; PROVENTIL) 90 mcg/actuation inhalerIndicati ons:Chronic cough Inhale 2 Puffs by mouth every 4 hours if needed. 1 Each 1 1 Active ibuprofen (ADVIL; MOTRIN) 600 mg tabletIndicatio ns:De Quervain's tenosynovitis, right Take 1 Tablet (600 mg) by mouth every 6 hours if needed for Pain. Maximum of 3200 mg in 24 hours. 30 Tablet 2 Active nystatin powder (MYCOSTATIN) powderIndicatio ns:Athlete's foot on right Apply 1 Strip topically to affected area(s) four times daily. 60 g 3 Active nystatin (MYCOSTATIN) creamIndication s:Athlete's foot on right Apply topically to affected area(s) two times daily. 30 g 3 Active acetaminophen (TYLENOL EXTRA STRGTH) 500 mg tablet Take 500-1,000 mg by mouth every 6 hours if needed. 4 Active clonazePAM (KLONOPIN) 1 mg tablet 1 mg four times daily. Active guanFACINE (INTUNIV) 1 mg Extended-Releas e tablet Take 1 mg by mouth once daily. 4 Active hydrOXYzine HCL (ATARAX) 25 mg tablet Take 25 mg by mouth. 4 Active prazosin (MINIPRESS) 1 mg capsule TAKE 1 CAPSULE BY MOUTH AT BEDTIME FOR NIGHTMARES 3 Active medroxyPROGESTE John acetate, contraceptive, (DEPO-PROVERA) 150 mg/mL injection Inject 150 mg intramuscular. 3 12/17/19 Active Problems Problem Noted Date Diagnosed Date [...] Date Implanon in place 07/29/2011 03/31/2017 Immunizations Immunization Administration Dates Next Due Hepatitis B, Unspecified [...] = 0.6 oz pur e alcohol) rare Interpersonal Safety Answer Date Record ed Are you being hit, kicked, p ushed or yelled at (see row info)? No 05/23/2024 Interpersonal Safety Abuse 12 - 18 Not on file 05/23/2024 Interpersonal Safety Ambulatory Vulnerability No t on file 05/23/2024 Comments No Sex and Gender Information Value Date Recorded Sex Assigned at Not on file Legal Sex Female 5:23 AM BANBURY MIXER OPERATOR Gender Identity Not on file Sexual [...] to Pro ratna in Second Stage Delivery Location:[facility] Comments:GDM, arrest o f descent 2017 Term 37w 1d 2.64 kg (5 lb 13.1 oz) F Induce d Ric al N Roxy g 7 8 BG SRINATH DUMONT TY Delivery Location:[facility] ([facility]) Last Filed Vital Signs Vital Sign Reading Time Taken Comments Blood Pressure 109/70 05/23/2024 5:12 AM BANBURY MIXER OPERATOR Pulse 100 05/23/2024 5:22 AM BANBURY MIXER OPERATOR Temperature 36.7 C (98.1 F) 05/23/2024 4:38 AM BANBURY MIXER OPERATOR Respiratory Rate 16 05/23/2024 5:12 AM BANBURY MIXER OPERATOR Oxygen Saturation 94% 05/23/2024 5:22 AM BANBURY MIXER OPERATOR Inhaled Oxygen Concentration - - Weight 59.9 kg (132 lb) 05/23/2024 4:38 AM BANBURY MIXER OPERATOR Height 147.3 cm (4' 10) 05/23/2024 4:38 AM BANBURY MIXER OPERATOR Body Mass Index 27.59 05/23/2024 4:38 AM BANBURY MIXER OPERATOR Plan of Treatment Health Maintenance Due Date Last Done Comments Depression screening for age 12+ 1997 HIV for age 15-65 01/23/2000 Hepatitis C screening for ag e 18-79 2003 Pneumococcal series for age 6-49 (1 of 2 - PCV) 01/23/2004 Pap test for age 21-65 07/29/2014 07/29/2011, 2011 Hepatitis B series for 19+ ( 2 of 3 - 19+ 3-dose series) 09/17/2016 08/20/2016 BMI (ht and wt on same day) for age 18+ 03/20/2018 03/20/2017, 03/11/2017 COVID-19 vaccine series ( season) 2024 Influenza Vaccine (#1) 2025 5, 04/14/2015, 04/03/2009, Additional history exists Tetanus booster 12/03/2027 12/02/2017, 08/06/2016, 07/29/2011, Additional history exists Procedures Procedure Name Priority Date/Time Associated Diagnosis Comments METALLURGICAL LAB TECHNICIAN THIN PREP PAP SCREEN IMAGED Routine 07/29/2011 4:24 PM BANBURY MIXER OPERATOR Screening for cervical cancer from Last 3 Months or Most Recently Relevant to Health Maintenance Results * METALLURGICAL LAB TECHNICIAN THIN PREP PAP SCREEN IMAGED (07/29/2011 4:24 PM BANBURY MIXER OPERATOR) CYTOLOGY CYTOPATHOLOGY REPORT [facility] Status: Final Status [id number] CLINICAL INFORMATION Last Date of LMP :07/29/11 Last Pap Date :unknown Last Pap Result :NIL ABN [place]/Bx Past 5 YRS :None Hormone Usage :BCP/OCP/Patch/Rin g Menstrual Status :Regular Periods [place]/Bx done today :No Additional Information :None given HPV Request :HPV if ASCUS SPECIMEN SOURCE :Cervical/vaginal ThinPrep Vial, screening SPECIMEN ADEQUACY :Satisfactory for evaluation No endocervical component seen. INTERPRETATION/RES ULT Negative for intraepithelial lesion or malignancy (NIL) Cytology 1st Screener :laisha Signed by :laisha This specimen was screened by the FDA approved ThinPrep Imaging System and manually reviewed. NOTE: The Pap test is a screening technique, not a diagnostic procedure. It is used primarily to screen for squamous cancers and precursor lesions. Published studies have shown that it is subject to both false negative and false positive results. The pap test should not be used as the sole means to diagnose or exclude pre-malignant and malignant lesions. COLLECTED:07/29/11 ACCESSIONED: 07/30/11 SIGNED: 08/03/11 [facility] PAP [place] CODE NIL [facility] Tissue specimen (specimen) (Cervical/Vagina l) 07/29/2011 4:24 PM BANBURY MIXER OPERATOR 07/29/2011 4:18 PM BANBURY MIXER OPERATOR Allyn Arendt TAXATION INSPECTOR PATHOLOGY/CYTOLOGY Final Res ult [facility] [place]NAL ZIP [address] [address] from Last 3 Months or Most Recently Relevant to Health Maintenance Insurance MEDICAID MEDICAID [facility] Member Subscriber Plan / Payer (Ef fective 2021-Present) Name:Saul Dumont Relation to Subscriber:Self Name:Saul Dumont Payer ID:[id number] (NAIC) Type:Not on file Address: [place] [id number] [place] [id number] [facility] [employer] [facility] [address] [facility] [place] [id number] [facility] [id number] [place] [id number] Advance Directives * Full Code (Latest Code Status on File) Date Activated Date Inactivated Comments 03/08/2024 6:12 AM 03/08/2024 2:44 PM Question Answer Comments Code Status Discussion: Reviewed Preferences * Full Code Date Activated Date Inactivated Comments 09/26/2021 7:30 [...] Comments 04/01/2017 3:52 AM 04/03/2017 12:58 PM Care Teams Senior Brand Manager Relationship Specialty Start Date End Date Preston Puga MBBS [address] [place] [address] [place] [address] PCP - General Family Practice 12/02/17
--- OUTSIDE RECORDS SUMMARY | 2024-12-31 19:26 | XMS_ITS | Clinical Summary ---
Author Organization [facility] Address [address] [place] [address] Care Team Providers Care Materials Management Supervisor Name Role Phone Camden Herrera MD Primary Care Provider [phone] Source Comments You are receiving this document as you are listed as the primary care provider,follow-up provider, or the patient has been referred to you for consultation.This is in compliance with the Medicare andMedicaid EHR Incentive Program,which states Providers who transition their patient to another setting of careor provider of care or refers their patient to another provider of care shouldprovide summary care record for each transition of care or referral. [facility] Allergies Active Allergy Reactions Criticality Noted Date Comments Cefoxitin Rash 03/31/2017 Hydrocodone-Acetaminophen Unknown 02/28/2016 Sertraline Breathing Difficulty High 04/14/2015 Medications * This document contains information received from the source organization and may not represent a complete record from that organization. 27-1 MG Take 1 Tab by mouth daily. 90 Tab 3 10/23/19 17 Active Additional Information Patient not taking.Reported on 08/16/2020 lancets (SOFTCLIX)Indic ations:Gestatio nal diabetes mellitus (GDM) in third trimester, gestational diabetes method of control unspecified Use 1 Each to test as needed for Blood Sugar >. Use as directed. Pharmacy dispense brand based on insurance. 100 Each 11 01/16/20 17 Active Additional Information Patient not taking.Reported on 08/16/2020 blood glucose test stripIndication s:Gestational diabetes mellitus (GDM) in third trimester, gestational diabetes method of control unspecified Use to test 4 times a day. Use as directed. Pharmacy dispense brand based on insurance. 100 Strip 01/16/20 17 Active Additional Information Patient not taking.Reported on 08/16/2020 ONETOUCH VERIO W/DEVICE meterIndication s:Gestational diabetes mellitus (GDM) in third trimester, gestational diabetes method of control unspecified Use as directed. Pharmacy dispense brand based on insurance. 1 Each 01/16/20 17 Active Additional Information Patient not taking.Reported on 08/16/2020 docusate sodium (COLACE) 100 MG capsule Take 1 Cap by mouth two times daily as needed for Constipation. 100 Cap 1 02/11/20 17 Active Additional Information Patient not taking.Reported on 08/16/2020 ferrous gluconate (FERGON) 324 (38 FE) MG tabletIndicatio ns:Anemia in , third trimester Take 1 Tab by mouth two times a day with meals. 100 Tab 1 02/11/20 17 Active Additional Information Patient not taking.Reported on 08/16/2020 insulin pen needle 31G X 5 MMIndications:I nsulin controlled gestational diabetes mellitus (GDM) in third trimester Inject subcutaneously two times a day. 100 Each 11 02/11/20 17 Active Additional Information Patient not taking.Reported on 08/16/2020 insulin aspart (NOVOLOG) 100 UNIT/ML pen injectionIndica tions:Insulin controlled gestational diabetes mellitus (GDM) during , antepartum Inject 3 Units subcutaneously two times a day before meals. 5.4 mL 3 02/11/20 17 Active Additional Information Patient not taking.Reported on 08/16/2020 Insulin NPH, Human,, Isophane, (NOVOLIN NPH,HUMULIN NPH) 100 UNIT/ML injectionIndica tions:Insulin controlled gestational diabetes mellitus (GDM) during , antepartum Inject 4 Units subcutaneously daily at bedtime. 15 mL 02/11/20 17 Active insulin syringe 31 G X 5/16 inch 0.3 mLIndications:I nsulin controlled gestational diabetes mellitus (GDM) in third trimester Inject 4 units Sub Q at bedtime as directed. 100 Each 5 02/12/20 17 Active Additional Information Patient not taking.Reported on 08/16/2020 ALBUterol sulfate HFA 108 (90 Base) MCG/ACT inhaler INHALE 2 PUFFS BY MOUTH EVERY 4 HOURS NEEDED 07/21/19 21 Active amphetamine-dex troamphetamine (ADDERALL) 30 MG tablet Take 1 Tablet by mouth two times a day. 12/20/20 20 Active buPROPion (WELLBUTRIN XL) 300 MG 24 hour release tablet Take 300 mg by mouth daily. 07/27/19 21 Active fluticasone propionate (FLOVENT HFA) 220 mcg/actuation inhaler Inhale 1 Puff. 07/08/19 Active gabapentin (NEURONTIN) 300 MG capsule Take 300 mg by mouth two times a day. 07/27/19 Active LORazepam (ATIVAN) 1 MG tablet Take 1 mg by mouth daily. 06/20/19 21 Active levonorgestrel (MIRENA) 20 MCG/24HR IUD 1 Each by Intrauterine route once. Active guaiFENesin-cod eine (ROBITUSSINAC) 100-10 MG/5ML solution Take 10 mL by mouth every 4 hours as needed. 118 mL 08/17/19 Active predniSONE (DELTASONE) 10 MG tablet Take 4 tablets a day for 5 days 20 Tablet 09/20/19 21 Active fluticasone-elías meterol (ADVAIR HFA) 115-21 mcg/actuation inhaler Inhale 2 Puffs two times a day. Rinse mouth/gargle after use. 1 Each 11 09/20/19 Active fluticasone propionate (FLONASE) 50 MCG/ACT nasal solution Place 2 Sprays into both nostrils daily. 16 g 11 09/20/19 21 Active Active Problems Problem Noted Date Diagnosed Date Psychological disorder during 02/11/20 17 Obesity complicating 02/10/2017 Insulin controlled gestation al diabetes mellitus (GDM) in third trimester 02/10/2017 Hyperemesis affecting , antepartum 08/14 GBS (group B Streptococcus c arrier), +RV culture, currently 08/22/2016 Overview (08/22/2016): + UC at [facility]. Supervision of high-risk 08/20/2016 Marijuana use 08/20/2016 Overview (02/10/2017): Prior to diagnosis. Consult with Clarita Ayala, [facility] Has quit both thc and cigarettes. Repeat drug screen 01/14/2017 negative Obesity (BMI 30-39.9) 08/20/2016 Depression 08/20/2016 Nausea and vomiting in 08/20/2016 Generalized anxiety disorder 05/31/2014 Overview (02/29/2016): See panic diagnosis Panic disorder with agoraphobia 05/31/2014 Overview (08/20/2016): Not currently using Ativan. Screening for malignant neoplasm of cervix 01/28 Overview (08/20/2016): 2013 NILM Plan: Pap 01/2017 Epic Endometriosis 08/18/2013 Attention deficit hyperactivity disorder (ADHD) 12/22/2012 Overview (08/20/2016): No medications currently. Tobacco use disorder 09/02/2012 Resolved Problems Problem Noted Date Diagnosed Date Resolved Date Gestational diabetes mellitu s (GDM) in third trimester 01/15/2017 02/10/2017 Antepartum anemia in third trimester 01/15/2017 04/02/2017 Overview (01/15/2017): Recheck hemoglobin 4 to 6 weeks. Hbg10.0 Ferritin 4. Mary Mark RN 01/15/2017 04/15/2015 02/28/2016 Overview (04/15/2015): Patient's last menstrual period was 02/01/2015. Supervision of high-risk 02/02/2014 08/30/2015 Overview (02/02/2014): IVA: 09/16/13 [facility]: ? HPSP Support: Maciej Breast Pt states she thinks she had an endometrial ablation. Records requested. Group B streptococcus urinar y tract infection complicating 01/25/2014 06/02/2014 Rubella non-immune status, antepartum 01/21/2014 08/20/2016 Encounter for supervision of other normal 01/20/2014 02/02/2014 Overview (01/20/2014): IVA: 09/16/13 [facility]: ? HPSP / CNM Support: Maciej Breast Recent weight loss 01/20/2014 4 Overview (01/20/2014): Reports 30# wt loss in 3 mo Having n/v (thought was ) but had ? Obstruction Resolved after laprascopic appendectomy 2013 ROR signed for procedure done @ [facility] Abdominal pain 08/18/2013 08/20/2016 Contraceptive management 09/02/201212/2016 Screening for cardiovascular condition 09/02/2012 08/20/2016 Depressed 06/02/2014 Overview (01/20/2014): Wellbutrin Category C B - H referral to review meds Immunizations Immunization Administration Dates Next Due 4vHPV (Gardasil) 07/29/2011,07/15/2008, 7 H1n1 Miv Sanofi 3+ Yr (Injected) 05/01/2009 Hepatitis B - Surface Antibo dy Positive 08/20/2016 Influenza IIV4 (Quadrivalent ) 0.5mL (31936) 04/14/2015 Influenza, Unspecified Formulation 04/03/2009, MMR 09/27/1997 [...] file Not on file Not on file Last Filed Vital Signs Vital Sign Reading Time Taken Comments Blood Pressure 132/97 09/19/2020 10:24 AM CDT Pulse 85 09/19/2020 10:24 AM CDT Temperature 37.1 C (98.7 F) 08/16/2020 6:24 PM TOLL RELIEF OPERATOR Respiratory Rate 16 08/16/2020 6:24 PM TOLL RELIEF OPERATOR Oxygen Saturation 96% 09/19/2020 10:24 AM CDT Inhaled Oxygen Concentration - - Weight 72.6 kg (160 lb) 09/19/2020 10:24 AM CDT Height 147.3 cm (4' 10) 09/19/2020 10:24 AM CDT Body Mass Index 33.44 09/19/2020 10:24 AM CDT Plan of Treatment Health Maintenance Due Date Last Done Comments Hep C Screening (Preventive Services) 1985 Adult Preventive Visit 2003 Pneumococcal Vaccine (1 of 2 - PCV) 01/23/2004 Cervical Cancer Screening Due 01/21/2014 01/20/2014, 12/28/2013, 12/28/2013 COVID-19 Vaccine ( season) 2024 Influenza Vaccine (#1) 2025 5, 04/03/2009, 05/14/2006 DTaP/Tdap/Td Vaccine (7 - Tdap) 12/03/2027 12/02/2017, 01/14/2017, 07/29/2011, Additional history exists Zoster/Shingles Vaccine (1 of 2) 2035 HPV Vaccine Completed 07/29/2011, 06/18, 02/27/2007 HIV Screening (Preventive Services) Completed 08/20/2016, 01/20/2014 HepA Vaccine Aged Out No longer eligi ble based on patient's age to complete this topic Hib Vaccine Aged Out No longer eligi ble based on patient's age to complete this topic IPV (Polio) Vaccine Aged Out No longe r eligible based on patient's age to complete this topic MCV4 Vaccine Aged Out No longer eligi ble based on patient's age to complete this topic Meningococcal B Vaccine Aged Out No l onger eligible based on patient's age to complete this topic Procedures Procedure Name Priority Date/Time Associated Diagnosis Comments HIV 1/2 AG/AB 4TH GEN Routine 08/20/2016 10:02 AM TOLL RELIEF OPERATOR Supervision of high-risk , first trimester PAP TEST, ROUTINE Routine 01/20/2014 11: 08 AM CDT Supervision of other normal , first trimester [V22.1] from Last 3 Months or Most Recently Relevant to Health Maintenance Results * HIV 1/2 Ag/Ab 4th Generation (08/20/2016 10:02 AM TOLL RELIEF OPERATOR) HIV 1/2 AG/AB 4thGEN Negative (Non Reactive) [facility] Comment:HIV-1 p24 Ag and HIV -1/HIV-2 Ab not detected. 08/20/2016 10:0 2 AM TOLL RELIEF OPERATOR 08/20/2016 10:12 AM TOLL RELIEF OPERATOR Narrative [facility] - 08/20/2016 7:10 PM TOLL RELIEF OPERATOR Performed at [facility], [address] [place] [address] Prachi Arthur APRN, CNM LAB_1 Final Res ult [facility] [phone] * PAP TEST, ROUTINE (01/20/2014 11:08 AM CDT) Cytology, Pap (NOTE) County Extension Agent Cytology Report Patient Name: ALPESH DUMONT Taken: 01/20/2014 Received: 01/21/2014 Reported: 01/27/2014 Physician(s): ADDI RAHMAN CNM Source of Specimen Pap Test, Routine Cervical/Endoce rvical: Specimen Adequacy Final Cytologic Interpretation/ Result Comment This pap was received in the lab and subsequently cancelled per Addi Rahman on 01/20/2014 at 17:50. Electronical ly Signed Out By CYNDEE Anderson (ASCP) CYNDEE Anderson (ASCP) Pap Smear History Date of Last Menstrual Period: Microscopic Description Microscopic examination is performed. [facility] Department of Pathology [address] [place] [id number] [facility] 01/20/2014 11:0 8 AM CDT 01/21/2014 10:51 AM CDT us Addi Rahman RN, IBLCLC LAB_1 Final Result [facility] [phone] from Last 3 Months or Most Recently Relevant to Health Maintenance Insurance [facility] [place] [address] Care Teams Materials Management Supervisor Relationship Specialty Start Date End Date Camden Herrera MD [address] [place] [address] PCP - General Internal Medicine 02/13/16
--- OUTSIDE RECORDS SUMMARY | 2024-12-31 19:26 | XMS_ITS | Encounter Summary ---
Author Organization [facility] Address [address] [place] [address] Care Team Providers Care River Expedition Guide Name Role Phone Camden Herrera MD Primary Care Provider [phone] Encounter Details Date Type Department Care Team (Late st Contact Info) Description 10/15/2013 Emergency Room External to External, [place] [address] ABDOMINAL PAIN Social History Tobacco Use Types [...] R/O COVID19 08/16/2020 08/16/2020 08/17/2020 4:46 AM FORMULATOR documented as of this encounter Care Teams River Expedition Guide Relationship Specialty Start Date End Date Camden Herrera MD [address] [place] [address] PCP - General Internal Medicine 02/13/16 documented as of this encounter
--- OUTSIDE RECORDS SUMMARY | 2024-12-31 19:26 | XMS_ITS | Encounter Summary ---
Author Organization [facility] Address [address] [place] [address] Care Team Providers Care Snout Puller Name Role Phone Preston Puga M.D. Primary Care Jen glynn Reason for Visit * Reason Comments Med Refill Encounter Details Date Type Department Care Team (Late st Contact Info) Description 11/29/2024 Refill Department of Obstetrics and Gynecology in [place], [place] [address] [phone] Tracy Womack M.D. [address] [phone] Med Refill Social History Tobacco [...] on file Legal Sex Female 9:55 PM CORRECTIONAL COUNSELOR/CASE MANAGER Gender Identity Not on file Sexual Orientation Not on file documented as of this encounter Plan of Treatment Not on file documented as of this encounter Visit Diagnoses Diagnosis Pain Pelvic Female documented in this encounter Additional Health Concerns Assessment Noted Time PHQ-9 Depression Total Score: 5 09/25/19 22 9:30 AM CDT documented as of this encounter Care Teams Snout Puller Relationship Specialty Start Date End Date Preston Puga M.B.BGracielaSGraciela, MYunior. [address] [place] [phone] PCP - General Family Medicine 09/05/17 documented as of this encounter
--- OUTSIDE RECORDS SUMMARY | 2024-12-31 19:26 | XMS_ITS | Encounter Summary ---
Author Organization [facility] Address [address] [place] [address] Care Team Providers Care Office Automation Clerk Name Role Phone Camden Herrera MD Primary Care Provider [phone] Encounter Details Date Type Department Care Team (Late st Contact Info) Description 08/30/2016 Correspondence [facility] Obstetrics and Gynecology [address] [place], [place] [id number] Anatoliy Logan MD [facility] STATEMENT OF MEDICAL [...] R/O COVID19 08/16/2020 08/16/2020 08/17/2020 4:46 AM CLINIC NURSE documented as of this encounter Care Teams Office Automation Clerk Relationship Specialty Start Date End Date Camden Herrera MD [address] [place] [address] PCP - General Internal Medicine 02/13/16 documented as of this encounter
--- OUTSIDE RECORDS SUMMARY | 2024-12-31 19:26 | XMS_ITS | Clinical Summary ---
Author Organization [facility] Address [address] [facility] [place] [address] Care Team Providers Care Erection Shop Supervisor Name Role Phone Karena, Zara [facility] er Allergies Active Allergy Reactions Criticality Noted Date Comments Cefoxitin Rash Low 03/31/2017 Escitalopram Other (See Comments) High 09/20/2009 Other reaction(s): Extrapyramidal Symptoms Lactose Other (See Comments) 09/20/2009 No reaction listed in [facility] Sertraline Difficulty breathing,Other (See Comments),Shortness Of Breath High 09/22/2010 No reaction listed in [facility] Hydrocodone-Acetamino phen 12/19/2015 Medications amphetamine-dex troamphetamine (ADDERALL) 20 MG tablet Take 1 tablet by mouth 3 times daily 4 Active clonazePAM (KLONOPIN) 2 MG tablet TAKE 1/2 TABLET BY MOUTH THREE TIMES DAILY NEEDED FOR ANXIETY 4 Active oxyBUTYnin ER (DITROPAN XL) 5 MG 24 hr tabletIndicatio ns:Right ureteral stone Take 1 tablet (5 mg) by mouth daily Take daily until your stent is removed. 30 tablet 1 4 Active tamsulosin (FLOMAX) 0.4 MG capsuleIndicati ons:Right ureteral stone Take 1 capsule (0.4 mg) by mouth daily Take daily until your stent is removed. 30 capsule 1 4 Active VENTOLIN HFA 108 (90 Base) MCG/ACT inhaler Inhale 2 puffs into the lungs every 4 hours as needed for shortness of breath or wheezing Active lamoTRIgine (LAMICTAL) 150 MG tablet Take 1 tablet by mouth daily 4 Active NYSTOP 556431 UNIT/GM powder Apply topically 4 times daily Active acetaminophen (TYLENOL) 500 MG tabletIndicatio ns:Pain due to ureteral stent, initial encounter Take 1-2 tablets (500-1,000 mg) by mouth every 6 hours as needed for pain (and adjunct with moderate or severe pain or per patient request) 4 Active hydrOXYzine HCl (ATARAX) 25 MG tabletIndicatio ns:Pain due to ureteral stent, initial encounter Take 1 tablet (25 mg) by mouth every 6 hours as needed for other or anxiety (adjuvant pain) 30 tablet 4 Active oxyCODONE (ROXICODONE) 10 MG tabletIndicatio ns:Pain due to ureteral stent, initial encounter Take 0.5 tablets (5 mg) by mouth every 6 hours as needed for moderate to severe pain (IF pain not managed with non-pharmacolo gical and non-opioid interventions) 24 tablet 4 Active Active Problems Problem Noted Date Diagnosed Date Pyelonephritis 12/27/2023 Anxiety 12/22/2012 ADHD (attention deficit hyperactivity disorder) 12/22/2012 Smoker 09/02/2012 CARDIOVASCULAR SCREENING; LDL GOAL LESS THAN 160 09/02/2012 Endometriosis 09/02/2012 Contraception 09/02/2012 Immunizations Immunization Administration Dates Next Due Flu 65+ (Fluad) 04/03/2009,05/14/2006 Flu, Unspecified 04/14/2015,04/03/2009, 6 [id number] Novel Flu 05/01/2009 HPV Quadrivalent 07/29/2011,07/15/2008, 7 HepB, Unspecified 08/20/2016 Hepatitis B Immunity: Titer 08/20/2016 Historical DTP/aP 12/22/1986,1985,05/27/19 85 Influenza (H1N1) 05/01/2009 Influenza (IIV3) PF 04/03/2009,05/14/2006 Influenza Vaccine >6 months,quad, PF 04/14/2015 MMR (MMRII) 02/07/2018,09/27/1997,11/24/1986 Polio, Unspecified 12/22/1986,1985 Rubella 08/20/2016 Rubella [...] on file 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 Gender Identity Not on file Sexual Orientation Not on file Last Filed Vital Signs Vital Sign Reading Time Taken Comments Blood Pressure 149/92 12/29/2023 8:12 AM CDT Pulse 105 12/29/2023 8:12 AM CDT Temperature 36.9 C (98.5 F) 12/29/2023 8:12 AM CDT Respiratory Rate 16 12/29/2023 8:12 AM CDT [...] OF HM ORDERS 1985 YEARLY PREVENTIVE VISIT 01/23/1988 PNEUMOCOCCAL VACCINE: PEDIATRICS (0 to 5 YEARS) AND AT-RISK PATIENTS (6 to 49 YEARS) (1 of 2 - PCV) 01/23/2004 HEPATITIS B VACCINE (2 of 3 - 19+ 3-dose series) 09/17/2016 08/20/2016, 08/20/2016 PAP 07/02/2022 07/02/2019, 0 12/2013, 01/20/2013 COVID-19 VACCINE ( season) 2024 PHQ-2 (once per calendar year) 2024 INFLUENZA VACCINE (#1) 2025 5, 04/14/2015, 05/01/2009, Additional history exists DIABETES SCREENING 12/27/2026 12/28/2023, 0 12/27/2023, 12/18/2023, Additional history exists DTAP/TDAP/TD VACCINE (10 - Td or Tdap) 12/03/2027 12/02/2017, 01/14/2017, 07/29/2011, Additional history exists ZOSTER VACCINE (1 of 2) 2035 HPV VACCINE Completed 07/29/2011, 06/18, 02/27/2007 HIV SCREENING Completed 11/04/2017, 12/2016, 01/20/2013 HEPATITIS C SCREENING Completed 04/24/2021 MENINGITIS VACCINE Aged Out No longer eligible based on patient's age to complete this topic Medical Devices Implanted Type Area Sheet Metal Erector Device Identifier Shelf Expiration Date Model / Serial / Lot Stent Ureteral Polaris Ultra [id number] - [id number] Implanted:Qty : 1 on 12/18/2023 by Stas Bautista MD at [facility] Stent Right: Urethra [employer] [id number] 08/31/2026 [id number] / / [id number] Stent Ureteral Polaris Ultra [id number] - [id number] Implanted:Qty : 1 on 12/28/2023 by Leighton Bonilla MD at [facility] Stent Right: Abdomen [employer] 07/17/2026 [id number] / [id number] Procedures Procedure Name Priority Date/Time Associated Diagnosis Comments COMPREHENSIVE METABOLIC PANEL Routine 12/28/2023 8:37 AM CDT HIV 1 AND 2 ANTIBODY (QUEST) Routine 01/20/2013 2:37 PM CDT Screen for STD (sexually transmitted disease) PAP IMAGED THIN LAYER SCREEN Routine 01/20/2013 12:00 AM CDT Screening for malignant neoplasm of the cervix from Last 3 Months or Most Recently Relevant to Health Maintenance Results * (ABNORMAL) Comprehensive metabolic panel (12/28/2023 8:37 AM CDT) Sodium 139 135 - 145 mmol/L 12/28/2023 9:20 AM CDT [facility] Potassium 4.1 3.4 - 5.3 mmol/L 12/28/2023 9:20 AM CDT [facility] Carbon Dioxide (CO2) 21(L) 22 - [...] 8:37 AM CDT 12/28/2023 8:52 AM CDT us Nash Alfonso DO LAB - BLOOD ORDERABLES Fin al Result LABORATORY [facility] [address] [facility] (1st floor, no room number) [place] [address] * HIV 1 and 2 Antibody (01/20/2013 2:37 PM CDT) HIV 1&2 Antibody Negative [facility] Blood specimen (specimen) 01/20/2013 2:37 PM CDT 01/20/2013 2:38 PM CDT us Renetta Corley MD LAB - BLOOD ORDERABLES Final Result [facility] [address] * PAP imaged thin layer screen (01/20/2013 12:00 AM CDT) PAP TRACY [facility] Report Patient Name: ALPESH DUMONT MR#: [id number] Specimen #: [id number] Collected: 01/20/2013 Received: 01/21/2013 Reported: 2013 13:10 Ordering Phy(s): RENETTA CORLEY SPECIMEN/STAIN PROCESS: Pap imaged thin layer prep screening (Surepath, FocalPoint with guided screening) Pap-Cyto x 1, Reflex HPV x 1 SOURCE: Cervical, endocervical Pap imaged thin layer prep screening (Surepath, FocalPoint with guided screening) SPECIMEN ADEQUACY: Satisfactory for evaluation. -Transformation zone component present. CYTOLOGIC INTERPRETATION: Negative for Intraepithelial Lesion or Malignancy Electronically signed out by: EDWIN Plasencia (ASCP) Processed and screened at [facility] CLINICAL HISTORY: Other: Implant, Papanicolaou Test Limitations: Cervical cytology is a screening test with limited sensitivity; regular screening is critical for cancer prevention; Pap tests are primarily effective for the diagnosis/preventi on of squamous cell carcinoma, not adenocarcinomas or other cancers. TESTING LAB LOCATION: [address] [address] COLLECTION SITE: Client: [facility] Location[facility] Cytologic material (specimen) 01/20/2013 01/21/2013 11:23 AM CDT Renetta Corley MD LAB - OPTIME CLINICAL SPECIMEN Final Result Performing Organization Address City/State/[facility] Co de Phone Number COP[facility] from Last 3 Months or Most Recently Relevant to Health Maintenance Insurance [facility] [address] [place] [id number] [facility] Advance Directives For more information, please contact: [phone] * Full Code (Latest Code Status on File) Date Activated Date Inactivated Comments 12/27/2023 9:50 PM 12/29/2023 2:49 PM All basic an d advanced life-sustaining interventions are performed as appropriate Question Answer Comments Code status determined by: Discussion with patie nt/ legal decision maker Care Teams Erection Shop Supervisor Relationship Specialty Start Date End Date [facility], [address], [address] [place] [address] PCP - General 08/23/16 Health, [facility] DO NOT USE MD Pediatrics 08/16/13
[2024-12-31 19:41] VITALS: BP 112/79; PULSE 105; RESP 18; TEMP 36.4; O2SAT 98; BMI 28.2
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
== END 2024-12-31 21:37 | disposition home or self-care (01) ==
LOC: ED 21:29
PROVIDERS: Emergency Provider Emergency Medicine Emergency Medical Services
DX: S40.022A Contusion of left upper arm, initial encounter (principal); S40.021A Contusion of right upper arm, initial encounter; S00.12XA Contusion of left eyelid and periocular area, initial encounter; Y04.2XXA Assault by strike against or bumped into by another person, initial encounter
CPT/HCPCS: 99283; 99284